=== PATIENT | male | born 1940 | race Caucasian/White ===

== ENCOUNTER 2021-02-18 14:14 | Inpatient (IN) ==
[2021-02-18] MEDS ORDERED: IOPAMIDOL 100 ML BOTTLE IV ONE (14:15)
[2021-02-18] MEDS ORDERED: HYDROmorphone 0.5 MG/0.5 ML SYRINGE IV PRN (15:26)
[2021-02-18] MEDS ORDERED: 0.9 % SODIUM CHLORIDE 1,000 ML IV ONE ×2 (15:26→17:30)
[2021-02-18 15:54] LABS: POC Creatinine 1.5 mg/dL (0.6-1.2)
--- NOTE | 2021-02-18 17:00 | Cat Scan Report ---
CLINICAL INFORMATION: Abdominal pain and distention COMPARISON: None TECHNIQUE: Following enteric contrast, 80 cc of Isovue-[id number] were injected intravenously, and 60 seconds later, 0.625 mm helical slices were obtained from the mid heart through the subtrochanteric regions. Following reconstruction, 2.5 mm sagittal, coronal and axial reformatted images were processed and reviewed at bone, lung and soft tissue windows. Five minutes later, 0.625 mm helical slices were obtained from the mid heart through the kidneys and viewed at soft tissue windows.The exam was performed using radiation dose optimization techniques including, but not limited to, automated exposure control, adjustment of the mA and/or kV according to patient size and use of iterative reconstruction technique. FINDINGS: Lung bases show multiple small bullae distributed throughout the inferior lower lobes, lingula and right middle lobes suggesting centrilobular emphysema. Please correlate clinical history. No infiltrates or effusions. Small hiatal hernia noted. The heart is mildly enlarged. Abdominal images show minimal fatty change within the liver. A 13 mm simple cyst is seen in the medial segment of the left hepatic lobe. The gallbladder and bile ducts are normal: CBD is 5 mm. Few simple cysts noted in both kidneys, but no significant renal abnormality. The right adrenal gland, spleen, pancreas are normal in size configuration and attenuation without focal lesion. A 9 mm adenoma seen in the left adrenal gland. Aorta is normal diameter with scattered fibrofatty calcific plaque. Retroaortic left renal vein noted. Pelvic images show the prostate is mildly enlarged. The urinary bladder is normal. The seminal vesicles are unremarkable. The stomach, duodenum and and jejunum are moderately dilated to the right mid abdomen. Strictures or adhesions result in high-grade small bowel obstruction. The ileum and colon are decompressed. Small amount of free fluid suggest early third spacing. There is no free air suggests perforation. 8 cm right inguinal hernia contains only mesenteric fat and small fluid. Bone windows show no osseous abnormalities IMPRESSION: 1. High-grade partial small bowel obstruction of the distal jejunum in the right mid abdomen due to adhesions or stricture. Small amount of fluid in the mesenteric cavity suggest early third spacing. 2. Moderate right inguinal hernia containing mesenteric fat and edema no bowel. 3. Suspect centrilobular emphysema - there are multiple bullae uniformly distributed in the inferior lower lobes lingula and right middle lobe 4. 9 mm benign adenoma left adrenal gland 5. Multiple hiatal hernia. Interpreted and Authenticated by: Walter Moreno 02/18/21
[2021-02-18 17:06] LABS: Hematocrit 48.4 % (41.0-55.0); Hemoglobin 15.7 g/dL (13.5-16.5); Mean Cell Volume 91.8 fL (80.0-100.0); Mean Corpuscular HGB Conc 32.4 g/dL (31.0-36.0); Mean Platelet Volume 9.6 fL (7.4-10.4); Platelet Count 274 K/mcL (140-440); RBC 5.27 M/mcL (4.50-5.90); Red Cell Distribution Width 13.3 % (11.5-14.5); WBC 13.2 K/mcL (4.5-11.0)
[2021-02-18 17:21] LABS: ALT/SGPT 10 U/L (<40); AST/SGOT 13 U/L (<40); Albumin 4.5 gm/dL (3.2-5.2); Albumin/Globulin Ratio 1.7 (1.0-2.3); Alkaline Phosphatase 57 U/L (39-117); Bilirubin,Total 0.7 mg/dL (0.1-1.0); Blood Urea Nitrogen 13 mg/dL (8-23); Calcium 10.1 mg/dL (8.6-10.4); Carbon Dioxide 28 mmol/L (22-30); Chloride 99 mmol/L (96-108); Globulin 2.6 gm/dL (2.2-3.7); Glomerular Filtration Rate 57; Glucose 93 mg/dL (70-105)
--- NOTE | 2021-02-18 17:29 | Emergency Department Note ---
Abdominal Pain HPI General Chief Complaint: Abdominal Pain Stated Complaint: abdominal pain Time Seen by Provider: 02/18/21 15:23 Source: patient Mode of arrival: ambulatory Limitations: no limitations History of Present Illness HPI Narrative: This is a 80-year-old male patient who presents with acute abdominal pain and several episodes of nausea and vomiting that started yesterday. He denies hematemesis. He is not passing flatus and it is been since yesterday morning since he had a bowel movement. He feels very full in his abdomen. Previous abdominal surgeries include an open appendectomy in the remote past. He does not endorse a history of a right inguinal hernia. This is typically reducible. He wears a brace to support the area. He states he reduced it yesterday and it has remained reduced. He denies increasing pain or swelling with this area. He denies fever/chills/sweats. Up until yesterday morning bowel movements have been daily and well formed. Related Data Previous Rx's Medication Instructions Recorded lisinopril 10 1 tab PO QDAY #90 tab 01/08/21 mg-hydrochlorothiazide 12.5 mg tablet Allergies Allergy/AdvReac Type Severity Reaction Status Date / Time Penicillins Allergy Unknown "can not Verified 02/18/21 14:17 recall reaction, think it was pretty bad" Sulfa (Sulfonamide Allergy Unknown Unknown Verified 02/18/21 14:17 Antibiotics) Review of Systems ROS ROS Narrative: Narrative: All systems ED: reviewed and negative except as stated. 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) Hernia (Chronic ~1998) Stroke (Chronic ~2011) High blood pressure (Chronic) Medical History (Updated 02/18/21 @ 17:47 by Niki Chen PA-C) 23-polyvalent pneumococcal polysaccharide vaccine declined Hernia (~1998) High blood pressure Influenza vaccine refused Medicare annual wellness visit, initial 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 Stroke (~2011) Unilateral inguinal hernia without obstruction or gangrene Surgical History History of appendectomy (~1962) "about when I was [age] years old" Family History Other No pertinent family history Social History Smoking Status: Former smoker Alcohol Intake Frequency: does not drink Substance Use: does not use Exam Narrative Narrative: General: AOx3, NAD, nontoxic appearing. Pleasant and conversant. HEENT: PERRLA, EOMI, normocephalic. Dry mucous membranes. Normal facies and normal dentition. Respiratory: Lungs clear to auscultation bilaterally. No respiratory distress. Unlabored breathing. Heart: Regular rate and rhythm, no murmurs/clicks/rubs. Abdomen: Distended with mild pain to palpation over the mid abdomen. Absent bowel tones. No organomegaly. Extremities: Warm and well perfused. No edema. DP 2+ bilaterally. No venous stasis. Neuro: No focal deficits. Cranial nerves II-XII normal. Skin: Warm dry, no rashes or lesions, no cyanosis. Psych: Normal mood and affect Heme/Lymph: No bruising General Limitations: no limitations Course Course Course Narrative: 72-year-old male presents with acute abdominal pain and nausea and vomiting Reevaluation(s) Reevaluation #1: Basic labs, IV fluids, analgesics and antiemetics UA CT of the abdomen pelvis with contrast to query SBO Reevaluation #2: CMP shows a mild MARCE with creatinine 1.5. CBC with leukocytosis and white blood cell count of 13,200. CT scan shows a high-grade partial small bowel obstruction noted at the distal jejunum. Dr. Rodriguez has been contacted and has agreed to see the patient for consult. He is asked me to place an NG tube and continue IV fluids. Hospitalist will manage the patient and I spoken with Dr. Gonzalez who has accepted patient for admission. Vital Signs Vital signs: Vital Signs Temperature 98.5 F 02/18/21 14:14 Pulse Rate 106 H 02/18/21 14:14 Respiratory Rate 18 02/18/21 14:14 Blood Pressure 99/62 02/18/21 14:14 Pulse Oximetry (%) 95 02/18/21 14:14 Temperature 98.5 F 02/18/21 14:14 Pulse Rate 69 02/18/21 17:30 Respiratory Rate 18 02/18/21 14:14 Blood Pressure 125/80 02/18/21 17:30 Pulse Oximetry (%) 96 02/18/21 17:30 MDM MDM Narrative Medical decision making narrative: Small bowel obstruction History of right inguinal hernia, no incarceration noted on CT scan today MARCE Patient is been signed out to Dr. Gonzalez, hospitalist for admission. Dr. Rodriguez has been informed to the patient and will see him in consultation. In the meantime he is receiving a second liter of IV fluids and an NG tube is been placed per general surgery request. Lab Data Result diagrams: 02/18/21 15:43 02/18/21 15:43 Labs: Lab Results 02/18/21 02/18/21 02/18/21 Range/Units 15:43 15:43 15:43 WBC 13.2 H (4.5-11.0) K/mcL RBC 5.27 (4.50-5.90) M/mcL Hgb 15.7 (13.5-16.5) g/dL Hct 48.4 (41.0-55.0) % MCV 91.8 (80.0-100.0) fL MCH 29.8 (26.0-34.0) pg MCHC 32.4 (31.0-36.0) g/dL RDW 13.3 (11.5-14.5) % Plt Count 274 (140-440) K/mcL MPV 9.6 (7.4-10.4) fL VBG Lactic Acid 0.9 (0.5-2.0) mmol/L Sodium 139 (133-145) mmol/L Potassium 4.1 (3.3-5.1) mmol/L Chloride 99 (96-108) mmol/L Carbon Dioxide 28 (22-30) mmol/L Anion Gap 12.0 (8.0-16.0) BUN 13 (8-23) mg/dL Creatinine 1.2 (0.7-1.2) mg/dL POC Creatinine 1.5 H (0.6-1.2) mg/dL GFR Calculation 57 Glucose 93 (70-105) mg/dL Calcium 10.1 (8.6-10.4) mg/dL Total Bilirubin 0.7 (0.1-1.0) mg/dL AST 13 (<40) U/L ALT 10 (<40) U/L Alkaline Phosphatase 57 (39-117) U/L Total Protein 7.1 (5.9-8.4) gm/dL Albumin 4.5 (3.2-5.2) gm/dL Globulin 2.6 (2.2-3.7) gm/dL Albumin/Globulin Ratio 1.7 (1.0-2.3) Discharge Plan Patient/Caregiver Discharge Instructions Pt seen by DIRECT SERVICE PROVIDER/PA only: Yes Clinical Impression: SBO (small bowel obstruction), MARCE (acute kidney injury) Patient Disposition: Xfer As Inpt ([facility]) Follow up with: Moy Luz PA-C [Primary Care Provider] - Prescriptions: No Action lisinopril-hydrochlorothiazide 10-12.5 mg tablet 1 tab PO QDAY Qty: 90 RF: 3
[2021-02-18 17:53] LABS: Eosinophils % (Manual) 2 % (0-7); Lymphocytes % 6 % (15-49); Monocytes % (Manual) 7 % (1-12); Platelet Estimate NORMAL (Normal); RBC Morphology NORMAL (Normal); Segmented Neutrophils % 85 % (38-78)
--- NOTE | 2021-02-18 17:54 | Internal Med History&Physical ---
HPI History of Present Illness Patient information: Note initiated : 02/18/21 at 5:49 pm Service Date, if different from initiated Date: [] Patient: Tommy Márquez 80 y/o M admitted on for abdominal pain. Chief Complaint: [] History of present illness: Mr. Márquez is a 80 year old male with a history of hypertension who presented to the emergency department for nausea, vomiting, abdominal pain presented to the [facility] emergency department where he was found to have a high-grade partial small bowel obstruction in the distal jejunum the right midabdomen due to adhesions or stricture. Patient was admitted for management. An NG tube was placed and the patient was started on IV fluids. Review of systems Constitutional: no fever, fatigue, or weight loss Eyes: no vision changes or pain Cardiovascular: no chest pain, no palpitations Respiratory: no cough or dyspnea Gastrointestinal: no abdominal pain, no nausea, vomiting, or diarrhea Genitourinary: no dysuria or difficulty voiding Musculoskeletal: no arthralgia or myalgia Integumentary: no skin lesion or wound Neurological: no focal weakness or numbness Psychiatric: no anxiety or depression Physical exam Head: Atraumatic, normal inspection. Eyes: normal appearance, no scleral icterus. Neck: full ROM Respiratory: no respiratory distress. Cardiovascular: normal rate and rhythm, S1, S2. GI/Abdominal: soft, nontender, no guarding. Extremities: full range of motion, nontender. Neurological: CN II-XII intact, intact motor, intact sensation. Psychiatric: normal mood. 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) Hernia (Chronic ~1998) Stroke (Chronic ~2011) High blood pressure (Chronic) Medical History (Updated 02/18/21 @ 20:24 by Anita Rodriguez MD) 23-polyvalent pneumococcal polysaccharide vaccine declined Hernia (~1998) High blood pressure Influenza vaccine refused Medicare annual wellness visit, initial 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 Stroke (~2011) Unilateral inguinal hernia without obstruction or gangrene Surgical History History of appendectomy (~1962) "about when I was [age] years old" Family History Other No pertinent family history Social History marital status: alcohol intake frequency: does not drink substance use type: does not use MEDS/ALLERGIES Home Medications and Allergies Home Medications Medication Instructions Recorded Confirmed Type lisinopril 10 1 tab PO QDAY #90 tab 01/08/21 02/18/21 Rx mg-hydrochlorothiazide 12.5 mg tablet Allergies Allergy/AdvReac Type Severity Reaction Status Date / Time Penicillins Allergy Unknown "can not Verified 02/18/21 14:17 recall reaction, think it was pretty bad" Sulfa (Sulfonamide Allergy Unknown Unknown Verified 02/18/21 14:17 Antibiotics) EXAM Constitutional Vitals: Temp Pulse Resp BP Pulse Ox 98.5 F 69 18 125/80 96 02/18/21 14:14 02/18/21 17:30 02/18/21 14:14 02/18/21 17:30 02/18/21 17:30 DATA Data Completed and Pending Labs: Labs from last 24 hours 02/18/21 02/18/21 02/18/21 15:43 15:43 15:43 WBC 13.2 H RBC 5.27 Hgb 15.7 Hct 48.4 MCV 91.8 MCH 29.8 MCHC 32.4 RDW 13.3 Plt Count 274 MPV 9.6 Platelet Estimate Pending RBC Morphology Pending VBG Lactic Acid 0.9 Sodium 139 Potassium 4.1 Chloride 99 Carbon Dioxide 28 Anion Gap 12.0 BUN 13 Creatinine 1.2 POC Creatinine 1.5 H GFR Calculation 57 Glucose 93 Calcium 10.1 Total Bilirubin 0.7 AST 13 ALT 10 Alkaline Phosphatase 57 Total Protein 7.1 Albumin 4.5 Globulin 2.6 Albumin/Globulin Ratio 1.7 A/P Narrative A/P Narrative: Assessment: 70-year-old male with a history of hypertension admitted for a small bowel obstruction. #Partial small bowel obstruction #Essential hypertension #Right inguinal hernia Plan -IV fluids. -Analgesics as needed. -Hold home lisinopril and hydrochlorothiazide -Serial abdominal exams. -Clear liquids for now. -If patient worsens place NG tube then NPO for bowel rest. -DVT PPx: Lovenox SQ -CODE STATUS: Full -Disposition: Probably home Time Spent With Patient Time: Total time spent is greater than 50% in coordination of care (as documented) at patient's floor/unit and/or counseling patient:
[2021-02-18] MEDS ORDERED: LIDOCAINE JEL 2% 1 TUBE 5ML TOPICAL ONE (18:22)
--- NOTE | 2021-02-18 20:14 | General Surgery Progress Note ---
SUBJECTIVE Subjective Patient information: Note initiated : 02/18/21 at 8:09 pm Service Date, if different from initiated Date: [] Patient: Tommy Márquez 80 y/o M admitted on 02/18/21 for abdominal pain. Chief Complaint: [] Principal diagnosis: Partial intestinal obstruction Interval history: 80-year-old male who was seen stable condition until about 330 this morning when he was awakened with severe crampy abdominal pain. This was followed by abdominal distention with nausea and vomiting. He has not had similar episodes in the past. The pain became progressively worse and he was finally seen in the emergency room. When seen in the emergency room he was complaining of severe pain. He had 1 episode of vomiting in the emergency room. He states that he had a normal bowel movement and had regular flatus last ev ening. He also states that he had passage of flatus and a small bowel movement just before he was admitted to the floor. He states that he feels better at this time. CT of the abdomen shows significant dilation of small bowel but there is also gas in the right colon and some gas and stool in the distal colon. His only prior abdominal operative procedure was appendectomy about 50 years ago. He has not had any crampy pain or had any problems with bowel movement since that time. Constitutional Vitals: Vital Signs Temp Pulse Resp BP Pulse Ox 98.5 F 77 18 123/85 96 02/18/21 14:14 02/18/21 19:23 02/18/21 14:14 02/18/21 19:00 02/18/21 19:23 Period Temp Pulse Resp BP Sys/Beckford Pulse Ox Last 24 Hr 98.5 F 65-106 18 99-138/62-85 95-98 Intake and Output 02/18/21 02/18/21 02/18/21 05:59 13:59 21:59 Intake Total 1999 Balance 1999 Weight 152 lb Patient Weight 02/19/21 05:59 Weight 152 lb Intake & Output: Intake & Output 02/18/21 02/18/21 02/18/21 05:59 13:59 21:59 Intake Total 1999 Balance 1999 Weight 152 lb Intake: IV 1999 Sodium Chloride 0.9% 1,000 ml @ 2000 Wide Open IV BOLUS ONE Rx#: [id number] A/P Time Spent With Patient Time: Total time spent is greater than 50% in coordination of care (as documented) at patient's floor/unit and/or counseling patient:
[2021-02-18] MEDS ORDERED: 0.9 % SODIUM CHLORIDE 1,000 ML IV SCH (20:24)
--- NOTE | 2021-02-18 20:25 | General Surg History&Physical ---
HPI History of Present Illness Patient information: Note initiated : 02/18/21 at 8:17 pm Service Date, if different from initiated Date: [] Patient: Tommy Márquez 80 y/o M admitted on 02/18/21 for abdominal pain. Chief Complaint: [] Chief complaint: Acute abdominal pain with nausea and vomiting History of present illness: Mr. Márquez is a 80 year old M admitted with partial intestinal obstruction. He was stable until about 0 330 this morning when he was awakened with severe crampy abdominal pain. This was followed by abdominal distention with nausea and vomiting. He has not had similar episodes in the past. The pain became progressively worse and he was finally brought to the emergency room for evaluation. When seen in the emergency room he was complaining of severe pain and had one episode of vomiting. He states that he had a normal bowel movement and had regular flatus last evening before going to bed. He also states that he had passage of flatus and a small bowel movement just before he was admitted to the sr. At this time he feels better. CT of the abdomen and pelvis shows significant dilation of small bowel but there is also gas in the right colon and some gas and stool in the distal colon. His only prior intra-abdominal operative procedure was an appendectomy about 50 years ago. He has not had any crampy pain or any problems with bowel movements since that time. He does have a right inguinal hernia which only contains fat and is reducible. Patient is felt to have a partial intestinal obstruction and will be monitored and treated accordingly. Review of Systems All systems: reviewed and no additional remarkable complaints except as stated Constitutional Constitutional: Absent anorexia, fatigue, lethargy and weight loss Gastrointestinal Gastrointestinal: Present abdominal pain, bloating, change in bowel habits, cramping, nausea and vomiting PFSH PFSH All Active Problems (Updated 02/18/21 @ 20:24 by Anita Rodriguez MD) Partial intestinal obstruction (Acute) SBO (small bowel obstruction) (Acute) MARCE (acute kidney injury) (Acute) Medicare annual wellness visit, initial (Acute) 23-polyvalent pneumococcal polysaccharide vaccine declined (Chronic) Influenza vaccine refused (Chronic) Unilateral inguinal hernia without obstruction or gangrene (Chronic) 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) Hernia (Chronic ~1998) Stroke (Chronic ~2011) High blood pressure (Chronic) Medical History (Updated 02/18/21 @ 20:24 by Anita Rodriguez MD) 23-polyvalent pneumococcal polysaccharide vaccine declined Hernia (~1998) High blood pressure Influenza vaccine refused Medicare annual wellness visit, initial 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 Stroke (~2011) Unilateral inguinal hernia without obstruction or gangrene Surgical History History of appendectomy (~1962) "about when I was [age] years old" Family History Other No pertinent family history Social History marital status: alcohol intake frequency: does not drink substance use type: does not use MEDS/ALLERGIES Home Medications and Allergies Home Medications Medication Instructions Recorded Confirmed Type lisinopril 10 1 tab PO QDAY #90 tab 01/08/21 02/18/21 Rx mg-hydrochlorothiazide 12.5 mg tablet Allergies Allergy/AdvReac Type Severity Reaction Status Date / Time Penicillins Allergy Unknown "can not Verified 02/18/21 14:17 recall reaction, think it was pretty bad" Sulfa (Sulfonamide Allergy Unknown Unknown Verified 02/18/21 14:17 Antibiotics) Physical Examination Vital Signs Vital signs: Temp Pulse Resp BP Pulse Ox 98.5 F 77 18 123/85 96 02/18/21 14:14 02/18/21 19:23 02/18/21 14:14 02/18/21 19:00 02/18/21 19:23 General physical appearance General physical exam: no distress and no pain Eyes Eye exam: PERRL and normal ocular movement ENT ENT exam: normal nares, normal mucosa, no hearing loss and other (Edentulous); negative decreased hearing Head Head exam IM: Present atraumatic, normal inspection and normocephalic Neck Neck exam: no masses, no bruits, trachea midline, no lymphadenopathy and no venous distension Cardiovascular Cardiovascular exam IM: Present normal rate and rhythm, RRR, +S1 and +S2; Absent gallop, JVD and tachycardia Respiratory Respiratory exam: normal expansion, normal respiratory effort and clear to aus cultation Abdomen Abdomen: Present soft, non tender, tender (No tenderness noted) and distended (Mild distention but pliable) Hernia: Present inguinal (Right inguinal hernia) Integumentary Integumentary: Present no rash, no growths and no abnormal pigmentation Neurologic Neurologic: Present normal coordination and normal sensation; Absent memory loss Musculoskeletal Musculoskeletal: Present normal gait and normal posture Psychiatric Psychiatric: Present oriented to time, oriented to person, oriented to place, speech is normal and memory intact Results Labs Result diagrams: 02/18/21 15:43 02/18/21 15:43 Labs: Abnormal lab results 02/18/21 02/18/21 Range/Units 15:43 15:43 WBC 13.2 H (4.5-11.0) K/mcL Seg Neutrophils % 85 H (38-78) % Lymphocytes % 6 L (15-49) % POC Creatinine 1.5 H (0.6-1.2) mg/dL Diabetes panel 02/18/21 Range/Units 15:43 Sodium 139 (133-145) mmol/L Potassium 4.1 (3.3-5.1) mmol/L Chloride 99 (96-108) mmol/L Carbon Dioxide 28 (22-30) mmol/L BUN 13 (8-23) mg/dL Creatinine 1.2 (0.7-1.2) mg/dL Glucose 93 (70-105) mg/dL Calcium 10.1 (8.6-10.4) mg/dL AST 13 (<40) U/L ALT 10 (<40) U/L Alkaline Phosphatase 57 (39-117) U/L Total Protein 7.1 (5.9-8.4) gm/dL Albumin 4.5 (3.2-5.2) gm/dL Calcium panel 02/18/21 Range/Units 15:43 Calcium 10.1 (8.6-10.4) mg/dL Albumin 4.5 (3.2-5.2) gm/dL Pituitary panel 02/18/21 Range/Units 15:43 Sodium 139 (133-145) mmol/L Potassium 4.1 (3.3-5.1) mmol/L Chloride 99 (96-108) mmol/L Carbon Dioxide 28 (22-30) mmol/L BUN 13 (8-23) mg/dL Creatinine 1.2 (0.7-1.2) mg/dL Glucose 93 (70-105) mg/dL Calcium 10.1 (8.6-10.4) mg/dL Adrenal panel 02/18/21 Range/Units 15:43 Sodium 139 (133-145) mmol/L Potassium 4.1 (3.3-5.1) mmol/L Chloride 99 (96-108) mmol/L Carbon Dioxide 28 (22-30) mmol/L BUN 13 (8-23) mg/dL Creatinine 1.2 (0.7-1.2) mg/dL Glucose 93 (70-105) mg/dL Calcium 10.1 (8.6-10.4) mg/dL Total Bilirubin 0.7 (0.1-1.0) mg/dL AST 13 (<40) U/L ALT 10 (<40) U/L Alkaline Phosphatase 57 (39-117) U/L Total Protein 7.1 (5.9-8.4) gm/dL Albumin 4.5 (3.2-5.2) gm/dL All other labs normal. A/P Assessment and plan (1) Partial intestinal obstruction: Status: Acute Qualifiers: Intestinal obstruction type: other intestinal obstruction Qualified Code(s): K56.690 - Other partial intestinal obstruction (2) Unilateral inguinal hernia without obstruction or gangrene: Status: Chronic Qualifiers: Recurrence: not specified as recurrent Qualified Code(s): K40.90 - Unilateral inguinal hernia, without obstruction or gangrene, not specified as recurrent (3) High blood pressure: Status: Chronic Qualifiers: Hypertension type: essential hypertension Qualified Code(s): I10 - Essential (primary) hypertension; I10 - Essential (primary) hypertension; I10 - Essential (primary) hypertension Narrative A/P Narrative: Patient will be treated with IV Reglan Follow-up abdominal x-rays in the morning If patient has passage of more stool and gas tonight a small bowel follow- through will be ordered If he develops more nausea and vomiting nasogastric tube will be inserted Time Spent With Patient Time: Total time spent is greater than 50% in coordination of care (as documented) at patient's floor/unit and/or counseling patient:
[2021-02-18 20:29] LABS: INR 0.9 (0.9-1.1); Prothrombin Time 12.9 sec (11.9-14.5)
[2021-02-18] MEDS: 0.9 % SODIUM CHLORIDE 1,000 ML IV SCH (21:25)
[2021-02-18] MEDS: ACETAMINOPHEN 1,000 MG/100 ML BAG IV SCH (21:25)
[2021-02-18] MEDS: 0.9 % SODIUM CHLORIDE 10 ML SYRINGE IV SCH (21:26)
[2021-02-19] MEDS: METOCLOPRAMIDE 10 MG/2 ML VIAL IV SCH ×4 (00:25→17:17)
--- NOTE | 2021-02-19 01:45 | XRay Report ---
CLINICAL INFORMATION: Preop COMPARISON: None. TECHNIQUE: PA and Lateral views FINDINGS: The heart size, mediastinum and pulmonary vessels are unremarkable. The lungs are clear. There are no effusions. The bones and soft tissues are within normal limits. IMPRESSION: Normal chest. Interpreted and Authenticated by: Walter Moreno 02/19/21
[2021-02-19] MEDS: ACETAMINOPHEN 1,000 MG/100 ML BAG IV SCH ×3 (02:00→13:20)
[2021-02-19] MEDS: 0.9 % SODIUM CHLORIDE 1,000 ML IV SCH ×5 (04:00→22:13)
[2021-02-19] MEDS: 0.9 % SODIUM CHLORIDE 10 ML SYRINGE IV SCH ×3 (04:31→22:15)
[2021-02-19 06:25] LABS: Hematocrit 43.5 % (41.0-55.0); Hemoglobin 13.8 g/dL (13.5-16.5); Mean Cell Volume 95.2 fL (80.0-100.0); Mean Corpuscular HGB Conc 31.7 g/dL (31.0-36.0); Mean Platelet Volume 9.2 fL (7.4-10.4); Platelet Count 228 K/mcL (140-440); RBC 4.57 M/mcL (4.50-5.90); Red Cell Distribution Width 13.5 % (11.5-14.5); WBC 7.3 K/mcL (4.5-11.0)
[2021-02-19 06:53] LABS: ALT/SGPT 7 U/L (<40); AST/SGOT 10 U/L (<40); Albumin 3.4 gm/dL (3.2-5.2); Albumin/Globulin Ratio 1.8 (1.0-2.3); Alkaline Phosphatase 43 U/L (39-117); Bilirubin,Direct < 0.2 mg/dL (0-0.3); Bilirubin,Total 0.6 mg/dL (0.1-1.0); Blood Urea Nitrogen 13 mg/dL (8-23); Calcium 8.1 mg/dL (8.6-10.4); Carbon Dioxide 25 mmol/L (22-30); Chloride 108 mmol/L (96-108); Globulin 1.9 gm/dL (2.2-3.7); Glomerular Filtration Rate 72; Glucose 87 mg/dL (70-105); Lactate Dehydrogenase 200 U/L (135-225); Triglycerides 59 mg/dL (<150); Uric Acid 5.4 mg/dL (2.5-8.0)
[2021-02-19 07:52] LABS: Band Neutrophils % 1 % (0-10); Basophils % (Manual) 1 % (0-2); Burr Cells 1+ (None Seen); Eosinophils % (Manual) 3 % (0-7); Lymphocytes % 24 % (15-49); Monocytes % (Manual) 3 % (1-12); Platelet Estimate NORMAL (Normal); RBC Morphology ABNORMAL (Normal); Segmented Neutrophils % 68 % (38-78)
--- NOTE | 2021-02-19 08:55 | XRay Report ---
CLINICAL INFORMATION: Follow-up of small bowel obstruction COMPARISON: Abdomen and pelvic CT 02/18/2021 FINDINGS: There are scattered air-fluid levels within nondilated colon and small bowel. No evidence of distal small bowel obstruction pattern. No free air, soft tissue mass or organomegaly. IMPRESSION: Mild ileus. No plain film evidence of small bowel obstruction. Interpreted and Authenticated by: Walter Moreno 02/19/21
[2021-02-19] MEDS ORDERED: ENOXAPARIN 40 MG/0.4 ML SYRINGE SQ SCH (09:00)
--- NOTE | 2021-02-19 12:02 | Internal Med Progress Note ---
SUBJECTIVE Subjective Patient information: Note initiated : 02/19/21 at 11:59 am Service Date, if different from initiated Date: [] Patient: Tommy Márquez 80 y/o M admitted on 02/18/21 for abdominal pain. Chief Complaint: [] Interval history: Mr. Márquez is a 80 year old male with a history of hypertension who presented to the emergency department for nausea, vomiting, abdominal pain presented to the [facility] emergency department where he was found to have a high-grade partial small bowel obstruction in the distal jejunum the right midabdomen due to adhesions or stricture. Patient was admitted for management. An NG tube was placed and the patient was started on IV fluids. Review of systems: denies abdominal pain, multiple bowel movements overnight Physical exam Head: Atraumatic, normal inspection. Eyes: normal appearance, no scleral icterus. Neck: full ROM Respiratory: no respiratory distress. Cardiovascular: normal rate and rhythm, S1, S2. GI/Abdominal: soft, nontender, no guarding. Extremities: full range of motion, nontender. Neurological: CN II-XII intact, intact motor, intact sensation. Psychiatric: normal mood. Skin: warm, normal color Constitutional Vitals: Vital Signs Temp Pulse Resp BP Pulse Ox 98.4 F 62 16 106/66 94 02/19/21 06:35 02/19/21 06:35 02/19/21 06:35 02/19/21 06:35 02/19/21 06:35 Period Temp Pulse Resp BP Sys/Beckford Pulse Ox Last 24 Hr 98.2 F-99.0 F 59-106 16-18 99-138/61-85 93-98 Intake and Output 02/18/21 02/19/21 02/19/21 21:59 05:59 13:59 Intake Total 1999 1200 Balance 1999 1200 Weight 68.719 kg Intake & Output: Intake & Output 02/18/21 02/19/21 02/19/21 21:59 05:59 13:59 Intake Total 1999 1200 Balance 1999 1200 Weight 68.719 kg Intake: IV 1999 1100 Sodium Chloride 0.9% 1,000 ml @ 2000 1000 125 mls/hr IV .Q8H [facility] Rx#: [id number] Oral 100 Other: Stool Size Moderate Moderate Stool Color Brown Brown Stool Consistency Soft Formed Formed Liquid Liquid # Voids 1 1 # Bowel Movements 1 1 OBJ DATA Labs CBC & Chem 7: 02/19/21 05:02 02/19/21 05:02 Labs: Abnormal Lab Results 02/19/21 02/19/21 02/18/21 05:02 05:02 15:43 WBC Seg Neutrophils % Lymphocytes % RBC Morphology Abnormal A Claude Cells 1+ A Anion Gap 7.0 L POC Creatinine 1.5 H Calcium 8.1 L Total Protein 5.3 L Globulin 1.9 L 02/18/21 15:43 WBC 13.2 H Seg Neutrophils % 85 H Lymphocytes % 6 L RBC Morphology Claude Cells Anion Gap POC Creatinine Calcium Total Protein Globulin Meds: Medications Enoxaparin Sodium (Enoxaparin 40 Mg/0.4 Ml Syringe) 40 mg SQ DAILY [facility] Last Admin: 02/19/21 07:37 Dose: Not Given Documented by: Hydromorphone HCl (Hydromorphone 0.5 Mg/0.5 Ml Syringe) 0.5 mg IV Q2HP PRN; Protocol PRN Reason: Per Pain Protocol Sodium Chloride (Sodium Chloride 0.9%) 1,000 mls @ 125 mls/hr IV .Q8H [facility] Last Admin: 02/19/21 11:47 Dose: Not Given Documented by: Acetaminophen (Ofirmev) 1,000 mg in 100 mls @ 200 mls/hr IV Q6H [facility] Stop: 02/19/21 19:51 Last Admin: 02/19/21 07:37 Dose: Not Given Documented by: Metoclopramide HCl (Metoclopramide 10 Mg/2 Ml Vial) 10 mg IV Q6 [facility] Last Admin: 02/19/21 11:47 Dose: 10 mg Documented by: Ondansetron HCl (Ondansetron 4 Mg/2 Ml Vial) 4 mg IV Q6HP PRN PRN Reason: Nausea And Vomiting Sodium Chloride (0.9 % Sodium Chloride 10 Ml Syringe) 10 ml IV Q8 [facility] Last Admin: 02/19/21 04:31 Dose: Not Given Documented by: A/P Narrative A/P Narrative: Assessment: 70-year-old male with a history of hypertension admitted for a small bowel obstruction. #Partial small bowel obstruction, resolving #Essential hypertension #Right inguinal hernia Plan -IV fluids. -Analgesics as needed. -Hold home lisinopril and hydrochlorothiazide -Serial abdominal exams. -Likely advance diet soon. -General surgery following -DVT PPx: Lovenox SQ -CODE STATUS: Full -Disposition: Probably home Time Spent With Patient Time: Total time spent is greater than 50% in coordination of care (as documented) at patient's floor/unit and/or counseling patient: QUALITY Stroke Symptom Onset Unknown: No VTE Deep Vein Thrombosis/Pulmonary Embolism Present on Admission: No
--- NOTE | 2021-02-19 13:04 | General Surgery Progress Note ---
SUBJECTIVE Subjective Patient information: Note initiated : 02/19/21 at 12:59 pm Service Date, if different from initiated Date: [] Patient: Tommy Márquez 80 y/o M admitted on 02/18/21 for abdominal pain. Chief Complaint: [] Principal diagnosis: Partial small bowel obstruction Interval history: Patient has gradually improved during the night. 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 His abdominal pain has resolved. Abdominal x-ray shows more gas in his colon but still residual gas and fluid in the small bowel. He is presently undergoing a small bowel follow-through which I will check in the next few hours. We probably will be able to feed him if the contrast flows through without documented evidence of stricture. CBC and BMP values are unremarkable Constitutional Vitals: Vital Signs Temp Pulse Resp BP Pulse Ox 98.4 F 62 16 106/66 94 02/19/21 06:35 02/19/21 06:35 02/19/21 06:35 02/19/21 06:35 02/19/21 06:35 Period Temp Pulse Resp BP Sys/Beckford Pulse Ox Last 24 Hr 98.2 F-99.0 F 59-106 16-18 99-138/61-85 93-98 Intake and Output 02/18/21 02/19/21 02/19/21 21:59 05:59 13:59 Intake Total 1999 1199 Balance 1999 1200 Weight 151 lb 8 oz Intake & Output: Intake & Output 02/18/21 02/19/21 02/19/21 21:59 05:59 13:59 Intake Total 1999 1200 Balance 1999 1200 Weight 151 lb 8 oz Intake: IV 2000 1100 Sodium Chloride 0.9% 1,000 ml @ 2000 1000 125 mls/hr IV .Q8H [facility] Rx#: [id number] Oral 100 Other: Stool Size Moderate Moderate Stool Color Brown Brown Stool Consistency Soft Formed Formed Liquid Liquid # Voids 1 1 # Bowel Movements 1 1 Head Head exam: Present atraumatic, normal inspection and normocephalic Eye Eye exam: Present EOMI Pupils: Present normal accommodation and PERRL ENT ENT exam: Present mucous membranes moist and normal exam Neck Neck exam: Present full ROM and normal inspection Respiratory Respiratory exam: Present normal respiratory exam and CTAB; Absent rales and rhonchi Cardiovascular Cardiovascular exam: Present normal rate and rhythm, RRR, +S1 and +S2; Absent JVD GI/Abdominal GI/Abdominal exam: Present normal bowel sounds, soft and distended (Mild diffuse distention); Absent tenderness Extremities Exam Extremities exam: Present full ROM, normal inspection and neurovascular intact; Absent pedal edema and tenderness Neurological Exam Neurological exam: Present alert, normal gait and oriented X3; Absent motor sensory deficit Psychiatric Psychiatric exam: Present normal affect and normal mood Skin Skin exam: Present intact and warm A/P Assessment and plan (1) Partial intestinal obstruction: Status: Acute Qualifiers: Intestinal obstruction type: other intestinal obstruction Qualified Code(s): K56.690 - Other partial intestinal obstruction (2) Unilateral inguinal hernia without obstruction or gangrene: Status: Chronic Qualifiers: Recurrence: not specified as recurrent Qualified Code(s): K40.90 - Unilateral inguinal hernia, without obstruction or gangrene, not specified as recurrent (3) High blood pressure: Status: Chronic Qualifiers: Hypertension type: essential hypertension Qualified Code(s): I10 - Essential (primary) hypertension; I10 - Essential (primary) hypertension; I10 - Essential (primary) hypertension Narrative A/P Narrative: Continue with small bowel follow-through We will advance diet as tolerated that study is normal May be able to discharge later today or tomorrow morning based on small bowel follow-through results Time Spent With Patient Time: Total time spent is greater than 50% in coordination of care (as documented) at patient's floor/unit and/or counseling patient:
--- NOTE | 2021-02-19 14:41 | XRay Report ---
CLINICAL INFORMATION: rule out obstruction COMPARISON: Abdomen and pelvic CTs 02/18/2021 TECHNIQUE: Following professor of literature image, enteric contrast was ingested and serial x-rays of the abdomen and pelvis were obtained over a 30 minute period FINDINGS: Stomach, small and large bowel are symmetrically dilated compatible with ileus. There is no evidence of small bowel obstruction. Small bowel transit time 30 minutes. IMPRESSION: No evidence of distal jejunal obstruction. Ileus pattern. Interpreted and Authenticated by: Walter Moreno 02/19/21
--- NOTE | 2021-02-19 14:43 | XRay Report ---
CLINICAL INFORMATION: rule out bowel obstruction COMPARISON: None. FINDINGS: Film taken two hours following commencement of small bowel follow-through study shows enteric distributed throughout the stomach, small large bowel which shows mild symmetric dilatation of bowel ileus. No evidence of bowel obstruction. IMPRESSION: Mild ileus. No evidence of bowel obstruction. Interpreted and Authenticated by: Walter Moreno 02/19/21
[2021-02-19] MEDS: HYDROmorphone 0.5 MG/0.5 ML SYRINGE IV PRN ×3 (17:17→22:58)
[2021-02-19] MEDS: ONDANSETRON 4 MG/2 ML VIAL IV PRN (19:50)
[2021-02-20] MEDS: ONDANSETRON 4 MG/2 ML VIAL IV PRN
[2021-02-20] MEDS: METOCLOPRAMIDE 10 MG/2 ML VIAL IV SCH ×4 (00:25→20:45)
[2021-02-20] MEDS: HYDROmorphone 0.5 MG/0.5 ML SYRINGE IV PRN ×4 (02:24→20:17)
[2021-02-20] MEDS: 0.9 % SODIUM CHLORIDE 10 ML SYRINGE IV SCH ×3 (04:05→21:26)
[2021-02-20] MEDS: 0.9 % SODIUM CHLORIDE 1,000 ML IV SCH ×5 (04:05→20:39)
--- NOTE | 2021-02-20 06:48 | XRay Report ---
CLINICAL INFORMATION: FOR F/U OF ILEUS COMPARISON: None. FINDINGS: Enteric contrast, from yesterday's small bowel follow-through study, is retained within the stomach small and large bowel show mild symmetric dilatation of bowel ileus. No change. No free air. IMPRESSION: Mild ileus pattern. Interpreted and Authenticated by: Walter Moreno 02/20/21
[2021-02-20 07:09] LABS: Hematocrit 48.7 % (41.0-55.0); Hemoglobin 15.6 g/dL (13.5-16.5); Mean Cell Volume 93.5 fL (80.0-100.0); Mean Platelet Volume 9.5 fL (7.4-10.4); Platelet Count 269 K/mcL (140-440); RBC 5.21 M/mcL (4.50-5.90); Red Cell Distribution Width 13.5 % (11.5-14.5); WBC 11.4 K/mcL (4.5-11.0)
--- NOTE | 2021-02-20 07:33 | Internal Med Progress Note ---
SUBJECTIVE Subjective Patient information: Note initiated : 02/20/21 at 7:29 am Service Date, if different from initiated Date: [] Patient: Tommy Márquez 80 y/o M admitted on 02/18/21 for abdominal pain. Chief Complaint: [] Principal diagnosis: Partial small bowel obstruction Interval history: Mr. Márquez is a 80 year old male with a history of hypertension, right inguinal hernia who presented to the emergency department for nausea, vomiting, abdominal pain presented to the [facility] emergency department where he was found to have a high-grade partial small bowel obstruction in the distal jejunum the right midabdomen due to adhesions or stricture. Patient was admitted for management. An NG tube was attempted but the patient did not tolerate placement. 02/19 Feels better today, abdominal xray showed mild ileus without evidence of bowel obstruction. 02/20 More bloated today, right inguinal hernia may be the cause of presentation. NPO, IV fluid, surgery will see later today. Review of systems: more bloated, increased abdominal distention. Physical exam Head: Atraumatic, normal inspection. Eyes: normal appearance, no scleral icterus. Neck: full ROM Respiratory: no respiratory distress. Cardiovascular: normal rate and rhythm, S1, S2. GI/Abdominal: distended, soft, mildly tender, no guarding. Extremities: full range of motion, nontender. Neurological: CN II-XII intact, intact motor, intact sensation. Psychiatric: normal mood. Skin: warm, normal color Constitutional Vitals: Vital Signs Temp Pulse Resp BP Pulse Ox 98.6 F 84 20 166/90 90 02/20/21 04:27 02/20/21 04:27 02/20/21 04:27 02/20/21 04:27 02/20/21 04:27 Period Temp Pulse Resp BP Sys/Beckford Pulse Ox Last 24 Hr 97.2 F-98.7 F 73-96 16-20 123-166/72-90 90-96 Intake and Output 02/19/21 02/20/21 02/20/21 21:59 05:59 13:59 Intake Total 300 1520 1000 Output Total 200 350 Balance 100 1170 1000 Weight 69.626 kg Intake & Output: Intake & Output 02/19/21 02/20/21 02/20/21 21:59 05:59 13:59 Intake Total 300 1520 1000 Output Total 200 350 Balance 100 1170 1000 Weight 69.626 kg Intake: IV 1000 1000 Sodium Chloride 0.9% 1,000 ml @ 1000 1000 125 mls/hr IV .Q8H [facility] Rx#: [id number] Oral 300 520 Output: Emesis 200 350 Other: Stool Size Moderate Stool Color Green Green Stool Consistency Liquid Liquid # Voids 1 # Bowel Movements 1 OBJ DATA Labs CBC & Chem 7: 02/20/21 05:13 02/19/21 05:02 Labs: Abnormal Lab Results 02/20/21 02/19/21 02/19/21 05:13 05:02 05:02 WBC 11.4 H Seg Neutrophils % Lymphocytes % RBC Morphology Abnormal A Claude Cells 1+ A Anion Gap 7.0 L POC Creatinine Calcium 8.1 L Total Protein 5.3 L Globulin 1.9 L 02/18/21 02/18/21 15:43 15:43 WBC 13.2 H Seg Neutrophils % 85 H Lymphocytes % 6 L RBC Morphology Camp Cells Anion Gap POC Creatinine 1.5 H Calcium Total Protein Globulin Meds: Medications Hydromorphone HCl (Hydromorphone 0.5 Mg/0.5 Ml Syringe) 0.5 mg IV Q2HP PRN; Protocol PRN Reason: Per Pain Protocol Last Admin: 02/20/21 04:43 Dose: 0.5 mg Documented by: Sodium Chloride (Sodium Chloride 0.9%) 1,000 mls @ 125 mls/hr IV .Q8H [facility] Last Admin: 02/20/21 06:19 Dose: 125 mls/hr Documented by: Metoclopramide HCl (Metoclopramide 10 Mg/2 Ml Vial) 10 mg IV Q6 [facility] Last Admin: 02/20/21 06:15 Dose: 10 mg Documented by: Ondansetron HCl (Ondansetron 4 Mg/2 Ml Vial) 4 mg IV Q6HP PRN PRN Reason: Nausea And Vomiting Last Admin: 02/20/21 00:00 Dose: 4 mg Documented by: Sodium Chloride (0.9 % Sodium Chloride 10 Ml Syringe) 10 ml IV Q8 [facility] Last Admin: 02/20/21 04:05 Dose: Not Given Documented by: A/P Narrative A/P Narrative: Assessment: 70-year-old male with a history of hypertension admitted for a small bowel obstruction. #Ileus vs partial SBO -possibly related to right inguinal hernia #Essential hypertension #Right inguinal hernia Plan -IV fluid, analgesics as needed. -Resume lisinopril, holding hydrochlorothiazide -Serial abdominal exams. -NPO except meds. -General surgery following. -DVT PPx: Lovenox SQ -CODE STATUS: Full -Disposition: Probably home after surgery. Time Spent With Patient Time: Total time spent is greater than 50% in coordination of care (as documented) at patient's floor/unit and/or counseling patient: QUALITY Stroke Symptom Onset Unknown: No VTE Deep Vein Thrombosis/Pulmonary Embolism Present on Admission: No
[2021-02-20 07:46] LABS: ALT/SGPT 7 U/L (<40); AST/SGOT 10 U/L (<40); Albumin 4.2 gm/dL (3.2-5.2); Albumin/Globulin Ratio 1.7 (1.0-2.3); Alkaline Phosphatase 52 U/L (39-117); Bilirubin,Direct < 0.2 mg/dL (0-0.3); Bilirubin,Total 0.4 mg/dL (0.1-1.0); Blood Urea Nitrogen 20 mg/dL (8-23); Calcium 8.8 mg/dL (8.6-10.4); Carbon Dioxide 20 mmol/L (22-30); Chloride 110 mmol/L (96-108); Globulin 2.5 gm/dL (2.2-3.7); Glomerular Filtration Rate 81; Glucose 141 mg/dL (70-105); Lactate Dehydrogenase 199 U/L (135-225); Phosphorous 3.7 mg/dL (2.5-4.5); Triglycerides 52 mg/dL (<150); Uric Acid 6.6 mg/dL (2.5-8.0)
[2021-02-20] MEDS ORDERED: IOPAMIDOL 100 ML BOTTLE IV ONE ×2 (08:06→20:11)
[2021-02-20 08:35] LABS: Burr Cells RARE (None Seen); Lymphocytes % 2 % (15-49); Monocytes % (Manual) 2 % (1-12); Platelet Estimate NORMAL (Normal); RBC Morphology ABNORMAL (Normal); Segmented Neutrophils % 96 % (38-78)
[2021-02-20] MEDS ORDERED: LEVOFLOXACIN 750 MG/150 ML BAG IV SCH (09:00)
[2021-02-20] MEDS ORDERED: LISINOPRIL 10 MG TABLET PO SCH (09:00)
--- NOTE | 2021-02-20 10:04 | Cat Scan Report ---
CLINICAL INFORMATION: Distal small bowel obstruction COMPARISON: Abdomen and pelvic CT two days prior: 02/18/2021. TECHNIQUE: Following enteric contrast, 80 cc of Isovue-370 were injected intravenously, and 60 seconds later, 0.625 mm helical slices were obtained from the mid heart through the subtrochanteric regions. Following reconstruction, 2.5 mm sagittal, coronal and axial reformatted images were processed and reviewed at bone, lung and soft tissue windows. Five minutes later, 0.625 mm helical slices were obtained from the mid heart through the kidneys and viewed at soft tissue windows.The exam was performed using radiation dose optimization techniques including, but not limited to, automated exposure control, adjustment of the mA and/or kV according to patient size and use of iterative reconstruction technique. FINDINGS: Lung bases show multiple small bullae uniformly distributed within the lower lobes, lingula and right middle lobe suggestive of panlobular emphysema - as previously seen. A moderate alveolar infiltrate has developed in the posterior right lower lobe. A small patchy infiltrate has developed in the posterior left lower lobe. Small right pleural effusion noted. The heart is mildly enlarged but unchanged Abdominal images show mild fatty change within the liver. 12 mm simple cyst in the fracisco hepatis is again noted, but no significant hepatic abnormality. The gallbladder and bile ducts are normal: CBD is 5 mm. Simple cysts on both kidneys again noted - no significant renal abnormality. Both adrenal glands, spleen, pancreas and aorta are normal in size, configuration and attenuation without focal lesion. Pelvic images show urinary bladder is normal. The prostate is normal for age. The seminal vesicles are unremarkable. The stomach and small bowel are moderately dilated to the level of the right inguinal hernia. In this region, segment of distal ileum now appears to be incarcerated. Moderate amount of free fluid in the hernia sac suggests the possibility of associated strangulation. Terminal ileum is decompressed and contains no enteric contrast. Small amount of contrast, throughout the colon, is present from the small bowel follow-through study one day prior. The colon is decreased in caliber. There is no free air. A small amount of free intraperitoneal fluid has increased in the perihepatic region. IMPRESSION: Incarcerated right inguinal hernia containing a segment of obstructed ileum. Moderate fluid in the hernia sac suggests associated strangulation.Stomach and small bowel are moderately dilated to the obstruction level. The terminal ileum is decompressed. Moderate free peritoneal fluid has increased suggesting third spacing New moderate right and small left lower lobe infiltrates compatible infection or aspiration. Panlobular emphysema in the lung bases Interpreted and Authenticated by: Walter Moreno 02/20/21
[2021-02-20] MEDS ORDERED: IPRATROPIUM/ALBUTEROL 3 ML AMPUL.NEB NEB PRN ×2 (10:13→19:24)
--- NOTE | 2021-02-20 11:53 | XRay Report ---
CLINICAL INFORMATION: verification of NG placement COMPARISON: 02/20/2021 FINDINGS: NG tube overlies the gastric fundus. Stomach and small bowel are moderately dilated compatible with known distal small bowel obstruction. No free air IMPRESSION: NG tube overlies the gastric fundus. The nurses were instructed to advance the tube 10 cm. High-grade distal small bowel obstruction pattern is unchanged Interpreted and Authenticated by: Walter Moreno 02/20/21
[2021-02-20 12:10] LABS: Appearance,Urine CLEAR (Clear); Bilirubin,Urine Negative (Negative); Color,Urine YELLOW; Culture Indicated,Urine No; Glucose,Urine (UA) Negative (Negative); Ketones,Urine 20 mg/dL (Negative); Leukocyte Esterase,Urine Negative /ug (Negative); Nitrate,Urine Negative (Negative); Protein,Urine Negative (Negative); Specific Gravity,Urine 1.054 (1.000-1.035); Urine Blood Negative (Negative); Urobilinogen,Urine Negative
--- NOTE | 2021-02-20 12:10 | EKG ---
[facility] Test Date: 2021-02-20 Pat Name: Tommy Márquez Department: [facility] Room: 129 Gender: Male [employer]: : 1940 Requested By: Andrew Nobles Order Number: [id number] Reading MD: Chevy Key M.D. Measurements Intervals [place] Rate: 87 P: 72 RI: 180 QRS: -31 QRSD: 84 T: 44 QT: 380 QTc: 457 Interpretive Statements NO PRIOR TRACING FOUND IN [facility] SINUS RHYTHM VENTRICULAR PREMATURE COMPLEX BORDERLINE LEFT AXIS DEVIATION BORDERLINE ECG Electronically Signed On 02-20-2021 12:10:13 PDT by Chevy Key M.D. /[facility] [place]/M0/[id number]
--- NOTE | 2021-02-20 14:04 | Internal Med Progress Note ---
SUBJECTIVE Subjective Patient information: Note initiated : 02/20/21 at 2:02 pm Service Date, if different from initiated Date: [] Patient: Tommy Márquez 80 y/o M admitted on 02/18/21 for abdominal pain. Chief Complaint: [] Principal diagnosis: Partial small bowel obstruction Interval history: Mr. Márquez is a 80 year old male with a history of hypertension, right inguinal hernia who presented to the emergency department for nausea, vomiting, abdominal pain presented to the [facility] emergency department where he was found to have a high-grade partial small bowel obstruction in the distal jejunum the right midabdomen due to adhesions or stricture. Patient was admitted for management. An NG tube was attempted but the patient did not tolerate placement. 02/19 Feels better today, abdominal xray showed mild ileus without evidence of bowel obstruction. 02/20 More bloated today, right inguinal hernia may be the cause of presentation. NPO, IV fluid, surgery will see later today. 02/21 Constitutional Vitals: Vital Signs Temp Pulse Resp BP Pulse Ox 98.4 F 80 20 145/82 90 02/20/21 12:00 02/20/21 12:00 02/20/21 12:00 02/20/21 12:00 02/20/21 12:00 Period Temp Pulse Resp BP Sys/Beckford Pulse Ox Last 24 Hr 98.1 F-98.8 F 74-96 16-20 145-189/80-97 90-96 Intake and Output 02/20/21 02/20/21 02/20/21 05:59 13:59 21:59 Intake Total 1520 2052 Output Total 350 450 Balance 1170 1602 Intake & Output: Intake & Output 02/20/21 02/20/21 02/20/21 05:59 13:59 21:59 Intake Total 1520 2052 Output Total 350 450 Balance 1170 1602 Intake: IV 1000 2052 Sodium Chloride 0.9% 1,000 ml @ 1000 1902 125 mls/hr IV .Q8H [facility] Rx#: [id number] Oral 520 Output: Urine Catheter Amount 450 Emesis 350 Other: Urine Color Bright Yellow Urine Odor Normal Stool Color Green Stool Consistency Liquid # Emeses 1 Exam: General: Alert, Awake, No acute Distress Eyes/N/T: EOMI, Head/Neck: neck supple, CV: RRR, No murmurs, Pulm: Clear b/l, no wheezing/rhonchi/rales Abd: soft, nontender, +BS x4 Ext: no clubbing/cyanosis/edema Neuro: Alert, no focal deficits, moves all extremities, Skin: warm/dry OBJ DATA Labs CBC & Chem 7: 02/20/21 05:13 02/20/21 05:13 Labs: Abnormal Lab Results 02/20/21 02/20/21 02/20/21 11:06 05:13 05:13 WBC 11.4 H Seg Neutrophils % 96 H Lymphocytes % 2 L RBC Morphology Abnormal A Waldron Cells Rare A Sodium 146 H Chloride 110 H Carbon Dioxide 20 L Anion Gap POC Creatinine Glucose 141 H Calcium Total Protein Globulin Urine Ketones 20 A 02/19/21 02/19/21 02/18/21 05:02 05:02 15:43 WBC Seg Neutrophils % Lymphocytes % RBC Morphology Abnormal A Claude Cells 1+ A Sodium Chloride Carbon Dioxide Anion Gap 7.0 L POC Creatinine 1.5 H Glucose Calcium 8.1 L Total Protein 5.3 L Globulin 1.9 L Urine Ketones 02/18/21 15:43 WBC 13.2 H Seg Neutrophils % 85 H Lymphocytes % 6 L RBC Morphology Claude Cells Sodium Chloride Carbon Dioxide Anion Gap POC Creatinine Glucose Calcium Total Protein Globulin Urine Ketones Meds: Medications Hydromorphone HCl (Hydromorphone 0.5 Mg/0.5 Ml Syringe) 0.5 mg IV Q2HP PRN; Protocol PRN Reason: Per Pain Protocol Last Admin: 02/20/21 09:23 Dose: 0.5 mg Documented by: Sodium Chloride (Sodium Chloride 0.9%) 1,000 mls @ 125 mls/hr IV .Q8H [facility] Last Admin: 02/20/21 13:32 Dose: 125 mls/hr Documented by: Levofloxacin (Levaquin) 750 mg in 150 mls @ 100 mls/hr IV DAILY [facility]; Protocol Last Infusion: 02/20/21 10:02 Dose: Infused Documented by: Lisinopril (Lisinopril 10 Mg Tablet) 10 mg PO DAILY [facility] Last Admin: 02/20/21 08:22 Dose: 10 mg Documented by: Metoclopramide HCl (Metoclopramide 10 Mg/2 Ml Vial) 10 mg IV Q6 [facility] Last Admin: 02/20/21 13:31 Dose: 10 mg Documented by: Ondansetron HCl (Ondansetron 4 Mg/2 Ml Vial) 4 mg IV Q6HP PRN PRN Reason: Nausea And Vomiting Last Admin: 02/20/21 00:00 Dose: 4 mg Documented by: Sodium Chloride (0.9 % Sodium Chloride 10 Ml Syringe) 10 ml IV Q8 [facility] Last Admin: 02/20/21 13:33 Dose: Not Given Documented by: A/P Narrative A/P Narrative: A: #Ileus vs partial SBO -possibly related to right inguinal hernia #Essential hypertension #Right inguinal hernia Plan -management/diet per Surgery -Resume lisinopril, holding hydrochlorothiazide -DVT PPx: Lovenox SQ CODE 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
[2021-02-20] MEDS ORDERED: ROCURONIUM 10 MG/ML ML IV ONE (17:26)
[2021-02-20] MEDS ORDERED: GLYCOPYRROLATE 0.2 MG/ML VIAL IV ONE (17:26)
[2021-02-20] MEDS ORDERED: DEXAMETHASONE 10 MG/ML VIAL ONE (17:26)
[2021-02-20] MEDS ORDERED: PHENYLEPHRINE 10 MG/ML VIAL ONE (17:26)
[2021-02-20] MEDS ORDERED: LIDOCAINE HCL/PF 100 MG/5 ML SYRINGE IV ONE (17:26)
[2021-02-20] MEDS ORDERED: ONDANSETRON 4 MG/2 ML VIAL ONE (17:26)
[2021-02-20] MEDS ORDERED: PROPOFOL 200 MG/20 ML VIAL IV ONE (17:26)
[2021-02-20] MEDS ORDERED: KETAMINE 50 MG/ML ML ONE (17:26)
[2021-02-20] MEDS ORDERED: fentaNYL 250 MCG/5 ML VIAL IV ONE (17:26)
[2021-02-20] MEDS ORDERED: ePHEDrine 50 MG/ML AMPUL IV ONE (17:26)
[2021-02-20] MEDS ORDERED: BACITRACIN 50,000 UNIT VIAL IR ONE (18:13)
--- NOTE | 2021-02-20 19:10 | Brief Operative Note ---
Brief Operative Note Date of procedure: 02/20/21 Pre-op diagnosis: incarcerated right inguinal hernia with small bowel obstruct ion Post-op diagnosis: other (incarcerated right inguinal hernia with small bowel obstruction) Procedure: right inguinal hernia repair Grafts/Implants: Yes (surgimesh) Anesthesia: GETA Findings: tightly incarcerated small bowel with venous compression but no ischemia Complications: none Surgeon: Anita Rodriguez Estimated blood loss (cc): 20 Specimens Removed/Pathology: none sent Condition: stable Disposition: PACU
[2021-02-20] MEDS ORDERED: NALOXONE HCL 0.4 MG/ML VIAL IV PRN (19:24)
[2021-02-20] MEDS ORDERED: BENZOCAINE/MENTHOL 1 LOZENGE PO PRN (19:24)
[2021-02-20] MEDS ORDERED: METOPROLOL TARTRATE 5 MG/5 ML VIAL IV PRN (19:24)
[2021-02-20] MEDS ORDERED: LACTATED RINGERS 250 ML IV PRN (19:24)
[2021-02-20] MEDS ORDERED: METHOCARBAMOL 1,000 MG/10 ML VIAL IV PRN (19:24)
[2021-02-20] MEDS ORDERED: ACETAMINOPHEN 1,000 MG/100 ML BAG IV ONE ×2 (19:24→19:26)
[2021-02-20] MEDS ORDERED: ONDANSETRON 4 MG/2 ML VIAL IV PRN (19:24)
[2021-02-20] MEDS ORDERED: fentaNYL 100 MCG/2 ML VIAL IV PRN (19:24)
[2021-02-20] MEDS ORDERED: LABETALOL 5 MG/ML ML IV PRN (19:24)
[2021-02-20] MEDS ORDERED: LACTATED RINGERS 1,000 ML IV SCH (19:30)
[2021-02-20] MEDS ORDERED: HYDROmorphone 0.5 MG/0.5 ML SYRINGE ONE (20:18)
[2021-02-20] MEDS: KETOROLAC 15 MG/ML VIAL IV SCH (21:25)
[2021-02-21] MEDS: KETOROLAC 15 MG/ML VIAL IV SCH ×4 (00:30→18:03)
[2021-02-21] MEDS: METOCLOPRAMIDE 10 MG/2 ML VIAL IV SCH ×5 (00:30→23:00)
[2021-02-21] MEDS: 0.9 % SODIUM CHLORIDE 1,000 ML IV SCH ×2 (04:33→19:16)
[2021-02-21] MEDS: ACETAMINOPHEN 1,000 MG/100 ML BAG IV SCH ×3 (05:36→19:16)
[2021-02-21] MEDS: 0.9 % SODIUM CHLORIDE 10 ML SYRINGE IV SCH ×3 (05:37→20:20)
[2021-02-21 06:15] LABS: Hematocrit 45.2 % (41.0-55.0); Hemoglobin 14.5 g/dL (13.5-16.5); Mean Corpuscular HGB Conc 32.1 g/dL (31.0-36.0); Mean Platelet Volume 9.4 fL (7.4-10.4); Platelet Count 221 K/mcL (140-440); RBC 4.81 M/mcL (4.50-5.90); Red Cell Distribution Width 13.7 % (11.5-14.5); WBC 3.1 K/mcL (4.5-11.0)
[2021-02-21 06:26] LABS: ALT/SGPT 7 U/L (<40); AST/SGOT 12 U/L (<40); Albumin/Globulin Ratio 1.4 (1.0-2.3); Alkaline Phosphatase 34 U/L (39-117); Bilirubin,Direct 0.2 mg/dL (<0.3); Bilirubin,Total 0.6 mg/dL (0.1-1.0); Blood Urea Nitrogen 25 mg/dL (8-23); Calcium 8.1 mg/dL (8.6-10.4); Carbon Dioxide 23 mmol/L (22-30); Chloride 111 mmol/L (96-108); Globulin 2.1 gm/dL (2.2-3.7); Glomerular Filtration Rate 64; Glucose 136 mg/dL (70-105); Lactate Dehydrogenase 131 U/L (135-225); Phosphorous 2.1 mg/dL (2.5-4.5); Triglycerides 41 mg/dL (<150)
--- NOTE | 2021-02-21 07:49 | Internal Med Progress Note ---
SUBJECTIVE Subjective Patient information: Note initiated : 02/21/21 at 7:47 am Service Date, if different from initiated Date: [] Patient: Tommy Márquez 80 y/o M admitted on 02/18/21 for abdominal pain. Chief Complaint: [] Principal diagnosis: Partial small bowel obstruction Interval history: Mr. Márquez is a 80 year old male with a history of hypertension, right inguinal hernia who presented to the emergency department for nausea, vomiting, abdominal pain presented to the [facility] emergency department where he was found to have a high-grade partial small bowel obstruction in the distal jejunum the right midabdomen due to adhesions or stricture. Patient was admitted for management. An NG tube was attempted but the patient did not tolerate placement. 02/19 Feels better today, abdominal xray showed mild ileus without evidence of bowel obstruction. 02/20 More bloated today, right inguinal hernia may be the cause of presentation. NPO, IV fluid, surgery will see later today. 02/21 No overnight event or new complaints. Pain relatively controlled. No flatus yet. Review of Systems: denies headache/fever/chills/nausea/vomiting/chest pain/cough/dyspnea/diarrhea. Otherwise see above. Constitutional Vitals: Vital Signs Temp Pulse Resp BP Pulse Ox 98.6 F 91 H 20 118/70 90 02/21/21 07:28 02/21/21 07:28 02/21/21 07:28 02/21/21 07:28 02/21/21 07:28 Period Temp Pulse Resp BP Sys/Beckford Pulse Ox Last 24 Hr 98.0 F-98.8 F 80-137 14-28 96-175/58-99 83-95 Intake and Output 02/20/21 02/21/21 02/21/21 21:59 05:59 13:59 Intake Total 3144 1000 100 Output Total 150 965 Balance 2994 35 100 Weight 71.305 kg Intake & Output: Intake & Output 02/20/21 02/21/21 02/21/21 21:59 05:59 13:59 Intake Total 3144 1000 100 Output Total 150 965 Balance 2994 35 100 Weight 71.305 kg Intake: IV 944 1000 100 Sodium Chloride 0.9% 1,000 ml @ 844 1000 125 mls/hr IV .Q8H [facility] Rx#: [id number] Oral 0 Tube Feeding 0 IV - Manual Only 2200 Output: Gastric Drainage 440 Right Nare 440 Urine Catheter Amount 525 Void Amount 100 0 Estimated Blood Loss 50 Other: Urine Appearance Clear Clear Straight Clear Urine Color Bright Yellow Dark Louise Straight Dark Louise Urine Odor Normal Exam: General: Alert, Awake, No acute Distress Eyes/N/T: EOMI, Head/Neck: neck supple, CV: RRR, No murmurs, Pulm: Clear b/l, no wheezing/rhonchi/rales Abd: soft, nontender, proactive bowel sounds Ext: no clubbing/cyanosis/edema Neuro: Alert, no focal deficits, moves all extremities, Skin: warm/dry OBJ DATA Labs CBC & Chem 7: 02/21/21 05:27 02/21/21 05:26 Labs: Abnormal Lab Results 02/21/21 02/21/21 02/20/21 05:27 05:26 11:06 WBC 3.1 L Seg Neutrophils % Lymphocytes % RBC Morphology Claude Cells Sodium Chloride 111 H Carbon Dioxide Anion Gap BUN 25 H POC Creatinine Glucose 136 H Calcium 8.1 L Phosphorus 2.1 L Alkaline Phosphatase 34 L Lactate Dehydrogenase 131 L Total Protein 5.1 L Albumin 3.0 L Globulin 2.1 L Urine Ketones 20 A 02/20/21 02/20/21 02/19/21 05:13 05:13 05:02 WBC 11.4 H Seg Neutrophils % 96 H Lymphocytes % 2 L RBC Morphology Abnormal A False Pass Cells Rare A Sodium 146 H Chloride 110 H Carbon Dioxide 20 L Anion Gap 7.0 L BUN POC Creatinine Glucose 141 H Calcium 8.1 L Phosphorus Alkaline Phosphatase Lactate Dehydrogenase Total Protein 5.3 L Albumin Globulin 1.9 L Urine Ketones 02/19/21 02/18/21 02/18/21 05:02 15:43 15:43 WBC 13.2 H Seg Neutrophils % 85 H Lymphocytes % 6 L RBC Morphology Abnormal A False Pass Cells 1+ A Sodium Chloride Carbon Dioxide Anion Gap BUN POC Creatinine 1.5 H Glucose Calcium Phosphorus Alkaline Phosphatase Lactate Dehydrogenase Total Protein Albumin Globulin Urine Ketones Meds: Medications Hydromorphone HCl (Hydromorphone 0.5 Mg/0.5 Ml Syringe) 0.5 mg IV Q2HP PRN; Protocol PRN Reason: Per Pain Protocol Last Admin: 02/20/21 20:17 Dose: 0.5 mg Documented by: Sodium Chloride (Sodium Chloride 0.9%) 1,000 mls @ 125 mls/hr IV .Q8H [facility] Last Admin: 02/21/21 04:33 Dose: 125 mls/hr Documented by: Levofloxacin (Levaquin) 750 mg in 150 mls @ 100 mls/hr IV Q24H [facility]; Protocol Acetaminophen (Ofirmev) 1,000 mg in 100 mls @ 200 mls/hr IV Q6H [facility]; Protocol Last Infusion: 02/21/21 06:18 Dose: Infused Documented by: Ketorolac Tromethamine (Ketorolac 15 Mg/Ml Vial) 15 mg IV Q6 [facility] Stop: 02/22/21 12:01 Last Admin: 02/21/21 05:36 Dose: 15 mg Documented by: Lisinopril (Lisinopril 10 Mg Tablet) 10 mg PO DAILY [facility] Metoclopramide HCl (Metoclopramide 10 Mg/2 Ml Vial) 10 mg IV Q6 [facility] Last Admin: 02/21/21 05:37 Dose: 10 mg Documented by: Ondansetron HCl (Ondansetron 4 Mg/2 Ml Vial) 4 mg IV Q6HP PRN PRN Reason: Nausea And Vomiting Sodium Chloride (0.9 % Sodium Chloride 10 Ml Syringe) 10 ml IV Q8 [facility] Last Admin: 02/21/21 05:37 Dose: 10 ml Documented by: A/P Narrative A/P Narrative: A: #SBO 2/2 incarcerated hernia: s/p (02/20) #Essential hypertension #Right inguinal hernia Plan -management/diet per Surgery -Resume lisinopril, holding hydrochlorothiazide -will sign off, call if needed -DVT PPx: heparin 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
[2021-02-21] MEDS: LISINOPRIL 10 MG TABLET PO SCH ×2 (08:22→08:31)
[2021-02-21] MEDS: HEPARIN 5,000 UNIT/ML VIAL SQ SCH ×2 (08:26→20:20)
[2021-02-21] MEDS: LEVOFLOXACIN 750 MG/150 ML BAG IV SCH (08:55)
[2021-02-21 09:13] LABS: Band Neutrophils % 53 % (0-10); Burr Cells FEW (None Seen); Lymphocytes % 16 % (15-49); Metamyelocytes % 4 %; Monocytes % (Manual) 3 % (1-12); Myelocytes % 2 %; Ovalocytes FEW (None Seen); Platelet Estimate NORMAL (Normal); RBC Morphology ABNORMAL (Normal); Reactive Lymphocytes 1 % (0-2); Segmented Neutrophils % 21 % (38-78)
[2021-02-21] MEDS: HYDROmorphone 0.5 MG/0.5 ML SYRINGE IV PRN (13:14)
--- NOTE | 2021-02-21 13:23 | General Surgery Progress Note ---
SUBJECTIVE Subjective Patient information: Note initiated : 02/21/21 at 1:16 pm Service Date, if different from initiated Date: [] Patient: Tommy Márquez 80 y/o M admitted on 02/18/21 for abdominal pain. Chief Complaint: [] Principal diagnosis: Partial small bowel obstruction Interval history: Patient is improving but he still has significant abdominal distention. He has not had flatus so far. There is no major swelling in the inguinal area. White blood count 3.1, hemoglobin 14.5, hematocrit 45.2, BUN 25, creatinine 1.1, phosphorus 2.1 Constitutional Vitals: Vital Signs Temp Pulse Resp BP Pulse Ox 98.6 F 74 18 120/69 90 02/21/21 12:00 02/21/21 12:00 02/21/21 12:00 02/21/21 12:00 02/21/21 12:00 Period Temp Pulse Resp BP Sys/Beckford Pulse Ox Last 24 Hr 98.0 F-98.8 F 74-137 14-28 96-175/58-99 83-95 Intake and Output 02/20/21 02/21/21 02/21/21 21:59 05:59 13:59 Intake Total 3144 1000 350 Output Total 150 965 Balance 2994 35 350 Weight 157 lb 3.2 oz Intake & Output: Intake & Output 02/20/21 02/21/21 02/21/21 21:59 05:59 13:59 Intake Total 3144 1000 350 Output Total 150 965 Balance 2994 35 350 Weight 157 lb 3.2 oz Intake: IV 944 1000 350 Sodium Chloride 0.9% 1,000 ml @ 844 1000 125 mls/hr IV .Q8H [facility] Rx#: [id number] Oral 0 Tube Feeding 0 IV - Manual Only 2200 Output: Gastric Drainage 440 Right Nare 440 Urine Catheter Amount 525 Void Amount 100 0 Estimated Blood Loss 50 Other: Urine Appearance Clear Clear Straight Clear Urine Color Bright Yellow Dark Louise Straight Dark Louise Urine Odor Normal ENT ENT exam: Present mucous membranes moist and normal exam Additional comments: Moderate irritation from nasogastric tube Neck Neck exam: Present full ROM; Absent tenderness Respiratory Respiratory exam: Present normal respiratory exam and CTAB; Absent rales and rhonchi Cardiovascular Cardiovascular exam: Present normal rate and rhythm, RRR, +S1 and +S2; Absent JVD GI/Abdominal GI/Abdominal exam: Present normal bowel sounds, soft, distended (Mild diffuse distention) and tenderness (Moderate incisional tenderness with scrotal ecchymosis with no major swelling) Extremities Exam Extremities exam: Present full ROM, normal inspection and neurovascular intact; Absent pedal edema and tenderness Neurological Exam Neurological exam: Present alert, normal gait, oriented X3 and reflexes normal Psychiatric Psychiatric exam: Present normal affect and normal mood A/P Assessment and plan (1) High blood pressure: Status: Chronic Qualifiers: Hypertension type: essential hypertension Qualified Code(s): I10 - Essential (primary) hypertension; I10 - Essential (primary) hypertension; I10 - Essential (primary) hypertension (2) Complete small bowel obstruction: Status: Acute (3) Incarcerated right inguinal hernia: Status: Acute (4) Postoperative ileus: Status: Acute Narrative A/P Narrative: Continue nasogastric decompression Abdominal x-ray today and in the morning Potassium phosphate rider x1 Time Spent With Patient Time: Total time spent is greater than 50% in coordination of care (as doc umented) at patient's floor/unit and/or counseling patient:
[2021-02-21] MEDS ORDERED: POTASSIUM PHOSPHATE 40 MEQ in DEXTROSE 5% IN WATER 500 ML IV ONE (13:30)
[2021-02-21] MEDS: ONDANSETRON 4 MG/2 ML VIAL IV PRN (21:30)
[2021-02-22] MEDS: ACETAMINOPHEN 1,000 MG/100 ML BAG IV SCH ×4 (00:45→17:44)
[2021-02-22] MEDS: KETOROLAC 15 MG/ML VIAL IV SCH ×3 (00:49→12:00)
[2021-02-22] MEDS: 0.9 % SODIUM CHLORIDE 1,000 ML IV SCH ×4 (01:38→20:42)
[2021-02-22] MEDS: HYDROmorphone 0.5 MG/0.5 ML SYRINGE IV PRN ×5 (02:27→22:05)
[2021-02-22] MEDS: METOCLOPRAMIDE 10 MG/2 ML VIAL IV SCH ×3 (05:51→17:45)
[2021-02-22] MEDS: 0.9 % SODIUM CHLORIDE 10 ML SYRINGE IV SCH ×3 (05:52→20:46)
--- NOTE | 2021-02-22 06:55 | XRay Report ---
CLINICAL INFORMATION: FOLLOW -UP OF SMALL BOWEL OBSTRUCTION COMPARISON: 02/20/2021 FINDINGS: A moderate amount of residual enteric contrast is seen throughout the colon. The stomach and upper small bowel are mildly dilated with air-fluid levels. No free air. IMPRESSION: Nonspecific stool gas pattern. Suspect atypical ileus. Interpreted and Authenticated by: Walter Moreno 02/22/21
[2021-02-22] MEDS: LEVOFLOXACIN 750 MG/150 ML BAG IV SCH (08:10)
[2021-02-22 09:07] LABS: Basophils # (Auto) 0.01 K/mcL (0.00-0.20); Basophils % (Auto) 0.2 % (0.0-2.0); Eosinophils # (Auto) 0 K/mcL (0.00-0.70); Eosinophils % (Auto) 0 % (0.0-7.0); Hematocrit 44.7 % (41.0-55.0); Hemoglobin 14.5 g/dL (13.5-16.5); Lymphocytes # (Auto) 0.27 K/mcL (1.50-4.80); Lymphocytes % (Auto) 4.9 % (15.0-49.0); Mean Cell Volume 92.5 fL (80.0-100.0); Mean Corpuscular HGB Conc 32.4 g/dL (31.0-36.0); Mean Platelet Volume 10.1 fL (7.4-10.4); Monocytes # (Auto) 0.18 K/mcL (0.10-0.90); Monocytes % (Auto) 3.2 % (1.0-12.0); Platelet Count 194 K/mcL (140-440); RBC 4.83 M/mcL (4.50-5.90); WBC 5.6 K/mcL (4.5-11.0)
[2021-02-22 12:02] LABS: Neutrophils % (Auto) 91.7 % (38.0-78.0)
[2021-02-22] MEDS: HEPARIN 5,000 UNIT/ML VIAL SQ SCH ×2 (12:30→20:45)
[2021-02-22] MEDS: LISINOPRIL 10 MG TABLET PO SCH (12:31)
--- NOTE | 2021-02-22 12:46 | General Surgery Progress Note ---
SUBJECTIVE Subjective Patient information: Note initiated : 02/22/21 at 12:43 pm Service Date, if different from initiated Date: [] Patient: Tommy Márquez 80 y/o M admitted on 02/18/21 for abdominal pain. Chief Complaint: [] Principal diagnosis: Partial small bowel obstruction Interval history: Patient has continued partial small bowel obstruction. Most of the contrast has moved from the small bowel to the colon but the small bowel remains dilated. He is not passing flatus and is having crampy abdominal pain. He denies nausea. Nasogastric tube is poorly functioning but it appears to be partially dislodged and will need to be advanced. White blood count 5.6, hemoglobin 14.5, hematocrit 44.7 Constitutional Vitals: Vital Signs Temp Pulse Resp BP Pulse Ox 98.8 F 100 H 18 146/76 93 02/22/21 11:37 02/22/21 11:37 02/22/21 11:37 02/22/21 11:37 02/22/21 11:37 Period Temp Pulse Resp BP Sys/Beckford Pulse Ox Last 24 Hr 98.5 F-99.2 F 88-105 18-20 117-149/64-89 88-93 Intake and Output 02/21/21 02/22/21 02/22/21 21:59 05:59 13:59 Intake Total 659.0909 1200 250 Output Total 210 550 400 Balance 449.0909 650 -150 Weight 161 lb 8 oz Intake & Output: Intake & Output 02/21/21 02/22/21 02/22/21 21:59 05:59 13:59 Intake Total 659.0909 1200 250 Output Total 210 550 400 Balance 449.0909 650 -150 Weight 161 lb 8 oz Intake: IV 609.0909 1100 250 Sodium Chloride 0.9% 1,000 ml @ 1000 125 mls/hr IV .Q8H [facility] Rx#: [id number] Potassium Phosphate 40 Meq In 509.0909 Dextrose 5% in Water 500 ml @ 127.273 mls/hr IV ONCE ONE Rx#: [id number] Oral 50 100 Output: Gastric Drainage 210 250 Right Nare 210 250 Void Amount 0 300 400 Other: Urine Appearance Clear Clear Urine Color Dark Yellow Dark Yellow ENT ENT exam: Present mucous membranes moist and normal exam Additional comments: Moderate irritation from nasogastric tube Neck Neck exam: Present full ROM; Absent tenderness Respiratory Respiratory exam: Present normal respiratory exam and CTAB; Absent rales and rhonchi Cardiovascular Cardiovascular exam: Present normal rate and rhythm, RRR, +S1 and +S2; Absent JVD GI/Abdominal GI/Abdominal exam: Present normal bowel sounds, soft, distended (Mild diffuse distention) and tenderness (Moderate incisional tenderness with scrotal ecchymosis with no major swelling) Extremities Exam Extremities exam: Present full ROM, normal inspection and neurovascular intact; Absent pedal edema and tenderness Neurological Exam Neurological exam: Present alert, normal gait, oriented X3 and reflexes normal Psychiatric Psychiatric exam: Present normal affect and normal mood A/P Assessment and plan (1) Incarcerated right inguinal hernia: Status: Acute (2) Complete small bowel obstruction: Status: Acute (3) Postoperative ileus: Status: Acute Narrative A/P Narrative: Continue nasogastric suction Advance nasogastric tube 10 cm Follow-up abdominal x-rays in the morning. Time Spent With Patient Time: Total time spent is greater than 50% in coordination of care (as documented) at patient's floor/unit and/or counseling patient:
[2021-02-22] MEDS: BENZOCAINE 1 SPRAY BOTTLE TOPICAL PRN (13:47)
[2021-02-23] MEDS: ACETAMINOPHEN 1,000 MG/100 ML BAG IV SCH ×5 (00:14→23:53)
[2021-02-23] MEDS: HYDROmorphone 0.5 MG/0.5 ML SYRINGE IV PRN ×7 (00:15→20:24)
[2021-02-23] MEDS: METOCLOPRAMIDE 10 MG/2 ML VIAL IV SCH ×5 (00:15→23:53)
[2021-02-23] MEDS: 0.9 % SODIUM CHLORIDE 1,000 ML IV SCH ×3 (04:33→23:40)
[2021-02-23] MEDS: 0.9 % SODIUM CHLORIDE 10 ML SYRINGE IV SCH ×3 (06:04→21:02)
[2021-02-23] MEDS: LISINOPRIL 10 MG TABLET PO SCH (07:56)
[2021-02-23 08:43] LABS: Basophils # (Auto) 0.05 K/mcL (0.00-0.20); Basophils % (Auto) 1.4 % (0.0-2.0); Eosinophils # (Auto) 0 K/mcL (0.00-0.70); Eosinophils % (Auto) 0 % (0.0-7.0); Hematocrit 48.6 % (41.0-55.0); Hemoglobin 15.5 g/dL (13.5-16.5); Lymphocytes # (Auto) 0.31 K/mcL (1.50-4.80); Lymphocytes % (Auto) 8.6 % (15.0-49.0); Mean Cell Volume 93.5 fL (80.0-100.0); Mean Corpuscular HGB Conc 31.9 g/dL (31.0-36.0); Monocytes % (Auto) 5.5 % (1.0-12.0); Platelet Count 197 K/mcL (140-440); Red Cell Distribution Width 14.3 % (11.5-14.5); WBC 3.6 K/mcL (4.5-11.0)
[2021-02-23 09:00] LABS: Basophils # (Auto) 0.08 K/mcL (0.00-0.20); Eosinophils # (Auto) 0 K/mcL (0.00-0.70); Eosinophils % (Auto) 0 % (0.0-7.0); Hematocrit 45.5 % (41.0-55.0); Lymphocytes # (Auto) 0.25 K/mcL (1.50-4.80); Lymphocytes % (Auto) 6.1 % (15.0-49.0); Mean Cell Volume 92.1 fL (80.0-100.0); Mean Platelet Volume 10.6 fL (7.4-10.4); Monocytes # (Auto) 0.24 K/mcL (0.10-0.90); Monocytes % (Auto) 5.9 % (1.0-12.0); Platelet Count 202 K/mcL (140-440); RBC 4.94 M/mcL (4.50-5.90); Red Cell Distribution Width 14.5 % (11.5-14.5); WBC 4.1 K/mcL (4.5-11.0)
--- NOTE | 2021-02-23 09:05 | XRay Report ---
CLINICAL INFORMATION: FOLLOW -UP OF SMALL BOWEL OBSTRUCTION COMPARISON: 02/22/2021. FINDINGS: NG tube tip in satisfactory position overlying the gastric fundus. A moderate amount of residual enteric contrast is seen throughout the colon which is normal caliber.. The stomach and upper small bowel may mildly dilated air-fluid levels. No free air. IMPRESSION: Nonspecific stool gas pattern. Either atypical ileus or recurrent small bowel obstruction. No change Interpreted and Authenticated by: Walter Moreno 02/23/21
[2021-02-23] MEDS: LEVOFLOXACIN 750 MG/150 ML BAG IV SCH (09:14)
[2021-02-23 09:43] LABS: Neutrophils % (Auto) 84.5 % (38.0-78.0)
[2021-02-23] MEDS: HEPARIN 5,000 UNIT/ML VIAL SQ SCH ×2 (10:18→20:23)
--- NOTE | 2021-02-23 12:23 | General Surgery Progress Note ---
SUBJECTIVE Subjective Patient information: Note initiated : 02/23/21 at 12:19 pm Service Date, if different from initiated Date: [] Patient: Tommy Márquez 80 y/o M admitted on 02/18/21 for abdominal pain. Chief Complaint: [] Principal diagnosis: Partial small bowel obstruction Interval history: Patient still has not had any output of flatus or bowel movement. His morning x-ray shows mildly dilated small bowel but with all of the contrast out of the small bowel into the colon extending down to the rectum. He has crampy pain and has increased nasogastric output. He denies nausea. White blood count 3.6, hemoglobin 13.5, hematocrit 48.6. Constitutional Vitals: Vital Signs Temp Pulse Resp BP Pulse Ox 98.4 F 82 16 143/71 91 02/23/21 11:23 02/23/21 11:23 02/23/21 11:23 02/23/21 11:23 02/23/21 11:23 Period Temp Pulse Resp BP Sys/Beckford Pulse Ox Last 24 Hr 98 F-98.4 F 82-118 16-20 132-148/71-76 88-94 Intake and Output 02/22/21 02/23/21 02/23/21 21:59 05:59 13:59 Intake Total 100 1100 250 Output Total 900 875 Balance -800 225 250 Weight 165 lb Intake & Output: Intake & Output 02/22/21 02/23/21 02/23/21 21:59 05:59 13:59 Intake Total 100 1100 250 Output Total 900 875 Balance -800 225 250 Weight 165 lb Intake: IV 100 1100 250 Sodium Chloride 0.9% 1,000 ml @ 1000 125 mls/hr IV .Q8H [facility] Rx#: [id number] Oral 0 Output: Gastric Drainage 900 500 Right Nare 900 500 Void Amount 375 Other: Urine Appearance Clear Urine Color Dark Yellow Head Head exam: Present atraumatic, normal inspection and normocephalic Eye Eye exam: Present EOMI Pupils: Present normal accommodation and PERRL ENT ENT exam: Present mucous membranes moist and normal exam Additional comments: Moderate irritation from nasogastric tube Neck Neck exam: Present full ROM; Absent tenderness Respiratory Respiratory exam: Present normal respiratory exam and CTAB; Absent rales and rhonchi Cardiovascular Cardiovascular exam: Present normal rate and rhythm, RRR, +S1 and +S2; Absent JVD GI/Abdominal GI/Abdominal exam: Present normal bowel sounds, soft, distended (Mild diffuse distention) and tenderness (Moderate incisional tenderness with scrotal ecchymosis with no major swelling) Extremities Exam Extremities exam: Present full ROM, normal inspection and neurovascular intact; Absent pedal edema and tenderness Neurological Exam Neurological exam: Present alert, normal gait, oriented X3 and reflexes normal Psychiatric Psychiatric exam: Present normal affect and normal mood A/P Assessment and plan (1) Incarcerated right inguinal hernia: Status: Acute (2) Complete small bowel obstruction: Status: Acute (3) Postoperative ileus: Status: Acute Narrative A/P Narrative: Continue present therapy Check abdominal x-rays in the morning If patient has not progressed will get follow-up CT of abdomen and pelvis. Time Spent With Patient Time: Total time spent is greater than 50% in coordination of care (as documented) at patient's floor/unit and/or counseling patient:
--- NOTE | 2021-02-23 13:24 | General Surgery Progress Note ---
SUBJECTIVE Subjective Patient information: Note initiated : 02/23/21 at 1:20 pm Service Date, if different from initiated Date: [] Patient: Tommy Márquez 80 y/o M admitted on 02/18/21 for abdominal pain. Chief Complaint: [] Principal diagnosis: Partial small bowel obstruction Interval history: I was called to evaluate patient because of shortness of breath and documented tachycardia of 120. There is no documented change in blood pressure. When seen the patient is lying in bed and he is in no acute distress. He is lying flat. There is no tachypnea or tachycardia. There is no JVD and his lungs are clear bilaterally. Abdomen is mildly distended but soft and nontender. EKG only shows sinus rhythm with a heart rate of [address] or T changes. There are few sinus arrhythmias. There is no documented aurelio dence of atrial fibrillation. Patient is presently calm and only complains of mild abdominal pain. Constitutional Vitals: Vital Signs Temp Pulse Resp BP Pulse Ox 98.4 F 82 16 143/71 91 02/23/21 11:23 02/23/21 11:23 02/23/21 11:23 02/23/21 11:23 02/23/21 11:23 Period Temp Pulse Resp BP Sys/Beckford Pulse Ox Last 24 Hr 98 F-98.4 F 82-118 16-20 132-148/71-76 88-94 Intake and Output 02/22/21 02/23/21 02/23/21 21:59 05:59 13:59 Intake Total 100 1100 350 Output Total 900 875 Balance -800 225 350 Weight 165 lb Intake & Output: Intake & Output 02/22/21 02/23/21 02/23/21 21:59 05:59 13:59 Intake Total 100 1100 350 Output Total 900 875 Balance -800 225 350 Weight 165 lb Intake: IV 100 1100 350 Sodium Chloride 0.9% 1,000 ml @ 1000 125 mls/hr IV .Q8H [facility] Rx#: [id number] Oral 0 Output: Gastric Drainage 900 500 Right Nare 900 500 Void Amount 375 Other: Urine Appearance Clear Urine Color Dark Yellow A/P Assessment and plan (1) Incarcerated right inguinal hernia: Status: Acute (2) Complete small bowel obstruction: Status: Acute (3) Postoperative ileus: Status: Acute (4) Abnormal heart rhythm: Status: Acute Narrative A/P Narrative: Chest x-ray Follow-up EKG in the morning Troponin proBNP Cardiac oxygen saturation monitor Time Spent With Patient Time: Total time spent is greater than 50% in coordination of care (as documented) at patient's floor/unit and/or counseling patient:
[2021-02-23] MEDS: LORazepam 2 MG/ML VIAL IV PRN (13:47)
--- NOTE | 2021-02-23 17:09 | XRay Report ---
CLINICAL INFORMATION: INCREASES HEART RATE COMPARISON: 02/18/2021 FINDINGS: Mild cardiomegaly is unchanged. NG tip is in the gastric fundus. Mediastinum and pulmonary vessels are normal. Moderate right and small left basilar infiltrates have developed since prior chest x-ray. Small right pleural effusion noted IMPRESSION: Moderate right and small left basilar infiltrates new from plain film five days ago. Suspect aspiration. Interpreted and Authenticated by: Walter Moreno 02/23/21
--- NOTE | 2021-02-23 19:01 | EKG ---
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 Measurements Intervals [place] Rate: 103 P: 62 GA: 160 QRS: -28 QRSD: 84 T: 69 QT: 336 QTc: 440 Interpretive Statements SINUS TACHYCARDIA BORDERLINE LEFT AXIS DEVIATION Since previous ECG of 02-20-2021, NO ECTOPY, BORDERLINE ECG Electronically Signed On 02-23-2021 19:00:35 PDT by Chevy Key M.D. /[facility] [place]/[id number]
[2021-02-23] MEDS ORDERED: PHENobarb/HYOSCY/ATROPINE/SCOP 1 DOSE BOTTLE PO ONE (19:38)
[2021-02-23] MEDS: ONDANSETRON 4 MG/2 ML VIAL IV PRN (20:23)
--- NOTE | 2021-02-23 21:01 | EKG ---
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 Measurements Intervals [place] Rate: 117 P: 61 [place]: 160 QRS: -32 QRSD: 84 T: 80 QT: 324 QTc: 452 Interpretive Statements SINUS TACHYCARDIA VENTRICULAR TRIGEMINY LEFT AXIS DEVIATION Since previous ECG of 02-23-2021, 1303, increased SVT, ventricular ectopy ABNORMAL ECG Electronically Signed On 02-23-2021 21:00:44 PDT by Chevy Key M.D. [place] [place]/[id number]
[2021-02-23] MEDS: BENZOCAINE 1 SPRAY BOTTLE TOPICAL PRN (22:50)
[2021-02-23] MEDS ORDERED: METOPROLOL TARTRATE 5 MG/5 ML VIAL IV ONE (23:32)
[2021-02-23] MEDS: METOPROLOL TARTRATE 5 MG/5 ML VIAL IV PRN (23:35)
[2021-02-24] MEDS: LORazepam 2 MG/ML VIAL IV PRN (00:30)
[2021-02-24] MEDS: HYDROmorphone 0.5 MG/0.5 ML SYRINGE IV PRN ×4 (00:39→22:23)
[2021-02-24] MEDS: ACETAMINOPHEN 1,000 MG/100 ML BAG IV SCH ×3 (06:03→17:11)
[2021-02-24] MEDS: 0.9 % SODIUM CHLORIDE 10 ML SYRINGE IV SCH ×3 (06:04→22:31)
[2021-02-24] MEDS: METOCLOPRAMIDE 10 MG/2 ML VIAL IV SCH ×3 (06:04→17:11)
[2021-02-24 06:38] LABS: POC Creatinine 1.4 mg/dL (0.6-1.2)
[2021-02-24 06:49] LABS: Basophils # (Auto) 0.05 K/mcL (0.00-0.20); Basophils % (Auto) 1.1 % (0.0-2.0); Eosinophils # (Auto) 0 K/mcL (0.00-0.70); Eosinophils % (Auto) 0 % (0.0-7.0); Hematocrit 43.7 % (41.0-55.0); Hemoglobin 14.3 g/dL (13.5-16.5); Lymphocytes % (Auto) 6.6 % (15.0-49.0); Mean Cell Volume 92.6 fL (80.0-100.0); Mean Corpuscular HGB Conc 32.7 g/dL (31.0-36.0); Mean Platelet Volume 10.4 fL (7.4-10.4); Monocytes # (Auto) 0.38 K/mcL (0.10-0.90); Monocytes % (Auto) 8.4 % (1.0-12.0); Platelet Count 187 K/mcL (140-440); RBC 4.72 M/mcL (4.50-5.90); Red Cell Distribution Width 14.5 % (11.5-14.5); WBC 4.5 K/mcL (4.5-11.0)
[2021-02-24 07:09] LABS: ALT/SGPT 11 U/L (<40); AST/SGOT 27 U/L (<40); Albumin 2.5 gm/dL (3.2-5.2); Albumin/Globulin Ratio 0.9 (1.0-2.3); Alkaline Phosphatase 34 U/L (39-117); Bilirubin,Direct < 0.2 mg/dL (0-0.3); Bilirubin,Total 0.6 mg/dL (0.1-1.0); Blood Urea Nitrogen 49 mg/dL (8-23); Calcium 8.9 mg/dL (8.6-10.4); Carbon Dioxide 28 mmol/L (22-30); Chloride 114 mmol/L (96-108); Globulin 2.7 gm/dL (2.2-3.7); Glomerular Filtration Rate 52; Glucose 110 mg/dL (70-105); Lactate Dehydrogenase 195 U/L (135-225); Phosphorous 2.7 mg/dL (2.5-4.5); Triglycerides 125 mg/dL (<150); Uric Acid 6.2 mg/dL (2.5-8.0)
--- NOTE | 2021-02-24 08:01 | Cat Scan Report ---
CLINICAL INFORMATION: Follow-up distal small bowel obstruction due to incarcerated right inguinal hernia. Abdominal pain COMPARISON: Abdomen and pelvic CT 02/20/2021. TECHNIQUE: 0.625 mm helical slices were obtained from the mid heart through the subtrochanteric regions. Following reconstruction, 2.5 mm sagittal, coronal and axial reformatted images were processed and reviewed at bone and soft tissue windows.The exam was performed using radiation dose optimization techniques including, but not limited to, automated exposure control, adjustment of the mA and/or kV according to patient size and use of iterative reconstruction technique. FINDINGS: Moderate bilateral pleural effusion have progressed since the preoperative CT. Panlobular emphysema with multiple bullae throughout the visualized lower lobes, right middle lobe and lingula appreciated. Consolidated atelectasis of the medial posterior and lateral basilar right lower lobe segments noted. There is subsegmental atelectasis posterior left lower lobe.. The heart is mildly large, but stable Abdominal images show 11 mm simple cyst in the fracisco hepatis. No other focal hepatic lesions in the noncontrasted liver. Gallbladder contrast is noted from prior CT exam. Gallbladder is normal. Intrahepatic and common bile ducts are normal caliber: CBD is 5 mm. Bilateral renal cysts are unchanged - no significant renal abnormality. The adrenal glands, spleen, pancreas and aorta are normal in size, configuration and attenuation without focal lesion Pelvic images show a Jaime catheter properly positioned within the urinary bladder. Urinary bladder unremarkable. Prostate is grossly normal. Since the preoperative CT, the incarcerated right inguinal hernia has been successfully reduced with subsequent right inguinal herniorrhaphy. The stomach, small and large bowel show symmetric dilatation compatible with mild ileus - no evidence recurrent bowel obstruction. Mild thickening of the wall and plicae circulares folds within several of the mid small bowel loops which contain residual enteric contrast. This could indicate edema or inflammation. A small amount of ascites is unchanged. IMPRESSION: 1. Interval reduction of right inguinal hernia with herniorrhaphy successively performed. No evidence recurrent bowel obstruction. Moderate ileus noted. 2. Mild wall thickening of the wall and plicae circulares folds of the small bowel which could indicate edema or inflammation. 3. Small amount of ascites unchanged. 4. Moderate bilateral pleural effusions and consolidated atelectasis medial posterior lateral basilar lower lobe segments which have progressed. Subsegmental atelectasis posterior left lower lobe. Interpreted and Authenticated by: Walter Moreno 02/24/21
[2021-02-24] MEDS: LEVOFLOXACIN 750 MG/150 ML BAG IV SCH (08:24)
[2021-02-24] MEDS: LISINOPRIL 10 MG TABLET PO SCH (08:37)
[2021-02-24] MEDS: 0.9 % SODIUM CHLORIDE 1,000 ML IV SCH ×4 (09:09→20:56)
[2021-02-24 09:35] LABS: Neutrophils % (Auto) 83.9 % (38.0-78.0)
[2021-02-24] MEDS: HEPARIN 5,000 UNIT/ML VIAL SQ SCH ×2 (10:04→20:56)
[2021-02-24] MEDS: METOPROLOL TARTRATE 5 MG/5 ML VIAL IV PRN ×2 (10:27→17:53)
--- NOTE | 2021-02-24 13:59 | General Surgery Progress Note ---
SUBJECTIVE Subjective Patient information: Note initiated : 02/24/21 at 1:55 pm Service Date, if different from initiated Date: [] Patient: Tommy Márquez 80 y/o M admitted on 02/18/21 for abdominal pain. Chief Complaint: [] Principal diagnosis: Partial small bowel obstruction Interval history: Patient is slightly improved. He had a large bowel movement today. His major complaint now is a nasogastric tube. He denies nausea. He has not had any dizziness since yesterday. His abdominal distention is less. White blood count 4.5, hemoglobin 14.3, hematocrit 43.7, potassium 4.4, BUN 49, creatinine 1.3 Constitutional Vitals: Vital Signs Temp Pulse Resp BP Pulse Ox 98.6 F 100 H 20 137/80 95 02/24/21 11:48 02/24/21 11:48 02/24/21 11:48 02/24/21 11:48 02/24/21 11:48 Period Temp Pulse Resp BP Sys/Beckford Pulse Ox Last 24 Hr 98.1 F-99.3 F 93-154 16-20 106-157/66-91 91-97 Intake and Output 02/23/21 02/24/21 02/24/21 21:59 05:59 13:59 Intake Total 847 124 4408 Output Total 350 1800 550 Balance 633 -1700 800 Weight 162 lb 8 oz Intake & Output: Intake & Output 02/23/21 02/24/21 02/24/21 21:59 05:59 13:59 Intake Total 274 823 9373 Output Total 350 1800 550 Balance 633 -1700 800 Weight 162 lb 8 oz Intake: IV 916 662 7346 Sodium Chloride 0.9% 1,000 ml @ 883 1000 100 mls/hr IV .Q10H [facility] Rx#: [id number] Oral 0 Output: Gastric Drainage 850 150 Right Nare 850 150 Urine Catheter Amount 525 Void Amount 350 425 Stool 400 Other: Urine Appearance Clear Clear Uretheral (Jaime) Clear Clear Urine Color Dark Yellow Dark Yellow Uretheral (Jaime) Dark Yellow Bright Yellow # Bowel Movements 1 Head Head exam: Present atraumatic, normal inspection and normocephalic Eye Eye exam: Present EOMI Pupils: Present normal accommodation and PERRL Neck Neck exam: Present full ROM; Absent tenderness Respiratory Respiratory exam: Present normal respiratory exam and CTAB; Absent rales and rhonchi Cardiovascular Cardiovascular exam: Present normal rate and rhythm, RRR, +S1 and +S2; Absent JVD GI/Abdominal GI/Abdominal exam: Present normal bowel sounds, soft, distended (Mild diffuse distention) and tenderness (Moderate incisional tenderness with scrotal ecchymosis with no major swelling) Extremities Exam Extremities exam: Present full ROM, normal inspection and neurovascular intact; Absent pedal edema and tenderness Neurological Exam Neurological exam: Present alert, normal gait, oriented X3 and reflexes normal Psychiatric Psychiatric exam: Present normal affect and normal mood Skin Skin exam: Present intact and warm A/P Assessment and plan (1) Postoperative ileus: Status: Acute (2) Incarcerated right inguinal hernia: Status: Acute (3) Complete small bowel obstruction: Status: Acute Narrative A/P Narrative: Clamp nasogastric tube Milk of magnesia 30 cc every 4 hours x3 Increase IV 125 cc/h Time Spent With Patient Time: Total time spent is greater than 50% in coordination of care (as documented) at patient's floor/unit and/or counseling patient:
[2021-02-24] MEDS: MAGNESIUM HYDROXIDE 30 ML ORAL.SUSP PO SCH ×3 (14:58→23:15)
[2021-02-25] MEDS: ACETAMINOPHEN 1,000 MG/100 ML BAG IV SCH ×4 (00:24→17:43)
[2021-02-25] MEDS: METOCLOPRAMIDE 10 MG/2 ML VIAL IV SCH ×4 (00:24→17:43)
[2021-02-25] MEDS: METOPROLOL TARTRATE 5 MG/5 ML VIAL IV PRN (02:04)
[2021-02-25] MEDS: HYDROmorphone 0.5 MG/0.5 ML SYRINGE IV PRN ×3 (02:27→21:48)
[2021-02-25] MEDS: 0.9 % SODIUM CHLORIDE 1,000 ML IV SCH (05:22)
[2021-02-25] MEDS: LORazepam 2 MG/ML VIAL IV PRN (05:30)
[2021-02-25] MEDS: 0.9 % SODIUM CHLORIDE 10 ML SYRINGE IV SCH ×3 (05:32→21:33)
[2021-02-25 06:52] LABS: Basophils # (Auto) 0.06 K/mcL (0.00-0.20); Basophils % (Auto) 1.1 % (0.0-2.0); Eosinophils # (Auto) 0 K/mcL (0.00-0.70); Eosinophils % (Auto) 0 % (0.0-7.0); Hematocrit 45.1 % (41.0-55.0); Hemoglobin 14.3 g/dL (13.5-16.5); Lymphocytes # (Auto) 0.39 K/mcL (1.50-4.80); Lymphocytes % (Auto) 7.1 % (15.0-49.0); Mean Cell Volume 94.5 fL (80.0-100.0); Mean Corpuscular HGB Conc 31.7 g/dL (31.0-36.0); Mean Platelet Volume 10.8 fL (7.4-10.4); Monocytes # (Auto) 0.57 K/mcL (0.10-0.90); Monocytes % (Auto) 10.3 % (1.0-12.0); Platelet Count 172 K/mcL (140-440); RBC 4.77 M/mcL (4.50-5.90); Red Cell Distribution Width 14.6 % (11.5-14.5); WBC 5.5 K/mcL (4.5-11.0)
[2021-02-25 07:54] LABS: ALT/SGPT 13 U/L (<40); AST/SGOT 41 U/L (<40); Albumin 2.3 gm/dL (3.2-5.2); Albumin/Globulin Ratio 0.8 (1.0-2.3); Alkaline Phosphatase 45 U/L (39-117); Bilirubin,Direct 0.3 mg/dL (<0.3); Bilirubin,Total 0.9 mg/dL (0.1-1.0); Blood Urea Nitrogen 45 mg/dL (8-23); Carbon Dioxide 30 mmol/L (22-30); Chloride 117 mmol/L (96-108); Globulin 2.9 gm/dL (2.2-3.7); Glomerular Filtration Rate 64; Glucose 119 mg/dL (70-105); Lactate Dehydrogenase 335 U/L (135-225); Triglycerides 154 mg/dL (<150); Uric Acid 6.5 mg/dL (2.5-8.0)
[2021-02-25 08:02] LABS: Neutrophils % (Auto) 81.5 % (38.0-78.0)
[2021-02-25] MEDS: LEVOFLOXACIN 750 MG/150 ML BAG IV SCH (09:57)
[2021-02-25] MEDS: LISINOPRIL 10 MG TABLET PO SCH (09:58)
[2021-02-25] MEDS: HEPARIN 5,000 UNIT/ML VIAL SQ SCH ×2 (09:58→21:33)
[2021-02-25] MEDS: DEXTROSE 5%-1/4NS 1,000 ML IV SCH ×2 (10:42→21:53)
--- NOTE | 2021-02-25 11:02 | XRay Report ---
CLINICAL INFORMATION: FOLLOW -UP OF SMALL BOWEL OBSTRUCTION COMPARISON: 02/23/2021 FINDINGS: NG tube overlies the gastric body as previously seen. Most of the enteric contrast been evacuated: There still moderate residual. The colon is normal. Few loops of small bowel and the upper abdomen are moderately dilated with decompression of the distal small bowel. IMPRESSION: Findings most compatible atypical ileus - slight improvement Interpreted and Authenticated by: Walter Moreno 02/25/21
--- NOTE | 2021-02-25 12:19 | EKG ---
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 Measurements Intervals [place] Rate: 121 P: 54 NE: 141 QRS: -36 QRSD: 86 T: 89 QT: 328 QTc: 466 Interpretive Statements SINUS TACHYCARDIA MULTIFORM VENTRICULAR PREMATURE COMPLEXES LEFT AXIS DEVIATION BORDERLINE T ABNORMALITIES, LATERAL LEADS Since previous ECG of 02-23-2021, 1921, NSC ABNORMAL TRACING Electronically Signed On 02-25-2021 12:19:42 PDT by Chevy Key M.D. /[facility] [place]/M0/[id number]
--- NOTE | 2021-02-25 13:11 | General Surgery Progress Note ---
SUBJECTIVE Subjective Patient information: Note initiated : 02/25/21 at 1:07 pm Service Date, if different from initiated Date: [] Patient: Tommy Márquez 80 y/o M admitted on 02/18/21 for abdominal pain. Chief Complaint: [] Principal diagnosis: Partial small bowel obstruction Interval history: Patient has had a small amount of gas and is x-ray shows partial clearing of the contrast in his colon. He will not answer questions directly. He denies abdominal distention. White blood count 5.5, hemoglobin 14.3, hematocrit 45.1, sodium 137, BUN 45, creatinine 1.1. Constitutional Vitals: Vital Signs Temp Pulse Resp BP Pulse Ox 98.3 F 82 20 159/82 90 02/25/21 11:34 02/25/21 11:34 02/25/21 11:34 02/25/21 11:34 02/25/21 11:34 Period Temp Pulse Resp BP Sys/Beckford Pulse Ox Last 24 Hr 97.7 F-99.4 F 82-114 16-24 159-179/72-99 90-95 Intake and Output 02/24/21 02/25/21 02/25/21 21:59 05:59 13:59 Intake Total 848 1340 340 Output Total 1000 1100 650 Balance -152 240 -310 Weight 157 lb 8 oz Intake & Output: Intake & Output 02/24/21 02/25/21 02/25/21 21:59 05:59 13:59 Intake Total 848 1340 340 Output Total 1000 1100 650 Balance -152 240 -310 Weight 157 lb 8 oz Intake: IV 848 1100 100 Sodium Chloride 0.9% 1,000 ml @ 748 1000 125 mls/hr IV .Q8H [facility] Rx#: [id number] Oral 240 240 Output: Urine Catheter Amount 700 950 650 Stool 300 150 Other: Urine Appearance Clear Clear Uretheral (Jaime) Clear Urine Color Bright Yellow Dark Yellow Dark Yellow Uretheral (Jaime) Dark Yellow Stool Color Brown Brown Yellow Green Stool Consistency Liquid Liquid Eye Eye exam: Present EOMI Pupils: Present normal accommodation and PERRL ENT ENT exam: Present mucous membranes moist and normal exam Additional comments: Moderate irritation from nasogastric tube Neck Neck exam: Present full ROM; Absent tenderness Respiratory Respiratory exam: Present normal respiratory exam and CTAB; Absent rales and rhonchi Cardiovascular Cardiovascular exam: Present normal rate and rhythm, RRR, +S1 and +S2; Absent JVD GI/Abdominal GI/Abdominal exam: Present normal bowel sounds, soft, distended (Mild diffuse distention) and tenderness (Moderate incisional tenderness with scrotal ecchymosis with no major swelling) Extremities Exam Extremities exam: Present full ROM, normal inspection and neurovascular intact; Absent pedal edema and tenderness Neurological Exam Neurological exam: Present alert, normal gait, oriented X3 and reflexes normal Psychiatric Psychiatric exam: Present normal affect and normal mood Skin Skin exam: Present intact and warm A/P Assessment and plan (1) Postoperative ileus: Status: Acute (2) Incarcerated right inguinal hernia: Status: Acute (3) Complete small bowel obstruction: Status: Acute Narrative A/P Narrative: Discontinue nasogastric tube Clear liquid diet Change fluids to lactated Ringer's Monitor sodium and renal status closely Time Spent With Patient Time: Total time spent is greater than 50% in coordination of care (as documented) at patient's floor/unit and/or counseling patient:
[2021-02-25] MEDS: NYSTATIN 500,000 UNITS/5 ML ORAL.SUSP SSW SCH ×2 (18:35→21:33)
[2021-02-25] MEDS: ONDANSETRON 4 MG/2 ML VIAL IV PRN (21:47)
[2021-02-26] MEDS: METOCLOPRAMIDE 10 MG/2 ML VIAL IV SCH ×4 (00:21→17:59)
[2021-02-26] MEDS: ACETAMINOPHEN 1,000 MG/100 ML BAG IV SCH ×4 (00:21→18:00)
[2021-02-26] MEDS: HYDROmorphone 0.5 MG/0.5 ML SYRINGE IV PRN ×5 (02:03→20:33)
[2021-02-26] MEDS: 0.9 % SODIUM CHLORIDE 10 ML SYRINGE IV SCH ×3 (06:13→21:38)
[2021-02-26] MEDS: NYSTATIN 500,000 UNITS/5 ML ORAL.SUSP SSW SCH ×4 (08:27→21:26)
[2021-02-26] MEDS: LISINOPRIL 10 MG TABLET PO SCH (08:27)
[2021-02-26] MEDS: HEPARIN 5,000 UNIT/ML VIAL SQ SCH ×2 (08:27→21:26)
[2021-02-26] MEDS: LEVOFLOXACIN 750 MG/150 ML BAG IV SCH (09:50)
[2021-02-26] MEDS: METOPROLOL TARTRATE 5 MG/5 ML VIAL IV PRN (09:52)
[2021-02-26] MEDS: DEXTROSE 5%-1/4NS 1,000 ML IV SCH ×2 (11:13→16:46)
--- NOTE | 2021-02-26 13:03 | Operative Note ---
DATE OF OPERATION: 02/20/2021 PREOPERATIVE DIAGNOSIS: Incarcerated right inguinal hernia with small bowel obstruction. POSTOPERATIVE DIAGNOSIS: Incarcerated right inguinal hernia with small bowel obstruction. PROCEDURE: Right inguinal hernia repair. SURGEON: Anita Rodriguez M.D. FINDINGS: Tightly incarcerated small bowel with venous compression, but no ischemia. DESCRIPTION OF PROCEDURE: Under general anesthesia, the patient's lower abdomen and genitalia were prepped and draped in the sterile field. Curvilinear lower and right inguinal incision was made. The incision was extended down to the aponeurosis. The aponeurosis was opened in the line of its fibers. The cord was mobilized from the floor. There was a very large lipoma of the cord as well as a large hernia sac, which were dissected back to the internal ring. There was tight stricture at the internal ring because of the chronicity of the hernia. Because the bowel appeared to be dark, it was opened and the bowel was pulled into the hernia sac and inspected. It was slightly ecchymotic, but was viable and had good peristalsis and easily pinked up once the obstruction was released. The tight stricture at the internal ring was opened, and the bowel was pushed back into the peritoneal cavity without difficulty. Three pursestring sutures of 2-0 Prolene were carried out to close the neck of the sac at the internal ring. The hernia sac was excised as was the lipoma. It was suture ligated with multiple sutures of 2-0 Monocryl. Once this was done, irrigation was carried out. A mesh plug was placed in the internal ring and sutured circumferentially with 2-0 Prolene. Onlay patch was sutured circumferentially with running locking 2-0 Prolene. Irrigation was carried out once more. The aponeurosis was closed with running 2-0 Vicryl. Subcutaneous fascia was closed in two layers using 2-0 Monocryl. [place] were used to close the skin. The patient tolerated the procedure well. Tegaderm dressing was placed. He was awakened, transferred to a bed, and taken to the postanesthetic care unit in satisfactory condition. LCS:jemma Job ID: [id number] Doc ID: [id number] Anita Rodriguez M.D.
--- NOTE | 2021-02-26 13:58 | General Surgery Progress Note ---
SUBJECTIVE Subjective Patient information: Note initiated : 02/26/21 at 1:54 pm Service Date, if different from initiated Date: [] Patient: Tommy Márquez 80 y/o M admitted on 02/18/21 for abdominal pain. Chief Complaint: [] Principal diagnosis: Partial small bowel obstruction Interval history: Patient states that he hurts all over including head neck extremities trunk as well as abdomen. He denies having flatus but he has not had nausea. He refuses to take oral liquids. He has been afebrile and has not been tachycardic. Constitutional Vitals: Vital Signs Temp Pulse Resp BP Pulse Ox 98.5 F 101 H 18 136/72 92 02/26/21 13:01 02/26/21 13:01 02/26/21 13:01 02/26/21 13:01 02/26/21 13:01 Period Temp Pulse Resp BP Sys/Beckford Pulse Ox Last 24 Hr 97.9 F-99.1 F 94-108 18-18 113-164/63-95 87-95 Intake and Output 02/25/21 02/26/21 02/26/21 21:59 05:59 13:59 Intake Total 2340 300 1100 Output Total 800 150 400 Balance 1540 150 700 Weight 157 lb 8 oz Intake & Output: Intake & Output 02/25/21 02/26/21 02/26/21 21:59 05:59 13:59 Intake Total 2340 300 1100 Output Total 800 150 400 Balance 1540 150 700 Weight 157 lb 8 oz Intake: IV 2100 100 1100 Sodium Chloride 0.9% 1,000 ml @ 1000 100 mls/hr IV .Q10H [facility] Rx#: [id number] Dextrose 5%-Sod Chloride 0.2% 1 1000 1000 ,000 ml @ 100 mls/hr IV .Q10H [facility] Rx#:[id number] Oral 240 200 Output: Urine Catheter Amount 400 Uretheral (Jaime) 400 Void Amount 400 150 400 Other: Urine Appearance Clear Clear Urine Color Dark Yellow Dark Yellow Head Head exam: Present atraumatic, normal inspection and normocephalic Eye Eye exam: Present EOMI Pupils: Present normal accommodation and PERRL ENT ENT exam: Present mucous membranes moist and normal exam Additional comments: Moderate irritation from nasogastric tube Neck Neck exam: Present full ROM; Absent tenderness Respiratory Respiratory exam: Present normal respiratory exam and CTAB; Absent rales and rhonchi Cardiovascular Cardiovascular exam: Present normal rate and rhythm, RRR, +S1 and +S2; Absent JVD GI/Abdominal GI/Abdominal exam: Present normal bowel sounds, soft, distended (Mild diffuse distention) and tenderness (Moderate incisional tenderness with scrotal ecchymosis with no major swelling) Extremities Exam Extremities exam: Present full ROM, normal inspection and neurovascular intact; Absent pedal edema and tenderness Back Exam Back exam: Present full ROM and normal inspection Neurological Exam Neurological exam: Present alert, oriented X3 and reflexes normal Psychiatric Psychiatric exam: Present agitated, anxious and depressed Skin Skin exam: Present intact and warm A/P Assessment and plan (1) Postoperative ileus: Status: Acute (2) Incarcerated right inguinal hernia: Status: Acute (3) Complete small bowel obstruction: Status: Acute Narrative A/P Narrative: Continue on present therapy Milk of magnesia 30 cc every 4 hours x 3 doses Abdominal x-rays in the morning Time Spent With Patient Time: Total time spent is greater than 50% in coordination of care (as documented) at patient's floor/unit and/or counseling patient:
[2021-02-26] MEDS: MAGNESIUM HYDROXIDE 30 ML ORAL.SUSP PO SCH ×2 (15:30→20:34)
[2021-02-26] MEDS ORDERED: HYDROmorphone 0.5 MG/0.5 ML SYRINGE IV ONE (22:01)
[2021-02-26] MEDS: ONDANSETRON 4 MG/2 ML VIAL IV PRN (22:06)
[2021-02-26] MEDS: LORazepam 2 MG/ML VIAL IV PRN (22:26)
[2021-02-26] MEDS ORDERED: HYDROmorphone 1 MG/ML SYRINGE IV PRN (23:00)
[2021-02-27] MEDS: DEXTROSE 5%-1/4NS 1,000 ML IV SCH (00:34)
[2021-02-27] MEDS: METOCLOPRAMIDE 10 MG/2 ML VIAL IV SCH ×3 (01:00→18:31)
[2021-02-27] MEDS: ACETAMINOPHEN 1,000 MG/100 ML BAG IV SCH ×4 (01:04→23:14)
[2021-02-27] MEDS ORDERED: MAGNESIUM HYDROXIDE 30 ML ORAL.SUSP ONE (02:35)
[2021-02-27] MEDS: MAGNESIUM HYDROXIDE 30 ML ORAL.SUSP PO SCH (04:03)
[2021-02-27] MEDS ORDERED: DILTIAZEM 25 MG/5 ML VIAL IV ONE ×2 (05:17→05:24)
[2021-02-27] MEDS ORDERED: 0.9 % SODIUM CHLORIDE 500 ML IV ONE (05:32)
[2021-02-27] MEDS ORDERED: 0.9 % SODIUM CHLORIDE 250 ML IV ONE ×2 (05:44→09:24)
[2021-02-27] MEDS ORDERED: 0.9 % SODIUM CHLORIDE 1,000 ML IV SCH ×2 (05:45→17:59)
[2021-02-27] MEDS: 0.9 % SODIUM CHLORIDE 10 ML SYRINGE IV SCH ×3 (06:44→22:22)
[2021-02-27 06:48] LABS: Basophils # (Auto) 0.01 K/mcL (0.00-0.20); Basophils % (Auto) 0.1 % (0.0-2.0); Eosinophils # (Auto) 0.01 K/mcL (0.00-0.70); Eosinophils % (Auto) 0.1 % (0.0-7.0); Hematocrit 45.2 % (41.0-55.0); Hemoglobin 14.7 g/dL (13.5-16.5); Lymphocytes # (Auto) 0.93 K/mcL (1.50-4.80); Lymphocytes % (Auto) 5.9 % (15.0-49.0); Mean Cell Volume 92.6 fL (80.0-100.0); Mean Corpuscular HGB Conc 32.5 g/dL (31.0-36.0); Mean Platelet Volume 12.1 fL (7.4-10.4); Monocytes # (Auto) 0.55 K/mcL (0.10-0.90); Monocytes % (Auto) 3.5 % (1.0-12.0); Platelet Count 126 K/mcL (140-440); RBC 4.88 M/mcL (4.50-5.90); Red Cell Distribution Width 15.3 % (11.5-14.5); WBC 15.8 K/mcL (4.5-11.0)
[2021-02-27 07:06] LABS: ALT/SGPT 22 U/L (<40); AST/SGOT 61 U/L (<40); Albumin 2.2 gm/dL (3.2-5.2); Albumin/Globulin Ratio 0.9 (1.0-2.3); Alkaline Phosphatase 48 U/L (39-117); Bilirubin,Direct 0.5 mg/dL (<0.3); Bilirubin,Total 1.1 mg/dL (0.1-1.0); Blood Urea Nitrogen 55 mg/dL (8-23); Calcium 8.4 mg/dL (8.6-10.4); Carbon Dioxide 33 mmol/L (22-30); Chloride 110 mmol/L (96-108); Globulin 2.5 gm/dL (2.2-3.7); Glomerular Filtration Rate 52; Glucose 136 mg/dL (70-105); Lactate Dehydrogenase 358 U/L (135-225); Phosphorous 4.4 mg/dL (2.5-4.5); Triglycerides 84 mg/dL (<150); Uric Acid 5.2 mg/dL (2.5-8.0)
[2021-02-27 07:29] LABS: Neutrophils % (Auto) 90.4 % (38.0-78.0)
[2021-02-27] MEDS ORDERED: ONDANSETRON 4 MG/2 ML VIAL IV PRN ×2 (08:26→17:59)
[2021-02-27] MEDS ORDERED: BENZOCAINE 1 SPRAY BOTTLE TOPICAL PRN ×2 (08:26→17:59)
[2021-02-27] MEDS ORDERED: HYDROmorphone 1 MG/ML SYRINGE IV PRN (08:26)
[2021-02-27] MEDS: LEVOFLOXACIN 750 MG/150 ML BAG IV SCH ×2 (08:30→09:54)
[2021-02-27] MEDS ORDERED: DIGOXIN 500 MCG/2 ML AMPUL IV ONE (08:55)
--- NOTE | 2021-02-27 08:57 | Internal Medicine Consult Note ---
HPI Data of Consult Consult date: 02/27/21 Requesting physician: Anita Rodriguez Primary Care Provider: Moy Luz PA-C Consult Narrative Patient Information: Note initiated : 02/27/21 at 8:57 am Service Date, if different from initiated Date: Patient: Tommy Márquez 80 y/o M admitted on 02/18/21 for abdominal pain. Chief Complaint: Abdominal pain. Patient is 80 years old male admitted on 02/18/2021 with abdominal pain under surgery service. Patient was diagnosed with Incarcerated right inguinal hernia with small bowel obstruction. performed Right inguinal hernia repair on 02/20/21. He found pt has Tightly incarcerated small bowel with venous compression, but no ischemia. The pt was doing well and was on diet. On 02/27 early am pt developed new onset atrial fibrillation with RVR. Patient was hypotensive as well. I gave him Cardizem 10 mg X1 and transfer him to ICU. Currently patient seems septic. His blood pressure is in the 80s. Patient has no fever. Heart rate ranges between 514120. Patient is more hypoxic and required 6 L oxygen. His white count is elevated 15.8. His abdominal exam show moderate distention with very sluggish bowel sounds. Chief complaint: Abdominal pain, New onset A.fib with RVR Reason for consult: Same as above. cc:: CC: Ravin Gonzalez MD Review of Systems All systems: reviewed and no additional remarkable complaints except as stated Review of systems: Patient has abdominal distention and pain, nausea but no vomiting. No fever. He has palpitation. 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) Hernia (Chronic ~1998) Stroke (Chronic ~2011) High blood pressure (Chronic) Medical History 23-polyvalent pneumococcal polysaccharide vaccine declined Hernia (~1998) High blood pressure Influenza vaccine refused Medicare annual wellness visit, initial 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 Stroke (~2011) Unilateral inguinal hernia without obstruction or gangrene Surgical History History of appendectomy (~1962) "about when I was [age] years old" Family History Other No pertinent family history Social History marital status: alcohol intake frequency: does not drink substance use type: does not use MEDS/ALLERGIES Home Medications and Allergies Home Medications Medication Instructions Recorded Confirmed Type lisinopril 10 1 tab PO QDAY #90 tab 01/08/21 02/19/21 Rx mg-hydrochlorothiazide 12.5 mg tablet Allergies Allergy/AdvReac Type Severity Reaction Status Date / Time Penicillins Allergy Unknown "can not Verified 02/18/21 14:17 recall reaction, think it was pretty bad" Sulfa (Sulfonamide Allergy Unknown Unknown Verified 02/18/21 14:17 Antibiotics) EXAM Constitutional Vitals: Temp Pulse Resp BP Pulse Ox 98.2 F 120 H 22 88/53 91 02/27/21 06:59 02/27/21 07:04 02/27/21 06:59 02/27/21 06:59 02/27/21 07:04 General appearance: cooperative, moderate distress and thin (Patient has toxic look) Head Head exam: Present atraumatic, normal inspection and normocephalic Eye Eye exam: Present EOMI, normal appearance and PERRL Neck Neck exam: Present full ROM and normal inspection Respiratory Respiratory exam: Present normal respiratory exam and CTAB Cardiovascular Cardiovascular exam: Present irregular rhythm (Atrial fibrillation with RVR), +S1, +S2 and tachycardia; Absent diastolic murmur and systolic murmur GI/Abdominal GI/Abdominal exam: Present diminished bowel sounds, distended, guarding, rigid and tenderness (Distended, Tympanic, Sluggish BS. Lower abdominal wound with estefany); Absent hernia, mass and rebound Extremities Exam Extremities exam: Present full ROM, normal capillary refill and normal inspection; Absent calf tenderness and joint swelling Back Exam Back exam: Present full ROM Neurological Exam Neurological exam: Present alert, CN II-XII intact, oriented X3 and reflexes normal Psychiatric Psychiatric exam: Present normal affect and normal mood Skin Skin exam: Present dry, normal color and warm DATA Data Completed and Pending Labs: Labs from last 24 hours 02/27/21 02/27/21 02/27/21 05:45 05:24 05:23 WBC 15.8 H RBC 4.88 Hgb 14.7 Hct 45.2 MCV 92.6 MCH 30.1 MCHC 32.5 RDW 15.3 H Plt Count 126 L MPV 12.1 H Neut % (Auto) 90.4 H Lymph % (Auto) 5.9 L Maury % (Auto) 3.5 Eos % (Auto) 0.1 Baso % (Auto) 0.1 Lymph # (Auto) 0.93 L Ma[place] # (Auto) 0.55 Eos # (Auto) 0.01 Baso # (Auto) 0.01 Absolute Neutrophils 14.30 H Sodium 151 H Potassium 4.2 Chloride 110 H Carbon Dioxide 33 H Anion Gap 8.0 BUN 55 H Creatinine 1.3 H GFR Calculation 52 Glucose 136 H Uric Acid 5.2 Calcium 8.4 L Phosphorus 4.4 Magnesium 3.2 H Total Bilirubin 1.1 H Direct Bilirubin 0.5 H GGT 40 AST 61 H ALT 22 Alkaline Phosphatase 48 Lactate Dehydrogenase 358 H Total Protein 4.7 L Albumin 2.2 L Globulin 2.5 Albumin/Globulin Ratio 0.9 L Triglycerides 84 TSH 1.74 KUB : Moderately dilated small bowel loops in the midabdomen with distal decompression which could represent recurrent mid small bowel obstruction A/P Narrative A/P Narrative: 80 years old male admitted with following problem list: # Incarcerated right inguinal hernia with small bowel obstruction. - S/p right inguinal hernia repair on 02/20/21 by and found pt has tightly incarcerated small bowel with venous compression, but no ischemia - CT A/P 02/24 - Abdominal distention no N/V. KUB 02/27 dilated loop of bowel suspect SBO again. - Repeat CT A/P today. NPO. Place NG tube, IVF #Severe sepsis with high WBC, tachycardia, Hypoxia, hypotension - CxR no PNA. WBC 15. -Check CT abdomen pelvis with contrast, blood culture X2, lactic acid and continue IV fluid. If blood pressure does not improve place central line and start Levophed -Broaden antibiotic with cefepime/Flagyl. Discontinue Levaquin #New onset atrial fibrillation with rapid ventricular rate -No history of atrial fibrillation. -Status post Cardizem 10 mg X1. Heart rate still above 120 -Continue IV fluid, start IV albumin. Treat sepsis as above -Magnesium/TSH normal. Check echocardiogram and troponin -Start digoxin 0.5 X1, 0.25X2 every 6 #Essential hypertension -Hold lisinopril and HCTZ. DVT PPX. Lovenox 40mg daily Code. Full Dispo : ICU. Total critical care time spent 65 mins. Plan of care d/w pt and ICU staff and pt's and step daughter. Time Spent With Patient Time: Total time spent is greater than 50% in coordination of care (as documented) at patient's floor/unit and/or counseling patient:
[2021-02-27] MEDS ORDERED: HEPARIN 5,000 UNIT/ML VIAL SQ SCH (09:00)
[2021-02-27] MEDS: ALBUMIN HUMAN 25 GM/100 ML BAG IV SCH ×3 (09:07→23:14)
[2021-02-27] MEDS: metroNIDAZOLE 500 MG/100 ML BAG IV SCH ×3 (09:39→22:11)
[2021-02-27] MEDS ORDERED: CEFEPIME 2 GM VIAL IV SCH (10:00)
--- NOTE | 2021-02-27 10:03 | EKG ---
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 Measurements Intervals [place] Rate: 115 P: 72 ND: 144 QRS: -32 QRSD: 80 T: 70 QT: 340 QTc: 471 Interpretive Statements SINUS TACHYCARDIA VENTRICULAR BIGEMINY LEFT AXIS DEVIATION BORDERLINE PROLONGED QT INTERVAL Since previous ECG of 02-23-2021, NSC ABNORMAL TRACING Electronically Signed On 02-27-2021 10:03:32 PDT by Chevy Key M.D. /[facility] [place]//[id number]
--- NOTE | 2021-02-27 10:07 | XRay Report ---
CLINICAL INFORMATION: FOLLOW -UP OF SMALL BOWEL OBSTRUCTION COMPARISON: 02/17/2021 FINDINGS: NG tube now out. Most of the enteric contrast has evacuated from the colon with only small residual within the ascending descending rectosigmoid segments. There are few loops of moderately dilated small bowel in the central abdomen. The distal small bowel is decompressed. IMPRESSION: Moderately dilated small bowel loops in the midabdomen with distal decompression which could represent recurrent mid small bowel obstruction. Interpreted and Authenticated by: Walter Moreno 02/27/21
--- NOTE | 2021-02-27 10:13 | XRay Report ---
CLINICAL INFORMATION: tachycardia; COMPARISON: 02/23/2021 FINDINGS: The heart is mildly enlarged but unchanged. Mediastinum and pulmonary vessels are normal. Moderate right basilar infiltrate has progressed. Small right pleural effusion noted. Smaller left basilar infiltrate show slight progression.. IMPRESSION: Moderate right and small left basilar infiltrates. Consider aspiration. Progression from the prior study. Interpreted and Authenticated by: Walter Moreno 02/27/21
[2021-02-27] MEDS ORDERED: IOPAMIDOL 100 ML BOTTLE IV ONE ×2 (10:36→17:59)
[2021-02-27] MEDS: 0.9 % SODIUM CHLORIDE 1,000 ML IV SCH ×4 (10:48→23:58)
[2021-02-27] MEDS ORDERED: ACETAMINOPHEN 1,000 MG/100 ML BAG IV SCH (12:00)
[2021-02-27] MEDS ORDERED: METOCLOPRAMIDE 10 MG/2 ML VIAL IV SCH (12:00)
--- NOTE | 2021-02-27 12:37 | Cat Scan Report ---
CLINICAL INFORMATION: Abdominal pain and distention small bowel obstruction. COMPARISON: 02/24/2021 TECHNIQUE: Following enteric contrast, 80 cc of Isovue-370 were injected intravenously, and 60 seconds later, 0.625 mm helical slices were obtained from the mid heart through the subtrochanteric regions. Following reconstruction, 2.5 mm sagittal, coronal and axial reformatted images were processed and reviewed at bone, lung and soft tissue windows. Five minutes later, 0.625 mm helical slices were obtained from the mid heart through the kidneys and viewed at soft tissue windows.The exam was performed using radiation dose optimization techniques including, but not limited to, automated exposure control, adjustment of the mA and/or kV according to patient size and use of iterative reconstruction technique. FINDINGS: Lung bases show moderate right and small left pleural effusion which have increased. Moderate consolidated infiltrate posterior right lower lobe has also increased. There is a small patchy-appearing the posterior left lower lobe. Panlobular emphysema changes again noted The heart is moderately enlarged but unchanged Abdominal images show mild fatty change within the liver and 12 mm simple cyst in the medial segment of the right hepatic lobe. Gallbladder and bile ducts are normal: CBD is 5 mm. Scattered bilateral renal cysts are stable - no significant renal abnormality. Both adrenal glands, spleen, pancreas and aorta including aortic branches are normal in size, configuration and attenuation without focal lesion. Pelvic images show a Jaime catheter properly positioned. The urinary bladder is compressed. The prostate is normal. The stomach, duodenum and multiple loops of jejunum are moderately dilated to a transition point in the mid abdomen (coronal image 58 and axial image 101). The distal small bowel is relatively decompressed. Small amounts of enteric contrast, from prior imaging study, within the colon appreciated: Is also decompressed. Marked ascites throughout the mesenteric cavity has increased considerably since the previous exam. Small amount of free intraperitoneal air also noted. Bone windows show no osseous abnormality IMPRESSION: 1. Recurrent small bowel obstruction in the mid jejunum ostensibly related to adhesions or stricture. Large amount of free free intraperitoneal fluid is suggestive of third spacing due to bowel obstruction. It may also represent bacterial peritonitis. Consider paracentesis. Small amount of free intraperitoneal air may be related to recent surgery. Bowel. 2. Moderate right small left pleural effusion with moderate consolidated infiltrate posterior right lower lobe and subsegmental atelectasis in the left lower lobe. Interpreted and Authenticated by: Walter Moreno 02/27/21
--- NOTE | 2021-02-27 12:59 | General Surgery Progress Note ---
SUBJECTIVE Subjective Patient information: Note initiated : 02/27/21 at 12:57 pm Service Date, if different from initiated Date: [] Patient: Tommy Márquez 80 y/o M admitted on 02/18/21 for abdominal pain. Chief Complaint: [] Principal diagnosis: Partial small bowel obstruction Interval history: Patient developed increasing abdominal pain with abdominal bloating during the night. He had onset of atrial tachycardia with episodes of ventricular fibrillation and hypotension about over 0500 today. He was treated with Cardizem IV and was given boluses of fluids. His CBC showed increased white count of 15,000. Metabolic panel showed elevated BUN creatinine and sodium compatible with volume loss. CT of the abdomen was done and it showed continued pattern of small bowel obstruction with increase free fluid and small areas of free air. Family is counseled for exploratory laparotomy which will be done emergently. Constitutional Vitals: Vital Signs Temp Pulse Resp BP Pulse Ox 99.7 F H 106 H 23 H 106/65 97 02/27/21 12:01 02/27/21 12:01 02/27/21 12:01 02/27/21 12:01 02/27/21 12:01 Period Temp Pulse Resp BP Sys/Beckford Pulse Ox Last 24 Hr 97.2 F-100.4 F 91-126 12-34 62-136/45-72 85-99 Intake and Output 02/26/21 02/27/21 02/27/21 21:59 05:59 13:59 Intake Total 100 1200 2496 Output Total 200 51 Balance -100 1149 2496 Weight 157 lb 14.4 oz Intake & Output: Intake & Output 02/26/21 02/27/21 02/27/21 21:59 05:59 13:59 Intake Total 100 1200 2496 Output Total 200 51 Balance -100 1149 2496 Weight 157 lb 14.4 oz Intake: IV 100 1100 2496 Sodium Chloride 0.9% 1,000 ml @ 188 100 mls/hr IV .Q10H [facility] Rx#: [id number] Sodium Chloride 0.9% 250 ml @ 500 Wide Open IV BOLUS ONE Rx#: [id number] Sodium Chloride 0.9% 500 ml @ 500 Wide Open IV BOLUS ONE Rx#: [id number] Dextrose 5%-Sod Chloride 0.2% 1 1000 760 ,000 ml @ 100 mls/hr IV .Q10H [facility]ERTO Rx#:[id number] Oral 100 Output: Void Amount 200 50 # of times incontinent of urine 1 Other: Urine Appearance Clear Clear Clear Urine Color Yellow Brown Dark Yellow Dark Louise Stool Consistency Liquid Neck Neck exam: Present full ROM; Absent tenderness Respiratory Respiratory exam: Present accessory muscle use, decreased breath sounds, rales and respiratory distress; Absent rhonchi Cardiovascular Cardiovascular exam: Present +S1, +S2 and tachycardia GI/Abdominal GI/Abdominal exam: Present distended, guarding and tenderness (Diffuse tenderness throughout abdominal area) Extremities Exam Extremities exam: Present full ROM, normal inspection and neurovascular intact; Absent pedal edema and tenderness Neurological Exam Neurological exam: Present altered Psychiatric Psychiatric exam: Present agitated, anxious and depressed A/P Assessment and plan (1) Postoperative ileus: Status: Acute (2) Incarcerated right inguinal hernia: Status: Acute (3) Complete small bowel obstruction: Status: Acute Narrative A/P Narrative: Patient and his family have been counseled for exploratory laparotomy. It will be done emergently. Time Spent With Patient Time: Total time spent is greater than 50% in coordination of care (as documented) at patient's floor/unit and/or counseling patient:
[2021-02-27] MEDS ORDERED: ALBUMIN HUMAN 25 GM/100 ML BAG IV ONE ×3 (13:13→17:04)
[2021-02-27] MEDS ORDERED: PROPOFOL 200 MG/20 ML VIAL IV ONE (13:45)
[2021-02-27] MEDS ORDERED: KETAMINE 50 MG/ML ML ONE (13:45)
[2021-02-27] MEDS ORDERED: DEXAMETHASONE 10 MG/ML VIAL ONE (13:45)
[2021-02-27] MEDS ORDERED: MIDAZOLAM 5 MG/5 ML VIAL ONE (13:45)
[2021-02-27] MEDS ORDERED: ROCURONIUM 10 MG/ML ML IV ONE (13:45)
[2021-02-27] MEDS ORDERED: LIDOCAINE HCL/PF 100 MG/5 ML SYRINGE IV ONE (13:45)
[2021-02-27] MEDS ORDERED: MAGNESIUM SULFATE 2 GM/50 ML BAG IV ONE (13:45)
[2021-02-27] MEDS ORDERED: ONDANSETRON 4 MG/2 ML VIAL ONE (13:45)
[2021-02-27] MEDS ORDERED: ePHEDrine 50 MG/5 ML SYRINGE (ANEST) IV ONE (13:45)
[2021-02-27] MEDS ORDERED: PHENYLEPHRINE 10 MG/ML VIAL ONE (13:45)
[2021-02-27] MEDS ORDERED: 0.9 % SODIUM CHLORIDE 10 ML SYRINGE IV SCH ×2 (14:00→21:00)
[2021-02-27] MEDS: NYSTATIN 500,000 UNITS/5 ML ORAL.SUSP SSW SCH ×4 (14:20→21:44)
[2021-02-27] MEDS ORDERED: OXYMETAZOLINE 1 SPRAY BOTTLE NAS PRN ×2 (14:25→17:59)
[2021-02-27] MEDS ORDERED: DIGOXIN 500 MCG/2 ML AMPUL IV SCH ×2 (15:00→21:00)
[2021-02-27] MEDS ORDERED: BACITRACIN 50,000 UNIT VIAL IR ONE (16:00)
[2021-02-27] MEDS ORDERED: 0.9 % SODIUM CHLORIDE 10 ML SYRINGE IV PRN ×2 (16:18→17:59)
[2021-02-27] MEDS ORDERED: fentaNYL 100 MCG/2 ML VIAL IV PRN (16:52)
[2021-02-27] MEDS ORDERED: NOREPINEPHRINE BITARTRATE 16 MG in 0.9 % SODIUM CHLORIDE 234 ML IV SCH (17:00)
[2021-02-27] MEDS ORDERED: PROPOFOL 1,000 MG in PREMIX 1 BAG IV SCH (17:00)
--- NOTE | 2021-02-27 17:00 | Internal Med Progress Note ---
SUBJECTIVE Subjective Patient information: Note initiated : 02/27/21 at 4:54 pm Service Date, if different from initiated Date: [] Patient: Tommy Márquez 80 y/o M admitted on 02/18/21 for abdominal pain. Chief Complaint: Nausea/Vomiting, Abdominal pain. Principal diagnosis: Partial small bowel obstruction Interval history: Pt was taken to OR for Ex Lap and found to have perforated viscus. S/p Wash out. Pt remained intubated. Now transferred back to ICU intubated. Constitutional Vitals: Vital Signs Temp Pulse Resp BP Pulse Ox 99.7 F H 111 H 24 H 98/63 96 02/27/21 13:01 02/27/21 13:01 02/27/21 13:01 02/27/21 13:01 02/27/21 13:01 Period Temp Pulse Resp BP Sys/Beckford Pulse Ox Last 24 Hr 98.0 F-100.4 F 91-126 12-34 62-132/45-72 85-99 Intake and Output 02/27/21 02/27/21 02/27/21 05:59 13:59 21:59 Intake Total 1200 2496 Output Total 51 448 Balance 1149 2048 Intake & Output: Intake & Output 02/27/21 02/27/21 02/27/21 05:59 13:59 21:59 Intake Total 1200 2496 Output Total 51 448 Balance 1149 2048 Intake: IV 1100 2496 Sodium Chloride 0.9% 1,000 ml @ 188 100 mls/hr IV .Q10H [facility]ERTO Rx#: [id number] Sodium Chloride 0.9% 250 ml @ 500 Wide Open IV BOLUS ONE Rx#: [id number] Sodium Chloride 0.9% 500 ml @ 500 Wide Open IV BOLUS ONE Rx#: [id number] Dextrose 5%-Sod Chloride 0.2% 1 1000 760 ,000 ml @ 100 mls/hr IV .Q10H BERTO Rx#:[id number] Oral 100 Output: Urine Catheter Amount 448 Void Amount 50 # of times incontinent of urine 1 Other: Urine Appearance Clear Clear Urine Color Dark Yellow Dark Louise Additional findings Additional findings: General: Patient is intubated and sedated. HEENT: Pupils are reactive to light. Lungs: Decreased breath sounds. Crackles at bases. Cardiovascular: Irregularly irregular rhythm. S1 + S2, no murmur gallop rub. No peripheral edema. No JVD GI: Distended. Status post exploratory laparotomy with dry dressing. Absent bowel sounds. Drain in place. ORTHOPEDICS NURSE: Sedated and intubated. Psychiatric: Unable to assess OBJ DATA Labs CBC & Chem 7: 02/27/21 05:24 02/27/21 05:23 Labs: Abnormal Lab Results 02/27/21 02/27/21 02/27/21 09:59 09:50 05:24 WBC 15.8 H RDW 15.3 H Plt Count 126 L MPV 12.1 H Neut % (Auto) 90.4 H Lymph % (Auto) 5.9 L Lymph # (Auto) 0.93 L Absolute Neutrophils 14.30 H VBG Lactic Acid 3.0 H Sodium Chloride Carbon Dioxide BUN Creatinine Glucose Calcium Magnesium Total Bilirubin Direct Bilirubin AST Lactate Dehydrogenase NT-Pro-B Natriuret Pep 1728.0 H Total Protein Albumin Albumin/Globulin Ratio Triglycerides 02/27/21 02/25/21 02/25/21 05:23 05:37 05:37 WBC RDW 14.6 H Plt Count MPV 10.8 H Neut % (Auto) 81.5 H Lymph % (Auto) 7.1 L Lymph # (Auto) 0.39 L Absolute Neutrophils VBG Lactic Acid Sodium 151 H 157 H Chloride 110 H 117 H Carbon Dioxide 33 H BUN 55 H 45 H Creatinine 1.3 H Glucose 136 H 119 H Calcium 8.4 L Magnesium 3.2 H 2.7 H Total Bilirubin 1.1 H Direct Bilirubin 0.5 H 0.3 H AST 61 H 41 H Lactate Dehydrogenase 358 H 335 H NT-Pro-B Natriuret Pep Total Protein 4.7 L 5.2 L Albumin 2.2 L 2.3 L Albumin/Globulin Ratio 0.9 L 0.8 L Triglycerides 154 H Meds: Medications Bacitracin (Bacitracin 50,000 Unit Vial) 50,000 unit IR ONCE ONE Stop: 02/27/21 16:01 Benzocaine (Benzocaine 1 [place] Bottle) 1 spray TOPICAL Q2HP PRN PRN Reason: Sore Throat Cefepime HCl (Cefepime 2 Gm Vial) 2 gm IV Q12H BERTO Last Admin: 02/27/21 10:55 Dose: 2 gm Documented by: Digoxin (Digoxin 500 Mcg/2 Ml Ampul) 250 mcg IV Q6H [facility] Stop: 02/27/21 21:01 Fentanyl (Fentanyl 100 Mcg/2 Ml Vial) 50 mcg IV Q4 PRN; Protocol PRN Reason: Pain Heparin Sodium (Porcine) (Heparin 5,000 Unit/Ml Vial) 5,000 unit SQ Q12 [facility] Last Admin: 02/27/21 10:55 Dose: 5,000 unit Documented by: Hydromorphone HCl (Hydromorphone 1 Mg/Ml Syringe) 1 mg IV Q2HP PRN; Protocol PRN Reason: Per Pain Protocol Sodium Chloride (Sodium Chloride 0.9%) 1,000 mls @ 100 mls/hr IV .Q10H [facility] Last Admin: 02/27/21 12:41 Dose: 100 mls/hr Documented by: Acetaminophen (Ofirmev) 1,000 mg in 100 mls @ 200 mls/hr IV Q6H [facility]; Protocol Last Infusion: 02/27/21 12:26 Dose: Infused Documented by: Albumin Human (Buminate) 25 gm in 100 mls @ 200 mls/hr IV Q6H [facility] Stop: 02/28/21 03:29 Last Infusion: 02/27/21 09:58 Dose: Infused Documented by: Metronidazole (Flagyl) 500 mg in 100 mls @ 100 mls/hr IV Q8H [facility]; Protocol Last Infusion: 02/27/21 11:16 Dose: Infused Documented by: Propofol 1,000 mg/ Premix 100 mls @ 2.149 mls/hr IV .Q24H [facility]; Protocol Metoclopramide HCl (Metoclopramide 10 Mg/2 Ml Vial) 10 mg IV Q6 [facility] Last Admin: 02/27/21 11:23 Dose: 10 mg Documented by: Nystatin (Nystatin 500,000 Units/5 Ml Oral.Susp) 500,000 units SSW QID [facility] Last Admin: 02/27/21 16:20 Dose: Not Given Documented by: Ondansetron HCl (Ondansetron 4 Mg/2 Ml Vial) 4 mg IV Q6HP PRN PRN Reason: Nausea And Vomiting Sodium Chloride (0.9 % Sodium Chloride 10 Ml Syringe) 10 ml IV Q8 [facility] Last Admin: 02/27/21 12:27 Dose: 10 ml Documented by: Sodium Chloride (0.9 % Sodium Chloride 10 Ml Syringe) 10 ml IV Q12 [facility] Sodium Chloride (0.9 % Sodium Chloride 10 Ml Syringe) 10 ml IV UD PRN PRN Reason: FLUSH A/P Narrative A/P Narrative: 80 years old male admitted with following problem list: # Incarcerated right inguinal hernia with small bowel obstruction. # Acute peritonitis with perforated viscus - S/p right inguinal hernia repair on 02/20/21 by and found pt has tightly incarcerated small bowel with venous compression, but no ischemia - CT A/P 02/24 - Repeat CT A/P 02/27 Recurrent SBO in the mid jejunum ostensibly related to adhesions or stricture. Large amount of free free intraperitoneal fluid is suggestive of third spacing due to bowel obstruction,suspect bacterial peritonitis. Small amount of free intraperitoneal air may be related to recent surgery. - S/p Ex Lap 02/27 with wash out and repair. See operative note. - Cont Anbx, IVF, Follow Labs. NPO, NG tube. - Management per surgery # Acute Hypoxic resp failure. Upto 10 L O2 - Mod R pleural effusion. - Due to Sepsis. Remained intubated post surgery. - Cont Vent support and wean protocol. # Severe sepsis with high WBC, tachycardia, Hypoxia, hypotension due to acute peritonitis. - CxR no PNA. WBC 15. - Pending Blood culture X2, lactic acid and continue IV fluid. -Broaden antibiotic with cefepime/Flagyl. Discontinued Levaquin #New onset atrial fibrillation with rapid ventricular rate -No history of atrial fibrillation. -Status post Cardizem 10 mg X1. Heart rate still above 120 -Continue IV fluid, started IV albumin. Treat sepsis as above -Magnesium/TSH normal. Pending echocardiogram. Neg Troponin -Started digoxin 0.5 X1, 0.25X2 every 6 #Essential hypertension -Hold lisinopril and HCTZ. DVT PPX. Lovenox 40mg daily Code. Full Dispo : ICU. Extra critical care time spent 40 mins. Plan of care d/w pt and ICU staff, Dr. Rodriguez the surgeon and pt's and step daughter. Time Spent With Patient Time: Total time spent is greater than 50% in coordination of care (as documented) at patient's floor/unit and/or counseling patient: QUALITY Stroke Symptom Onset Unknown: No VTE Deep Vein Thrombosis/Pulmonary Embolism Present on Admission: No
[2021-02-27] MEDS ORDERED: 0.9 % SODIUM CHLORIDE 1,000 ML IV ONE (17:11)
--- NOTE | 2021-02-27 17:24 | Brief Operative Note ---
Brief Operative Note Date of procedure: 02/27/21 Pre-op diagnosis: small bowel obstruction Post-op diagnosis: other (small bowel obstruction.perforation of ileum;peritonitis) Procedure: exploratory laparotomy with small bowel adhesiolysis;peritoneal lavage and drainage;closure of microperforation Grafts/Implants: No (rosario drain x2) Anesthesia: GETA Findings: perforation of terminal ileum; 4 areas of partial obstruction of distal jejunum diffuse peritonitis and pelvic abscess Complications: none Surgeon: Anita Rodriguez Estimated blood loss (cc): 100 Specimens Removed/Pathology: none sent Condition: critical Disposition: ICU
--- NOTE | 2021-02-27 17:31 | XRay Report ---
CLINICAL INFORMATION: Central Line Placement COMPARISON: 02/27/2021 FINDINGS: Left IJ central line tip overlies the SVC right atrial junction. No pneumothorax or other complication from line placement. NG tube tip overlies the gastric fundus. Endotracheal tip is 9 cm above the brianna. Heart size, mediastinum and pulmonary vessels are normal. Moderate right basilar infiltrate and effusion show slight progression. IMPRESSION: Central line in satisfactory position accomplished line placement Endotracheal tip 9 cm above the brianna. Moderate right basilar infiltrate and effusion slight worsening Interpreted and Authenticated by: Walter Moreno 02/27/21
[2021-02-27] MEDS: 0.9 % SODIUM CHLORIDE 250 ML IV SCH ×2 (18:00→21:22)
[2021-02-27] MEDS: fentaNYL 100 MCG/2 ML VIAL IV PRN (20:04)
[2021-02-27] MEDS: PROPOFOL 1,000 MG in PREMIX 1 BAG IV SCH (21:21)
[2021-02-27] MEDS: HEPARIN 5,000 UNIT/ML VIAL SQ SCH (21:38)
[2021-02-27] MEDS: CEFEPIME 2 GM VIAL IV SCH (21:49)
[2021-02-27] MEDS: CHLORHEXIDINE GLUCONATE 1 ML ORAL.SOL SWABMOUTH SCH (22:02)
[2021-02-27] MEDS: HYDROmorphone 1 MG/ML SYRINGE IV PRN (22:41)
[2021-02-28] MEDS: METOCLOPRAMIDE 10 MG/2 ML VIAL IV SCH ×5 (00:05→23:32)
[2021-02-28] MEDS: 0.9 % SODIUM CHLORIDE 1,000 ML IV SCH ×2 (00:28→07:24)
[2021-02-28] MEDS: fentaNYL 100 MCG/2 ML VIAL IV PRN (00:55)
[2021-02-28] MEDS: HYDROmorphone 1 MG/ML SYRINGE IV PRN ×6 (03:32→22:16)
[2021-02-28] MEDS: ALBUMIN HUMAN 25 GM/100 ML BAG IV SCH ×4 (05:55→23:32)
[2021-02-28] MEDS: metroNIDAZOLE 500 MG/100 ML BAG IV SCH ×3 (05:55→21:43)
[2021-02-28] MEDS: ACETAMINOPHEN 1,000 MG/100 ML BAG IV SCH ×4 (05:56→23:32)
[2021-02-28] MEDS: 0.9 % SODIUM CHLORIDE 10 ML SYRINGE IV SCH ×5 (05:56→21:01)
[2021-02-28 06:48] LABS: ALT/SGPT 13 U/L (<40); AST/SGOT 47 U/L (<40); Albumin 2.7 gm/dL (3.2-5.2); Albumin/Globulin Ratio 1.6 (1.0-2.3); Alkaline Phosphatase 68 U/L (39-117); Bilirubin,Direct 0.9 mg/dL (<0.3); Bilirubin,Total 1.3 mg/dL (0.1-1.0); Blood Urea Nitrogen 68 mg/dL (8-23); Calcium 7.6 mg/dL (8.6-10.4); Carbon Dioxide 29 mmol/L (22-30); Chloride 119 mmol/L (96-108); Globulin 1.7 gm/dL (2.2-3.7); Glomerular Filtration Rate 41; Glucose 152 mg/dL (70-105); Lactate Dehydrogenase 346 U/L (135-225); Phosphorous 5.5 mg/dL (2.5-4.5); Triglycerides 108 mg/dL (<150); Uric Acid 5.2 mg/dL (2.5-8.0)
[2021-02-28 06:56] LABS: Basophils # (Auto) 0.11 K/mcL (0.00-0.20); Basophils % (Auto) 0.6 % (0.0-2.0); Eosinophils # (Auto) 0 K/mcL (0.00-0.70); Eosinophils % (Auto) 0 % (0.0-7.0); Hematocrit 33.2 % (41.0-55.0); Hemoglobin 10.5 g/dL (13.5-16.5); Lymphocytes % (Auto) 3.6 % (15.0-49.0); Mean Cell Volume 95.1 fL (80.0-100.0); Mean Corpuscular HGB Conc 31.6 g/dL (31.0-36.0); Mean Platelet Volume 12.6 fL (7.4-10.4); Monocytes # (Auto) 0.51 K/mcL (0.10-0.90); Monocytes % (Auto) 2.6 % (1.0-12.0); Neutrophils % (Auto) 93.2 % (38.0-78.0); Platelet Count 113 K/mcL (140-440); RBC 3.49 M/mcL (4.50-5.90); Red Cell Distribution Width 15.9 % (11.5-14.5); WBC 19.6 K/mcL (4.5-11.0)
[2021-02-28] MEDS: NYSTATIN 500,000 UNITS/5 ML ORAL.SUSP SSW SCH ×4 (08:03→21:00)
[2021-02-28] MEDS: CEFEPIME 2 GM VIAL IV SCH ×2 (08:03→20:59)
--- NOTE | 2021-02-28 08:27 | Operative Note ---
DATE OF OPERATION: 02/27/2021 PREOPERATIVE DIAGNOSES: Small bowel obstruction, possible free air. POSTOPERATIVE DIAGNOSES: Small bowel obstruction with perforation of the terminal ileum and four areas of near complete obstruction with peritonitis secondary to small bowel leak. PROCEDURE: 1. Exploratory laparotomy with small bowel adhesiolysis. 2. Peritoneal lavage and drainage of peritoneal cavity. 3. Closure of microperforation of ileum. SURGEON: Anita Rodriguez M.D. FINDINGS: Perforation of the terminal ileum, four areas of partial obstruction of distal jejunum, diffuse peritonitis, and pelvic abscess. DESCRIPTION OF PROCEDURE: Under general anesthesia, initially the patient had a central line placed by Anesthesia. After that, he was prepped and draped in a sterile field. Timeout procedure was carried out as per protocol. A midline incision was made. There was thin, bilious fluid that drained from the peritoneum. There was thick exudate in the pelvis, primarily on the wall of the small bowel and colon. The peritoneum was suctioned to remove as much as possible of the succuss entericus. The bowel was gradually pulled from the peritoneal cavity. There were four areas of tight, near complete obstruction in the distal jejunum. In the terminal ileum about 8 inches from the ileocecal valve there was a microperforation. It measured probably about a 2 to 3 mm. This was leaking peritoneal fluid. There was a large collection of fluid in the pelvis at the base of the small bowel mesentery, and in both lateral gutters. Using the power ballast machine operator, the peritoneum was vigorously irrigated. Once this was done, the bowel was inspected and no other area of leakage was noted. The four areas of partial obstruction in the distal jejunum were gently until the bowel was totally free. There was no enterotomy made. The area of the microperforation was on the mesenteric border of the ileum. The tissue surrounding this was totally viable, and there was excellent peristalsis, so the microperforation was closed with two rows of TA 30 stapler. This did not compromise the lumen of the bowel. Further irrigation was carried out. Care was made to run the bowel once more to make sure there was no compromise to the bowel. There was excellent peristalsis. There was a collection in the right gutter around the area of the cecum. This was copiously irrigated. Irrigation was then carried out in both subphrenic areas. Once this was done, a AKIL drain was placed in the right gutter and extended up to the level of the hepatic flexure. Another drain was placed in the pelvis and was brought out through the left lower quadrant incision. A nasogastric tube was positioned in the stomach. All surface areas were fully visualized, and there was no other evidence of compromise of the bowel. Sponge, needle, instrument, and blade counts were verified as correct. The fascia was closed in the midline using running #1 Prolene. The subcutaneous tissue was copiously irrigated and left open but packed with vaginal packing soaked in bacitracin. The drains were secured with 2-0 nylon. A 4 x 4 dressing was placed over the midline incision and the abdomen was covered with Vi-Drape. The patient was left intubated and transferred to the intensive care unit in critical condition. LCS:jemma Job ID: [id number] Doc ID: [id number] Anita Rodriguez M.D.
--- NOTE | 2021-02-28 09:09 | XRay Report ---
CLINICAL INFORMATION: pulmonary infiltrate;ventilated COMPARISON: None. FINDINGS: Endotracheal tip position has improved - now 4.6 cm above the brianna. NG tube is coiled in the gastric fundus. Right IJ line is stable satisfactory position with the tip overlying the SVC right atrial junction. Heart size, mediastinum and pulmonary vessels are normal. Moderate right basilar infiltrate and effusion show slight improvement. Left base is now clear. IMPRESSION: Moderate right basilar infiltrate an effusion is improving. Left base now clear Interpreted and Authenticated by: Walter Moreno 02/28/21
--- NOTE | 2021-02-28 10:53 | Internal Med Progress Note ---
SUBJECTIVE Subjective Patient information: Note initiated : 02/28/21 at 10:53 am Service Date, if different from initiated Date: Patient: Tommy Márquez 80 y/o M admitted on 02/18/21 for abdominal pain. Chief Complaint: Abdominal pain Principal diagnosis: Partial small bowel obstruction Interval history: pt remained intubated. No overnight issues. NG has Coffee ground emesis. On minimal Vent support. Follows commands. Daughter at bedside. No fever. BP stable now. Was briefly on Levophed last night but now off. HR ~10 0. follows commands of sedation holiday. Constitutional Vitals: Vital Signs Temp Pulse Resp BP Pulse Ox 99.8 F H 104 H 19 119/56 96 02/28/21 09:01 02/28/21 09:01 02/28/21 09:50 02/28/21 09:01 02/28/21 09:50 Period Temp Pulse Resp BP Sys/Beckford Pulse Ox Last 24 Hr 96.7 F-99.9 F 91-121 16-30 66-146/50-81 94-100 Intake and Output 02/27/21 02/28/21 02/28/21 21:59 05:59 13:59 Intake Total 2224 2375 1786 Output Total 334 1042 395 Balance 1890 1333 1391 Weight 77.882 kg Intake & Output: Intake & Output 02/27/21 02/28/21 02/28/21 21:59 05:59 13:59 Intake Total 2224 2375 1786 Output Total 334 1042 395 Balance 1890 1333 1391 Weight 77.882 kg Intake: IV 2224 2375 1786 Sodium Chloride 0.9% 1,000 ml @ 2000 2000 1000 175 mls/hr IV .Q5H43M [facility] Rx#: [id number] Sodium Chloride 0.9% 250 ml @ 451 20 mls/hr IV .[id number] [facility] Rx#: [id number] Levophed 16 mg In Sodium 22 44 Chloride 0.9% 234 ml @ 10 MCG/ MIN 9.375 mls/hr IV Q24H [facility] Rx #:[id number] Diprivan 1,000 mg In Premix 1 31 35 Bag @ 5 MCG/KG/MIN 2.149 mls/hr IV .Q24H [facility] Rx#:[id number] Output: Gastric Drainage 150 Right Nare 150 Drainage 70 Left AKIL Drain 60 Right AKIL Drain 10 Drainage 70 180 Left AKIL Drain 40 90 Right AKIL Drain 30 90 Urine Catheter Amount 194 712 395 Other: Urine Appearance Cloudy Clear Clear Uretheral (Jaime) Clear Urine Color Dark Yellow Pale Bright Yellow Uretheral (Jaime) Dark Yellow Exam: General: Patient is intubated and sedated. Follows commands on sedation holiday. HEENT: Pupils are reactive to light. NG tube in place. Lungs: Decreased breath sounds. Crackles at bases. Cardiovascular: Irregularly irregular rhythm. S1 + S2, no murmur gallop rub. No peripheral edema. No JVD GI: Distended. Status post exploratory laparotomy with dry dressing. Absent bowel sounds. Drain in place. CAPTAIN ASSISTANT: Sedated and intubated.Moves all extremities. : Jaime in place. Psychiatric: Unable to assess OBJ DATA Labs CBC & Chem 7: 02/28/21 04:57 02/28/21 04:57 Labs: Abnormal Lab Results 02/28/21 02/28/21 02/27/21 04:57 04:57 09:59 WBC 19.6 H RBC 3.49 L Hgb 10.5 L Hct 33.2 L RDW 15.9 H Plt Count 113 L MPV 12.6 H Neut % (Auto) 93.2 H Lymph % (Auto) 3.6 L Lymph # (Auto) 0.70 L Absolute Neutrophils 18.32 H VBG Lactic Acid 3.0 H Sodium 155 H Chloride 119 H Carbon Dioxide Anion Gap 7.0 L BUN 68 H Creatinine 1.6 H Glucose 152 H Calcium 7.6 L Phosphorus 5.5 H Magnesium 3.9 H Total Bilirubin 1.3 H Direct Bilirubin 0.9 H AST 47 H Lactate Dehydrogenase 346 H NT-Pro-B Natriuret Pep Total Protein 4.4 L Albumin 2.7 L Globulin 1.7 L Albumin/Globulin Ratio 02/27/21 02/27/21 02/27/21 09:50 05:24 05:23 WBC 15.8 H RBC Hgb Hct RDW 15.3 H Plt Count 126 L MPV 12.1 H Neut % (Auto) 90.4 H Lymph % (Auto) 5.9 L Lymph # (Auto) 0.93 L Absolute Neutrophils 14.30 H VBG Lactic Acid Sodium 151 H Chloride 110 H Carbon Dioxide 33 H Anion Gap BUN 55 H Creatinine 1.3 H Glucose 136 H Calcium 8.4 L Phosphorus Magnesium 3.2 H Total Bilirubin 1.1 H Direct Bilirubin 0.5 H AST 61 H Lactate Dehydrogenase 358 H NT-Pro-B Natriuret Pep 1728.0 H Total Protein 4.7 L Albumin 2.2 L Globulin Albumin/Globulin Ratio 0.9 L Meds: Medications Benzocaine (Benzocaine 1 [place] Bottle) 1 spray TOPICAL Q2HP PRN PRN Reason: Sore Throat Cefepime HCl (Cefepime 2 Gm Vial) 2 gm IV Q12H [facility] Last Admin: 02/28/21 08:03 Dose: 2 gm Documented by: Chlorhexidine Gluconate (Chlorhexidine Gluconate 1 Ml Oral.Erlinda) 15 ml SWABMOUTH BID [facility] Last Admin: 02/27/21 22:02 Dose: 15 ml Documented by: Fentanyl (Fentanyl 100 Mcg/2 Ml Vial) 50 mcg IV Q4HP PRN; Protocol PRN Reason: Pain Last Admin: 02/28/21 00:55 Dose: 50 mcg Documented by: Heparin Sodium (Porcine) (Heparin 5,000 Unit/Ml Vial) 5,000 unit SQ Q12 [facility] Last Admin: 02/27/21 21:38 Dose: Not Given Documented by: Hydromorphone HCl (Hydromorphone 1 Mg/Ml Syringe) 1 mg IV Q2HP PRN; Protocol PRN Reason: Per Pain Protocol Last Admin: 02/28/21 08:03 Dose: 1 mg Documented by: Albumin Human (Buminate) 25 gm in 100 mls @ 200 mls/hr IV Q6H [facility] Stop: 03/01/21 12:29 Last Infusion: 02/28/21 07:26 Dose: Infused Documented by: Acetaminophen (Ofirmev) 1,000 mg in 100 mls @ 200 mls/hr IV Q6H [facility]; Protocol Last Infusion: 02/28/21 06:26 Dose: Infused Documented by: Metronidazole (Flagyl) 500 mg in 100 mls @ 100 mls/hr IV Q8H [facility]; Protocol Last Infusion: 02/28/21 06:59 Dose: Infused Documented by: Norepinephrine Bitartrate 16 (mg/ Sodium Chloride) 250 mls @ 9.375 mls/hr IV Q24H [facility]; Protocol Propofol 1,000 mg/ Premix 100 mls @ 2.149 mls/hr IV .Q24H [facility]; Protocol Last Titration: 02/28/21 09:07 Dose: 5 mcg/kg/min, 2.149 mls/hr Documented by: Sodium Chloride (Sodium Chloride 0.9%) 1,000 mls @ 175 mls/hr IV .Q5H43M [facility] Last Admin: 02/28/21 07:24 Dose: 175 mls/hr Documented by: Sodium Chloride (Sodium Chloride 0.9%) 250 mls @ 20 mls/hr IV .[id number] [facility] Last Infusion: 02/28/21 07:26 Dose: Infused Documented by: Sodium Chloride (Sodium Chloride 0.9%) 250 mls @ 20 mls/hr IV .[id number] [facility] Last Infusion: 02/28/21 07:26 Dose: 10 mls/hr Documented by: Metoclopramide HCl (Metoclopramide 10 Mg/2 Ml Vial) 10 mg IV Q6 [facility] Last Admin: 02/28/21 05:56 Dose: 10 mg Documented by: Nystatin (Nystatin 500,000 Units/5 Ml Oral.Susp) 500,000 units SSW QID [facility] Last Admin: 02/28/21 08:03 Dose: 500,000 units Documented by: Ondansetron HCl (Ondansetron 4 Mg/2 Ml Vial) 4 mg IV Q6HP PRN PRN Reason: Nausea And Vomiting Oxymetazoline HCl (Oxymetazoline 1 [place] Bottle) 1 spray SULEMAN UD PRN PRN Reason: HYPERBARIC TREATMENTS Sodium Chloride (0.9 % Sodium Chloride 10 Ml Syringe) 10 ml IV Q12 [facility] Last Admin: 02/28/21 08:32 Dose: 10 ml Documented by: Sodium Chloride (0.9 % Sodium Chloride 10 Ml Syringe) 10 ml IV Q8 [facility] Last Admin: 02/28/21 05:56 Dose: 10 ml Documented by: Sodium Chloride (0.9 % Sodium Chloride 10 Ml Syringe) 10 ml IV UD PRN PRN Reason: FLUSH A/P Narrative A/P Narrative: 80 years old male admitted with following problem list: # Incarcerated right inguinal hernia with small bowel obstruction. # Acute peritonitis with perforated viscus # Small bowel obstruction with perforation of the terminal ileum and four areas of near complete obstruction with peritonitis secondary to small bowel leak. 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 Large amount of free free intraperitoneal fluid is suggestive of third spacing due to bowel obstruction,suspect bacterial peritonitis. Small amount of free intraperitoneal air may be related to recent surgery. - S/p Ex Lap 02/27 Exploratory laparotomy with small bowel adhesiolysis, Peritoneal lavage and drainage of peritoneal cavit, Closure of microperforation of ileum. - Change IVF to D51/2NS due to high Na. NG tube, NPO, IV Anbx, PPI # Acute Hypoxic resp failure. Upto 10 L O2 - Mod R pleural effusion. - Due to Sepsis. Remained intubated post surgery. - Cont Vent support and wean protocol. # Coffee ground emesis 02/28 - Protonix IV Bid. Monitor H&D. Hold Heparin sq if worsen. # MARCE due to Septic Shock. - Cr 1.6 . Not peaked yet. - Cont IVF and follow BMP. Jaime in place. # Septic shock with high WBC, tachycardia, Hypoxia, hypotension due to acute peritonitis. - CxR no PNA. WBC 19. - Blood culture X2 negative, Follow lactic acid and continue IV fluid. Off Levophed -Broaden antibiotic with cefepime/Flagyl. Discontinued Levaquin #New onset atrial fibrillation with rapid ventricular rate. Converted to NSR now. - No history of atrial fibrillation. - Status post Cardizem 10 mg X1. Heart rate still above 120 - Continue IV fluid, started IV albumin. Treat sepsis as above -Magnesium/TSH normal. Pending echocardiogram. Neg Troponin -S/p digoxin 0.5 X1, 0.25X2 every 6 #Essential hypertension -Hold lisinopril and HCTZ. # FEN. NPO, NG tube. Consdier TPN if not able to feed in 2-3 days. # HypoerNatremia 155. Change IVF to D51/2NS. Follow BMP DVT PPX. Heparin sq bid Code. Full Dispo : ICU. Extra critical care time spent 43 mins. Plan of care d/w pt and ICU staff, Dr. Rodriguez the surgeon and pt's step daughter. Time Spent With Patient Time: Total time spent is greater than 50% in coordination of care (as documented) at patient's floor/unit and/or counseling patient: QUALITY Stroke Symptom Onset Unknown: No VTE Deep Vein Thrombosis/Pulmonary Embolism Present on Admission: No
[2021-02-28] MEDS: DEXTROSE 5%-1/2NS 1,000 ML IV SCH ×2 (11:01→18:01)
[2021-02-28] MEDS: CHLORHEXIDINE GLUCONATE 1 ML ORAL.SOL SWABMOUTH SCH ×2 (11:12→21:00)
[2021-02-28] MEDS: HEPARIN 5,000 UNIT/ML VIAL SQ SCH ×2 (11:13→20:59)
[2021-02-28] MEDS: PANTOPRAZOLE 40 MG VIAL IV SCH ×2 (11:13→17:29)
[2021-02-28] MEDS: 0.9 % SODIUM CHLORIDE 250 ML IV SCH ×4 (11:13→22:54)
--- NOTE | 2021-02-28 15:22 | General Surgery Progress Note ---
SUBJECTIVE Subjective Patient information: Note initiated : 02/28/21 at 3:14 pm Service Date, if different from initiated Date: [] Patient: Tommy Márquez 80 y/o M admitted on 02/18/21 for abdominal pain. Chief Complaint: [] Principal diagnosis: small bowel perforation with peritonitis; partial small bowel obstruction Interval history: Patient is doing much better. He has been off pressors since shortly after midnight and has maintained excellent urine output throughout the night. His ventilatory support has been gradually reduced and now he is maintaining very good oxygenation on 30% FiO2. He is requiring minimum propofol for sedation. White blood count 19.6, hemoglobin 10.5, hematocrit 33.2, sodium 135, potassium 5.1, BUN 68, creatinine 1.6, Constitutional Vitals: Vital Signs Temp Pulse Resp BP Pulse Ox 99.4 F H 93 H 17 127/58 95 02/28/21 14:16 02/28/21 14:16 02/28/21 14:16 02/28/21 14:16 02/28/21 14:16 Period Temp Pulse Resp BP Sys/Beckford Pulse Ox Last 24 Hr 96.7 F-100.0 F 93-121 15-30 66-146/50-81 92-100 Intake and Output 02/28/21 02/28/21 02/28/21 05:59 13:59 21:59 Intake Total 2375 2671 Output Total 1042 855 65 Balance 1333 1816 -65 Weight 171 lb 11.2 oz Intake & Output: Intake & Output 02/28/21 02/28/21 02/28/21 05:59 13:59 21:59 Intake Total 2375 2671 Output Total 1042 855 65 Balance 1333 1816 -65 Weight 171 lb 11.2 oz Intake: IV 2375 2671 Sodium Chloride 0.9% 1,000 ml @ 2000 1633 175 mls/hr IV .Q5H43M [facility] Rx#: [id number] Sodium Chloride 0.9% 250 ml @ 500 20 mls/hr IV .[id number] [facility] Rx#: [id number] Levophed 16 mg In Sodium 44 Chloride 0.9% 234 ml @ 10 MCG/ MIN 9.375 mls/hr IV Q24H [facility] Rx #:[id number] Diprivan 1,000 mg In Premix 1 31 38 Bag @ 5 MCG/KG/MIN 2.149 mls/hr IV .Q24H [facility] Rx#:[id number] Output: Gastric Drainage 150 Right Nare 150 Drainage 180 Left AKIL Drain 90 Right AKIL Drain 90 Urine Catheter Amount 812 855 65 Other: Urine Appearance Clear Clear Clear Uretheral (Jaime) Clear Urine Color Pale Bright Yellow Bright Yellow Uretheral (Jaime) Bright Yellow Head Head exam: Present atraumatic, normal inspection and normocephalic Eye Eye exam: Present EOMI Pupils: Present PERRL ENT ENT exam: Present mucous membranes moist, normal exam and normal oropharynx Neck Neck exam: Present full ROM and normal inspection Respiratory Respiratory exam: Present normal respiratory exam and CTAB Additional comments: Lungs are much clearer and he has excellent ventilation on both lungs Cardiovascular Cardiovascular exam: Present normal rate and rhythm, +S1, +S2 and tachycardia; Absent JVD Additional comments: Heart rate as gradually reduced from about 120 this morning to the mid 90s. He is in sinus rhythm with an occasional ectopic ventricular beat GI/Abdominal GI/Abdominal exam: Present diminished bowel sounds and distended Additional comments: Hypoactive bowel sounds; AKIL drainage is serous; no drainage via incision Extremities Exam Extremities exam: Present normal capillary refill and pedal edema (1-2+ lower extremity edema) Neurological Exam Additional comments: Spontaneous movement of upper and lower extremities; good grimacing of face Psychiatric Additional comments: Sedated on ventilator A/P Assessment and plan (1) Perforation of small intestine: Status: Acute (2) Abnormal heart rhythm: Status: Acute (3) Partial intestinal obstruction: Status: Acute Qualifiers: Intestinal obstruction type: other intestinal obstruction Qualified Code(s): K56.690 - Other partial intestinal obstruction (4) MARCE (acute kidney injury): Status: Acute Narrative A/P Narrative: Patient is much improved and has shown significant improvement over the past 12hours. Will continue on present management. Time Spent With Patient Time: Total time spent is greater than 50% in coordination of care (as documented) at patient's floor/unit and/or counseling patient:
[2021-02-28] MEDS: PROPOFOL 1,000 MG in PREMIX 1 BAG IV SCH ×2 (15:39→18:06)
[2021-02-28] MEDS ORDERED: NOREPINEPHRINE BITARTRATE 16 MG in 0.9 % SODIUM CHLORIDE 234 ML IV SCH (17:00)
[2021-03-01] MEDS: DEXTROSE 5%-1/2NS 1,000 ML IV SCH ×5 (00:18→13:55)
[2021-03-01] MEDS: HYDROmorphone 1 MG/ML SYRINGE IV PRN ×7 (02:02→23:18)
[2021-03-01] MEDS: metroNIDAZOLE 500 MG/100 ML BAG IV SCH ×3 (05:29→22:04)
[2021-03-01] MEDS: METOCLOPRAMIDE 10 MG/2 ML VIAL IV SCH ×4 (05:29→23:56)
[2021-03-01] MEDS: ACETAMINOPHEN 1,000 MG/100 ML BAG IV SCH ×3 (05:30→17:53)
[2021-03-01] MEDS: ALBUMIN HUMAN 25 GM/100 ML BAG IV SCH ×2 (05:30→12:08)
[2021-03-01] MEDS: 0.9 % SODIUM CHLORIDE 10 ML SYRINGE IV SCH ×5 (05:32→22:04)
[2021-03-01 06:03] LABS: Basophils # (Auto) 0.03 K/mcL (0.00-0.20); Basophils % (Auto) 0.2 % (0.0-2.0); Eosinophils # (Auto) 0.03 K/mcL (0.00-0.70); Eosinophils % (Auto) 0.2 % (0.0-7.0); Hematocrit 25.9 % (41.0-55.0); Hemoglobin 8.4 g/dL (13.5-16.5); Lymphocytes # (Auto) 0.93 K/mcL (1.50-4.80); Mean Cell Volume 94.9 fL (80.0-100.0); Mean Corpuscular HGB Conc 32.4 g/dL (31.0-36.0); Mean Platelet Volume 12.3 fL (7.4-10.4); Monocytes # (Auto) 0.59 K/mcL (0.10-0.90); Monocytes % (Auto) 3.4 % (1.0-12.0); Platelet Count 118 K/mcL (140-440); RBC 2.73 M/mcL (4.50-5.90); Red Cell Distribution Width 16.3 % (11.5-14.5); WBC 17.5 K/mcL (4.5-11.0)
[2021-03-01 06:15] LABS: ALT/SGPT 11 U/L (<40); AST/SGOT 56 U/L (<40); Albumin 3.2 gm/dL (3.2-5.2); Alkaline Phosphatase 44 U/L (39-117); Bilirubin,Direct 0.8 mg/dL (<0.3); Bilirubin,Total 1.3 mg/dL (0.1-1.0); Blood Urea Nitrogen 65 mg/dL (8-23); Calcium 7.3 mg/dL (8.6-10.4); Carbon Dioxide 30 mmol/L (22-30); Chloride 119 mmol/L (96-108); Globulin 1.6 gm/dL (2.2-3.7); Glomerular Filtration Rate 48; Glucose 157 mg/dL (70-105); Lactate Dehydrogenase 239 U/L (135-225); Phosphorous 2.9 mg/dL (2.5-4.5); Triglycerides 97 mg/dL (<150); Uric Acid 5.3 mg/dL (2.5-8.0)
[2021-03-01] MEDS ORDERED: NOREPINEPHRINE BITARTRATE 16 MG in 0.9 % SODIUM CHLORIDE 234 ML IV PRN (06:45)
[2021-03-01] MEDS: PANTOPRAZOLE 40 MG VIAL IV SCH ×2 (06:47→17:54)
[2021-03-01] MEDS ORDERED: TPN PER PHARMACY IV SCH (07:45)
[2021-03-01 08:35] LABS: Lymphocytes % (Auto) 5.3 % (15.0-49.0); Neutrophils % (Auto) 90.9 % (38.0-78.0)
[2021-03-01] MEDS: HEPARIN 5,000 UNIT/ML VIAL SQ SCH ×2 (09:06→21:21)
[2021-03-01] MEDS: CEFEPIME 2 GM VIAL IV SCH ×2 (09:06→21:20)
[2021-03-01] MEDS: CHLORHEXIDINE GLUCONATE 1 ML ORAL.SOL SWABMOUTH SCH ×2 (09:06→21:20)
[2021-03-01] MEDS: NYSTATIN 500,000 UNITS/5 ML ORAL.SUSP SSW SCH ×4 (09:07→21:20)
[2021-03-01] MEDS ORDERED: [UNRECOGNIZED DRUG - REMARK] IV SCH (11:00)
--- NOTE | 2021-03-01 11:01 | General Surgery Progress Note ---
SUBJECTIVE Subjective Patient information: Note initiated : 03/01/21 at 10:56 am Service Date, if different from initiated Date: [] Patient: Tommy Márquez 80 y/o M admitted on 02/18/21 for abdominal pain. Chief Complaint: [] Principal diagnosis: small bowel perforation with peritonitis; partial small bowel obstruction Interval history: Patient remains clinically stable. He has excellent vital signs and his oxygenation is excellent with O2 sats of 100% on 30% FiO2. Patient is able to take full deep breaths when taken off the ventilator. He does have some rhonchi bilaterally which should clear with more pulmonary t oilet. He is afebrile. He moves all extremities spontaneously. Sodium 152, potassium 45, BUN 6, creatinine 4, white blood count 17.58.4 hematocrit 25, platelets. Constitutional Vitals: Vital Signs Temp Pulse Resp BP Pulse Ox 99.5 F H 81 18 145/66 95 03/01/21 10:01 03/01/21 10:01 03/01/21 10:51 03/01/21 10:01 03/01/21 10:51 Period Temp Pulse Resp BP Sys/Beckford Pulse Ox Last 24 Hr 98.9 F-100.1 F 74-107 15-22 119-145/54-74 92-98 Intake and Output 02/28/21 03/01/21 03/01/21 21:59 05:59 13:59 Intake Total 1338 1300 1364 Output Total 935 1555 420 Balance 403 -255 944 Weight 175 lb 11.2 oz Intake & Output: Intake & Output 02/28/21 03/01/21 03/01/21 21:59 05:59 13:59 Intake Total 1338 1300 1364 Output Total 935 1555 420 Balance 403 -255 944 Weight 175 lb 11.2 oz Intake: IV 1338 1300 1364 Dextrose 5%-1/2Ns IV Solution 1 1000 1000 1000 ,000 ml @ 175 mls/hr IV .Q5H43M [facility] Rx#:[id number] Levophed 16 mg In Sodium 0 Chloride 0.9% 234 ml @ 10 MCG/ MIN 9.375 mls/hr IV Q24H [facility] Rx #:[id number] Diprivan 1,000 mg In Premix 1 38 64 Bag @ 5 MCG/KG/MIN 2.149 mls/hr IV .Q24H [facility] Rx#:[id number] Output: Gastric Drainage 105 200 Right Nare 105 200 Drainage 105 250 Left AKIL Drain 75 250 Right AKIL Drain 30 Urine Catheter Amount 830 1250 170 Other: Urine Appearance Clear Clear Clear Uretheral (Jaime) Clear Urine Color Pale Pale Bright Yellow Uretheral (Jaime) Bright Yellow Head Head exam: Present atraumatic, normal inspection and normocephalic Eye Eye exam: Present EOMI Pupils: Present PERRL ENT ENT exam: Present mucous membranes moist, normal exam and normal oropharynx Neck Neck exam: Present full ROM and normal inspection Respiratory Respiratory exam: Present normal respiratory exam and CTAB Additional comments: Lungs are much clearer and he has excellent ventilation on both lungs Cardiovascular Cardiovascular exam: Present normal rate and rhythm, +S1, +S2 and tachycardia; Absent JVD Additional comments: Heart rate as gradually reduced from about 120 this morning to the mid 90s. He is in sinus rhythm with an occasional ectopic ventricular beat GI/Abdominal GI/Abdominal exam: Present diminished bowel sounds and distended Additional comments: Hypoactive bowel sounds; AKIL drainage is serous; no drainage via incision Extremities Exam Extremities exam: Present normal capillary refill and pedal edema (1-2+ lower extremity edema) Neurological Exam Additional comments: Spontaneous movement of upper and lower extremities; good grimacing of face Psychiatric Additional comments: Sedated on ventilator Skin Skin exam: Present intact and warm A/P Assessment and plan (1) Perforation of small intestine: Status: Acute (2) Abnormal heart rhythm: Status: Acute Qualifiers: Arrhythmia type: atrial fibrillation (3) Partial intestinal obstruction: Status: Acute Qualifiers: Intestinal obstruction type: other intestinal obstruction Qualified Code(s): K56.690 - Other partial intestinal obstruction (4) MARCE (acute kidney injury): Status: Acute (5) Acute sepsis: Status: Acute Narrative A/P Narrative: Patient is stable for extubation He will be typed and crossed for 2 units of packed red cells Urine output is excellent and renal status is improving Time Spent With Patient Time: Total time spent is greater than 50% in coordination of care (as documented) at patient's floor/unit and/or counseling patient:
--- NOTE | 2021-03-01 12:03 | Internal Med Progress Note ---
SUBJECTIVE Subjective Patient information: Note initiated : 03/01/21 at 11:54 am Service Date, if different from initiated Date: Patient: Tommy Márquez 80 y/o M admitted on 02/18/21 for abdominal pain. Chief Complaint: Abdominal pain, N?V Principal diagnosis: small bowel perforation with peritonitis; partial small bowel obstruction Interval history: The patient remained intubated. Off sedation he is awake alert and follows command. He is hemodynamically stable on the vent. He is on minimal vent setting. Heart rate and blood pressure significantly improved. No overnight issues. Patient's and stepdaughter are at the bedside Constitutional Vitals: Vital Signs Temp Pulse Resp BP Pulse Ox 99.8 F H 80 19 144/82 91 03/01/21 11:01 03/01/21 11:01 03/01/21 11:44 03/01/21 11:01 03/01/21 11:46 Period Temp Pulse Resp BP Sys/Beckford Pulse Ox Last 24 Hr 98.9 F-100.1 F 74-106 15-22 119-145/54-82 91-98 Intake and Output 02/28/21 03/01/21 03/01/21 21:59 05:59 13:59 Intake Total 1338 1300 1364 Output Total 935 1555 720 Balance 403 -255 644 Weight 79.696 kg Intake & Output: Intake & Output 02/28/21 03/01/21 03/01/21 21:59 05:59 13:59 Intake Total 1338 1300 1364 Output Total 935 1555 720 Balance 403 -255 644 Weight 79.696 kg Intake: IV 1338 1300 1364 Dextrose 5%-1/2Ns IV Solution 1 1000 1000 1000 ,000 ml @ 175 mls/hr IV .Q5H43M [facility] Rx#:[id number] Levophed 16 mg In Sodium 0 Chloride 0.9% 234 ml @ 10 MCG/ MIN 9.375 mls/hr IV Q24H [facility] Rx #:[id number] Diprivan 1,000 mg In Premix 1 38 64 Bag @ 5 MCG/KG/MIN 2.149 mls/hr IV .Q24H [facility] Rx#:[id number] Output: Gastric Drainage 105 200 Right Nare 105 200 Drainage 105 250 Left AKIL Drain 75 250 Right AKIL Drain 30 Urine Catheter Amount 830 1250 470 Other: Urine Appearance Clear Clear Clear Uretheral (Jaime) Clear Urine Color Pale Pale Bright Yellow Uretheral (Jaime) Bright Yellow Bright Yellow Exam: General: Patient is intubated and sedated. Follows commands on sedation holiday. HEENT: Pupils are reactive to light. NG tube in place. NG tube in place Lungs: Decreased breath sounds. Crackles at bases. Cardiovascular: Irregularly irregular rhythm. S1 + S2, no murmur gallop rub. N o peripheral edema. No JVD GI: Distended. Status post exploratory laparotomy with dry dressing. Absent bowel sounds. Drain in place. Tender to palpation. No rebound tenderness. 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 : Jaime in place. Psychiatric: Unable to assess OBJ DATA Labs CBC & Chem 7: 03/01/21 05:00 03/01/21 05:00 Labs: Abnormal Lab Results 03/01/21 03/01/21 02/28/21 05:00 05:00 04:57 WBC 17.5 H RBC 2.73 L Hgb 8.4 L Hct 25.9 L RDW 16.3 H Plt Count 118 L MPV 12.3 H Neut % (Auto) 90.9 H Lymph % (Auto) 5.3 L Lymph # (Auto) 0.93 L Absolute Neutrophils 15.96 H VBG Lactic Acid Sodium 152 H 155 H Chloride 119 H 119 H Carbon Dioxide Anion Gap 3.0 L 7.0 L BUN 65 H 68 H Creatinine 1.4 H 1.6 H Glucose 157 H 152 H Calcium 7.3 L 7.6 L Phosphorus 5.5 H Magnesium 3.9 H 3.9 H Total Bilirubin 1.3 H 1.3 H Direct Bilirubin 0.8 H 0.9 H AST 56 H 47 H Lactate Dehydrogenase 239 H 346 H NT-Pro-B Natriuret Pep Total Protein 4.8 L 4.4 L Albumin 2.7 L Globulin 1.6 L 1.7 L Albumin/Globulin Ratio 02/28/21 02/27/21 02/27/21 04:57 09:59 09:50 WBC 19.6 H RBC 3.49 L Hgb 10.5 L Hct 33.2 L RDW 15.9 H Plt Count 113 L MPV 12.6 H Neut % (Auto) 93.2 H Lymph % (Auto) 3.6 L Lymph # (Auto) 0.70 L Absolute Neutrophils 18.32 H VBG Lactic Acid 3.0 H Sodium Chloride Carbon Dioxide Anion Gap BUN Creatinine Glucose Calcium Phosphorus Magnesium Total Bilirubin Direct Bilirubin AST Lactate Dehydrogenase NT-Pro-B Natriuret Pep 1728.0 H Total Protein Albumin Globulin Albumin/Globulin Ratio 02/27/21 02/27/21 05:24 05:23 WBC 15.8 H RBC Hgb Hct RDW 15.3 H Plt Count 126 L MPV 12.1 H Neut % (Auto) 90.4 H Lymph % (Auto) 5.9 L Lymph # (Auto) 0.93 L Absolute Neutrophils 14.30 H VBG Lactic Acid Sodium 151 H Chloride 110 H Carbon Dioxide 33 H Anion Gap BUN 55 H Creatinine 1.3 H Glucose 136 H Calcium 8.4 L Phosphorus Magnesium 3.2 H Total Bilirubin 1.1 H Direct Bilirubin 0.5 H AST 61 H Lactate Dehydrogenase 358 H NT-Pro-B Natriuret Pep Total Protein 4.7 L Albumin 2.2 L Globulin Albumin/Globulin Ratio 0.9 L Meds: Medications Benzocaine (Benzocaine 1 [place] Bottle) 1 spray TOPICAL Q2HP PRN PRN Reason: Sore Throat Cefepime HCl (Cefepime 2 Gm Vial) 2 gm IV Q12H COUNT INCLUDES THE [facility] Last Admin: 03/01/21 09:06 Dose: 2 gm Documented by: Chlorhexidine Gluconate (Chlorhexidine Gluconate 1 Ml Oral.Erlinda) 15 ml SWABMOUTH BID COUNT INCLUDES THE [facility] Last Admin: 03/01/21 09:06 Dose: 15 ml Documented by: Diagnostic Test (Pha) (Accu-Chek 1 Each Strip) 1 each FS Q6 COUNT INCLUDES THE [facility] Fentanyl (Fentanyl 100 Mcg/2 Ml Vial) 50 mcg IV Q4HP PRN; Protocol PRN Reason: Pain Last Admin: 02/28/21 00:55 Dose: 50 mcg Documented by: Heparin Sodium (Porcine) (Heparin 5,000 Unit/Ml Vial) 5,000 unit SQ Q12 COUNT INCLUDES THE [facility] Last Admin: 03/01/21 09:06 Dose: 5,000 unit Documented by: Hydromorphone HCl (Hydromorphone 1 Mg/Ml Syringe) 1 mg IV Q2HP PRN; Protocol PRN Reason: Per Pain Protocol Last Admin: 03/01/21 11:14 Dose: 1 mg Documented by: Albumin Human (Buminate) 25 gm in 100 mls @ 200 mls/hr IV Q6H [facility] Stop: 03/01/21 12:29 Last Infusion: 03/01/21 06:25 Dose: Infused Documented by: Acetaminophen (Ofirmev) 1,000 mg in 100 mls @ 200 mls/hr IV Q6H [facility]; Protocol Last Infusion: 03/01/21 06:24 Dose: Infused Documented by: Metronidazole (Flagyl) 500 mg in 100 mls @ 100 mls/hr IV Q8H [facility]; Protocol Last Infusion: 03/01/21 06:30 Dose: Infused Documented by: Propofol 1,000 mg/ Premix 100 mls @ 2.149 mls/hr IV .Q24H [facility]; Protocol Last Titration: 03/01/21 10:31 Dose: 5 mcg/kg/min, 2.149 mls/hr Documented by: Sodium Chloride (Sodium Chloride 0.9%) 250 mls @ 20 mls/hr IV .[id number] [facility] Last Admin: 02/28/21 22:54 Dose: Not Given Documented by: Sodium Chloride (Sodium Chloride 0.9%) 250 mls @ 20 mls/hr IV .[id number] [facility] Last Admin: 02/28/21 22:54 Dose: Not Given Documented by: Dextrose/Sodium Chloride (Dextrose 5%-1/2ns Iv Solution) 1,000 mls @ 175 mls/hr IV .Q5H43M [facility] Last Admin: 03/01/21 07:08 Dose: 175 mls/hr Documented by: Norepinephrine Bitartrate 16 (mg/ Sodium Chloride) 250 mls @ 9.375 mls/hr IV Q24HP PRN; Protocol PRN Reason: Hypotension Calcium Gluconate 5 meq/Potassium Chloride 20 meq/Multivitamins/Minerals 10 m l/Amino Acids 1,030.7526 mls @ 35 mls/hr IV Q24H [facility] Last Admin: 03/01/21 10:20 Dose: 35 mls/hr Documented by: Insulin Human Lispro (Insulin Lispro 1 Unit/0.01 Ml Unit) 0 unit SQ Q6 COUNT INCLUDES THE [facility]; Protocol Metoclopramide HCl (Metoclopramide 10 Mg/2 Ml Vial) 10 mg IV Q6 [facility] Last Admin: 03/01/21 11:52 Dose: 10 mg Documented by: Nystatin (Nystatin 500,000 Units/5 Ml Oral.Susp) 500,000 units SSW QID COUNT INCLUDES THE [facility] Last Admin: 03/01/21 09:07 Dose: 500,000 units Documented by: Ondansetron HCl (Ondansetron 4 Mg/2 Ml Vial) 4 mg IV Q6HP PRN PRN Reason: Nausea And Vomiting Oxymetazoline HCl (Oxymetazoline 1 [place] Bottle) 1 spray SULEMAN UD PRN PRN Reason: HYPERBARIC TREATMENTS Pantoprazole Sodium (Pantoprazole 40 Mg Vial) 40 mg IV BIDAC COUNT INCLUDES THE [facility] Last Admin: 03/01/21 06:47 Dose: 40 mg Documented by: Sodium Chloride (0.9 % Sodium Chloride 10 Ml Syringe) 10 ml IV Q12 COUNT INCLUDES THE [facility] Last Admin: 03/01/21 11:21 Dose: 10 ml Documented by: Sodium Chloride (0.9 % Sodium Chloride 10 Ml Syringe) 10 ml IV Q8 COUNT INCLUDES THE [facility] Last Admin: 03/01/21 05:32 Dose: 10 ml Documented by: Sodium Chloride (0.9 % Sodium Chloride 10 Ml Syringe) 10 ml IV UD PRN PRN Reason: FLUSH A/P Narrative A/P Narrative: 80 years old male admitted with following problem list: # Incarcerated right inguinal hernia with small bowel obstruction. # Acute peritonitis with perforated viscus # Small bowel obstruction with perforation of the terminal ileum and four areas of near complete obstruction with peritonitis secondary to small bowel leak. 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 Large amount of free free intraperitoneal fluid is ballard ggestive of third spacing due to bowel obstruction,suspect bacterial peritonitis. Small amount of free intraperitoneal air may be related to recent surgery. - S/p Ex Lap 02/27 Exploratory laparotomy with small bowel adhesiolysis, Peritoneal lavage and drainage of peritoneal cavit, Closure of microperforation of ileum. -Continue D51/2NS due to high Na. NG tube, NPO, IV Anbx, PPI. Follow labs. Man agement per surgery # Septic shock with high WBC, tachycardia, Hypoxia, hypotension due to acute pe ritonitis. - CxR no PNA. WBC 19. - Blood culture 1/2 Bacteroides fragilis - Cont Cefepime/Flagyl. Discontinued Levaquin. Repeat Bx today. Rx 14 days post Negative Blood Cx. # Acute Hypoxic resp failure. Upto 10 L O2 - Mod R pleural effusion. - Due to Sepsis. Remained intubated post surgery. - Cont Vent support and wean protocol. -Consider extubating today if surgery agree. Placed patient on spontaneous breathing. Patient is ready to be extubated # Coffee ground emesis 02/28 improved. Hemoglobin dropped from 10.5-8.4. - Protonix IV Bid. Monitor H&D. Hold Heparin sq if worsen. # MARCE due to Septic Shock. - Cr peaked at 1.6 . - Cont IVF and follow BMP. Jaime in place. #New onset atrial fibrillation with rapid ventricular rate. Converted to NSR now. - No history of atrial fibrillation. - Status post Cardizem 10 mg X1. Heart rate still above 120 - Continue IV fluid, started IV albumin. Treat sepsis as above - Magnesium/TSH normal. Pending echocardiogram. Neg Troponin - S/p digoxin 0.5 X1, 0.25X2 every 6h. Completed. #Essential hypertension -Hold lisinopril and HCTZ. # FEN. NPO, NG tube. Start TPN 03/01/21 # HypoerNatremia 155--> 152 . Changed IVF to D51/2NS. Follow BMP DVT PPX. Heparin sq bid Code. Full Dispo : ICU. Extra critical care time spent 39 mins. Plan of care d/w pt and ICU staff, Dr. Rodriguez the surgeon and pt's and his step daughter. Time Spent With Patient Time: Total time spent is greater than 50% in coordination of care (as documented) at patient's floor/unit and/or counseling patient: QUALITY Stroke Symptom Onset Unknown: No VTE Deep Vein Thrombosis/Pulmonary Embolism Present on Admission: No
[2021-03-01] MEDS: 0.9 % SODIUM CHLORIDE 250 ML IV SCH ×4 (12:24→23:58)
[2021-03-01] MEDS: INSULIN LISPRO 1 UNIT/0.01 ML UNIT SQ SCH ×3 (12:28→23:58)
[2021-03-01] MEDS: IPRATROPIUM/ALBUTEROL 3 ML AMPUL.NEB NEB SCH ×2 (15:03→21:09)
--- NOTE | 2021-03-01 15:47 | XRay Report ---
CLINICAL INFORMATION: Follow-up surgery to takedown adhesions causing complete jejunal obstruction. There is also terminal ileal microperforation. COMPARISON: 02/27/2021 FINDINGS: NG tube has been placed tip is looped in the gastric body and fundus. The stomach and small bowel are now decompressed. Small amount of residual contrast persists within the colon which is relatively decompressed. There is no free air. Surgical drain overlies the left mid abdomen. Surgical wound packing material overlies the lower lumbar spine and sacrum. IMPRESSION: Negative Interpreted and Authenticated by: Walter Moreno 03/01/21
[2021-03-01] MEDS: PROPOFOL 1,000 MG in PREMIX 1 BAG IV SCH (18:36)
[2021-03-02] MEDS: ACETAMINOPHEN 1,000 MG/100 ML BAG IV SCH ×5 (00:01→23:44)
[2021-03-02] MEDS: HYDROmorphone 1 MG/ML SYRINGE IV PRN ×9 (01:51→20:58)
[2021-03-02] MEDS: IPRATROPIUM/ALBUTEROL 3 ML AMPUL.NEB NEB SCH ×4 (02:57→20:56)
[2021-03-02] MEDS: DEXTROSE 5%-1/2NS 1,000 ML IV SCH ×2 (03:57→10:21)
[2021-03-02] MEDS: metroNIDAZOLE 500 MG/100 ML BAG IV SCH ×3 (05:40→22:09)
[2021-03-02] MEDS: INSULIN LISPRO 1 UNIT/0.01 ML UNIT SQ SCH ×4 (05:41→23:44)
[2021-03-02] MEDS: METOCLOPRAMIDE 10 MG/2 ML VIAL IV SCH ×4 (05:42→23:43)
[2021-03-02] MEDS: 0.9 % SODIUM CHLORIDE 10 ML SYRINGE IV SCH ×5 (05:42→22:10)
--- NOTE | 2021-03-02 07:19 | XRay Report ---
CLINICAL INFORMATION: Follow-up surgery to takedown adhesions causing complete jejunal obstruction. There is also terminal ileal microperforation. COMPARISON: 03/01/2021 FINDINGS: NG tube, looped in the gastric body and fundus, remains in stable position. The stomach and small bowel are now decompressed. Small amount of residual contrast persists within the colon which is relatively decompressed. There is no free air. Surgical drain overlies the left mid abdomen. Surgical wound packing material overlies the lower lumbar spine and sacrum. IMPRESSION: Negative Interpreted and Authenticated by: Walter Moreno 03/02/21
--- NOTE | 2021-03-02 07:20 | XRay Report ---
CLINICAL INFORMATION: Right basilar infiltrate and effusion COMPARISON: 02/28/2021 FINDINGS: Heart and mediastinal silhouette and pulmonary vessels remain normal. Right IJ central line remains in stable satisfactory position. Endotracheal tube now out. Moderate right basilar infiltrate and small effusion are unchanged. There is minor airspace disease in the left base either atelectasis or developing infiltrate. IMPRESSION: No change in moderate right basilar infiltrate and effusion. Small left basilar infiltrate developing. Interpreted and Authenticated by: Walter Moreno 03/02/21
[2021-03-02] MEDS: PANTOPRAZOLE 40 MG VIAL IV SCH ×2 (07:39→17:17)
[2021-03-02 07:50] LABS: Basophils # (Auto) 0.04 K/mcL (0.00-0.20); Basophils % (Auto) 0.2 % (0.0-2.0); Eosinophils # (Auto) 0.05 K/mcL (0.00-0.70); Eosinophils % (Auto) 0.3 % (0.0-7.0); Hematocrit 28.4 % (41.0-55.0); Lymphocytes # (Auto) 0.78 K/mcL (1.50-4.80); Lymphocytes % (Auto) 4.6 % (15.0-49.0); Mean Cell Volume 95.9 fL (80.0-100.0); Mean Corpuscular HGB Conc 31.7 g/dL (31.0-36.0); Mean Platelet Volume 12.7 fL (7.4-10.4); Monocytes # (Auto) 0.58 K/mcL (0.10-0.90); Monocytes % (Auto) 3.4 % (1.0-12.0); Neutrophils % (Auto) 91.5 % (38.0-78.0); Platelet Count 118 K/mcL (140-440); RBC 2.96 M/mcL (4.50-5.90)
[2021-03-02 07:53] LABS: ALT/SGPT 15 U/L (<40); AST/SGOT 84 U/L (<40); Albumin 2.9 gm/dL (3.2-5.2); Albumin/Globulin Ratio 1.8 (1.0-2.3); Alkaline Phosphatase 120 U/L (39-117); Bilirubin,Direct 0.5 mg/dL (<0.3); Bilirubin,Total 1.1 mg/dL (0.1-1.0); Blood Urea Nitrogen 60 mg/dL (8-23); Calcium 7.2 mg/dL (8.6-10.4); Carbon Dioxide 29 mmol/L (22-30); Chloride 122 mmol/L (96-108); Globulin 1.6 gm/dL (2.2-3.7); Glomerular Filtration Rate 81; Glucose 166 mg/dL (70-105); Lactate Dehydrogenase 330 U/L (135-225); Phosphorous 1.8 mg/dL (2.5-4.5); Triglycerides 56 mg/dL (<150); Uric Acid 3.8 mg/dL (2.5-8.0)
[2021-03-02] MEDS ORDERED: DEXTROSE 5% IN WATER 1,000 ML IV SCH (09:00)
[2021-03-02] MEDS: HEPARIN 5,000 UNIT/ML VIAL SQ SCH (09:02)
[2021-03-02] MEDS: fentaNYL 100 MCG/2 ML VIAL IV PRN ×2 (09:18→23:06)
[2021-03-02] MEDS: FUROSEMIDE 40 MG/4 ML VIAL IV SCH ×2 (09:18→20:52)
--- NOTE | 2021-03-02 09:38 | Internal Med Progress Note ---
SUBJECTIVE Subjective Patient information: Note initiated : 03/02/21 at 9:33 am Service Date, if different from initiated Date: Patient: Tommy Márquez 80 y/o M admitted on 02/18/21 for abdominal pain. Chief Complaint: Abdominal pain Principal diagnosis: small bowel perforation with peritonitis; partial small bowel obstruction Interval history: Patient was extubated yesterday. Currently he is on 2 L oxygen follows commands. His heart rate is around 100. He has no fever. He has coffee-ground emesis via NG. He received 2 packed RBC yesterday. He is hemodynamically stable on 2 L oxygen. No significant events overnight Constitutional Vitals: Vital Signs Temp Pulse Resp BP Pulse Ox 100.0 F H 102 H 15 151/70 95 03/02/21 08:01 03/02/21 08:57 03/02/21 08:57 03/02/21 08:01 03/02/21 08:57 Period Temp Pulse Resp BP Sys/Beckford Pulse Ox Last 24 Hr 99.4 F-100.6 F 79-112 10-26 129-171/59-90 91-99 Intake and Output 03/01/21 03/02/21 03/02/21 21:59 05:59 13:59 Intake Total 850 1200 200 Output Total 2040 1884 1130 Balance -1190 -684 -930 Weight 78.381 kg Intake & Output: Intake & Output 03/01/21 03/02/21 03/02/21 21:59 05:59 13:59 Intake Total 850 1200 200 Output Total 2040 1884 1130 Balance -1190 -684 -930 Weight 78.381 kg Intake: IV 200 1200 200 Dextrose 5%-1/2Ns IV Solution 1 1000 ,000 ml @ 100 mls/hr IV .Q10H [facility] Rx#:[id number] Tube Feeding 0 0 Blood Product 650 Output: Gastric Drainage 100 550 Right Nare 100 550 Drainage 500 280 200 Left AKIL Drain 455 280 200 Right AKIL Drain 45 Urine Catheter Amount 1440 1604 380 Other: Urine Appearance Clear Clear Clear Uretheral (Jaime) Clear Urine Color Bright Yellow Pale Bright Yellow Uretheral (Jaime) Pale Exam: General: Patient is extubated. He is on 2 L oxygen. He is awake alert oriented follows command. HEENT: Pupils are reactive to light. NG tube in place. Lungs: Decreased breath sounds. Crackles at bases. Cardiovascular: Irregularly irregular rhythm. S1 + S2, no murmur gallop rub. No peripheral edema. No JVD GI: Distended. Status post exploratory laparotomy with dry dressing. Absent bowel sounds. Drain in place. Tender to palpation. No rebound tenderness. 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 : Jaime in place. Psychiatric: Patient is calm and following commands OBJ DATA Labs CBC & Chem 7: 03/02/21 05:03 03/02/21 05:02 Labs: Abnormal Lab Results 03/02/21 03/02/21 03/01/21 05:03 05:02 08:25 WBC 17.0 H RBC 2.96 L Hgb 9.0 L Hct 28.4 L RDW 16.0 H Plt Count 118 L MPV 12.7 H Neut % (Auto) 91.5 H Lymph % (Auto) 4.6 L Lymph # (Auto) 0.78 L Absolute Neutrophils 15.55 H VBG Lactic Acid Sodium 155 H Chloride 122 H Anion Gap 4.0 L BUN 60 H Creatinine Glucose 166 H Calcium 7.2 L Phosphorus 1.8 L Magnesium 3.2 H Total Bilirubin 1.1 H Direct Bilirubin 0.5 H AST 84 H Alkaline Phosphatase 120 H Lactate Dehydrogenase 330 H NT-Pro-B Natriuret Pep Total Protein 4.5 L Albumin 2.9 L Globulin 1.6 L Prealbumin 5.0 L 03/01/21 03/01/21 02/28/21 05:00 05:00 04:57 WBC 17.5 H RBC 2.73 L Hgb 8.4 L Hct 25.9 L RDW 16.3 H Plt Count 118 L MPV 12.3 H Neut % (Auto) 90.9 H Lymph % (Auto) 5.3 L Lymph # (Auto) 0.93 L Absolute Neutrophils 15.96 H VBG Lactic Acid Sodium 152 H 155 H Chloride 119 H 119 H Anion Gap 3.0 L 7.0 L BUN 65 H 68 H Creatinine 1.4 H 1.6 H Glucose 157 H 152 H Calcium 7.3 L 7.6 L Phosphorus 5.5 H Magnesium 3.9 H 3.9 H Total Bilirubin 1.3 H 1.3 H Direct Bilirubin 0.8 H 0.9 H AST 56 H 47 H Alkaline Phosphatase Lactate Dehydrogenase 239 H 346 H NT-Pro-B Natriuret Pep Total Protein 4.8 L 4.4 L Albumin 2.7 L Globulin 1.6 L 1.7 L Prealbumin 02/28/21 02/27/21 02/27/21 04:57 09:59 09:50 WBC 19.6 H RBC 3.49 L Hgb 10.5 L Hct 33.2 L RDW 15.9 H Plt Count 113 L MPV 12.6 H Neut % (Auto) 93.2 H Lymph % (Auto) 3.6 L Lymph # (Auto) 0.70 L Absolute Neutrophils 18.32 H VBG Lactic Acid 3.0 H Sodium Chloride Anion Gap BUN Creatinine Glucose Calcium Phosphorus Magnesium Total Bilirubin Direct Bilirubin AST Alkaline Phosphatase Lactate Dehydrogenase NT-Pro-B Natriuret Pep 1728.0 H Total Protein Albumin Globulin Prealbumin Meds: Medications Albuterol/Ipratropium (Ipratropium/Albuterol 3 Ml Ampul.Neb) 3 ml NEB Q6H [facility] Last Admin: 03/02/21 08:56 Dose: 3 ml Documented by: Benzocaine (Benzocaine 1 [place] Bottle) 1 spray TOPICAL Q2HP PRN PRN Reason: Sore Throat Cefepime HCl (Cefepime 2 Gm Vial) 2 gm IV Q12H [facility] Last Admin: 03/01/21 21:20 Dose: 2 gm Documented by: Chlorhexidine Gluconate (Chlorhexidine Gluconate 1 Ml Oral.Erlinda) 15 ml SWABMOUTH BID [facility] Last Admin: 03/01/21 21:20 Dose: 15 ml Documented by: Diagnostic Test (Pha) (Accu-Chek 1 Each Strip) 1 each FS Q6 [facility] Last Admin: 03/02/21 05:40 Dose: 1 each Documented by: Fentanyl (Fentanyl 100 Mcg/2 Ml Vial) 50 mcg IV Q4HP PRN; Protocol PRN Reason: Pain Last Admin: 03/02/21 09:18 Dose: 50 mcg Documented by: Furosemide (Furosemide 40 Mg/4 Ml Vial) 40 mg IV Q12 [facility] Last Admin: 03/02/21 09:18 Dose: 40 mg Documented by: Heparin Sodium (Porcine) (Heparin 5,000 Unit/Ml Vial) 5,000 unit SQ Q12 [facility] Last Admin: 03/02/21 09:02 Dose: Not Given Documented by: Hydromorphone HCl (Hydromorphone 1 Mg/Ml Syringe) 0.5 - 1 mg IV Q2HP PRN; Protocol PRN Reason: Per Pain Protocol Last Admin: 03/02/21 07:40 Dose: 0.5 mg Documented by: Acetaminophen (Ofirmev) 1,000 mg in 100 mls @ 200 mls/hr IV Q6H [facility]; Protocol Last Infusion: 03/02/21 06:21 Dose: Infused Documented by: Metronidazole (Flagyl) 500 mg in 100 mls @ 100 mls/hr IV Q8H [facility]; Protocol Last Infusion: 03/02/21 06:40 Dose: Infused Documented by: Propofol 1,000 mg/ Premix 100 mls @ 2.149 mls/hr IV .Q24H [facility]; Protocol Last Admin: 03/01/21 18:36 Dose: Not Given Documented by: Sodium Chloride (Sodium Chloride 0.9%) 250 mls @ 20 mls/hr IV .[id number] [facility] Last Admin: 03/01/21 23:58 Dose: Not Given Documented by: Sodium Chloride (Sodium Chloride 0.9%) 250 mls @ 20 mls/hr IV .[id number] [facility] Last Admin: 03/01/21 23:58 Dose: Not Given Documented by: Calcium Gluconate 5 meq/Potassium Chloride 20 meq/Multivitamins/Minerals 10 ml/Amino Acids 1,030.7526 mls @ 35 mls/hr IV Q24H [facility] Stop: 03/02/21 10:59 Last Admin: 03/01/21 10:20 Dose: 35 mls/hr Documented by: Calcium Gluconate 5 meq/Potassium Phosphate 20 meq/Multivitamins/Minerals 10 ml/Amino Acids 1,025.2981 mls @ 50 mls/hr IV Q20H [facility] Dextrose (Dextrose 5% In Water) 1,000 mls @ 80 mls/hr IV .[id number] [facility] Last Admin: 03/02/21 09:04 Dose: 80 mls/hr Documented by: Insulin Human Lispro (Insulin Lispro 1 Unit/0.01 Ml Unit) 0 unit SQ Q6 [facility]; Protocol Last Admin: 03/02/21 05:41 Dose: Not Given Documented by: Metoclopramide HCl (Metoclopramide 10 Mg/2 Ml Vial) 10 mg IV Q6 [facility] Last Admin: 03/02/21 05:42 Dose: 10 mg Documented by: Nystatin (Nystatin 500,000 Units/5 Ml Oral.Susp) 500,000 units SSW QID [facility] Last Admin: 03/01/21 21:20 Dose: 500,000 units Documented by: Ondansetron HCl (Ondansetron 4 Mg/2 Ml Vial) 4 mg IV Q6HP PRN PRN Reason: Nausea And Vomiting Oxymetazoline HCl (Oxymetazoline 1 [place] Bottle) 1 spray SULEMAN UD PRN PRN Reason: HYPERBARIC TREATMENTS Pantoprazole Sodium (Pantoprazole 40 Mg Vial) 40 mg IV BIDAC [facility] Last Admin: 03/02/21 07:39 Dose: 40 mg Documented by: Sodium Chloride (0.9 % Sodium Chloride 10 Ml Syringe) 10 ml IV Q12 [facility] Last Admin: 03/01/21 21:20 Dose: 10 ml Documented by: Sodium Chloride (0.9 % Sodium Chloride 10 Ml Syringe) 10 ml IV Q8 [facility] Last Admin: 03/02/21 05:42 Dose: 10 ml Documented by: Sodium Chloride (0.9 % Sodium Chloride 10 Ml Syringe) 10 ml IV UD PRN PRN Reason: FLUSH A/P Narrative A/P Narrative: 80 years old male admitted with following problem list: # Incarcerated right inguinal hernia with small bowel obstruction. # Acute peritonitis with perforated viscus # Small bowel obstruction with perforation of the terminal ileum and four areas of near complete obstruction with peritonitis secondary to small bowel leak. 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 Large amount of free free intraperitoneal fluid is suggestive of third spacing due to bowel obstruction,suspect bacterial peritonitis. Small amount of free intraperitoneal air may be related to recent surgery. - S/p Ex Lap 02/27 Exploratory laparotomy with small bowel adhesiolysis, Perit dale lavage and drainage of peritoneal cavit, Closure of microperforation of ileum. -Change IV fluids to D5W at 80 cc/h due to high sodium. -Started TPN 03/01/21 - NG tube, NPO, IV Anbx, PPI. Follow labs. Management per surgery # Septic shock with high WBC, tachycardia, Hypoxia, hypotension due to acute peritonitis. - CxR no PNA. WBC 19. - Blood culture 09/01 Bacteroides fragilis 02/27 - Cont Cefepime/Flagyl. Discontinued Levaquin. Repeat Blood cultures. Rx 14 days post Negative Blood Cx. # Acute Hypoxic resp failure. Upto 10 L O2 - Mod R pleural effusion. - Due to Sepsis. Remained intubated post surgery. - Extubated 03/01/21. Now on 2L NC # Coffee ground emesis 02/28. Hemoglobin dropped from 10.5 to 8.4. - Cont Protonix IV Bid. Monitor H&D. Hold Heparin sq - S/p 2PRBC 03/01. May need EGD. # MARCE due to Septic Shock. - Cr peaked at 1.6 . Now 0.9 - Cont IVF as above and follow BMP. Jaime in place. #New onset atrial fibrillation with rapid ventricular rate. Converted to NSR now. - No history of atrial fibrillation. - Status post Cardizem 10 mg X1. Heart rate still above 120 - Magnesium/TSH normal. Pending echocardiogram. Neg Troponin - S/p digoxin 0.5 X1, 0.25X2 every 6h. Completed. #Essential hypertension -Hold lisinopril and HCTZ. - Lasix prn. Hydralazine prn # FEN. NPO, NG tube. Started TPN 03/01/21 # Hypernatremia 155--> 152 . Changed IVF to D5W. Follow BMP DVT PPX. Heparin sq bid Lines: ETT tube 02/27-03/01 R Ij Central line 02/27 Jaime Catheter 01/27. NG tube 02/27 RUQ abd drain 02/27 Plan of care d/w pt and ICU staff. Can downgrade to PCU today. Time Spent With Patient Time: Total time spent is greater than 50% in coordination of care (as documented) at patient's floor/unit and/or counseling patient: QUALITY Stroke Symptom Onset Unknown: No VTE Deep Vein Thrombosis/Pulmonary Embolism Present on Admission: No
[2021-03-02] MEDS: CEFEPIME 2 GM VIAL IV SCH ×2 (09:39→20:52)
[2021-03-02] MEDS: NYSTATIN 500,000 UNITS/5 ML ORAL.SUSP SSW SCH ×4 (10:19→20:52)
[2021-03-02] MEDS ORDERED: [UNRECOGNIZED DRUG - REMARK] IV SCH (11:00)
[2021-03-02] MEDS: [UNRECOGNIZED DRUG - REMARK] IV SCH (11:15)
[2021-03-02] MEDS ORDERED: GENTAMICIN SULFATE 40 MG, CLINDAMYCIN 300 MG in SODIUM CHLORIDE IRRIG SOLUTION 500 ML IRR ONE (11:15)
--- NOTE | 2021-03-02 12:24 | General Surgery Progress Note ---
SUBJECTIVE Subjective Patient information: Note initiated : 03/02/21 at 12:19 pm Service Date, if different from initiated Date: [] Patient: Tommy Márquez 80 y/o M admitted on 02/18/21 for abdominal pain. Chief Complaint: [] Principal diagnosis: small bowel perforation with peritonitis; partial small bowel obstruction Interval history: Patient is more reactive and make some positive verbal responses to questions. He is moving all extremities equally. He had slight tachycardia earlier which may need to be treated. He has low-grade temperature to 100.4. Sodium 135, potassium 4.6, BUN 60, creatinine 0.9, phosphorus 1.8, white blood count 17, hemoglobin 9, hematocrit 28.4. His wound dressing was changed and the wound is totally clean without any purulence or tissue necrosis. AKIL drainage is serous. He received Lasix earlier this morning and has had a 1300 cc output in the last 2hours. Constitutional Vitals: Vital Signs Temp Pulse Resp BP Pulse Ox 100.1 F H 122 H 20 130/75 93 03/02/21 10:01 03/02/21 10:01 03/02/21 10:01 03/02/21 10:01 03/02/21 10:01 Period Temp Pulse Resp BP Sys/Beckford Pulse Ox Last 24 Hr 99.4 F-100.6 F 80-122 10-26 129-170/66-90 91-99 Intake and Output 03/01/21 03/02/21 03/02/21 21:59 05:59 13:59 Intake Total 850 1200 712 Output Total 2039 1883 2100 Balance -1190 684 -1388 Weight 172 lb 12.8 oz Intake & Output: Intake & Output 03/01/21 03/02/21 03/02/21 21:59 05:59 13:59 Intake Total 850 1200 712 Output Total 2039 1883 2100 Balance -1190 -684 -1388 Weight 172 lb 12.8 oz Intake: IV 200 1200 712 Dextrose 5%-1/2Ns IV Solution 1 1000 512 ,000 ml @ 100 mls/hr IV .Q10H [facility] Rx#:[id number] Tube Feeding 0 0 Blood Product 650 Output: Gastric Drainage 100 550 Right Nare 100 550 Drainage 500 280 200 Left AKIL Drain 455 280 200 Right AKIL Drain 45 Urine Catheter Amount 1440 1604 1350 Other: Urine Appearance Clear Clear Clear Uretheral (Jaime) Clear Urine Color Bright Yellow Pale Pale Uretheral (Jaime) Pale Head Head exam: Present atraumatic, normal inspection and normocephalic Eye Eye exam: Present EOMI Pupils: Present PERRL ENT ENT exam: Present mucous membranes moist, normal exam and normal oropharynx Neck Neck exam: Present full ROM and normal inspection Respiratory Respiratory exam: Present rales and rhonchi Additional comments: Lungs are much clearer and he has excellent ventilation on both lungs Cardiovascular Cardiovascular exam: Present normal rate and rhythm, +S1, +S2 and tachycardia; Absent JVD Additional comments: Heart rate as gradually reduced from about 120 this morning to the mid 90s. He is in sinus rhythm with an occasional ectopic ventricular beat GI/Abdominal GI/Abdominal exam: Present diminished bowel sounds and distended Additional comments: Hypoactive bowel sounds; AKIL drainage is serous; no drainage via incision Extremities Exam Extremities exam: Present normal capillary refill and pedal edema (1-2+ lower extremity edema) Neurological Exam Additional comments: Spontaneous movement of upper and lower extremities; good grimacing of face Psychiatric Psychiatric exam: Present agitated and anxious Additional comments: Sedated on ventilator A/P Assessment and plan (1) Perforation of small intestine: Status: Acute (2) Abnormal heart rhythm: Status: Acute Qualifiers: Arrhythmia type: atrial fibrillation (3) Partial intestinal obstruction: Status: Acute Qualifiers: Intestinal obstruction type: other intestinal obstruction Qualified Code(s): K56.690 - Other partial intestinal obstruction (4) MARCE (acute kidney injury): Status: Acute (5) Acute sepsis: Status: Acute Narrative A/P Narrative: Patient continues to clinically improve. Abdominal x-rays shows no significant dilation stomach small bowel or colon. We will continue present therapy Time Spent With Patient Time: Total time spent is greater than 50% in coordination of care (as documented) at patient's floor/unit and/or counseling patient:
[2021-03-02] MEDS: CHLORHEXIDINE GLUCONATE 1 ML ORAL.SOL SWABMOUTH SCH ×2 (12:43→20:52)
[2021-03-02] MEDS: DEXTROSE 5% IN WATER 1,000 ML IV SCH (13:00)
[2021-03-02] MEDS ORDERED: LACTOPEROXI/GLUC OXID/POT THIO 1 EACH GEL..EA. TOPICAL PRN (15:34)
[2021-03-02] MEDS: METOPROLOL TARTRATE 5 MG/5 ML VIAL IV SCH ×2 (16:19→22:10)
[2021-03-02] MEDS: PROPOFOL 1,000 MG in PREMIX 1 BAG IV SCH (17:18)
[2021-03-03] MEDS: HYDROmorphone 1 MG/ML SYRINGE IV PRN ×8 (00:52→22:00)
[2021-03-03] MEDS: DEXTROSE 5% IN WATER 1,000 ML IV SCH ×3 (01:23→23:00)
[2021-03-03] MEDS: [UNRECOGNIZED DRUG - REMARK] IV SCH (02:46)
[2021-03-03] MEDS: IPRATROPIUM/ALBUTEROL 3 ML AMPUL.NEB NEB SCH ×4 (02:47→21:07)
[2021-03-03] MEDS: METOPROLOL TARTRATE 5 MG/5 ML VIAL IV SCH ×4 (04:24→21:56)
[2021-03-03] MEDS: metroNIDAZOLE 500 MG/100 ML BAG IV SCH ×3 (05:54→21:31)
[2021-03-03] MEDS: ACETAMINOPHEN 1,000 MG/100 ML BAG IV SCH ×4 (05:55→23:52)
[2021-03-03] MEDS: INSULIN LISPRO 1 UNIT/0.01 ML UNIT SQ SCH ×3 (05:55→17:50)
[2021-03-03] MEDS: METOCLOPRAMIDE 10 MG/2 ML VIAL IV SCH ×3 (05:56→17:38)
[2021-03-03] MEDS: 0.9 % SODIUM CHLORIDE 10 ML SYRINGE IV SCH ×5 (05:56→22:46)
[2021-03-03 07:18] LABS: Basophils # (Auto) 0.03 K/mcL (0.00-0.20); Basophils % (Auto) 0.1 % (0.0-2.0); Eosinophils # (Auto) 0.06 K/mcL (0.00-0.70); Eosinophils % (Auto) 0.3 % (0.0-7.0); Hematocrit 19.1 % (41.0-55.0); Hemoglobin 6.1 g/dL (13.5-16.5); Lymphocytes % (Auto) 5.9 % (15.0-49.0); Mean Corpuscular HGB Conc 31.9 g/dL (31.0-36.0); Mean Platelet Volume 13.2 fL (7.4-10.4); Monocytes # (Auto) 1.05 K/mcL (0.10-0.90); Monocytes % (Auto) 5.2 % (1.0-12.0); Neutrophils % (Auto) 88.5 % (38.0-78.0); Platelet Count 161 K/mcL (140-440); RBC 2.01 M/mcL (4.50-5.90); WBC 20.2 K/mcL (4.5-11.0)
[2021-03-03 07:22] LABS: ALT/SGPT 19 U/L (<40); AST/SGOT 84 U/L (<40); Albumin 2.1 gm/dL (3.2-5.2); Alkaline Phosphatase 429 U/L (39-117); Bilirubin,Direct 0.4 mg/dL (<0.3); Bilirubin,Total 0.6 mg/dL (0.1-1.0); Blood Urea Nitrogen 84 mg/dL (8-23); Calcium 7.4 mg/dL (8.6-10.4); Carbon Dioxide 29 mmol/L (22-30); Chloride 122 mmol/L (96-108); Glomerular Filtration Rate 64; Glucose 172 mg/dL (70-105); Lactate Dehydrogenase 385 U/L (135-225); Phosphorous 1.6 mg/dL (2.5-4.5); Triglycerides 45 mg/dL (<150); Uric Acid 4.6 mg/dL (2.5-8.0)
[2021-03-03] MEDS: PANTOPRAZOLE 40 MG VIAL IV SCH ×2 (07:43→17:38)
[2021-03-03] MEDS ORDERED: 0.9 % SODIUM CHLORIDE 250 ML IV SCH (07:45)
[2021-03-03] MEDS: fentaNYL 100 MCG/2 ML VIAL IV PRN (07:50)
--- NOTE | 2021-03-03 08:06 | XRay Report ---
CLINICAL INFORMATION: Follow-up of atelectasis and infiltrate COMPARISON: 03/02/2021 FINDINGS: Moderate right basilar infiltrate effusion is progressed. The heart is mildly enlarged but unchanged. Mediastinum and pulmonary vessels are normal. Lines and tubes in stable satisfactory position. IMPRESSION: Moderate right basilar infiltrate and effusion progressing. Interpreted and Authenticated by: Walter Moreno 03/03/21
--- NOTE | 2021-03-03 08:10 | XRay Report ---
CLINICAL INFORMATION: Follow-up surgery to takedown adhesions causing complete jejunal obstruction. There is also terminal ileal microperforation. COMPARISON: 03/01/2021 FINDINGS: NG tube, looped in the gastric body and fundus, remains in stable position. The stomach and small bowel are now decompressed. Minimal residual contrast persists within the colon which is decompressed. There is no free air. Surgical drain overlies the left mid abdomen. Surgical wound packing material overlies the lower lumbar spine IMPRESSION: Negative Interpreted and Authenticated by: Walter Moreno 03/03/21
[2021-03-03] MEDS: ALBUMIN HUMAN 25 GM/100 ML BAG IV SCH ×3 (08:34→20:03)
[2021-03-03] MEDS: NYSTATIN 500,000 UNITS/5 ML ORAL.SUSP SSW SCH ×4 (08:38→20:58)
[2021-03-03] MEDS: CHLORHEXIDINE GLUCONATE 1 ML ORAL.SOL SWABMOUTH SCH ×2 (08:38→20:59)
--- NOTE | 2021-03-03 09:51 | Internal Med Progress Note ---
SUBJECTIVE Subjective Patient information: Note initiated : 03/03/21 at 9:51 am Service Date, if different from initiated Date: Patient: Tommy Márquez 80 y/o M admitted on 02/18/21 for abdominal pain. Chief Complaint: Abdominal pain Principal diagnosis: small bowel perforation with peritonitis; partial small bowel obstruction Constitutional Vitals: Vital Signs Temp Pulse Resp BP Pulse Ox 100.1 F H 112 H 21 121/49 97 03/03/21 09:30 03/03/21 09:30 03/03/21 09:30 03/03/21 09:30 03/03/21 09:30 Period Temp Pulse Resp BP Sys/Beckford Pulse Ox Last 24 Hr 99.8 F-101.0 F 88-134 15-31 86-131/47-79 89-100 Intake and Output 03/02/21 03/03/21 03/03/21 21:59 05:59 13:59 Intake Total 1230.7526 2209 300 Output Total 1755 3315 1165 Balance -524.2474 -1106 -865 Weight 73.482 kg Intake & Output: Intake & Output 03/02/21 03/03/21 03/03/21 21:59 05:59 13:59 Intake Total 1230.7526 2209 300 Output Total 1755 3315 1165 Balance -524.2474 -1106 -865 Weight 73.482 kg Intake: IV 1230.7526 2209 300 Calcium Gluconate 5 Meq 1030.7526 Potassium Chloride 20 Meq Infuvite Adult 10 ml In Clinimix 5%-20% Solution 1,000 ml @ 35 mls/hr IV Q24H [facility] Rx#: [id number] Calcium Gluconate 5 Meq 1009 Potassium Phosphate 20 Meq Infuvite Adult 10 ml In Clinimix 5%-20% Solution 1,000 ml @ 65 mls/hr IV Q15H [facility] Rx#: [id number] Dextrose 5% in Water 1,000 ml @ 1000 80 mls/hr IV .[id number] [facility] Rx#: [id number] Output: Gastric Drainage 150 400 Right Nare 150 400 Drainage 100 160 100 Left AKIL Drain 85 160 100 Right AKIL Drain 15 Urine Catheter Amount 1506 2045 665 Other: Urine Appearance Clear Clear Clear Uretheral (Jaime) Clear Urine Color Pale Pale Pale Uretheral (Jaime) Bright Yellow Urine Odor Normal Exam: General: Patient is extubated. He is on 2 L oxygen. He is awake alert oriented follows command. HEENT: Pupils are reactive to light. NG tube in place. Lungs: Decreased breath sounds. Crackles at bases. Cardiovascular: Irregularly irregular rhythm. S1 + S2, no murmur gallop rub. No peripheral edema. No JVD GI: Distended. Status post exploratory laparotomy with dry dressing. Absent bowel sounds. Drain in place. Tender to palpation. No rebound tenderness. SLASHER: Sedated and intubated.Moves all extremities. : Jaime in place. Psychiatric: Patient is calm and following commands Additional findings Additional findings: General: Patient is awake, alert and oriented and follows commands. He is on 2 L oxygen. HEENT: Pupils are reactive to light. NG tube in place with significant amount of coffee-ground emesis on suction Lungs: Decreased breath sounds. Crackles at bases. Cardiovascular: Irregularly irregular rhythm. S1 + S2, no murmur gallop rub. Positive edema in the hip area and thigh bilaterally. No JVD GI: S/p exploratory laparotomy with dry dressing. Absent bowel sounds. Drain in place. Tender to palpation. No rebound tenderness. Clean surgical wound estefany in SLASHER: Awake alert and oriented. Follows commands. Moves all extremities. : Jaime in place. Psychiatric: Patient is calm and following commands OBJ DATA Labs CBC & Chem 7: 03/03/21 05:01 03/03/21 05:00 Labs: Abnormal Lab Results 03/03/21 03/03/21 03/03/21 05:01 05:00 05:00 WBC 20.2 H RBC 2.01 L Hgb 6.1 L* Hct 19.1 L* RDW 16.0 H Plt Count MPV 13.2 H Neut % (Auto) 88.5 H Lymph % (Auto) 5.9 L Lymph # (Auto) 1.20 L Chaves # (Auto) 1.05 H Absolute Neutrophils 17.86 H Sodium 155 H Chloride 122 H Anion Gap 4.0 L BUN 84 H Creatinine Glucose 172 H Calcium 7.4 L Phosphorus 1.6 L Magnesium 2.8 H Total Bilirubin Direct Bilirubin 0.4 H AST 84 H Alkaline Phosphatase 429 H Lactate Dehydrogenase 385 H NT-Pro-B Natriuret Pep 2844.0 H Total Protein 4.1 L Albumin 2.1 L Globulin 2.0 L Prealbumin 03/02/21 03/02/21 03/01/21 05:03 05:02 08:25 WBC 17.0 H RBC 2.96 L Hgb 9.0 L Hct 28.4 L RDW 16.0 H Plt Count 118 L MPV 12.7 H Neut % (Auto) 91.5 H Lymph % (Auto) 4.6 L Lymph # (Auto) 0.78 L Chaves # (Auto) Absolute Neutrophils 15.55 H Sodium 155 H Chloride 122 H Anion Gap 4.0 L BUN 60 H Creatinine Glucose 166 H Calcium 7.2 L Phosphorus 1.8 L Magnesium 3.2 H Total Bilirubin 1.1 H Direct Bilirubin 0.5 H AST 84 H Alkaline Phosphatase 120 H Lactate Dehydrogenase 330 H NT-Pro-B Natriuret Pep Total Protein 4.5 L Albumin 2.9 L Globulin 1.6 L Prealbumin 5.0 L 03/01/21 03/01/21 05:00 05:00 WBC 17.5 H RBC 2.73 L Hgb 8.4 L Hct 25.9 L RDW 16.3 H Plt Count 118 L MPV 12.3 H Neut % (Auto) 90.9 H Lymph % (Auto) 5.3 L Lymph # (Auto) 0.93 L Chaves # (Auto) Absolute Neutrophils 15.96 H Sodium 152 H Chloride 119 H Anion Gap 3.0 L BUN 65 H Creatinine 1.4 H Glucose 157 H Calcium 7.3 L Phosphorus Magnesium 3.9 H Total Bilirubin 1.3 H Direct Bilirubin 0.8 H AST 56 H Alkaline Phosphatase Lactate Dehydrogenase 239 H NT-Pro-B Natriuret Pep Total Protein 4.8 L Albumin Globulin 1.6 L Prealbumin Meds: Medications Albuterol/Ipratropium (Ipratropium/Albuterol 3 Ml Ampul.Neb) 3 ml NEB Q6H [facility] Last Admin: 03/03/21 08:55 Dose: 3 ml Documented by: Benzocaine (Benzocaine 1 [place] Bottle) 1 spray TOPICAL Q2HP PRN PRN Reason: Sore Throat Cefepime HCl (Cefepime 2 Gm Vial) 2 gm IV Q12H [facility] Last Admin: 03/02/21 20:52 Dose: 2 gm Documented by: Chlorhexidine Gluconate (Chlorhexidine Gluconate 1 Ml Oral.Erlinda) 15 ml [place]AB[place] BID [facility] Last Admin: 03/03/21 08:38 Dose: 15 ml Documented by: Diagnostic Test (Pha) (Accu-Chek 1 Each Strip) 1 each FS Q6 [facility] Last Admin: 03/03/21 05:54 Dose: 1 each Documented by: Fentanyl (Fentanyl 100 Mcg/2 Ml Vial) 50 mcg IV Q4HP PRN; Protocol PRN Reason: Pain Last Admin: 03/03/21 07:50 Dose: 50 mcg Documented by: Glucose Oxid/Lactoperoxid/Muramidas (Lactoperoxi/Gluc Oxid/Pot Thio 1 Each Gel..Ea.) 1 each TOPICAL PRN PRN PRN Reason: Dry Mouth Last Admin: 03/02/21 17:09 Dose: 1 each Documented by: Hydromorphone HCl (Hydromorphone 1 Mg/Ml Syringe) 0.5 - 1 mg IV Q2HP PRN; Protocol PRN Reason: Per Pain Protocol Last Admin: 03/03/21 09:17 Dose: 1 mg Documented by: Acetaminophen (Ofirmev) 1,000 mg in 100 mls @ 200 mls/hr IV Q6H [facility]; Protocol Last Infusion: 03/03/21 06:53 Dose: Infused Documented by: Metronidazole (Flagyl) 500 mg in 100 mls @ 100 mls/hr IV Q8H [facility]; Protocol Last Infusion: 03/03/21 07:24 Dose: Infused Documented by: Propofol 1,000 mg/ Premix 100 mls @ 2.149 mls/hr IV .Q24H [facility]; Protocol Last Admin: 03/02/21 17:18 Dose: Not Given Documented by: Calcium Gluconate 5 meq/Potassium Phosphate 20 meq/Multivitamins/Minerals 10 ml/Amino Acids 1,025.2981 mls @ 65 mls/hr IV Q15H [facility] Stop: 03/03/21 10:59 Last Admin: 03/03/21 02:46 Dose: 65 mls/hr Documented by: Dextrose (Dextrose 5% In Water) 1,000 mls @ 50 mls/hr IV .Q20H [facility] Last Admin: 03/03/21 09:14 Dose: Not Given Documented by: Albumin Human (Buminate) 25 gm in 100 mls @ 200 mls/hr IV Q6H [facility] Stop: 03/06/21 07:59 Last Infusion: 03/03/21 09:13 Dose: Infused Documented by: Sodium Chloride (Sodium Chloride 0.9%) 250 mls @ 20 mls/hr IV .[id number] [facility] Stop: 03/03/21 20:14 Last Admin: 03/03/21 09:14 Dose: 20 mls/hr Documented by: Calcium Gluconate 10 meq/Potassium Phosphate 80 meq/Multivitamins/Minerals 10 ml/Amino Acids 2,049.6871 mls @ 65 mls/hr IV Q24H [facility] Insulin Human Lispro (Insulin Lispro 1 Unit/0.01 Ml Unit) 0 unit SQ Q6 [facility]; Protocol Last Admin: 03/03/21 05:55 Dose: Not Given Documented by: Metoclopramide HCl (Metoclopramide 10 Mg/2 Ml Vial) 10 mg IV Q6 [facility] Last Admin: 03/03/21 05:56 Dose: 10 mg Documented by: Metoprolol Tartrate (Metoprolol Tartrate 5 Mg/5 Ml Vial) 5 mg IV Q6H [facility] Last Admin: 03/03/21 04:24 Dose: 5 mg Documented by: Nystatin (Nystatin 500,000 Units/5 Ml Oral.Susp) 500,000 units SSW QID [facility] Last Admin: 03/03/21 08:38 Dose: 500,000 units Documented by: Ondansetron HCl (Ondansetron 4 Mg/2 Ml Vial) 4 mg IV Q6HP PRN PRN Reason: Nausea And Vomiting Oxymetazoline HCl (Oxymetazoline 1 [place] Bottle) 1 spray SULEMAN UD PRN PRN Reason: HYPERBARIC TREATMENTS Pantoprazole Sodium (Pantoprazole 40 Mg Vial) 40 mg IV BIDAC [facility] Last Admin: 03/03/21 07:43 Dose: 40 mg Documented by: Sodium Chloride (0.9 % Sodium Chloride 10 Ml Syringe) 10 ml IV Q12 [facility] Last Admin: 03/03/21 09:13 Dose: 10 ml Documented by: Sodium Chloride (0.9 % Sodium Chloride 10 Ml Syringe) 10 ml IV Q8 [facility] Last Admin: 03/03/21 05:56 Dose: 10 ml Documented by: Sodium Chloride (0.9 % Sodium Chloride 10 Ml Syringe) 10 ml IV UD PRN PRN Reason: FLUSH A/P Narrative A/P Narrative: 80 years old male admitted with following problem list: # Incarcerated right inguinal hernia with small bowel obstruction. # Acute peritonitis with perforated viscus # Small bowel obstruction with perforation of the terminal ileum and four areas of near complete obstruction with peritonitis secondary to small bowel leak. 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 Large amount of free free intraperitoneal fluid is suggestive of third spacing due to bowel obstruction,suspect bacterial peritonitis. Small amount of free intraperitoneal air may be related to recent surgery. - S/p Ex Lap 02/27 Exploratory laparotomy with small bowel adhesiolysis, Peritoneal lavage and drainage of peritoneal cavit, Closure of microperforation of ileum. - Change IV fluids to D5W at 80 cc/h due to high sodium. Started TPN 03/01/21 - NG tube, NPO, IV Anbx, PPI. Follow labs. Management per surgery # UGIB with Coffee ground emesis 02/28. Hemoglobin dropped from 10.5 to 8.4. S/p 2PRBC 03/01 - Hb dropped to 6.1 with continue Coffee G emesis. Give 3PRBC 03/03. - Cont Protonix IV Bid. Monitor H&D. Dced Heparin sq - D/w surgery regarding EGD. # Septic shock with Bacteroides Fragilis - CxR no PNA. - Blood culture 09/01 Bacteroides fragilis 02/27. Repeat BX penidng. - Cont Cefepime/Flagyl. Discontinued Levaquin. Repeat Blood cultures. Rx 14 days post Negative Blood Cx. #New onset atrial fibrillation with rapid ventricular rate. In & out of A.Fib. - No history of atrial fibrillation. - Status post Cardizem 10 mg X1. Heart rate still above 120 - Magnesium/TSH normal. Pending echocardiogram. Neg Troponin - S/p digoxin 0.5 X1, 0.25X2 every 6h. - Consider Amiodarone gtt. Digoxin if RVR # Acute Hypoxic resp failure. Up to 10 L O2 - Mod R pleural effusion. - Extubated 03/01/21. Now on 2L NC # MARCE due to Septic Shock. - Cr peaked at 1.6 . Now 1.1. High BUN due to GI bleed. - Cont IVF as above and follow BMP. Jamie in place. # Hypophosphatemia 1.6 - Replace and follow # Abnormal LFT. Normal GGT. High AST. - Due to Above. Follow LFTs. #Essential hypertension -Hold lisinopril and HCTZ. - Lasix prn. Hydralazine prn # FEN. NPO, NG tube. Started TPN 03/01/21 # Hypernatremia 155 . Changed IVF to D5W. Follow BMP DVT PPX. Heparin sq bid on hold due to GIB Lines: ETT tube 02/27-03/01 R Ij Central line 02/27 Jaime Catheter 01/27. NG tube 02/27 RUQ abd drain 02/27 Plan of care d/w pt's , Daugther and ICU staff. Time Spent With Patient Time: Total time spent is greater than 50% in coordination of care (as documented) at patient's floor/unit and/or counseling patient: QUALITY Stroke Symptom Onset Unknown: No VTE Deep Vein Thrombosis/Pulmonary Embolism Present on Admission: No
[2021-03-03] MEDS: CEFEPIME 2 GM VIAL IV SCH (10:15)
[2021-03-03] MEDS ORDERED: DIGOXIN 500 MCG/2 ML AMPUL IV ONE (10:17)
[2021-03-03] MEDS ORDERED: POTASSIUM PHOSPHATE 20 MEQ in DEXTROSE 5% IN WATER 250 ML IV ONE (10:41)
[2021-03-03] MEDS ORDERED: [UNRECOGNIZED DRUG - REMARK] IV SCH (11:00)
--- NOTE | 2021-03-03 11:14 | General Surgery Progress Note ---
SUBJECTIVE Subjective Patient information: Note initiated : 03/03/21 at 11:12 am Service Date, if different from initiated Date: [] Patient: Tommy Márquez 80 y/o M admitted on 02/18/21 for abdominal pain. Chief Complaint: [] Principal diagnosis: small bowel perforation with peritonitis; partial small bowel obstruction Interval history: Patient remains with low-grade temperatures in the intensive care unit. Continue to have abdominal pain, controlled with pain medication. NG tube output picked up last few hours, H&H with decreased this a.m. AKIL drain remains serous. Constitutional Vitals: Vital Signs Temp Pulse Resp BP Pulse Ox 100.1 F H 112 H 21 121/49 97 03/03/21 09:30 03/03/21 09:30 03/03/21 09:30 03/03/21 09:30 03/03/21 09:30 Period Temp Pulse Resp BP Sys/Beckford Pulse Ox Last 24 Hr 99.8 F-101.0 F 88-134 15-31 86-131/47-79 89-100 Intake and Output 03/02/21 03/03/21 03/03/21 21:59 05:59 13:59 Intake Total 1230.7526 2209 300 Output Total 1755 3315 1165 Balance -524.2474 -1106 -865 Weight 162 lb Intake & Output: Intake & Output 03/02/21 03/03/21 03/03/21 21:59 05:59 13:59 Intake Total 1230.7526 2209 300 Output Total 1755 3315 1165 Balance -524.2474 -1106 -865 Weight 162 lb Intake: IV 1230.7526 2209 300 Calcium Gluconate 5 Meq 1030.7526 Potassium Chloride 20 Meq Infuvite Adult 10 ml In Clinimix 5%-20% Solution 1,000 ml @ 35 mls/hr IV Q24H [facility] Rx#: [id number] Calcium Gluconate 5 Meq 1009 Potassium Phosphate 20 Meq Infuvite Adult 10 ml In Clinimix 5%-20% Solution 1,000 ml @ 65 mls/hr IV Q15H [facility] Rx#: [id number] Dextrose 5% in Water 1,000 ml @ 1000 80 mls/hr IV .[id number] [facility] Rx#: [id number] Output: Gastric Drainage 150 400 Right Nare 150 400 Drainage 100 160 100 Left AKIL Drain 85 160 100 Right AKIL Drain 15 Urine Catheter Amount 1505 5128 665 Other: Urine Appearance Clear Clear Clear Uretheral (Jaime) Clear Urine Color Pale Pale Pale Uretheral (Jaime) Bright Yellow Urine Odor Normal General appearance: no acute distress Exam: Somewhat sedated, responsive GI/Abdominal GI/Abdominal exam: Present soft and tenderness; Absent distended Additional comments: AKIL drain with serous output A/P Narrative A/P Narrative: Status post incarcerated inguinal hernia repair, status post exploratory laparotomy with repair of small distal ileal perforation. Patient remains in critical condition, low-grade fevers, elevated white blood cell count. We will continue to follow white blood cell count and fever curve Decreased H&H, Dr. Rodriguez ordered 3 units packed RBCs this morning. I will recheck H&H after blood. Time Spent With Patient Time: Total time spent is greater than 50% in coordination of care (as documented) at patient's floor/unit and/or counseling patient:
[2021-03-03] MEDS: MEROPENEM 1 GM in 0.9 % SODIUM CHLORIDE 50 ML IV SCH ×2 (14:11→21:31)
[2021-03-03 18:27] LABS: Hemoglobin 8.8 g/dL (13.5-16.5)
[2021-03-04] MEDS: HYDROmorphone 1 MG/ML SYRINGE IV PRN ×5 (00:17→21:54)
[2021-03-04] MEDS: METOCLOPRAMIDE 10 MG/2 ML VIAL IV SCH ×5 (00:28→23:48)
[2021-03-04] MEDS: INSULIN LISPRO 1 UNIT/0.01 ML UNIT SQ SCH ×5 (00:32→23:47)
[2021-03-04] MEDS: IPRATROPIUM/ALBUTEROL 3 ML AMPUL.NEB NEB SCH ×3 (02:32→20:55)
[2021-03-04] MEDS: ALBUMIN HUMAN 25 GM/100 ML BAG IV SCH (02:32)
[2021-03-04] MEDS: METOPROLOL TARTRATE 5 MG/5 ML VIAL IV SCH ×4 (04:47→23:48)
[2021-03-04] MEDS: metroNIDAZOLE 500 MG/100 ML BAG IV SCH ×3 (05:20→21:25)
[2021-03-04] MEDS: ACETAMINOPHEN 1,000 MG/100 ML BAG IV SCH ×4 (05:22→23:49)
[2021-03-04] MEDS: MEROPENEM 1 GM in 0.9 % SODIUM CHLORIDE 50 ML IV SCH ×3 (05:31→21:25)
[2021-03-04] MEDS: 0.9 % SODIUM CHLORIDE 10 ML SYRINGE IV SCH ×5 (06:04→23:34)
[2021-03-04 07:07] LABS: ALT/SGPT 13 U/L (<40); AST/SGOT 53 U/L (<40); Albumin 3.4 gm/dL (3.2-5.2); Albumin/Globulin Ratio 2.8 (1.0-2.3); Alkaline Phosphatase 65 U/L (39-117); Bilirubin,Direct 0.3 mg/dL (<0.3); Bilirubin,Total 0.6 mg/dL (0.1-1.0); Blood Urea Nitrogen 79 mg/dL (8-23); Calcium 7.7 mg/dL (8.6-10.4); Carbon Dioxide 30 mmol/L (22-30); Chloride 124 mmol/L (96-108); Globulin 1.2 gm/dL (2.2-3.7); Glomerular Filtration Rate 85; Glucose 137 mg/dL (70-105); Lactate Dehydrogenase 314 U/L (135-225); Triglycerides 42 mg/dL (<150); Uric Acid 3.8 mg/dL (2.5-8.0)
[2021-03-04 07:11] LABS: Basophils # (Auto) 0.04 K/mcL (0.00-0.20); Basophils % (Auto) 0.2 % (0.0-2.0); Eosinophils # (Auto) 0.16 K/mcL (0.00-0.70); Eosinophils % (Auto) 0.8 % (0.0-7.0); Hematocrit 20.7 % (41.0-55.0); Hemoglobin 6.7 g/dL (13.5-16.5); Lymphocytes # (Auto) 1.26 K/mcL (1.50-4.80); Lymphocytes % (Auto) 6.1 % (15.0-49.0); Mean Corpuscular HGB Conc 32.4 g/dL (31.0-36.0); Monocytes # (Auto) 1.43 K/mcL (0.10-0.90); Monocytes % (Auto) 6.9 % (1.0-12.0); Platelet Count 170 K/mcL (140-440); RBC 2.25 M/mcL (4.50-5.90); Red Cell Distribution Width 15.4 % (11.5-14.5); WBC 20.7 K/mcL (4.5-11.0)
[2021-03-04] MEDS: PANTOPRAZOLE 40 MG VIAL IV SCH ×2 (07:18→17:25)
[2021-03-04 07:37] LABS: Prealbumin 7.4 mg/dL (20.0-40.0)
--- NOTE | 2021-03-04 07:40 | Internal Med Progress Note ---
SUBJECTIVE Subjective Patient information: Note initiated : 03/04/21 at 7:39 am Service Date, if different from initiated Date: Patient: Tommy Márquez 80 y/o M admitted on 02/18/21 for abdominal pain. Chief Complaint: Abdominal pain Principal diagnosis: small bowel perforation with peritonitis; partial small bowel obstruction Interval history: Pt dropped Hb to 6.7 despint 2PRBC. Still having Coffee G emesis. He is on 2-3 L O2. HR in 100s. Started Digoxin IV yesterday. Ordered PRBCs and plan for EGD today. He is on PPI IV Bid. Constitutional Vitals: Vital Signs Temp Pulse Resp BP Pulse Ox 99.9 F H 105 H 18 142/61 94 03/04/21 07:01 03/04/21 07:01 03/04/21 07:01 03/04/21 07:01 03/04/21 07:01 Period Temp Pulse Resp BP Sys/Beckford Pulse Ox Last 24 Hr 99.6 F-100.6 F 35-124 14-31 97-162/48-85 88-100 Intake and Output 03/03/21 03/04/21 03/04/21 21:59 05:59 13:59 Intake Total 1196 1350 250 Output Total 2092 1395 530 Balance -896 -45 -280 Weight 74.797 kg Intake & Output: Intake & Output 03/03/21 03/04/21 03/04/21 21:59 05:59 13:59 Intake Total 1196 1350 250 Output Total 2092 1395 530 Balance -896 -45 -280 Weight 74.797 kg Intake: IV 546 1350 250 Sodium Chloride 0.9% 250 ml @ 96 20 mls/hr IV .[id number] [facility] Rx#: [id number] Dextrose 5% in Water 1,000 ml @ 1000 50 mls/hr IV .Q20H [facility] Rx#: [id number] Merrem 1 gm In Sodium Chloride 50 50 50 0.9% 50 ml @ 100 mls/hr IV Q8H [facility] Rx#:[id number] Packed Cells 650 Output: Gastric Drainage 750 Right Nare 750 Drainage 262 185 45 Left AKIL Drain 250 180 45 Right AKIL Drain 12 5 Urine Catheter Amount 1080 1210 485 Other: Urine Appearance Clear Clear Clear Urine Color Light Louise Dark Yellow Dark Yellow Urine Odor Normal Normal Exam: General: Pt Follows commands. He is on 2-3 L oxygen. He is awake alert oriented follows command. HEENT: Edentulous, Pupils are reactive to light. NG tube in place. Lungs: Decreased breath sounds. Crackles at bases. Cardiovascular: Irregularly irregular rhythm. S1 + S2, no murmur gallop rub. No peripheral edema. No JVD GI: Distended. Status post exploratory laparotomy with dry dressing. Absent bowel sounds. Drain in place. Tender to palpation. No rebound tenderness. 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 : Jaime in place. EXT: Edema lower back and thighs. Psychiatric: Patient is calm and following commands OBJ DATA Labs CBC & Chem 7: 03/04/21 05:00 03/04/21 05:00 Labs: Abnormal Lab Results 03/04/21 03/04/21 03/03/21 05:00 05:00 17:24 WBC 20.7 H RBC 2.25 L Hgb 6.7 L* 8.8 L Hct 20.7 L* 27.0 L RDW 15.4 H Plt Count MPV 13.0 H Neut % (Auto) 86.0 H Lymph % (Auto) 6.1 L Lymph # (Auto) 1.26 L Canadian # (Auto) 1.43 H Absolute Neutrophils 17.82 H Sodium 157 H Chloride 124 H Anion Gap 3.0 L BUN 79 H Glucose 137 H Calcium 7.7 L Phosphorus 2.0 L Magnesium 2.7 H Total Bilirubin Direct Bilirubin 0.3 H AST 53 H Alkaline Phosphatase Lactate Dehydrogenase 314 H NT-Pro-B Natriuret Pep Total Protein 4.6 L Albumin Globulin 1.2 L Albumin/Globulin Ratio 2.8 H Prealbumin 7.4 L 03/03/21 03/03/21 03/03/21 05:01 05:00 05:00 WBC 20.2 H RBC 2.01 L Hgb 6.1 L* Hct 19.1 L* RDW 16.0 H Plt Count MPV 13.2 H Neut % (Auto) 88.5 H Lymph % (Auto) 5.9 L Lymph # (Auto) 1.20 L Canadian # (Auto) 1.05 H Absolute Neutrophils 17.86 H Sodium 155 H Chloride 122 H Anion Gap 4.0 L BUN 84 H Glucose 172 H Calcium 7.4 L Phosphorus 1.6 L Magnesium 2.8 H Total Bilirubin Direct Bilirubin 0.4 H AST 84 H Alkaline Phosphatase 429 H Lactate Dehydrogenase 385 H NT-Pro-B Natriuret Pep 2844.0 H Total Protein 4.1 L Albumin 2.1 L Globulin 2.0 L Albumin/Globulin Ratio Prealbumin 03/02/21 03/02/21 03/01/21 05:03 05:02 08:25 WBC 17.0 H RBC 2.96 L Hgb 9.0 L Hct 28.4 L RDW 16.0 H Plt Count 118 L MPV 12.7 H Neut % (Auto) 91.5 H Lymph % (Auto) 4.6 L Lymph # (Auto) 0.78 L Canadian # (Auto) Absolute Neutrophils 15.55 H Sodium 155 H Chloride 122 H Anion Gap 4.0 L BUN 60 H Glucose 166 H Calcium 7.2 L Phosphorus 1.8 L Magnesium 3.2 H Total Bilirubin 1.1 H Direct Bilirubin 0.5 H AST 84 H Alkaline Phosphatase 120 H Lactate Dehydrogenase 330 H NT-Pro-B Natriuret Pep Total Protein 4.5 L Albumin 2.9 L Globulin 1.6 L Albumin/Globulin Ratio Prealbumin 5.0 L 03/01/21 05:00 WBC RBC Hgb Hct RDW Plt Count MPV Neut % (Auto) 90.9 H Lymph % (Auto) 5.3 L Lymph # (Auto) Canadian # (Auto) Absolute Neutrophils Sodium Chloride Anion Gap BUN Glucose Calcium Phosphorus Magnesium Total Bilirubin Direct Bilirubin AST Alkaline Phosphatase Lactate Dehydrogenase NT-Pro-B Natriuret Pep Total Protein Albumin Globulin Albumin/Globulin Ratio Prealbumin Meds: Medications Albuterol/Ipratropium (Ipratropium/Albuterol 3 Ml Ampul.Neb) 3 ml NEB Q6H [facility] Last Admin: 03/04/21 02:32 Dose: 3 ml Documented by: Benzocaine (Benzocaine 1 [place] Bottle) 1 spray TOPICAL Q2HP PRN PRN Reason: Sore Throat Chlorhexidine Gluconate (Chlorhexidine Gluconate 1 Ml Oral.Erlinda) 15 ml [place] BID [facility] Last Admin: 03/03/21 20:59 Dose: 15 ml Documented by: Diagnostic Test (Pha) (Accu-Chek 1 Each Strip) 1 each FS Q6 [facility] Last Admin: 03/04/21 06:03 Dose: 1 each Documented by: Digoxin (Digoxin 500 Mcg/2 Ml Ampul) 500 mcg IV DAILY [facility] Fentanyl (Fentanyl 100 Mcg/2 Ml Vial) 50 mcg IV Q4HP PRN; Protocol PRN Reason: Pain Last Admin: 03/03/21 07:50 Dose: 50 mcg Documented by: Glucose Oxid/Lactoperoxid/Muramidas (Lactoperoxi/Gluc Oxid/Pot Thio 1 Each Gel..Ea.) 1 each TOPICAL PRN PRN PRN Reason: Dry Mouth Last Admin: 03/02/21 17:09 Dose: 1 each Documented by: Hydromorphone HCl (Hydromorphone 1 Mg/Ml Syringe) 0.5 - 1 mg IV Q2HP PRN; Protocol PRN Reason: Per Pain Protocol Last Admin: 03/04/21 05:33 Dose: 1 mg Documented by: Acetaminophen (Ofirmev) 1,000 mg in 100 mls @ 200 mls/hr IV Q6H [facility]; Protocol Last Infusion: 03/04/21 06:24 Dose: Infused Documented by: Metronidazole (Flagyl) 500 mg in 100 mls @ 100 mls/hr IV Q8H [facility]; Protocol Last Infusion: 03/04/21 06:25 Dose: Infused Documented by: Dextrose (Dextrose 5% In Water) 1,000 mls @ 50 mls/hr IV .Q20H [facility] Last Admin: 03/03/21 23:00 Dose: 50 mls/hr Documented by: Albumin Human (Buminate) 25 gm in 100 mls @ 200 mls/hr IV Q6H [facility] Stop: 03/06/21 07:59 Last Infusion: 03/04/21 03:05 Dose: Infused Documented by: Calcium Gluconate 10 meq/Potassium Phosphate 80 meq/Multivitamins/Minerals 10 ml/Amino Acids 2,049.6871 mls @ 65 mls/hr IV Q24H [facility] Last Admin: 03/03/21 11:14 Dose: 65 mls/hr Documented by: Meropenem 1 gm/ Sodium (Chloride) 50 mls @ 100 mls/hr IV Q8H [facility]; Protocol Last Infusion: 03/04/21 06:01 Dose: Infused Documented by: Insulin Human Lispro (Insulin Lispro 1 Unit/0.01 Ml Unit) 0 unit SQ Q6 [facility]; Protocol Last Admin: 03/04/21 06:03 Dose: 2 units Documented by: Metoclopramide HCl (Metoclopramide 10 Mg/2 Ml Vial) 10 mg IV Q6 [facility] Last Admin: 03/04/21 05:26 Dose: 10 mg Documented by: Metoprolol Tartrate (Metoprolol Tartrate 5 Mg/5 Ml Vial) 5 mg IV Q6H [facility] Last Admin: 03/04/21 04:47 Dose: 5 mg Documented by: Nystatin (Nystatin 500,000 Units/5 Ml Oral.Susp) 500,000 units SSW QID [facility] Last Admin: 03/03/21 20:58 Dose: 500,000 units Documented by: Ondansetron HCl (Ondansetron 4 Mg/2 Ml Vial) 4 mg IV Q6HP PRN PRN Reason: Nausea And Vomiting Oxymetazoline HCl (Oxymetazoline 1 [place] Bottle) 1 spray SULEMAN UD PRN PRN Reason: HYPERBARIC TREATMENTS Pantoprazole Sodium (Pantoprazole 40 Mg Vial) 40 mg IV BIDAC [facility] Last Admin: 03/04/21 07:18 Dose: 40 mg Documented by: Sodium Chloride (0.9 % Sodium Chloride 10 Ml Syringe) 10 ml IV Q12 [facility] Last Admin: 03/03/21 22:45 Dose: 10 ml Documented by: Sodium Chloride (0.9 % Sodium Chloride 10 Ml Syringe) 10 ml IV Q8 [facility] Last Admin: 03/04/21 06:04 Dose: 10 ml Documented by: Sodium Chloride (0.9 % Sodium Chloride 10 Ml Syringe) 10 ml IV UD PRN PRN Reason: FLUSH A/P Narrative A/P Narrative: 80 years old male admitted with following problem list: # Incarcerated right inguinal hernia with small bowel obstruction. # Acute peritonitis with perforated viscus # Small bowel obstruction with perforation of the terminal ileum and four areas of near complete obstruction with peritonitis secondary to small bowel leak. - S/p right inguinal hernia repair on 02/20/21 by and found pt has tigh tly incarcerated small bowel with venous compression, but no ischemia - Repeat CT A/P 02/27 Recurrent SBO in the mid jejunum ostensibly related to adhesions or stricture. Large amount of free free intraperitoneal fluid is suggestive of third spacing due to bowel obstruction,suspect bacterial peritoni tis. Small amount of free intraperitoneal air may be related to recent surgery. - S/p Ex Lap 02/27 Exploratory laparotomy with small bowel adhesiolysis, Peritoneal lavage and drainage of peritoneal cavit, Closure of microperforation of ileum. - Changed IV fluids to D5W at 50 cc/h due to high sodium. Started TPN 03/01/21 - Cont NG tube, NPO, IV Anbx, PPI. Follow labs. Management per surgery # UGIB with Coffee ground emesis 02/28. Hemoglobin dropped from 10.5 to 8.4. S/p 2PRBC 03/01 # Acute blood loss anemia. Cont Active UGIB - Hb dropped to 6.1 with continue Coffee G emesis. S/p total of 5 PRBC - Cont Protonix IV Bid. Monitor H&D. Dced Heparin sq - Pt needs EGD to sotp active bleeding. Repeat H&H this afternoon. # Septic shock with Bacteroides Fragilis - CxR no PNA. - Blood culture 09/01 Bacteroides fragilis 02/27. Repeat BX 03/02 NgTD - Cont Cefepime/Flagyl. Discontinued Levaquin. Repeat Blood cultures. Rx 14 days post Negative Blood Cx. 03/02-03/16 #New onset atrial fibrillation with rapid ventricular rate. In & out of A.Fib. - No history of atrial fibrillation. - Status post Cardizem 10 mg X1. - Magnesium/TSH normal. Pending echocardiogram. Neg Troponin - S/p digoxin 0.5 X1, 0.25X2 every 6h. Now on daily IV Digoxin. - Consider Amiodarone gtt. Digoxin if RVR # Hypernatremia 155-->157. - Changed IVF to D5W. Correct with TPN and Cont D5W. Follow BMP this afternoon. # Acute Hypoxic resp failure. Up to 10 L O2 - Mod R pleural effusion. - Extubated 03/01/21. Now on 2L NC # MARCE due to Septic Shock. - Cr peaked at 1.6 . Now 1.1. High BUN due to GI bleed. - Cont IVF as above and follow BMP. Jaime in place. # Hypophosphatemia 1.6 - Replace and follow # Abnormal LFT. Normal GGT. High AST. - Due to Above. Follow LFTs. #Essential hypertension -Hold lisinopril and HCTZ. - Lasix prn. Hydralazine prn # FEN. NPO, NG tube. Started TPN 03/01/21 DVT PPX. Heparin sq bid on hold due to GIB Lines: ETT tube 02/27-03/01 R Ij Central line 02/27 Jaime Catheter 01/27. NG tube 02/27 RUQ abd drain 02/27 Plan of care d/w pt's , Daughter and ICU staff. Time Spent With Patient Time: Total time spent is greater than 50% in coordination of care (as documented) at patient's floor/unit and/or counseling patient: QUALITY Stroke Symptom Onset Unknown: No VTE Deep Vein Thrombosis/Pulmonary Embolism Present on Admission: No
[2021-03-04] MEDS ORDERED: DEXTROSE 5% IN WATER 1,000 ML IV SCH (08:07)
--- NOTE | 2021-03-04 08:23 | XRay Report ---
HISTORY: Follow-up atelectasis and pneumonia FINDINGS: there are bilateral infiltrates with the greatest consolidation in the right lower lobe and around the right hilum. There may be a superimposed right-sided pleural effusion. No left-sided effusion is present. The heart size is normal. Nasogastric tube and right internal jugular lines are well-positioned. There is no widening of the mediastinum. Comparison with the prior exam from 03/03/2021 and 03/02/2021 show little change. IMPRESSION: Stable bilateral pulmonary infiltrates have a combination of pneumonia, atelectasis and superimposed small right-sided pleural effusion Interpreted and Authenticated by: Jb Cavazos 03/04/21
[2021-03-04] MEDS: CHLORHEXIDINE GLUCONATE 1 ML ORAL.SOL SWABMOUTH SCH ×2 (08:24→21:25)
[2021-03-04] MEDS: NYSTATIN 500,000 UNITS/5 ML ORAL.SUSP SSW SCH ×5 (08:24→21:25)
[2021-03-04] MEDS ORDERED: DIGOXIN 500 MCG/2 ML AMPUL IV SCH (09:00)
[2021-03-04] MEDS ORDERED: POTASSIUM PHOSPHATE 40 MEQ in DEXTROSE 5% IN WATER 500 ML IV ONE ×2 (09:11→13:50)
[2021-03-04] MEDS: DEXTROSE 5% IN WATER 1,000 ML IV SCH ×3 (09:12→20:04)
--- NOTE | 2021-03-04 09:27 | General Surgery Progress Note ---
SUBJECTIVE Subjective Patient information: Note initiated : 03/04/21 at 9:15 am Service Date, if different from initiated Date: [] Patient: Tommy Márquez 80 y/o M admitted on 02/18/21 for abdominal pain. Chief Complaint: [] Principal diagnosis: small bowel perforation with peritonitis; partial small bowel obstruction Interval history: Patient has been clinically stable with regards to vital signs and ventilation. He however has continued to have slow bleed from his stomach with his hemoglobin dropping from 8.8-6.8 overnight. Vital signs are otherwise stable. Urine output is excellent and his GFR is 89. His white blood count is still elevated at 20.7. There is no evidence of purulence in his drains. Patient's family counseled for upper endoscopy with control of bleeding. I will also close his midline incision which I will plan to close tomorrow. This will keep him from having to have anesthesia on 2 consecutive days. Constitutional Vitals: Vital Signs Temp Pulse Resp BP Pulse Ox 100.0 F H 106 H 20 143/76 94 03/04/21 09:01 03/04/21 09:01 03/04/21 09:01 03/04/21 09:01 03/04/21 09:01 Period Temp Pulse Resp BP Sys/Beckford Pulse Ox Last 24 Hr 99.6 F-100.2 F 35-116 14-28 111-162/48-92 88-100 Intake and Output 03/03/21 03/04/21 03/04/21 21:59 05:59 13:59 Intake Total 1196 1350 575 Output Total 2092 1395 835 Balance -896 -45 -260 Weight 164 lb 14.4 oz Intake & Output: Intake & Output 03/03/21 03/04/21 03/04/21 21:59 05:59 13:59 Intake Total 1196 1350 575 Output Total 2092 1395 835 Balance -896 -45 -260 Weight 164 lb 14.4 oz Intake: IV 546 1350 250 Sodium Chloride 0.9% 250 ml @ 96 20 mls/hr IV .[id number] [facility] Rx#: [id number] Dextrose 5% in Water 1,000 ml @ 1000 50 mls/hr IV .Q20H [facility] Rx#: [id number] Merrem 1 gm In Sodium Chloride 50 50 50 0.9% 50 ml @ 100 mls/hr IV Q8H [facility] Rx#:[id number] Blood Product 325 Packed Cells 650 Output: Gastric Drainage 750 Right Nare 750 Drainage 262 185 45 Left AKIL Drain 250 180 45 Right AKIL Drain 12 5 Urine Catheter Amount 1080 1210 790 Other: Urine Appearance Clear Clear Clear Urine Color Light Louise Dark Yellow Dark Yellow Urine Odor Normal Normal Exam: Patient answers questions appropriately though he is somewhat withdrawn. He does not appear to be in any acute distress Head Head exam: Present atraumatic and normal inspection ENT ENT exam: Present mucous membranes moist, normal exam and normal oropharynx Neck Neck exam: Present full ROM and normal inspection Respiratory Respiratory exam: Present rales and rhonchi Additional comments: Lungs are much clearer and he has excellent ventilation on both lungs Cardiovascular Cardiovascular exam: Present normal rate and rhythm, +S1, +S2 and tachycardia; Absent JVD Additional comments: Heart rate as gradually reduced from about 120 this morning to the mid 90s. He is in sinus rhythm with an occasional ectopic ventricular beat GI/Abdominal GI/Abdominal exam: Present diminished bowel sounds and distended (Mildly distended compared to yesterday) Extremities Exam Extremities exam: Present full ROM, normal inspection and neurovascular intact; Absent Kathy's sign Neurological Exam Additional comments: Somewhat somnolent but answers questions moves all extremities to stimulation Psychiatric Psychiatric exam: Present depressed and flat affect Skin Skin exam: Present intact and normal color A/P Assessment and plan (1) Upper gastrointestinal bleed: Status: Acute (2) Acute sepsis: Status: Acute (3) Postoperative ileus: Status: Acute Narrative A/P Narrative: Patient will be transfused 2 units of packed red cells He is scheduled for urgent upper endoscopy with control of bleeding and will have closure of his abdominal incision Time Spent With Patient Time: Total time spent is greater than 50% in coordination of care (as mike hummel) at patient's floor/unit and/or counseling patient:
[2021-03-04] MEDS: FLUCONAZOLE 400 MG/200 ML BAG IV SCH ×2 (09:37→10:07)
[2021-03-04] MEDS ORDERED: ROCURONIUM 10 MG/ML ML IV ONE ×2 (10:31→13:50)
[2021-03-04] MEDS ORDERED: FAMOTIDINE/PF 20 MG/2 ML VIAL IV ONE (10:31)
[2021-03-04] MEDS ORDERED: GLYCOPYRROLATE 0.2 MG/ML VIAL IV ONE (10:31)
[2021-03-04] MEDS ORDERED: KETAMINE 50 MG/ML ML ONE ×2 (10:31→13:50)
[2021-03-04] MEDS ORDERED: ONDANSETRON 4 MG/2 ML VIAL ONE ×2 (10:31→13:50)
[2021-03-04] MEDS ORDERED: DEXAMETHASONE 10 MG/ML VIAL ONE ×2 (10:31→13:50)
[2021-03-04] MEDS ORDERED: SUGAMMADEX SODIUM 200 MG/2 ML VIAL IV ONE (10:31)
[2021-03-04] MEDS ORDERED: MIDAZOLAM 2 MG/2 ML VIAL ONE (10:31)
[2021-03-04] MEDS ORDERED: ETOMIDATE 20 MG/10 ML VIAL IV ONE (10:31)
[2021-03-04] MEDS ORDERED: LIDOCAINE HCL/PF 100 MG/5 ML SYRINGE IV ONE ×2 (10:31→13:50)
[2021-03-04] MEDS ORDERED: EPINEPHrine 1 MG/ML AMPUL IJ ONE (10:53)
[2021-03-04] MEDS ORDERED: [UNRECOGNIZED DRUG - REMARK] IV SCH ×2 (11:00)
[2021-03-04] MEDS ORDERED: IPRATROPIUM/ALBUTEROL 3 ML AMPUL.NEB NEB PRN (11:33)
[2021-03-04] MEDS ORDERED: MEPERIDINE 25 MG/ML VIAL IV PRN (11:33)
[2021-03-04] MEDS ORDERED: ONDANSETRON 4 MG/2 ML VIAL IV PRN ×2 (11:33→13:50)
[2021-03-04] MEDS ORDERED: fentaNYL 100 MCG/2 ML VIAL IV PRN ×2 (11:33→13:50)
[2021-03-04] MEDS ORDERED: LACTATED RINGERS 1,000 ML IV SCH (11:45)
--- NOTE | 2021-03-04 11:56 | Brief Operative Note ---
Brief Operative Note Date of procedure: 03/04/21 Pre-op diagnosis: upper gastrointestinal bleeding Post-op diagnosis: other (diffuse gastric ulcers;acute duodenal ulceration with duodenitis ) Procedure: egd Grafts/Implants: No Anesthesia: GETA Findings: diffuse punctate ulcerations of entire stomach with some healing;duodenal bulb ulcer with healing; diffuse hemorrhagic changes of duodenal bulb Complications: none Surgeon: Anita Rodriguez Specimens Removed/Pathology: none sent Condition: stable Disposition: PACU
[2021-03-04] MEDS ORDERED: NALOXONE HCL 0.4 MG/ML VIAL IV ONE (13:31)
[2021-03-04] MEDS ORDERED: NALOXONE HCL 0.4 MG/ML VIAL ONE (13:35)
[2021-03-04] MEDS ORDERED: 0.9 % SODIUM CHLORIDE 10 ML SYRINGE IV PRN (13:50)
[2021-03-04] MEDS ORDERED: ePHEDrine 50 MG/5 ML SYRINGE (ANEST) IV ONE (13:50)
[2021-03-04] MEDS ORDERED: IOPAMIDOL 100 ML BOTTLE IV ONE (13:50)
[2021-03-04] MEDS ORDERED: MIDAZOLAM 5 MG/5 ML VIAL ONE (13:50)
[2021-03-04] MEDS ORDERED: OXYMETAZOLINE 1 SPRAY BOTTLE NAS PRN (13:50)
[2021-03-04] MEDS ORDERED: TPN PER PHARMACY IV SCH (13:50)
[2021-03-04] MEDS ORDERED: PROPOFOL 200 MG/20 ML VIAL IV ONE (13:50)
[2021-03-04] MEDS ORDERED: MAGNESIUM SULFATE 2 GM/50 ML BAG IV ONE (13:50)
[2021-03-04] MEDS ORDERED: PHENYLEPHRINE 10 MG/ML VIAL ONE (13:50)
[2021-03-04] MEDS ORDERED: BENZOCAINE 1 SPRAY BOTTLE TOPICAL PRN (13:50)
[2021-03-04] MEDS ORDERED: IPRATROPIUM/ALBUTEROL 3 ML AMPUL.NEB NEB SCH (14:45)
[2021-03-04 15:02] LABS: Hematocrit 28.7 % (41.0-55.0); Hemoglobin 9.7 g/dL (13.5-16.5)
[2021-03-04] MEDS ORDERED: FAT EMULSION 20% 250 ML IV SCH ×2 (16:00)
[2021-03-04 18:31] LABS: Hematocrit 27.7 % (41.0-55.0); Hemoglobin 9.4 g/dL (13.5-16.5); Mean Cell Volume 89.9 fL (80.0-100.0); Mean Corpuscular HGB Conc 33.9 g/dL (31.0-36.0); Mean Platelet Volume 12.6 fL (7.4-10.4); Platelet Count 177 K/mcL (140-440); RBC 3.08 M/mcL (4.50-5.90); Red Cell Distribution Width 15.6 % (11.5-14.5); WBC 22.5 K/mcL (4.5-11.0)
[2021-03-04 18:48] LABS: Blood Urea Nitrogen 69 mg/dL (8-23); Calcium 7.7 mg/dL (8.6-10.4); Carbon Dioxide 28 mmol/L (22-30); Chloride 123 mmol/L (96-108); Glomerular Filtration Rate 85; Glucose 299 mg/dL (70-105)
[2021-03-04] MEDS: fentaNYL 100 MCG/2 ML VIAL IV PRN ×2 (19:10→23:48)
--- NOTE | 2021-03-04 20:03 | Internal Med Progress Note ---
SUBJECTIVE Subjective Patient information: Note initiated : 03/04/21 at 7:38 pm Service Date, if different from initiated Date: [] Patient: Tommy Márquez 80 y/o M admitted on 02/18/21 for abdominal pain. Chief Complaint: [] Principal diagnosis: small bowel perforation with peritonitis; partial small bowel obstruction Interval history: 02/27 Patient is 80 years old male admitted on 02/18/2021 with abdominal pain under surgery service. Patient was diagnosed with Incarcerated right inguinal hernia with small bowel obstruction. performed Right inguinal hernia repair on 02/20/21. He found pt has Tightly incarcerated small bowel with venous compression, but no ischemia. The pt was doing well and was on diet. On 02/27 early am pt developed new onset atrial fibrillation with RVR. Patient was hypotensive as well. I gave him Cardizem 10 mg X1 and transfer him to ICU. Currently patient seems septic. His blood pressure is in the 80s. Patient has no fever. Heart rate ranges between 106189. Patient is more hypoxic and required 6 L oxygen. His white count is elevated 15.8. His abdominal exam show moderate distention with very sluggish bowel sounds. Chief complaint: Abdominal pain, New onset A.fib with RVR Reason for consult: Same as abov 02/28 Interval history: pt remained intubated. No overnight issues. NG has Coffee ground emesis. On minimal Vent support. Follows commands. Daughter at bedside. No fever. BP stable now. Was briefly on Levophed last night but now off. HR ~100. follows commands of sedation holiday. 03/02 Interval history: Patient was extubated yesterday. Currently he is on 2 L oxygen follows commands. His heart rate is around 100. He has no fever. He has coffee-ground emesis via NG. He received 2 packed RBC yesterday. He is hemodynamically stable on 2 L oxygen. No significant events overnight 03/04 Interval history: Pt dropped Hb to 6.7 despint 2PRBC. Still having Coffee G emesis. He is on 2-3 L O2. HR in 100s. Started Digoxin IV yesterday. Ordered PRBCs and plan for EGD today. He is on PPI IV Bid. 03/05 Constitutional Vitals: Vital Signs Temp Pulse Resp BP Pulse Ox 99.8 F H 80 28 H 134/66 97 03/04/21 18:01 03/04/21 18:01 03/04/21 18:01 03/04/21 18:01 03/04/21 18:01 Period Temp Pulse Resp BP Sys/Beckford Pulse Ox Last 24 Hr 99.5 F-100.2 F 51-116 14-32 106-167/50-94 90-100 Intake and Output 03/04/21 03/04/21 03/04/21 05:59 13:59 21:59 Intake Total 1350 4143 350 Output Total 1395 3110 1615 Balance -45 1033 -1265 Weight 74.797 kg Patient Weight 03/05/21 05:59 Weight 74.797 kg Intake & Output: Intake & Output 03/04/21 03/04/21 03/04/21 05:59 13:59 21:59 Intake Total 1350 4143 350 Output Total 1395 3110 1615 Balance -45 1033 -1265 Weight 74.797 kg Intake: IV 1350 1993 350 Calcium Gluconate 10 Meq 1693 Potassium Phosphate 80 Meq Infuvite Adult 10 ml In Clinimix 5%-20% Solution 2,000 ml @ 65 mls/hr IV Q24H [facility] Rx#: [id number] Dextrose 5% in Water 1,000 ml @ 1000 50 mls/hr IV .Q20H [facility] Rx#: [id number] Merrem 1 gm In Sodium Chloride 50 50 50 0.9% 50 ml @ 100 mls/hr IV Q8H [facility] Rx#:[id number] Blood Product 650 IV - Manual Only 1500 Output: Drainage 185 115 210 Left AKIL Drain 180 115 135 Right AKIL Drain 5 75 Urine Catheter Amount 1210 1989 1405 Void Amount 1000 Estimated Blood Loss 5 Other: Urine Appearance Clear Cloudy Clear Urine Color Dark Yellow Dark Yellow Dark Yellow Urine Odor Normal Normal Normal Exam: General: Alert, Awake, No acute Distress Eyes/N/T: EOMI, Head/Neck: neck supple, CV: irreg irreg, No murmurs, Pulm: decreased b/l, rales at bases, no wheezing Abd: soft, decreased BS x4, NGT Ext: no clubbing/cyanosis/edema Neuro: Alert, no focal deficits, moves all extremities, Skin: warm/dry OBJ DATA Labs CBC & Chem 7: 03/04/21 17:56 03/04/21 17:56 Labs: Abnormal Lab Results 03/04/21 03/04/21 03/04/21 17:56 17:56 14:08 WBC 22.5 H RBC 3.08 L Hgb 9.4 L 9.7 L Hct 27.7 L 28.7 L RDW 15.6 H Plt Count MPV 12.6 H Neut % (Auto) Lymph % (Auto) Lymph # (Auto) [place] # (Auto) Absolute Neutrophils Sodium 155 H Chloride 123 H Anion Gap 4.0 L BUN 69 H Glucose 299 H Calcium 7.7 L Phosphorus Magnesium Total Bilirubin Direct Bilirubin AST Alkaline Phosphatase Lactate Dehydrogenase NT-Pro-B Natriuret Pep Total Protein Albumin Globulin Albumin/Globulin Ratio Prealbumin 03/04/21 03/04/21 03/03/21 05:00 05:00 17:24 WBC 20.7 H RBC 2.25 L Hgb 6.7 L* 8.8 L Hct 20.7 L* 27.0 L RDW 15.4 H Plt Count MPV 13.0 H Neut % (Auto) 86.0 H Lymph % (Auto) 6.1 L Lymph # (Auto) 1.26 L [place] # (Auto) 1.43 H Absolute Neutrophils 17.82 H Sodium 157 H Chloride 124 H Anion Gap 3.0 L BUN 79 H Glucose 137 H Calcium 7.7 L Phosphorus 2.0 L Magnesium 2.7 H Total Bilirubin Direct Bilirubin 0.3 H AST 53 H Alkaline Phosphatase Lactate Dehydrogenase 314 H NT-Pro-B Natriuret Pep Total Protein 4.6 L Albumin Globulin 1.2 L Albumin/Globulin Ratio 2.8 H Prealbumin 7.4 L 03/03/21 03/03/21 03/03/21 05:01 05:00 05:00 WBC 20.2 H RBC 2.01 L Hgb 6.1 L* Hct 19.1 L* RDW 16.0 H Plt Count MPV 13.2 H Neut % (Auto) 88.5 H Lymph % (Auto) 5.9 L Lymph # (Auto) 1.20 L [place] # (Auto) 1.05 H Absolute Neutrophils 17.86 H Sodium 155 H Chloride 122 H Anion Gap 4.0 L BUN 84 H Glucose 172 H Calcium 7.4 L Phosphorus 1.6 L Magnesium 2.8 H Total Bilirubin Direct Bilirubin 0.4 H AST 84 H Alkaline Phosphatase 429 H Lactate Dehydrogenase 385 H NT-Pro-B Natriuret Pep 2844.0 H Total Protein 4.1 L Albumin 2.1 L Globulin 2.0 L Albumin/Globulin Ratio Prealbumin 03/02/21 03/02/21 05:03 05:02 WBC 17.0 H RBC 2.96 L Hgb 9.0 L Hct 28.4 L RDW 16.0 H Plt Count 118 L MPV 12.7 H Neut % (Auto) 91.5 H Lymph % (Auto) 4.6 L Lymph # (Auto) 0.78 L [place] # (Auto) Absolute Neutrophils 15.55 H Sodium 155 H Chloride 122 H Anion Gap 4.0 L BUN 60 H Glucose 166 H Calcium 7.2 L Phosphorus 1.8 L Magnesium 3.2 H Total Bilirubin 1.1 H Direct Bilirubin 0.5 H AST 84 H Alkaline Phosphatase 120 H Lactate Dehydrogenase 330 H NT-Pro-B Natriuret Pep Total Protein 4.5 L Albumin 2.9 L Globulin 1.6 L Albumin/Globulin Ratio Prealbumin Meds: Medications Albuterol/Ipratropium (Ipratropium/Albuterol 3 Ml Ampul.Neb) 3 ml NEB Q6H [facility] Last Admin: 03/04/21 14:53 Dose: 3 ml Documented by: Benzocaine (Benzocaine 1 [place] Bottle) 1 spray TOPICAL Q2HP PRN PRN Reason: Sore Throat Last Admin: 03/04/21 16:46 Dose: 1 spray Documented by: Chlorhexidine Gluconate (Chlorhexidine Gluconate 1 Ml Oral.Erlinda) 15 ml SWABMOUTH BID [facility] Diagnostic Test (Pha) (Accu-Chek 1 Each Strip) 1 each FS Q6 [facility] Last Admin: 03/04/21 17:43 Dose: 1 each Documented by: Digoxin (Digoxin 500 Mcg/2 Ml Ampul) 500 mcg IV DAILY [facility] Famotidine (Famotidine/Pf 20 Mg/2 Ml Vial) 40 mg IV Q12 [facility] Fentanyl (Fentanyl 100 Mcg/2 Ml Vial) 25 mcg IV Q4HP PRN; Protocol PRN Reason: Pain Last Admin: 03/04/21 19:10 Dose: 25 mcg Documented by: Glucose Oxid/Lactoperoxid/Muramidas (Lactoperoxi/Gluc Oxid/Pot Thio 1 Each Gel..Ea.) 1 each TOPICAL PRN PRN PRN Reason: Dry Mouth Hydromorphone HCl (Hydromorphone 1 Mg/Ml Syringe) 0.5 - 1 mg IV Q2HP PRN; Protocol PRN Reason: Per Pain Protocol Calcium Gluconate 20 meq/Potassium Phosphate 120 meq/Multivitamins/Minerals 10 ml/Amino Acids 2,080.2834 mls @ 65 mls/hr IV DAILY@1100 [facility] Dextrose (Dextrose 5% In Water) 1,000 mls @ 80 mls/hr IV .[id number] [facility] Last Admin: 03/04/21 13:56 Dose: 80 mls/hr Documented by: Fat Emulsion Intravenous (Intralipid 20%) 250 mls @ 25 mls/hr IV MoWeFr@1600 [facility] Last Admin: 03/04/21 16:15 Dose: 25 mls/hr Documented by: Fluconazole (Diflucan) 400 mg in 200 mls @ 100 mls/hr IV DAILY [facility] Acetaminophen (Ofirmev) 1,000 mg in 100 mls @ 200 mls/hr IV Q6H [facility]; Protocol Last Infusion: 03/04/21 18:33 Dose: Infused Documented by: Meropenem 1 gm/ Sodium (Chloride) 50 mls @ 100 mls/hr IV Q8H [facility]; Protocol Last Infusion: 03/04/21 15:01 Dose: Infused Documented by: Metronidazole (Flagyl) 500 mg in 100 mls @ 100 mls/hr IV Q8H [facility]; Protocol Last Infusion: 03/04/21 15:43 Dose: Infused Documented by: Calcium Gluconate 20 meq/Potassium Phosphate 120 meq/Multivitamins/Minerals 10 ml/Amino Acids 2,080.2834 mls @ 65 mls/hr IV Q24H [facility] Stop: 03/05/21 10:59 Last Admin: 03/04/21 14:21 Dose: 65 mls/hr Documented by: Insulin Human Lispro (Insulin Lispro 1 Unit/0.01 Ml Unit) 0 unit SQ Q6 [facility]; Protocol Last Admin: 03/04/21 17:56 Dose: 8 units Documented by: Metoclopramide HCl (Metoclopramide 10 Mg/2 Ml Vial) 10 mg IV Q6 [facility] Last Admin: 03/04/21 17:42 Dose: 10 mg Documented by: Metoprolol Tartrate (Metoprolol Tartrate 5 Mg/5 Ml Vial) 5 mg IV Q6H [facility] Last Admin: 03/04/21 17:42 Dose: 5 mg Documented by: Nystatin (Nystatin 500,000 Units/5 Ml Oral.Susp) 500,000 units SSW QID [facility] Last Admin: 03/04/21 17:25 Dose: 500,000 units Documented by: Ondansetron HCl (Ondansetron 4 Mg/2 Ml Vial) 4 mg IV Q6HP PRN PRN Reason: Nausea And Vomiting Oxymetazoline HCl (Oxymetazoline 1 [place] Bottle) 1 spray SULEMAN UD PRN PRN Reason: HYPERBARIC TREATMENTS Pantoprazole Sodium (Pantoprazole 40 Mg Vial) 40 mg IV BIDAC [facility] Last Admin: 03/04/21 17:25 Dose: 40 mg Documented by: Sodium Chloride (0.9 % Sodium Chloride 10 Ml Syringe) 10 ml IV Q12 [facility] Sodium Chloride (0.9 % Sodium Chloride 10 Ml Syringe) 10 ml IV Q8 [facility] Last Admin: 03/04/21 14:03 Dose: 10 ml Documented by: Sodium Chloride (0.9 % Sodium Chloride 10 Ml Syringe) 10 ml IV UD PRN PRN Reason: FLUSH A/P Narrative A/P Narrative: A: *Incarcerated right inguinal hernia w/small bowel obstruction: s/p inguinal repair (02/20) *Acute peritonitis w/perforated viscus: s/p Ex lap with adhesiolysis (02/27) *UGIB: 2/2 gastric/duodenal ulcers and duodenitis found on EGD (03/04) -s/p PRBC's *Acute blood loss anemia: 2/2 above *Septic shock w/Bacteroides Fragilis (09/03 bottles): -Repeat BX 03/02 neg *PNA: * Acute Hypoxic resp failure: 2/2 PNA & Right pleural effusion -intubated 02/27-03/01 -Up to 10 L O2, Now on 4-6L NC *New onset atrial fibrillation w/RVR: In & out of A.Fib - No history of atrial fibrillation. trop neg. - echo pending *Hypernatremia: *KYLEE: 2/2 Septic Shock -Cr peaked at 1.6. Now IMproved *Hypophosphatemia: *Abnormal LFT: Normal GGT. High AST. Due to Above. Follow LFTs. *HTN: P: -Cont NG tube/NPO per surg -IV Abx per surg, Rx 14 days post Negative Blood Cx. 03/02-03/16 -PPI bid -Monitor H&H -cont Digoxin (monitor levels), Consider Amiodarone gtt if further RVR -cont D5W, Pharmacy to adjust TPN -IS/Acapella -Hold lisinopril/HCTZ for kylee, prn hydralazine -prn lasix -pt/to when able -Started TPN 03/01/21, npo -PPX: SCD (Heparin sq bid on hold due to GIB)/ppi Time Spent With Patient Time: Total time spent is greater than 50% in coordination of care (as documented) at patient's floor/unit and/or counseling patient: QUALITY Stroke Symptom Onset Unknown: No VTE Deep Vein Thrombosis/Pulmonary Embolism Present on Admission: No
[2021-03-04] MEDS ORDERED: METOPROLOL TARTRATE 5 MG/5 ML VIAL IV PRN (20:07)
[2021-03-04] MEDS ORDERED: LABETALOL 5 MG/ML ML IV PRN (20:07)
[2021-03-04] MEDS ORDERED: IPRATROPIUM/ALBUTEROL 3 ML AMPUL.NEB NEB ONE (20:55)
[2021-03-04] MEDS ORDERED: FAMOTIDINE/PF 20 MG/2 ML VIAL IV SCH ×2 (21:00)
[2021-03-04] MEDS: FAMOTIDINE/PF 20 MG/2 ML VIAL IV SCH (21:25)
[2021-03-05] MEDS: HYDROmorphone 1 MG/ML SYRINGE IV PRN ×6 (01:00→23:59)
[2021-03-05] MEDS: DEXTROSE 5% IN WATER 1,000 ML IV SCH ×4 (01:13→22:17)
[2021-03-05 01:28] LABS: Hematocrit 25.8 % (41.0-55.0); Hemoglobin 8.8 g/dL (13.5-16.5)
[2021-03-05] MEDS: metroNIDAZOLE 500 MG/100 ML BAG IV SCH (05:15)
[2021-03-05] MEDS: INSULIN LISPRO 1 UNIT/0.01 ML UNIT SQ SCH ×4 (05:16→23:33)
[2021-03-05] MEDS: ACETAMINOPHEN 1,000 MG/100 ML BAG IV SCH ×4 (05:16→23:20)
[2021-03-05] MEDS: MEROPENEM 1 GM in 0.9 % SODIUM CHLORIDE 50 ML IV SCH ×3 (05:16→21:12)
[2021-03-05] MEDS: METOPROLOL TARTRATE 5 MG/5 ML VIAL IV SCH ×4 (05:16→23:20)
[2021-03-05] MEDS: METOCLOPRAMIDE 10 MG/2 ML VIAL IV SCH ×4 (05:16→23:20)
[2021-03-05] MEDS ORDERED: SUCRALFATE 1 GM/10 ML ORAL.SUSP PT SCH (06:00)
[2021-03-05 06:39] LABS: Hematocrit 25.7 % (41.0-55.0); Hemoglobin 8.4 g/dL (13.5-16.5); Mean Cell Volume 91.8 fL (80.0-100.0); Mean Corpuscular HGB Conc 32.7 g/dL (31.0-36.0); Mean Platelet Volume 12.9 fL (7.4-10.4); Platelet Count 195 K/mcL (140-440); WBC 26.4 K/mcL (4.5-11.0)
[2021-03-05] MEDS: IPRATROPIUM/ALBUTEROL 3 ML AMPUL.NEB NEB SCH ×3 (06:40→21:50)
[2021-03-05 06:47] LABS: Prealbumin 8.2 mg/dL (20.0-40.0)
[2021-03-05 06:48] LABS: ALT/SGPT 19 U/L (<40); AST/SGOT 50 U/L (<40); Albumin 2.5 gm/dL (3.2-5.2); Albumin/Globulin Ratio 1.4 (1.0-2.3); Alkaline Phosphatase 48 U/L (39-117); Bilirubin,Direct 0.2 mg/dL (<0.3); Bilirubin,Total 0.4 mg/dL (0.1-1.0); Blood Urea Nitrogen 59 mg/dL (8-23); Calcium 7.8 mg/dL (8.6-10.4); Carbon Dioxide 28 mmol/L (22-30); Chloride 124 mmol/L (96-108); Globulin 1.8 gm/dL (2.2-3.7); Glomerular Filtration Rate 85; Glucose 198 mg/dL (70-105); Lactate Dehydrogenase 316 U/L (135-225); Phosphorous 2.9 mg/dL (2.5-4.5); Triglycerides 104 mg/dL (<150); Uric Acid 3.4 mg/dL (2.5-8.0)
[2021-03-05 06:50] LABS: Digoxin 0.5 ng/mL
[2021-03-05] MEDS: PANTOPRAZOLE 40 MG VIAL IV SCH ×2 (07:03→17:07)
--- NOTE | 2021-03-05 07:24 | Internal Med Progress Note ---
SUBJECTIVE Subjective Patient information: Note initiated : 03/05/21 at 7:22 am Service Date, if different from initiated Date: [] Patient: Tommy Márquez 80 y/o M admitted on 02/18/21 for abdominal pain. Chief Complaint: [] Principal diagnosis: small bowel perforation with peritonitis; partial small bowel obstruction Interval history: 02/27 Patient is 80 years old male admitted on 02/18/2021 with abdominal pain under surgery service. Patient was diagnosed with Incarcerated right inguinal hernia with small bowel obstruction. performed Right inguinal hernia repair on 02/20/21. He found pt has Tightly incarcerated small bowel with venous compression, but no ischemia. The pt was doing well and was on diet. On 02/27 early am pt developed new onset atrial fibrillation with RVR. Patient was hypotensive as well. I gave him Cardizem 10 mg X1 and transfer him to ICU. Currently patient seems septic. His blood pressure is in the 80s. Patient has no fever. Heart rate ranges between 471789. Patient is more hypoxic and required 6 L oxygen. His white count is elevated 15.8. His abdominal exam show moderate distention with very sluggish bowel sounds. Chief complaint: Abdominal pain, New onset A.fib with RVR Reason for consult: Same as abov 02/28 Interval history: pt remained intubated. No overnight issues. NG has Coffee ground emesis. On minimal Vent support. Follows commands. Daughter at bedside. No fever. BP stable now. Was briefly on Levophed last night but now off. HR ~100. follows commands of sedation holiday. 03/02 Interval history: Patient was extubated yesterday. Currently he is on 2 L oxygen follows commands. His heart rate is around 100. He has no fever. He has coffee-ground emesis via NG. He received 2 packed RBC yesterday. He is hemodynamically stable on 2 L oxygen. No significant events overnight 03/04 Interval history: Pt dropped Hb to 6.7 despint 2PRBC. Still having Coffee G emesis. He is on 2-3 L O2. HR in 100s. Started Digoxin IV yesterday. Ordered PRBCs and plan for EGD today. He is on PPI IV Bid. 03/05 Was able to sit at the side of the bed for several minutes this morning but did tire him out. Currently resting. Awakens. No new complaints. D5 water and follow-up sodium, sodium still elevated. Follow-up with afternoon. No BMs. Review of Systems: denies headache/fever/chills/nausea/vomiting/chest pain/cough/dyspnea/diarrhea. Otherwise see above. Constitutional Vitals: Vital Signs Temp Pulse Resp BP Pulse Ox 98.8 F 81 15 139/69 96 03/05/21 07:01 03/05/21 07:01 03/05/21 07:01 03/05/21 07:01 03/05/21 07:01 Period Temp Pulse Resp BP Sys/Beckford Pulse Ox Last 24 Hr 98.8 F-100.2 F 73-114 14-33 106-169/58-94 90-98 Intake and Output 03/04/21 03/05/21 03/05/21 21:59 05:59 13:59 Intake Total 2400 400 500 Output Total 2155 1700 345 Balance 245 -1300 155 Weight 73.981 kg Intake & Output: Intake & Output 03/04/21 03/05/21 03/05/21 21:59 05:59 13:59 Intake Total 2400 400 500 Output Total 2155 1700 345 Balance 245 -1300 155 Weight 73.981 kg Intake: IV 2400 400 500 Dextrose 5% in Water 1,000 ml @ 2000 50 mls/hr IV .Q20H [facility] Rx#: [id number] Intralipid 20% 250 ml @ 25 mls/ 250 hr IV MoWeFr@1600 [facility] Rx#: [id number] Merrem 1 gm In Sodium Chloride 100 50 0.9% 50 ml @ 100 mls/hr IV Q8H [facility] Rx#:[id number] Output: Gastric Drainage 200 Right Nare 200 Drainage 210 280 85 Left AKIL Drain 135 200 85 Right AKIL Drain 75 80 Urine Catheter Amount 1945 1220 260 Other: Urine Appearance Clear Clear Clear Urine Color Dark Yellow Bright Yellow Dark Yellow Urine Odor Normal Exam: General: Alert, Awake, No acute Distress Eyes/N/T: EOMI, Head/Neck: neck supple, CV: irreg irreg, No murmurs, Pulm: decreased b/l, rales at bases, no wheezing Abd: soft, decreased BS x4, NGT Ext: no clubbing/cyanosis/edema Neuro: Alert, no focal deficits, moves all extremities, Skin: warm/dry OBJ DATA Labs CBC & Chem 7: 03/05/21 04:59 03/05/21 05:00 Labs: Abnormal Lab Results 03/05/21 03/05/21 03/05/21 05:00 04:59 00:22 WBC 26.4 H RBC 2.80 L Hgb 8.4 L 8.8 L Hct 25.7 L 25.8 L RDW 16.0 H Plt Count MPV 12.9 H Neut % (Auto) Lymph % (Auto) Lymph # (Auto) Thomas # (Auto) Absolute Neutrophils Sodium 155 H Chloride 124 H Anion Gap 3.0 L BUN 59 H Glucose 198 H Calcium 7.8 L Phosphorus Magnesium Total Bilirubin Direct Bilirubin AST 50 H Alkaline Phosphatase Lactate Dehydrogenase 316 H NT-Pro-B Natriuret Pep Total Protein 4.3 L Albumin 2.5 L Globulin 1.8 L Albumin/Globulin Ratio Prealbumin 8.2 L 03/04/21 03/04/21 03/04/21 17:56 17:56 14:08 WBC 22.5 H RBC 3.08 L Hgb 9.4 L 9.7 L Hct 27.7 L 28.7 L RDW 15.6 H Plt Count MPV 12.6 H Neut % (Auto) Lymph % (Auto) Lymph # (Auto) Thomas # (Auto) Absolute Neutrophils Sodium 155 H Chloride 123 H Anion Gap 4.0 L BUN 69 H Glucose 299 H Calcium 7.7 L Phosphorus Magnesium Total Bilirubin Direct Bilirubin AST Alkaline Phosphatase Lactate Dehydrogenase NT-Pro-B Natriuret Pep Total Protein Albumin Globulin Albumin/Globulin Ratio Prealbumin 03/04/21 03/04/21 03/03/21 05:00 05:00 17:24 WBC 20.7 H RBC 2.25 L Hgb 6.7 L* 8.8 L Hct 20.7 L* 27.0 L RDW 15.4 H Plt Count MPV 13.0 H Neut % (Auto) 86.0 H Lymph % (Auto) 6.1 L Lymph # (Auto) 1.26 L Thomas # (Auto) 1.43 H Absolute Neutrophils 17.82 H Sodium 157 H Chloride 124 H Anion Gap 3.0 L BUN 79 H Glucose 137 H Calcium 7.7 L Phosphorus 2.0 L Magnesium 2.7 H Total Bilirubin Direct Bilirubin 0.3 H AST 53 H Alkaline Phosphatase Lactate Dehydrogenase 314 H NT-Pro-B Natriuret Pep Total Protein 4.6 L Albumin Globulin 1.2 L Albumin/Globulin Ratio 2.8 H Prealbumin 7.4 L 03/03/21 03/03/21 03/03/21 05:01 05:00 05:00 WBC 20.2 H RBC 2.01 L Hgb 6.1 L* Hct 19.1 L* RDW 16.0 H Plt Count MPV 13.2 H Neut % (Auto) 88.5 H Lymph % (Auto) 5.9 L Lymph # (Auto) 1.20 L Thomas # (Auto) 1.05 H Absolute Neutrophils 17.86 H Sodium 155 H Chloride 122 H Anion Gap 4.0 L BUN 84 H Glucose 172 H Calcium 7.4 L Phosphorus 1.6 L Magnesium 2.8 H Total Bilirubin Direct Bilirubin 0.4 H AST 84 H Alkaline Phosphatase 429 H Lactate Dehydrogenase 385 H NT-Pro-B Natriuret Pep 2844.0 H Total Protein 4.1 L Albumin 2.1 L Globulin 2.0 L Albumin/Globulin Ratio Prealbumin 03/02/21 03/02/21 05:03 05:02 WBC 17.0 H RBC 2.96 L Hgb 9.0 L Hct 28.4 L RDW 16.0 H Plt Count 118 L MPV 12.7 H Neut % (Auto) 91.5 H Lymph % (Auto) 4.6 L Lymph # (Auto) 0.78 L Thomas # (Auto) Absolute Neutrophils 15.55 H Sodium 155 H Chloride 122 H Anion Gap 4.0 L BUN 60 H Glucose 166 H Calcium 7.2 L Phosphorus 1.8 L Magnesium 3.2 H Total Bilirubin 1.1 H Direct Bilirubin 0.5 H AST 84 H Alkaline Phosphatase 120 H Lactate Dehydrogenase 330 H NT-Pro-B Natriuret Pep Total Protein 4.5 L Albumin 2.9 L Globulin 1.6 L Albumin/Globulin Ratio Prealbumin Meds: Medications Albuterol/Ipratropium (Ipratropium/Albuterol 3 Ml Ampul.Neb) 3 ml NEB Q8H [facility] Last Admin: 03/05/21 06:40 Dose: 3 ml Documented by: Benzocaine (Benzocaine 1 [place] Bottle) 1 spray TOPICAL Q2HP PRN PRN Reason: Sore Throat Last Admin: 03/04/21 16:46 Dose: 1 spray Documented by: Chlorhexidine Gluconate (Chlorhexidine Gluconate 1 Ml Oral.Erlinda) 15 ml SWABMOUTH BID [facility] Last Admin: 03/04/21 21:25 Dose: 15 ml Documented by: Diagnostic Test (Pha) (Accu-Chek 1 Each Strip) 1 each FS Q6 [facility] Last Admin: 03/05/21 05:10 Dose: 1 each Documented by: Digoxin (Digoxin 500 Mcg/2 Ml Ampul) 250 mcg IV DAILY [facility] Famotidine (Famotidine/Pf 20 Mg/2 Ml Vial) 40 mg IV Q12 [facility] Last Admin: 03/04/21 21:25 Dose: 40 mg Documented by: Fentanyl (Fentanyl 100 Mcg/2 Ml Vial) 25 mcg IV Q4HP PRN; Protocol PRN Reason: Pain Last Admin: 03/04/21 23:48 Dose: 25 mcg Documented by: Glucose Oxid/Lactoperoxid/Muramidas (Lactoperoxi/Gluc Oxid/Pot Thio 1 Each Gel..Ea.) 1 each TOPICAL PRN PRN PRN Reason: Dry Mouth Hydromorphone HCl (Hydromorphone 1 Mg/Ml Syringe) 0.5 - 1 mg IV Q2HP PRN; Protocol PRN Reason: Per Pain Protocol Last Admin: 03/05/21 04:41 Dose: 1 mg Documented by: Calcium Gluconate 20 meq/Potassium Phosphate 120 meq/Multivitamins/Minerals 10 ml/Amino Acids 2,080.2834 mls @ 65 mls/hr IV DAILY@1100 [facility] Dextrose (Dextrose 5% In Water) 1,000 mls @ 80 mls/hr IV .[id number] [facility] Last Admin: 03/05/21 01:13 Dose: Not Given Documented by: Fat Emulsion Intravenous (Intralipid 20%) 250 mls @ 25 mls/hr IV MoWeFr@1600 [facility] Last Infusion: 03/05/21 06:28 Dose: Infused Documented by: Fluconazole (Diflucan) 400 mg in 200 mls @ 100 mls/hr IV DAILY [facility] Acetaminophen (Ofirmev) 1,000 mg in 100 mls @ 200 mls/hr IV Q6H [facility]; Protocol Last Infusion: 03/05/21 06:28 Dose: Infused Documented by: Meropenem 1 gm/ Sodium (Chloride) 50 mls @ 100 mls/hr IV Q8H [facility]; Protocol Last Infusion: 03/05/21 06:28 Dose: Infused Documented by: Metronidazole (Flagyl) 500 mg in 100 mls @ 100 mls/hr IV Q8H [facility]; Protocol Last Infusion: 03/05/21 06:28 Dose: Infused Documented by: Calcium Gluconate 20 meq/Potassium Phosphate 120 meq/Multivitamins/Minerals 10 ml/Amino Acids 2,080.2834 mls @ 65 mls/hr IV Q24H [facility] Stop: 03/05/21 10:59 Last Admin: 03/04/21 14:21 Dose: 65 mls/hr Documented by: Insulin Human Lispro (Insulin Lispro 1 Unit/0.01 Ml Unit) 0 unit SQ Q6 [facility]; Protocol Last Admin: 03/05/21 05:16 Dose: 6 units Documented by: Labetalol HCl (Labetalol 5 Mg/Ml Ml) 0 mg IV Q2HP PRN PRN Reason: Hypertension Last Admin: 03/05/21 03:00 Dose: 10 mg Documented by: Metoclopramide HCl (Metoclopramide 10 Mg/2 Ml Vial) 10 mg IV Q6 [facility] Last Admin: 03/05/21 05:16 Dose: 10 mg Documented by: Metoprolol Tartrate (Metoprolol Tartrate 5 Mg/5 Ml Vial) 5 mg IV Q6H [facility] Last Admin: 03/05/21 05:16 Dose: 5 mg Documented by: Metoprolol Tartrate (Metoprolol Tartrate 5 Mg/5 Ml Vial) 5 mg IV Q2HP PRN PRN Reason: Tachyarrhythmias HR>110 Nystatin (Nystatin 500,000 Units/5 Ml Oral.Susp) 500,000 units SSW QID [facility] Last Admin: 03/04/21 21:25 Dose: 500,000 units Documented by: Ondansetron HCl (Ondansetron 4 Mg/2 Ml Vial) 4 mg IV Q6HP PRN PRN Reason: Nausea And Vomiting Pantoprazole Sodium (Pantoprazole 40 Mg Vial) 40 mg IV BIDAC [facility] Last Admin: 03/05/21 07:03 Dose: 40 mg Documented by: Sodium Chloride (0.9 % Sodium Chloride 10 Ml Syringe) 10 ml IV Q12 [facility] Last Admin: 03/04/21 21:26 Dose: 10 ml Documented by: Sodium Chloride (0.9 % Sodium Chloride 10 Ml Syringe) 10 ml IV UD PRN PRN Reason: FLUSH A/P Narrative A/P Narrative: A: *Incarcerated right inguinal hernia w/small bowel obstruction: s/p inguinal repair (02/20) *Acute peritonitis w/perforated viscus: s/p Ex lap with adhesiolysis (02/27) *UGIB: 2/2 gastric/duodenal ulcers and duodenitis found on EGD (03/04) -s/p PRBC's *Acute blood loss anemia: 2/2 above *Septic shock: *Bacteremia (Bacteroides Fragilis (09/03 bottles): -Repeat BX 03/02 neg *PNA: -IS/Acapella * Acute Hypoxic resp failure: / PNA & Right pleural effusion -intubated 02/27 for surgey and left intubated until 03/01 -Up to 10 L O2, Now on 4-6L NC *New onset atrial fibrillation w/RVR: In & out of A.Fib - No history of atrial fibrillation. trop neg. - echo pending *Hypernatremia: *Hypophosphatemia: *MARCE: 2/2 Septic Shock. resolved *Abnormal LFT: Normal GGT. High AST. Due to Above. Improved. *HTN: P: -NG tube/NPO per surg -IV Abx per surg, Rx 14 days post Negative Blood Cx. 03/02-03/16 -PPI bid -Monitor H&H -cont Digoxin (monitor levels), Consider Amiodarone gtt if further RVR -cont D5W, Pharmacy to adjust TPN -IS/Acapella -Hold lisinopril/HCTZ for marce, prn hydralazine -prn lasix -pt/to when able -Started TPN 03/01/21, npo -PPX: SCD (Heparin sq bid on hold due to GIB)/ppi Time Spent With Patient Time: Total time spent is greater than 50% in coordination of care (as documented) at patient's floor/unit and/or counseling patient: QUALITY Stroke Symptom Onset Unknown: No VTE Deep Vein Thrombosis/Pulmonary Embolism Present on Admission: No
[2021-03-05] MEDS ORDERED: DEXTROSE 5% IN WATER 1,000 ML IV SCH ×2 (07:30→10:38)
[2021-03-05 08:12] LABS: Anisocytosis 1+ (None Seen); Band Neutrophils % 11 % (0-10); Hypochromasia 1+ (None Seen); Lymphocytes % 3 % (15-49); Metamyelocytes % 2 %; Monocytes % (Manual) 3 % (1-12); Myelocytes % 2 %; Nucleated Red Blood Cells 4 % (0-0); Platelet Estimate NORMAL (Normal); Polychromasia RARE (None Seen); RBC Morphology ABNORMAL (Normal); Segmented Neutrophils % 79 % (38-78)
[2021-03-05] MEDS: CHLORHEXIDINE GLUCONATE 1 ML ORAL.SOL SWABMOUTH SCH ×2 (08:17→20:47)
[2021-03-05] MEDS: NYSTATIN 500,000 UNITS/5 ML ORAL.SUSP SSW SCH ×4 (08:17→20:48)
[2021-03-05] MEDS: FAMOTIDINE/PF 20 MG/2 ML VIAL IV SCH ×2 (08:18→20:47)
--- NOTE | 2021-03-05 08:47 | XRay Report ---
HISTORY: Follow-up pulmonary infiltrates FINDINGS: There is severe diffuse alveolar infiltrates throughout both lungs. The greatest consolidation is around the right hilum and medially in the right lower lobe. Infiltrates of become worse since 03/04 and 03/03/2021. There is volume loss in the right lower lobe with elevation right diaphragm. There is a surgical drain right upper quadrant and nasogastric tube in the upper fundus the stomach. No pneumothorax is present. The heart size is within upper limits of normal. IMPRESSION: Worsening bilateral pulmonary infiltrates which could be due to pneumonia edema or ARDS Interpreted and Authenticated by: Jb Cavazos 03/05/21
[2021-03-05] MEDS: 0.9 % SODIUM CHLORIDE 10 ML SYRINGE IV SCH (08:55)
[2021-03-05] MEDS ORDERED: FLUCONAZOLE 400 MG/200 ML BAG IV SCH (09:00)
[2021-03-05] MEDS ORDERED: DIGOXIN 500 MCG/2 ML AMPUL IV SCH ×2 (09:00)
[2021-03-05] MEDS ORDERED: GLYCOPYRROLATE 0.2 MG/ML VIAL IV ONE (10:38)
[2021-03-05] MEDS ORDERED: ETOMIDATE 20 MG/10 ML VIAL IV ONE (10:38)
[2021-03-05] MEDS ORDERED: KETAMINE 50 MG/ML ML ONE ×2 (10:38)
[2021-03-05] MEDS ORDERED: IOPAMIDOL 100 ML BOTTLE IV ONE (10:38)
[2021-03-05] MEDS ORDERED: MAGNESIUM SULFATE 2 GM/50 ML BAG IV ONE (10:38)
[2021-03-05] MEDS ORDERED: 0.9 % SODIUM CHLORIDE 10 ML SYRINGE IV PRN (10:38)
[2021-03-05] MEDS ORDERED: PHENYLEPHRINE 10 MG/ML VIAL ONE (10:38)
[2021-03-05] MEDS ORDERED: SUGAMMADEX SODIUM 200 MG/2 ML VIAL IV ONE (10:38)
[2021-03-05] MEDS ORDERED: METOPROLOL TARTRATE 5 MG/5 ML VIAL IV PRN (10:38)
[2021-03-05] MEDS ORDERED: TPN PER PHARMACY IV SCH (10:38)
[2021-03-05] MEDS ORDERED: LIDOCAINE HCL/PF 100 MG/5 ML SYRINGE IV ONE ×2 (10:38)
[2021-03-05] MEDS ORDERED: MIDAZOLAM 2 MG/2 ML VIAL ONE (10:38)
[2021-03-05] MEDS ORDERED: ROCURONIUM 10 MG/ML ML IV ONE ×2 (10:38)
[2021-03-05] MEDS ORDERED: FAMOTIDINE/PF 20 MG/2 ML VIAL IV ONE (10:38)
[2021-03-05] MEDS ORDERED: PROPOFOL 200 MG/20 ML VIAL IV ONE (10:38)
[2021-03-05] MEDS ORDERED: DEXAMETHASONE 10 MG/ML VIAL ONE ×2 (10:38)
[2021-03-05] MEDS ORDERED: MIDAZOLAM 5 MG/5 ML VIAL ONE (10:38)
[2021-03-05] MEDS ORDERED: ONDANSETRON 4 MG/2 ML VIAL IV PRN (10:38)
[2021-03-05] MEDS ORDERED: LABETALOL 5 MG/ML ML IV PRN (10:38)
[2021-03-05] MEDS ORDERED: ePHEDrine 50 MG/5 ML SYRINGE (ANEST) IV ONE (10:38)
[2021-03-05] MEDS ORDERED: BENZOCAINE 1 SPRAY BOTTLE TOPICAL PRN (10:38)
[2021-03-05] MEDS ORDERED: ONDANSETRON 4 MG/2 ML VIAL ONE ×2 (10:38)
[2021-03-05] MEDS ORDERED: [UNRECOGNIZED DRUG - REMARK] IV SCH ×2 (11:00)
[2021-03-05] MEDS: [UNRECOGNIZED DRUG - REMARK] IV SCH (11:11)
[2021-03-05] MEDS: SUCRALFATE 1 GM/10 ML ORAL.SUSP PT SCH ×3 (11:57→23:20)
[2021-03-05] MEDS: fentaNYL 100 MCG/2 ML VIAL IV PRN ×3 (12:39→23:16)
[2021-03-05] MEDS ORDERED: metroNIDAZOLE 500 MG/100 ML BAG IV SCH (14:00)
[2021-03-05 15:01] LABS: POC Calcium, Ionized 1.21 mmEq/L (1.16-1.32); POC Creatinine 0.8 mg/dL (0.6-1.2); POC Potassium 4.3 mEql/L (3.3-5.1)
--- NOTE | 2021-03-05 15:19 | General Surgery Progress Note ---
SUBJECTIVE Subjective Patient information: Note initiated : 03/05/21 at 3:13 pm Service Date, if different from initiated Date: [] Patient: Tommy Márquez 80 y/o M admitted on 02/18/21 for abdominal pain. Chief Complaint: [] Principal diagnosis: small bowel perforation with peritonitis; partial small bowel obstruction Interval history: Patient is more alert today. Vital signs of been stable all night. He is maintaining good oxygenation and does not have labored respirations or tachypnea. He had a small amount of coffee-ground material through his nasogastric tube but much less than on yesterday, His temperature leyva s been less than 100 all day. His heart rate is better controlled. AKIL drainage is still primarily serous. He has not had documented flatus or bowel movement so for. It is encouraging that he does answer some questions though his responses arer only partially intelligible. Hemoglobin has drifted down from 8.8-8.4. Constitutional Vitals: Vital Signs Temp Pulse Resp BP Pulse Ox 99.4 F H 82 16 149/84 94 03/05/21 14:01 03/05/21 14:40 03/05/21 14:40 03/05/21 14:00 03/05/21 14:40 Period Temp Pulse Resp BP Sys/Beckford Pulse Ox Last 24 Hr 98.4 F-100.0 F 73-111 12-33 128-169/66-87 90-98 Intake and Output 03/05/21 03/05/21 03/05/21 05:59 13:59 21:59 Intake Total 400 4169 100 Output Total 1700 1675 130 Balance -1300 2494 -30 Intake & Output: Intake & Output 03/05/21 03/05/21 03/05/21 05:59 13:59 21:59 Intake Total 400 4169 100 Output Total 1700 1675 130 Balance -1300 2494 -30 Intake: IV 400 4169 100 Calcium Gluconate 20 Meq 2969 Potassium Phosphate 120 Meq Infuvite Adult 10 ml In Clinimix 5%-20% Solution 2,000 ml @ 65 mls/hr IV Q24H [facility] Rx#: [id number] Dextrose 5% in Water 1,000 ml @ 500 125 mls/hr IV .Q8H [facility] Rx#: [id number] Intralipid 20% 250 ml @ 25 mls/ 250 hr IV MoWeFr@1600 [facility] Rx#: [id number] Merrem 1 gm In Sodium Chloride 50 0.9% 50 ml @ 100 mls/hr IV Q8H [facility] Rx#:[id number] Tube Feeding 0 Output: Gastric Drainage 200 200 Right Nare 200 200 Drainage 280 200 Left AKIL Drain 200 200 Right AKIL Drain 80 Urine Catheter Amount 1220 1275 130 Other: Urine Appearance Clear Sediment Urine Color Bright Yellow Dark Yellow Dark Yellow Urine Odor Normal Head Head exam: Present atraumatic and normal inspection Eye Eye exam: Present EOMI Pupils: Present PERRL ENT ENT exam: Present mucous membranes dry, normal exam and normal oropharynx Additional comments: Dry mucous membranes are primarily due to mouth breathing Neck Neck exam: Present full ROM and normal inspection Respiratory Respiratory exam: Present rales and rhonchi Additional comments: Lungs are much clearer and he has excellent ventilation on both lungs Cardiovascular Cardiovascular exam: Present normal rate and rhythm, +S1, +S2 and tachycardia; Absent JVD Additional comments: Heart rate as gradually reduced from about 120 this morning to the mid 90s. He is in sinus rhythm with an occasional ectopic ventricular beat Extremities Exam Extremities exam: Present full ROM, normal inspection and neurovascular intact; Absent Kathy's sign Neurological Exam Additional comments: Somewhat somnolent but answers questions moves all extremities to stimulation Psychiatric Psychiatric exam: Present depressed and flat affect A/P Assessment and plan (1) Upper gastrointestinal bleed: Status: Acute (2) Acute sepsis: Status: Acute (3) Postoperative ileus: Status: Acute (4) Perforation of small intestine: Status: Acute (5) Incarcerated right inguinal hernia: Status: Acute Narrative A/P Narrative: Patient's overall general status is improved. We will continue present therapy for now and monitor GI loss of blood closely. May have to transfuse. Time Spent With Patient Time: Total time spent is greater than 50% in coordination of care (as documented) at patient's floor/unit and/or counseling patient:
[2021-03-05 16:07] LABS: Hematocrit 23.2 % (41.0-55.0); Hemoglobin 7.6 g/dL (13.5-16.5)
[2021-03-05] MEDS ORDERED: 0.9 % SODIUM CHLORIDE 250 ML IV SCH (16:15)
[2021-03-05 17:47] LABS: POC Calcium, Ionized 1.12 mmEq/L (1.16-1.32); POC Creatinine 0.9 mg/dL (0.6-1.2); POC Potassium 4.5 mEql/L (3.3-5.1)
[2021-03-05] MEDS: LACTOPEROXI/GLUC OXID/POT THIO 1 EACH GEL..EA. TOPICAL PRN ×2 (19:45→22:25)
[2021-03-05] MEDS ORDERED: 0.9 % SODIUM CHLORIDE 10 ML SYRINGE IV SCH (21:00)
[2021-03-05 22:05] LABS: POC Calcium, Ionized 1.22 mmEq/L (1.16-1.32); POC Creatinine 0.9 mg/dL (0.6-1.2); POC Potassium 4.4 mEql/L (3.3-5.1)
[2021-03-06] MEDS: LACTOPEROXI/GLUC OXID/POT THIO 1 EACH GEL..EA. TOPICAL PRN ×4 (01:00→19:00)
[2021-03-06] MEDS: HYDROmorphone 1 MG/ML SYRINGE IV PRN (04:14)
[2021-03-06] MEDS: METOPROLOL TARTRATE 5 MG/5 ML VIAL IV SCH ×3 (05:32→18:15)
[2021-03-06] MEDS: MEROPENEM 1 GM in 0.9 % SODIUM CHLORIDE 50 ML IV SCH ×3 (05:32→21:39)
[2021-03-06] MEDS: INSULIN LISPRO 1 UNIT/0.01 ML UNIT SQ SCH ×3 (05:32→18:09)
[2021-03-06] MEDS: SUCRALFATE 1 GM/10 ML ORAL.SUSP PT SCH ×3 (05:32→18:12)
[2021-03-06] MEDS: METOCLOPRAMIDE 10 MG/2 ML VIAL IV SCH ×3 (05:33→18:44)
[2021-03-06] MEDS: ACETAMINOPHEN 1,000 MG/100 ML BAG IV SCH ×3 (05:33→18:14)
[2021-03-06] MEDS: fentaNYL 100 MCG/2 ML VIAL IV PRN ×3 (05:33→23:29)
[2021-03-06 07:42] LABS: Hematocrit 27.8 % (41.0-55.0); Hemoglobin 9.1 g/dL (13.5-16.5); Mean Cell Volume 93.9 fL (80.0-100.0); Mean Corpuscular HGB Conc 32.7 g/dL (31.0-36.0); Mean Platelet Volume 12.7 fL (7.4-10.4); Platelet Count 207 K/mcL (140-440); RBC 2.96 M/mcL (4.50-5.90); Red Cell Distribution Width 15.5 % (11.5-14.5); WBC 31.3 K/mcL (4.5-11.0)
[2021-03-06] MEDS: IPRATROPIUM/ALBUTEROL 3 ML AMPUL.NEB NEB SCH ×3 (07:45→22:15)
[2021-03-06] MEDS: DEXTROSE 5% IN WATER 1,000 ML IV SCH ×3 (07:45→23:30)
--- NOTE | 2021-03-06 07:54 | Internal Med Progress Note ---
SUBJECTIVE Subjective Patient information: Note initiated : 03/06/21 at 7:52 am Service Date, if different from initiated Date: [] Patient: Tommy Márquez 80 y/o M admitted on 02/18/21 for abdominal pain. Chief Complaint: [] Principal diagnosis: small bowel perforation with peritonitis; partial small bowel obstruction Interval history: Principal diagnosis: small bowel perforation with peritonitis; partial small bowel obstruction Interval history: 02/27 Patient is 80 years old male admitted on 02/18/2021 with abdominal pain under surgery service. Patient was diagnosed with Incarcerated right inguinal hernia with small bowel obstruction. performed Right inguinal hernia repair on 02/20/21. He found pt has Tightly incarcerated small bowel with venous compression, but no ischemia. The pt was doing well and was on diet. On 02/27 early am pt developed new onset atrial fibrillation with RVR. Patient was hypotensive as well. I gave him Cardizem 10 mg X1 and transfer him to ICU. Currently patient seems septic. His blood pressure is in the 80s. Patient has no fever. Heart rate ranges between 094225. Patient is more hypoxic and required 6 L oxygen. His white count is elevated 15.8. His abdominal exam show moderate distention with very sluggish bowel sounds. Chief complaint: Abdominal pain, New onset A.fib with RVR Reason for consult: Same as abov 02/28 Interval history: pt remained intubated. No overnight issues. NG has Coffee ground emesis. On minimal Vent support. Follows commands. Daughter at bedside. No fever. BP stable now. Was briefly on Levophed last night but now off. HR ~1 00. follows commands of sedation holiday. 03/02 Interval history: Patient was extubated yesterday. Currently he is on 2 L oxygen follows commands. His heart rate is around 100. He has no fever. He has coffee-ground emesis via NG. He received 2 packed RBC yesterday. He is hemodynamically stable on 2 L oxygen. No significant events overnight 03/04 Interval history: Pt dropped Hb to 6.7 despint 2PRBC. Still having Coffee G emesis. He is on 2-3 L O2. HR in 100s. Started Digoxin IV yesterday. Ordered PRBCs and plan for EGD today. He is on PPI IV Bid. 03/05 Was able to sit at the side of the bed for several minutes this morning but did tire him out. Currently resting. Awakens. No new complaints. D5 water and follow-up sodium, sodium still elevated. Follow-up with afternoon. No BMs. 03/06 Patient was on 4L oxygen mask yesterday but it was on 8 this morning. Patient appeared labored and put on BiPAP at 50%. After clearing out thick oral secretions. Nursing staff was much more judicious with pain medications yesterday and I further decreased today. Chest CT with b/l pneumonia superimposed on moderate emphysema. Difficult to obtain review of systems given patient being on BiPAP. Constitutional Vitals: Vital Signs Temp Pulse Resp BP Pulse Ox 99.6 F H 81 17 123/58 92 03/06/21 07:01 03/06/21 07:01 03/06/21 07:01 03/06/21 07:00 03/06/21 07:01 Period Temp Pulse Resp BP Sys/Beckford Pulse Ox Last 24 Hr 97.2 F-100.3 F 69-111 12-26 123-160/54-111 90-99 Intake and Output 03/05/21 03/06/21 03/06/21 21:59 05:59 13:59 Intake Total 2971 1685 190 Output Total 1045 1230 150 Balance 1926 455 40 Weight 75.387 kg Intake & Output: Intake & Output 03/05/21 03/06/21 03/06/21 21:59 05:59 13:59 Intake Total 2971 1685 190 Output Total 1045 1230 150 Balance 1926 455 40 Weight 75.387 kg Intake: IV 2616 1625 190 Sodium Chloride 0.9% 250 ml @ 52 20 mls/hr IV .[id number] [facility] Rx#: [id number] Calcium Gluconate 20 Meq 533 255 Potassium Phosphate 120 Meq Infuvite Adult 10 ml In Clinimix 5%-20% Solution 2,000 ml @ 65 mls/hr IV DAILY@1100 [facility] Rx#:[id number] Dextrose 5% in Water 1,000 ml @ 1631 1270 90 80 mls/hr IV .[id number] [facility] Rx#: [id number] Merrem 1 gm In Sodium Chloride 100 0.9% 50 ml @ 100 mls/hr IV Q8H [facility] Rx#:[id number] Tube Feeding 0 0 Blood Product 325 GI Tube Flush 60 NG Tube Flush 30 Right Nare 30 Output: Drainage 155 130 Left AKIL Drain 140 120 Right AKIL Drain 15 10 Urine Catheter Amount 890 1100 150 Other: Urine Appearance Clear Clear Clear Uretheral (Jaime) Clear Urine Color Bright Yellow Dark Yellow Dark Yellow Uretheral (Jaime) Dark Yellow Exam: General: Awake, No acute Distress Eyes/N/T: EOMI, Head/Neck: neck supple, CV: regular at this time, No murmurs, Pulm: b/l rhonchi/rales, no wheezing Abd: soft, tender decreased BS x4, NGT Ext: no clubbing/cyanosis/edema to LE but edema to UE and hips Neuro: awakens to voice but drowsy, no focal deficits, moves all extremities, Skin: warm/dry OBJ DATA Labs CBC & Chem 7: 03/06/21 05:27 03/06/21 05:27 Labs: Abnormal Lab Results 03/06/21 03/06/21 03/05/21 05:27 05:27 21:41 WBC 31.3 H* RBC 2.96 L Hgb 9.1 L Hct 27.8 L POC Hct 25 L RDW 15.5 H MPV 12.7 H Neut % (Auto) Lymph % (Auto) Lymph # (Auto) Otoe # (Auto) Seg Neutrophils % Band Neutrophils % Lymphocytes % Absolute Neutrophils Nucleated RBCs RBC Morphology Polychromasia Hypochromasia Anisocytosis POC Sodium 153 H Sodium POC Chloride 114 H Chloride Anion Gap POC BUN 50 H BUN Glucose POC Glucose 138 H Calcium POC WB Ioniz Calcium Phosphorus Magnesium Direct Bilirubin AST Lactate Dehydrogenase NT-Pro-B Natriuret Pep Total Protein Albumin Globulin Albumin/Globulin Ratio Prealbumin 10.1 L 03/05/21 03/05/21 03/05/21 17:29 14:43 14:43 WBC RBC Hgb 7.6 L Hct 23.2 L POC Hct 22 L 21 L* RDW MPV Neut % (Auto) Lymph % (Auto) Lymph # (Auto) Otoe # (Auto) Seg Neutrophils % Band Neutrophils % Lymphocytes % Absolute Neutrophils Nucleated RBCs RBC Morphology Polychromasia Hypochromasia Anisocytosis POC Sodium 155 H 155 H Sodium POC Chloride 117 H 116 H Chloride Anion Gap POC BUN 53 H 55 H BUN Glucose POC Glucose 137 H 175 H Calcium POC WB Ioniz Calcium 1.12 L Phosphorus Magnesium Direct Bilirubin AST Lactate Dehydrogenase NT-Pro-B Natriuret Pep Total Protein Albumin Globulin Albumin/Globulin Ratio Prealbumin 03/05/21 03/05/21 03/05/21 05:00 04:59 00:22 WBC 26.4 H RBC 2.80 L Hgb 8.4 L 8.8 L Hct 25.7 L 25.8 L POC Hct RDW 16.0 H MPV 12.9 H Neut % (Auto) Lymph % (Auto) Lymph # (Auto) Otoe # (Auto) Seg Neutrophils % 79 H Band Neutrophils % 11 H Lymphocytes % 3 L Absolute Neutrophils Nucleated RBCs 4 H RBC Morphology Abnormal A Polychromasia Rare A Hypochromasia 1+ A Anisocytosis 1+ A POC Sodium Sodium 155 H POC Chloride Chloride 124 H Anion Gap 3.0 L POC BUN BUN 59 H Glucose 198 H POC Glucose Calcium 7.8 L POC WB Ioniz Calcium Phosphorus Magnesium Direct Bilirubin AST 50 H Lactate Dehydrogenase 316 H NT-Pro-B Natriuret Pep Total Protein 4.3 L Albumin 2.5 L Globulin 1.8 L Albumin/Globulin Ratio Prealbumin 8.2 L 03/04/21 03/04/21 03/04/21 17:56 17:56 14:08 WBC 22.5 H RBC 3.08 L Hgb 9.4 L 9.7 L Hct 27.7 L 28.7 L POC Hct RDW 15.6 H MPV 12.6 H Neut % (Auto) Lymph % (Auto) Lymph # (Auto) Otoe # (Auto) Seg Neutrophils % Band Neutrophils % Lymphocytes % Absolute Neutrophils Nucleated RBCs RBC Morphology Polychromasia Hypochromasia Anisocytosis POC Sodium Sodium 155 H POC Chloride Chloride 123 H Anion Gap 4.0 L POC BUN BUN 69 H Glucose 299 H POC Glucose Calcium 7.7 L POC WB Ioniz Calcium Phosphorus Magnesium Direct Bilirubin AST Lactate Dehydrogenase NT-Pro-B Natriuret Pep Total Protein Albumin Globulin Albumin/Globulin Ratio Prealbumin 03/04/21 03/04/21 03/03/21 05:00 05:00 17:24 WBC 20.7 H RBC 2.25 L Hgb 6.7 L* 8.8 L Hct 20.7 L* 27.0 L POC Hct RDW 15.4 H MPV 13.0 H Neut % (Auto) 86.0 H Lymph % (Auto) 6.1 L Lymph # (Auto) 1.26 L Otoe # (Auto) 1.43 H Seg Neutrophils % Band Neutrophils % Lymphocytes % Absolute Neutrophils 17.82 H Nucleated RBCs RBC Morphology Polychromasia Hypochromasia Anisocytosis POC Sodium Sodium 157 H POC Chloride Chloride 124 H Anion Gap 3.0 L POC BUN BUN 79 H Glucose 137 H POC Glucose Calcium 7.7 L POC WB Ioniz Calcium Phosphorus 2.0 L Magnesium 2.7 H Direct Bilirubin 0.3 H AST 53 H Lactate Dehydrogenase 314 H NT-Pro-B Natriuret Pep Total Protein 4.6 L Albumin Globulin 1.2 L Albumin/Globulin Ratio 2.8 H Prealbumin 7.4 L 03/03/21 05:00 WBC RBC Hgb Hct POC Hct RDW MPV Neut % (Auto) Lymph % (Auto) Lymph # (Auto) O[place]e # (Auto) Seg Neutrophils % Band Neutrophils % Lymphocytes % Absolute Neutrophils Nucleated RBCs RBC Morphology Polychromasia Hypochromasia Anisocytosis POC Sodium Sodium POC Chloride Chloride Anion Gap POC BUN BUN Glucose POC Glucose Calcium POC WB Ioniz Calcium Phosphorus Magnesium Direct Bilirubin AST Lactate Dehydrogenase NT-Pro-B Natriuret Pep 2844.0 H Total Protein Albumin Globulin Albumin/Globulin Ratio Prealbumin Meds: Medications Albuterol/Ipratropium (Ipratropium/Albuterol 3 Ml Ampul.Neb) 3 ml NEB Q8H [facility] Last Admin: 03/06/21 07:45 Dose: 3 ml Documented by: Benzocaine (Benzocaine 1 [place]) 1 spray TOPICAL Q2HP PRN PRN Reason: Sore Throat Last Admin: 03/06/21 03:05 Dose: 1 spray Documented by: Chlorhexidine Gluconate (Chlorhexidine Gluconate 1 Ml Oral.Erlinda) 15 ml SWABMOUTH BID [facility] Last Admin: 03/05/21 20:47 Dose: 15 ml Documented by: Diagnostic Test (Pha) (Accu-Chek 1 Each Strip) 1 each FS Q6 [facility] Last Admin: 03/06/21 05:32 Dose: 1 each Documented by: Famotidine (Famotidine/Pf 20 Mg/2 Ml Vial) 40 mg IV Q12 [facility] Last Admin: 03/05/21 20:47 Dose: 40 mg Documented by: Fentanyl (Fentanyl 100 Mcg/2 Ml Vial) 25 mcg IV Q4HP PRN; Protocol PRN Reason: Pain Last Admin: 03/06/21 05:33 Dose: 25 mcg Documented by: Glucose Oxid/Lactoperoxid/Muramidas (Lactoperoxi/Gluc Oxid/Pot Thio 1 Each Gel..Ea.) 1 each TOPICAL PRN PRN PRN Reason: Dry Mouth Last Admin: 03/06/21 04:41 Dose: 1 each Documented by: Hydromorphone HCl (Hydromorphone 1 Mg/Ml Syringe) 0.5 - 1 mg IV Q2HP PRN; Protocol PRN Reason: Per Pain Protocol Last Admin: 03/06/21 04:14 Dose: 1 mg Documented by: Calcium Gluconate 20 meq/Potassium Phosphate 120 meq/Multivitamins/Minerals 10 ml/Amino Acids 2,080.2834 mls @ 65 mls/hr IV DAILY@1100 [facility] Last Infusion: 03/06/21 05:34 Dose: 65 mls/hr Documented by: Acetaminophen (Ofirmev) 1,000 mg in 100 mls @ 200 mls/hr IV Q6H [facility]; Protocol Last Infusion: 03/06/21 07:39 Dose: Infused Documented by: Dextrose (Dextrose 5% In Water) 1,000 mls @ 80 mls/hr IV .[id number] [facility] Last Admin: 03/06/21 07:45 Dose: 80 mls/hr Documented by: Fat Emulsion Intravenous (Intralipid 20%) 250 mls @ 25 mls/hr IV MoWeFr@1600 [facility] Fluconazole (Diflucan) 400 mg in 200 mls @ 100 mls/hr IV DAILY [facility] Meropenem 1 gm/ Sodium (Chloride) 50 mls @ 100 mls/hr IV Q8H [facility]; Protocol Last Admin: 03/06/21 05:32 Dose: 100 mls/hr Documented by: Insulin Human Lispro (Insulin Lispro 1 Unit/0.01 Ml Unit) 0 unit SQ Q6 [facility]; Protocol Last Admin: 03/06/21 05:32 Dose: Not Given Documented by: Labetalol HCl (Labetalol 5 Mg/Ml Ml) 0 mg IV Q2HP PRN PRN Reason: Hypertension Metoclopramide HCl (Metoclopramide 10 Mg/2 Ml Vial) 10 mg IV Q6 [facility] Last Admin: 03/06/21 05:33 Dose: 10 mg Documented by: Metoprolol Tartrate (Metoprolol Tartrate 5 Mg/5 Ml Vial) 5 mg IV Q6H [facility] Last Admin: 03/06/21 05:32 Dose: 5 mg Documented by: Metoprolol Tartrate (Metoprolol Tartrate 5 Mg/5 Ml Vial) 5 mg IV Q2HP PRN PRN Reason: Tachyarrhythmias HR>110 Nystatin (Nystatin 500,000 Units/5 Ml Oral.Susp) 500,000 units SSW QID [facility] Last Admin: 03/05/21 20:48 Dose: 500,000 units Documented by: Ondansetron HCl (Ondansetron 4 Mg/2 Ml Vial) 4 mg IV Q6HP PRN PRN Reason: Nausea And Vomiting Last Admin: 03/06/21 03:12 Dose: 4 mg Documented by: Pantoprazole Sodium (Pantoprazole 40 Mg Vial) 40 mg IV BIDAC [facility] Last Admin: 03/05/21 17:07 Dose: 40 mg Documented by: Sodium Chloride (0.9 % Sodium Chloride 10 Ml Syringe) 10 ml IV UD PRN PRN Reason: FLUSH Sucralfate (Sucralfate 1 Gm/10 Ml Oral.Susp) 1 gm PT Q6 [facility] Last Admin: 03/06/21 05:32 Dose: 1 gm Documented by: A/P Narrative A/P Narrative: A: *Incarcerated right inguinal hernia w/small bowel obstruction: s/p inguinal repair (02/20) *Acute peritonitis w/perforated viscus: s/p Ex lap with adhesiolysis (02/27) -worsening leukocytosis *UGIB: 2/2 gastric/duodenal ulcers and duodenitis found on EGD (03/04) -s/p PRBC's *Acute blood loss anemia: 2/2 above. H&H stable *Septic shock: resovled *Bacteremia (Bacteroides Fragilis (1/4 bottles): Repeat BX 03/02 neg *PNA: -IS/Acapella * Acute Hypoxic resp failure: 2/2 PNA & Right pleural effusion & oral secretions -intubated 02/27 for surgey and left intubated until 03/01 -Up to 10 L O2, down to 4 but now 8L oxymask *New onset atrial fibrillation w/RVR: In & out of A.Fib - No history of atrial fibrillation. trop neg. - echo pending *Hypernatremia: *Hypophosphatemia: *MARCE: 2/2 Septic Shock. resolved *Abnormal LFT: Normal GGT. High AST. Due to Above. Improved. *HTN: P: -hold sedating meds -bipap, f/u ABG -IS/Acapella, airway suction prn -IV Abx per surg, abx for bacteremia finish on 03/13/2021 -PPI bid -Monitor H&H -NG tube/NPO per surg -f/u sodium -cont BB -cont D5W, Pharmacy to adjust TPN -Hold lisinopril/HCTZ for marce, prn hydralazine -prn lasix -pt/to when able -Started TPN 03/01/21, npo -PPX: SCD (Heparin sq bid on hold due to GIB)/ppi Time Spent With Patient Time: Total time spent is greater than 50% in coordination of care (as documented) at patient's floor/unit and/or counseling patient: QUALITY Stroke Symptom Onset Unknown: No VTE Deep Vein Thrombosis/Pulmonary Embolism Present on Admission: No
[2021-03-06 07:56] LABS: Anisocytosis RARE (None Seen); Band Neutrophils % 8 % (0-10); Hypochromasia 1+ (None Seen); Lymphocytes % 6 % (15-49); Monocytes % (Manual) 3 % (1-12); Nucleated Red Blood Cells 3 % (0-0); Platelet Estimate NORMAL (Normal); RBC Morphology ABNORMAL (Normal); Segmented Neutrophils % 83 % (38-78)
[2021-03-06] MEDS: PANTOPRAZOLE 40 MG VIAL IV SCH ×2 (07:59→17:28)
[2021-03-06] MEDS: FLUCONAZOLE 400 MG/200 ML BAG IV SCH (08:00)
[2021-03-06] MEDS ORDERED: HYDROmorphone 1 MG/ML SYRINGE IV PRN (08:00)
[2021-03-06] MEDS: NYSTATIN 500,000 UNITS/5 ML ORAL.SUSP SSW SCH ×4 (08:00→21:39)
[2021-03-06] MEDS: FAMOTIDINE/PF 20 MG/2 ML VIAL IV SCH ×2 (08:00→21:39)
[2021-03-06] MEDS: CHLORHEXIDINE GLUCONATE 1 ML ORAL.SOL SWABMOUTH SCH ×2 (08:00→21:39)
[2021-03-06 08:11] LABS: ALT/SGPT 26 U/L (<40); AST/SGOT 59 U/L (<40); Albumin 2.4 gm/dL (3.2-5.2); Albumin/Globulin Ratio 1.3 (1.0-2.3); Alkaline Phosphatase 70 U/L (39-117); Bilirubin,Direct 0.3 mg/dL (<0.3); Bilirubin,Total 0.5 mg/dL (0.1-1.0); Blood Urea Nitrogen 48 mg/dL (8-23); Calcium 7.7 mg/dL (8.6-10.4); Carbon Dioxide 28 mmol/L (22-30); Chloride 117 mmol/L (96-108); Globulin 1.8 gm/dL (2.2-3.7); Glomerular Filtration Rate 85; Glucose 140 mg/dL (70-105); Lactate Dehydrogenase 379 U/L (135-225); Phosphorous 2.9 mg/dL (2.5-4.5); Triglycerides 78 mg/dL (<150)
--- NOTE | 2021-03-06 08:49 | Cat Scan Report ---
History: Shortness of breath and worsening pulmonary infiltrates TECHNIQUE: The chest was imaged without contrast in axial plane at 2.5 mm intervals. Sagittal, coronal and axial MIPS images were created. FINDINGS: There is moderate emphysema throughout both lungs. The largest bulla are present in the right apex. Superimposed there are severe consolidating alveolar infiltrates in both lower lobes with milder involvement the lingula, right middle lobe, posteriorly in both upper lobes and in the anterior segment of the right upper lobe.. The infiltrates have a honeycomb appearance due to underlying emphysema. There are several air bronchograms in the basilar segments of both lower lobes due to dense consolidation. In the noninflamed portions of both upper lobes, there is no evidence of edema. Moderate size size bilateral layering pleural effusions are present, right larger than left. The heart is normal in size and contour. Mild atherosclerotic disease is seen in the aorta and coronary arteries. Nasogastric tube passes through the esophagus into the stomach. There is a surgical drain between the right lobe of liver and diaphragm in the right upper quadrant. There is barium in the colon the left upper quadrant. IMPRESSION: Severe bibasilar pneumonia superimposed upon underlying moderate emphysema Bilateral layering pleural effusions Interpreted and Authenticated by: Jb Cavazos 03/06/21
[2021-03-06] MEDS ORDERED: DEXTROSE 5% IN WATER 1,000 ML IV SCH ×2 (09:15→16:45)
[2021-03-06] MEDS ORDERED: IOPAMIDOL 100 ML BOTTLE IV ONE (09:40)
[2021-03-06 10:40] LABS: POC Calcium, Ionized 1.2 mmEq/L (1.16-1.32); POC Creatinine 0.9 mg/dL (0.6-1.2); POC Potassium 4.4 mEql/L (3.3-5.1)
[2021-03-06] MEDS: [UNRECOGNIZED DRUG - REMARK] IV SCH (11:00)
--- NOTE | 2021-03-06 11:03 | Nephrology Consult Note ---
HPI Data of Consult Consult date: 03/06/21 Primary Care Provider: Moy Luz PA-C Consult Narrative Patient Information: Note initiated : 03/06/21 at 11:01 am Service Date, if different from initiated Date: [] Patient: Tommy Márquez 80 y/o M admitted on 02/18/21 for abdominal pain. Chief Complaint: [N/V SBO] Asked to comment on free water deficit and hypernatremia in an elderly gentleman with prolonged nausea vomiting and small bowel obstruction who underwent surgical treatment on around February 26, 2021 as follows: Brief Operative Note Date of procedure: 02/27/21 Pre-op diagnosis: small bowel obstruction Post-op diagnosis: other (small bowel obstruction.perforation of ileum;periton itis) Procedure: exploratory laparotomy with small bowel adhesiolysis;peritoneal lavage and drainage;closure of microperforation Grafts/Implants: No (rosario drain x2) Anesthesia: GETA Findings: perforation of terminal ileum; 4 areas of partial obstruction of distal jejunum diffuse peritonitis and pelvic abscess Complications: none Surgeon: Anita Rodriguez Estimated blood loss (cc): 100 Specimens Removed/Pathology: none sent Condition: critical Disposition: ICU Laboratory Last Values WBC 31.3 K/mcL (4.5-11.0) H* 03/06/21 05:27 RBC 2.96 M/mcL (4.50-5.90) L 03/06/21 05:27 Hgb 9.1 g/dL (13.5-16.5) L 03/06/21 05:27 Hct 27.8 % (41.0-55.0) L 03/06/21 05:27 POC Hct 25 % (41-55) L 03/06/21 10:15 MCV 93.9 fL (80.0-100.0) 03/06/21 05:27 MCH 30.7 pg (26.0-34.0) 03/06/21 05:27 MCHC 32.7 g/dL (31.0-36.0) 03/06/21 05:27 RDW 15.5 % (11.5-14.5) H 03/06/21 05:27 Plt Count 207 K/mcL (140-440) 03/06/21 05:27 MPV 12.7 fL (7.4-10.4) H 03/06/21 05:27 Neut % (Auto) 86.0 % (38.0-78.0) H 03/04/21 05:00 Lymph % (Auto) 6.1 % (15.0-49.0) L 03/04/21 05:00 [place] % (Auto) 6.9 % (1.0-12.0) 03/04/21 05:00 Eos % (Auto) 0.8 % (0.0-7.0) 03/04/21 05:00 Baso % (Auto) 0.2 % (0.0-2.0) 03/04/21 05:00 Lymph # (Auto) 1.26 K/mcL (1.50-4.80) L 03/04/21 05:00 [place] # (Auto) 1.43 K/mcL (0.10-0.90) H 03/04/21 05:00 Eos # (Auto) 0.16 K/mcL (0.00-0.70) 03/04/21 05:00 Baso # (Auto) 0.04 K/mcL (0.00-0.20) 03/04/21 05:00 Seg Neutrophils % 83 % (38-78) H 03/06/21 05:27 Band Neutrophils % 8 % (0-10) 03/06/21 05:27 Lymphocytes % 6 % (15-49) L 03/06/21 05:27 Monocytes % (Manual) 3 % (1-12) 03/06/21 05:27 Eosinophils % (Manual) 3 % (0-7) 02/19/21 05:02 Basophils % (Manual) 1 % (0-2) 02/19/21 05:02 Metamyelocytes % 2 % 03/05/21 04:59 Myelocytes % 2 % 03/05/21 04:59 Absolute Neutrophils 17.82 K/mcL (1.80-8.00) H 03/04/21 05:00 Nucleated RBCs 3 % (0-0) H 03/06/21 05:27 Differential Comment 02/28/21 04:57 Reactive Lymphocytes 1 % (0-2) 02/21/21 05:27 Platelet Estimate Normal (Normal) 03/06/21 05:27 RBC Morphology Abnormal (Normal) A 03/06/21 05:27 Polychromasia Rare (None Seen) A 03/05/21 04:59 Hypochromasia 1+ (None Seen) A 03/06/21 05:27 Anisocytosis Rare (None Seen) A 03/06/21 05:27 Ovalocytes Few (None Seen) A 02/21/21 05:27 [place] Cells Few (None Seen) A 02/21/21 05:27 PT 12.9 sec (11.9-14.5) 02/18/21 15:43 INR 0.9 (0.9-1.1) 02/18/21 15:43 VBG Lactic Acid 1.4 mmol/L (0.5-2.0) 02/28/21 11:51 POC Sodium 151 mEq/L (133-145) H 03/06/21 10:15 Sodium 149 mmol/L (133-145) H 03/06/21 05:27 POC Potassium 4.4 mEql/L (3.3-5.1) 03/06/21 10:15 Potassium 4.6 mmol/L (3.3-5.1) 03/06/21 05:27 POC Chloride 113 mEq/L (96-108) H 03/06/21 10:15 Chloride 117 mmol/L (96-108) H 03/06/21 05:27 Carbon Dioxide 28 mmol/L (22-30) 03/06/21 05:27 POC Total CO2 25 mmol/L (22-30) 03/06/21 10:15 Anion Gap 4.0 (8.0-16.0) L 03/06/21 05:27 POC BUN 44 mg/dL (6-20) H 03/06/21 10:15 BUN 48 mg/dL (8-23) H 03/06/21 05:27 Creatinine 0.8 mg/dL (0.7-1.2) 03/06/21 05:27 POC Creatinine 0.9 mg/dL (0.6-1.2) 03/06/21 10:15 GFR Calculation 85 03/06/21 05:27 Glucose 140 mg/dL (70-105) H 03/06/21 05:27 POC Glucose 185 mg/dL (70-105) H 03/06/21 10:15 Uric Acid 3.0 mg/dL (2.5-8.0) 03/06/21 05:27 Calcium 7.7 mg/dL (8.6-10.4) L 03/06/21 05:27 POC WB Ioniz Calcium 1.20 mmEq/L (1.16-1.32) 03/06/21 10:15 Phosphorus 2.9 mg/dL (2.5-4.5) 03/06/21 05:27 Magnesium 2.2 mg/dL (1.6-2.5) 03/06/21 05:27 Total Bilirubin 0.5 mg/dL (0.1-1.0) 03/06/21 05:27 Direct Bilirubin 0.3 mg/dL (<0.3) H 03/06/21 05:27 GGT 34 U/L (8-61) 03/06/21 05:27 AST 59 U/L (<40) H 03/06/21 05:27 ALT 26 U/L (<40) 03/06/21 05:27 Alkaline Phosphatase 70 U/L (39-117) 03/06/21 05:27 Lactate Dehydrogenase 379 U/L (135-225) H 03/06/21 05:27 Troponin T 0.01 ng/mL (<0.03) 02/27/21 17:33 NT-Pro-B Natriuret Pep 2844.0 pg/mL (<450.0) H 03/03/21 05:00 Total Protein 4.2 gm/dL (5.9-8.4) L 03/06/21 05:27 Albumin 2.4 gm/dL (3.2-5.2) L 03/06/21 05:27 Globulin 1.8 gm/dL (2.2-3.7) L 03/06/21 05:27 Albumin/Globulin Ratio 1.3 (1.0-2.3) 03/06/21 05:27 Prealbumin 10.1 mg/dL (20.0-40.0) L 03/06/21 05:27 Triglycerides 78 mg/dL (<150) 03/06/21 05:27 TSH 1.74 uIU/mL (0.27-5.01) 02/27/21 05:45 Urine Color Yellow 02/20/21 11:06 Urine Appearance Clear (Clear) 02/20/21 11:06 Urine pH 5.0 (5.0-9.0) 02/20/21 11:06 Ur Specific [place] 1.054 (1.000-1.035) 02/20/21 11:06 Urine Protein Negative mg/dL (Negative) 02/20/21 11:06 Urine Glucose (UA) Negative mg/dL (Negative) 02/20/21 11:06 Urine Ketones 20 mg/dL (Negative) A 02/20/21 11:06 Urine Occult Blood Negative mg/dL (Negative) 02/20/21 11:06 Urine Nitrate Negative (Negative) 02/20/21 11:06 Urine Bilirubin Negative mg/dL (Negative) 02/20/21 11:06 Urine Urobilinogen Negative mg/dL 02/20/21 11:06 Ur Leukocyte Esterase Negative /ug (Negative) 02/20/21 11:06 Ur Culture Indicated? No 02/20/21 11:06 Digoxin 0.5 ng/mL 03/05/21 05:00 Serum sodium When the serum sodium was 157, estimated free water deficit was 4.1 L. Compounding the lack of adequate free water replacement, was NS and LR previously, laix to promote salt and water losses, and the GI third spacing. The fact that he is on some sort of parenteral nutrition which is hypertonic, currently peripheral nutrition (less hyperosmolar) which is adding to his free water deficit. Vital Signs Temp Pulse Pulse Resp BP BP Pulse Ox 03/06/21 10:30 116 H 24 H 93 03/06/21 10:01 37.3 C H 119 H 27 H 138/92 89 L 03/06/21 09:40 37.4 C H 100 H 24 H 109/67 93 03/06/21 09:01 37.4 C H 90 21 91 03/06/21 09:00 37.4 C H 92 H 22 109/67 91 03/06/21 08:40 99 H 20 94 03/06/21 08:27 124/68 91 03/06/21 08:01 37.4 C H 84 20 91 03/06/21 08:00 37.4 C H 84 18 124/68 91 03/06/21 07:55 95 H 16 92 03/06/21 07:01 37.6 C H 81 17 92 03/06/21 07:00 37.6 C H 81 17 123/58 92 03/06/21 06:30 16 92 03/06/21 06:01 37.9 C H 85 17 93 03/06/21 06:00 37.9 C H 89 21 125/62 93 03/06/21 05:01 37.8 C H 111 H 16 141/80 92 03/06/21 05:00 37.8 C H 91 H 16 92 03/06/21 04:02 37.6 C H 91 H 22 90 03/06/21 04:01 37.6 C H 85 21 137/69 91 03/06/21 04:00 37.6 C H 86 21 92 03/06/21 03:31 37.4 C H 87 25 H 133/70 92 03/06/21 03:02 37.3 C H 85 19 139/70 91 03/06/21 02:31 37.3 C H 72 18 134/64 93 03/06/21 02:01 37.3 C H 72 17 137/72 93 03/06/21 01:31 37.4 C H 77 18 141/70 94 03/06/21 01:01 37.6 C H 75 16 146/72 95 03/06/21 00:31 37.6 C H 75 16 147/78 95 03/06/21 00:01 37.6 C H 84 21 128/111 94 03/05/21 23:31 37.4 C H 80 16 143/68 93 03/05/21 23:01 37.4 C H 80 18 148/77 94 03/05/21 22:31 37.4 C H 87 19 139/108 93 03/05/21 22:01 37.4 C H 81 15 145/66 99 03/05/21 21:50 82 16 95 03/05/21 21:31 36.9 C 84 16 151/54 95 03/05/21 21:01 37.3 C H 83 15 158/79 95 03/05/21 20:31 37.3 C H 87 22 151/80 93 03/05/21 20:01 37.3 C H 81 19 146/67 95 03/05/21 19:31 37.3 C H 80 18 142/67 96 03/05/21 19:10 37.3 C H 83 24 H 155/69 95 03/05/21 19:01 37.3 C H 82 26 H 160/89 95 03/05/21 18:31 37.3 C H 81 24 H 155/69 95 03/05/21 18:02 37.3 C H 93 H 24 H 157/78 91 03/05/21 18:00 37.3 C H 97 H 26 H 91 03/05/21 17:53 36.2 C 69 25 H 154/90 92 03/05/21 17:31 37.3 C H 87 18 142/74 95 03/05/21 17:22 37.3 C H 77 17 94 03/05/21 17:21 37.3 C H 79 18 140/68 93 03/05/21 17:11 37.3 C H 76 16 140/71 95 03/05/21 17:01 37.3 C H 83 16 141/75 94 03/05/21 17:00 37.3 C H 78 16 94 03/05/21 16:51 37.3 C H 85 17 137/67 93 03/05/21 16:41 37.3 C H 91 H 17 138/75 94 03/05/21 16:32 37.3 C H 87 15 137/70 93 03/05/21 16:26 37.3 C H 86 15 138/72 93 03/05/21 16:02 37.4 C H 83 16 93 03/05/21 16:01 37.4 C H 81 15 129/70 94 03/05/21 15:00 37.4 C H 84 15 139/73 94 03/05/21 14:40 82 16 94 03/05/21 14:01 37.4 C H 93 H 26 H 91 03/05/21 14:00 37.4 C H 96 H 25 H 149/84 92 03/05/21 13:01 37.4 C H 79 17 92 03/05/21 13:00 37.4 C H 79 17 136/71 93 03/05/21 12:01 37.2 C 80 17 93 03/05/21 12:00 37.2 C 82 20 150/77 93 Intake and Output 03/05/21 03/06/21 03/06/21 21:59 05:59 13:59 Intake Total 2971 1685 593 Output Total 0165 1230 360 Balance 1926 455 233 Intake: IV 2616 4665 593 Sodium Chloride 0.9% 250 ml @ 52 20 mls/hr IV [id number] [facility] Rx#: [id number] Calcium Gluconate 20 Meq 533 255 353 Potassium Phosphate 120 Meq Infuvite Adult 10 ml In Clinimix 5%-20% Solution 2,000 ml @ 65 mls/hr IV DAILY@1100 [facility] Rx#:[id number] Dextrose 5% in Water 1,000 ml @ 1631 1270 90 80 mls/hr IV .[id number] [facility] Rx#: [id number] Merrem 1 gm In Sodium Chloride 100 50 0.9% 50 ml @ 100 mls/hr IV Q8H [facility] Rx#:[id number] Tube Feeding 0 0 0 Blood Product 325 GI Tube Flush 60 NG Tube Flush 30 Right Nare 30 Output: Gastric Drainage 50 Right Nare 50 Drainage 155 130 Left AKIL Drain 140 120 Right AKIL Drain 15 10 Urine Catheter Amount 890 1100 310 Other: Urine Appearance Clear Clear Clear Uretheral (Jaime) Clear Urine Color Bright Yellow Dark Yellow Dark Yellow Uretheral (Jaime) Dark Yellow Weight 75.387 kg recommendations: Slow down or stop the peripheral nutrition increase D5W to about 200 cc an hour for the next 20 hours replace magnesium potassium and phosphorus as necessary I did stop the lisinopril as well. 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) Unilateral inguinal hernia without obstruction or gangrene (Chronic) Influenza vaccine refused (Chronic) 23-polyvalent pneumococcal polysaccharide vaccine declined (Chronic) Medicare annual wellness visit, initial (Acute) SBO (small bowel obstruction) (Acute) MARCE (acute kidney injury) (Acute) Partial intestinal obstruction (Acute) Complete small bowel obstruction (Acute) Incarcerated right inguinal hernia (Acute) Postoperative ileus (Acute) Abnormal heart rhythm (Acute) Perforation of small intestine (Acute) Acute sepsis (Acute) Upper gastrointestinal bleed (Acute) Acute pneumonitis (Acute) Medical History (Updated 03/06/21 @ 21:44 by Cralos Vines MD) 23-polyvalent pneumococcal polysaccharide vaccine declined Hernia (~1998) High blood pressure Influenza vaccine refused Medicare annual wellness visit, initial 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 Stroke (~2011) Unilateral inguinal hernia without obstruction or gangrene Surgical History History of appendectomy (~1962) "about when I was [age] years old" Family History Other No pertinent family history Social History marital status: alcohol intake frequency: does not drink substance use type: does not use MEDS/ALLERGIES Home Medications and Allergies Home Medications Medication Instructions Recorded Confirmed Type lisinopril 10 1 tab PO QDAY #90 tab 01/08/21 02/19/21 Rx mg-hydrochlorothiazide 12.5 mg tablet Allergies Allergy/AdvReac Type Severity Reaction Status Date / Time Penicillins Allergy Unknown "can not Verified 02/18/21 14:17 recall reaction, think it was pretty bad" Sulfa (Sulfonamide Allergy Unknown Unknown Verified 02/18/21 14:17 Antibiotics) Physical Examination Vital Signs Vital signs: Temp Pulse Resp BP Pulse Ox 37.3 C H 116 H 24 H 138/92 93 03/06/21 10:01 03/06/21 10:30 03/06/21 10:30 03/06/21 10:01 03/06/21 10:30 General Appearance General appearance: cachectic, chronically ill and frail EENT EENT: ATNC, PERRL and mucous membranes dry Neck Neck: no JVD Respiratory Respiratory: rhonchi Cardiovascular Cardiology: no edema, regular rate, rapid rhythm, normal S1 and normal S2 Gastrointestinal Gastrointestinal: hypoactive bowel sounds (NG with iced saline lavage for bleeding) Integumentary Integumentary: warm and dry and ecchymotic Neurologic Neurologic: disoriented and CN 3-12 intact Musculoskeletal Musculoskeletal: no cyanosis and no clubbing Psychiatric Psychiatric: cooperative Results Lab Results Result Diagrams: 03/06/21 18:39 03/06/21 18:39 Lab results: Most recent lab results Calcium 7.7 mg/dL (8.6-10.4) L 07/07/21 05:27 Phosphorus 2.9 mg/dL (2.5-4.5) 03/06/21 05:27 Magnesium 2.2 mg/dL (1.6-2.5) 03/06/21 05:27 A/P Assessment and plan (1) Hyperosmolality and hypernatremia: Status: Acute Comment: Initially salt loaded with saline and LR IVF GI vol loss with NG suction GI 3rd spacing Basically free H2O deficit of over 4 L occurred. He did not receive anywhere close to 4 L of hypotonic IV fluids (D5W). Actually had hyperosmolar IV fluids in the form of TPN and peripheral nutrition which would serve to worsen the free water deficit Recommendations: 1. Stop TPN and/or peripheral nutrition 2. Place free water deficit with D5W at 200 an hour starting for 4 L or 20 hours 3. Serial electrolyte replacement with potassium magnesium and phosphorus 4. Anticipate increasing TPN from 35 back to 70 cc/hr tomorrow with free H2O given at 70-100cc/hr additionally as D5W 5. Serial lytes and K,PO4, Mg riders prn Time Spent With Patient Time: Total time spent is greater than 50% in coordination of care (as documented) at patient's floor/unit and/or counseling patient:
--- NOTE | 2021-03-06 11:08 | General Surgery Progress Note ---
SUBJECTIVE Subjective Patient information: Note initiated : 03/06/21 at 10:48 am Service Date, if different from initiated Date: [] Patient: Tommy Márquez 80 y/o M admitted on 02/18/21 for abdominal pain. Chief Complaint: [] Principal diagnosis: small bowel perforation with peritonitis; partial small bowel obstruction; Interval history: Patient had deterioration of respiratory status during the night. He required increasing level of oxygenation. Earlier this morning he was started on BiPAP and appears more alert and responsive at this time. His PaO2 is only 54 but his bicarbonate and pH are in normal range. CT of the chest was done and this shows bilateral lower lobe consolidating infiltrates but also some infiltrate in the upper lobes and lingula. This is more suggestive of aspiration pneumonia. A follow-up CT of the abdomen was done. This shows a collection of fluid in the subhepatic space with dilated edematous small bowel and an area of thickening in the transverse colon compatible with colitis. The type of colitis is nonspecific at this time. In retrospect it was present on his last CT and has not worsened. His drains are putting out primarily serous fluid without any bilious content and without any purulence noted. Discussed the situation with the who is very convinced that he has a post Covid type picture even though his Covid infection was many months ago. I allowed her to voice her concerns but do not feel that any of his presentation is related to a post Covid syndrome from which he totally recovered. Constitutional Vitals: Vital Signs Temp Pulse Resp BP Pulse Ox 99.2 F H 116 H 24 H 138/92 93 03/06/21 10:01 03/06/21 10:30 03/06/21 10:30 03/06/21 10:01 03/06/21 10:30 Period Temp Pulse Resp BP Sys/Beckford Pulse Ox Last 24 Hr 97.2 F-100.3 F 69-119 14-27 109-160/54-111 89-99 Intake and Output 03/05/21 03/06/21 03/06/21 21:59 05:59 13:59 Intake Total 2971 1685 240 Output Total 1045 1230 360 Balance 1926 455 -120 Weight 166 lb 3.2 oz Intake & Output: Intake & Output 03/05/21 03/06/21 03/06/21 21:59 05:59 13:59 Intake Total 2971 1685 240 Output Total 1045 1230 360 Balance 1926 455 -120 Weight 166 lb 3.2 oz Intake: IV 2616 1625 240 Sodium Chloride 0.9% 250 ml @ 52 20 mls/hr IV .[id number] [facility] Rx#: [id number] Calcium Gluconate 20 Meq 533 255 Potassium Phosphate 120 Meq Infuvite Adult 10 ml In Clinimix 5%-20% Solution 2,000 ml @ 65 mls/hr IV DAILY@1100 [facility] Rx#:[id number] Dextrose 5% in Water 1,000 ml @ 1631 1270 90 80 mls/hr IV .[id number] [facility] Rx#: [id number] Merrem 1 gm In Sodium Chloride 100 50 0.9% 50 ml @ 100 mls/hr IV Q8H [facility] Rx#:[id number] Tube Feeding 0 0 0 Blood Product 325 GI Tube Flush 60 NG Tube Flush 30 Right Nare 30 Output: Gastric Drainage 50 Right Nare 50 Drainage 155 130 Left AKIL Drain 140 120 Right AKIL Drain 15 10 Urine Catheter Amount 890 1100 310 Other: Urine Appearance Clear Clear Clear Uretheral (Jaime) Clear Urine Color Bright Yellow Dark Yellow Dark Yellow Uretheral (Jaime) Dark Yellow Head Head exam: Present atraumatic and normal inspection Eye Eye exam: Present EOMI Pupils: Present PERRL ENT ENT exam: Present mucous membranes dry, normal exam and normal oropharynx Additional comments: Dry mucous membranes are primarily due to mouth breathing Respiratory Respiratory exam: Present rales and rhonchi Additional comments: Coarse tubular breath sounds bilaterally with labored respirations Cardiovascular Cardiovascular exam: Present normal rate and rhythm, +S1, +S2 and tachycardia; Absent JVD Additional comments: Heart rate is in the 80s and 90s. He is in sinus rhythm with an occasional ectopic ventricular beat GI/Abdominal GI/Abdominal exam: Present diminished bowel sounds and distended (Mildly distended compared to yesterday) Extremities Exam Additional comments: Diffuse edema of the extremities and trunk compatible with anasarca Neurological Exam Additional comments: Somewhat somnolent but answers questions moves all extr emities to stimulation A/P Assessment and plan (1) Acute pneumonitis: Status: Acute (2) Acute sepsis: Status: Acute (3) Upper gastrointestinal bleed: Status: Acute (4) Postoperative ileus: Status: Acute Narrative A/P Narrative: Patient is adequately covered for most organisms on his present regimen including fungi He needs more vigorous chest PT with frequent intubation, chest percussions If BiPAP therapy is not effective will do intubation for short-term to support ventilation and to give easier access to suctioning Time Spent With Patient Time: Total time spent is greater than 50% in coordination of care (as documented) at patient's floor/unit and/or counseling patient:
--- NOTE | 2021-03-06 11:37 | Cat Scan Report ---
History: Abdominal pain and distention, recent perforation terminal ileum, small bowel obstruction TECHNIQUE: The patient was imaged following intravenous nonionic contrast scanning during the portal venous phase from the diaphragm through the symphysis pubis. Sagittal and coronal reformats were created. The radiation exposure was limited using dose reduction technology. FINDINGS: There are densely consolidating infiltrates with volume loss in both lower lobes. Moderate-sized bilateral layering pleural effusions are present. This is unchanged from the preceding chest CT performed earlier on the same date. The liver is normal in size. There is a 1.2 cm cyst at the boundary of the left and right lobes. This is unchanged from prior exams. Laterally in segment seven there is a homogeneous enhancing 1 cm nodule.. This is unchanged from 02/18/21 and is probably a hemangioma. It was not seen on all the prior studies due to the differences in the phase of the contrast administration. Liver is otherwise normal. Bile ducts are nondilated. There is excreted contrast in the gallbladder. There are no stones in the bile ducts are nondilated. The spleen and pancreas are normal. There is mild hyperplasia left adrenal. The right adrenal is normal. There are couple simple cysts in both kidneys There is no kidney stone, hydronephrosis or inflammation in either kidney. Aorta is normal in caliber. There are scattered plaques along the wall of the aorta and iliac arteries. There is also plaque formation at the origin of the celiac artery. Small amount of plaque is seen at the origin of the superior mesenteric artery. Normal flow is seen within these vessels, without evidence of a critical stenosis or thrombosis. Trace amount of ascites is seen along the superior lateral border of the right lobe of the liver. Between the diaphragm and right lobe of the liver there is a surgical drain. Inferior to the right lobe of the liver and superior to the right kidney. It measures 6.3 x 9.7 cm area has a thin wall and is homogeneous. This is unchanged from 02/27/21. Trace amount of ascites is present deep in the pelvis. There is no evidence of an abscess. There is a second surgical drain which enters the abdominal wall anteriorly in the left upper pelvis. The tip of the catheter is located deep in the left lower pelvis superior lateral to the bladder. No fluid collection is present around this catheter. There is residual barium in the large intestine following recent study. Small bowel contains a moderate amount of fluid. There are couple loops which are borderline dilated. There are several air-fluid levels in the small intestine. Small intestine has diminished in caliber and there are fewer air-fluid levels today than there were on 02/27/21. The transition point seen in the right mid abdomen on the prior study is not identified today. There is a 10 cm long segment of mid transverse colon which has thickened fraire and narrowed and irregular lumen. There is a similar-appearing skip lesion in the sigmoid colon with thickened wall and narrowing the lumen. There are no associated diverticula. Similar findings were present on 02/27/21. This has not progressed. Patient has anasarca. There is diffuse subcutaneous edema throughout the abdomen and pelvis extending into the upper thighs. Urinary bladder is decompressed by Jaime catheter. IMPRESSION: Improved small bowel obstruction/ileus Thickened wall of the colon in the mid transverse colon and sigmoid. This could be due to colitis. This is less likely due to ischemic bowel. Loculated pocket of fluid in the right upper quadrant between the liver and kidney. This does not appear to be an abscess. Pneumonia and atelectasis in both lung bases with bilateral pleural effusions Results were discussed with Dr. Rodriguez Interpreted and Authenticated by: Jb Cavazos 03/06/21
[2021-03-06 14:08] LABS: POC Calcium, Ionized 1.19 mmEq/L (1.16-1.32); POC Creatinine 0.8 mg/dL (0.6-1.2); POC Potassium 4.2 mEql/L (3.3-5.1)
[2021-03-06] MEDS ORDERED: FAT EMULSION 20% 250 ML IV SCH (16:00)
[2021-03-06] MEDS ORDERED: SODIUM CHLORIDE 0.9% IJ ONE (17:30)
[2021-03-06] MEDS ORDERED: EPINEPHRINE IJ ONE (17:30)
--- NOTE | 2021-03-06 18:21 | General Surgery Progress Note ---
SUBJECTIVE Subjective Patient information: Note initiated : 03/06/21 at 6:18 pm Service Date, if different from initiated Date: [] Patient: Tommy Márquez 80 y/o M admitted on 02/18/21 for abdominal pain. Chief Complaint: [] Principal diagnosis: small bowel perforation with peritonitis; partial small bowel obstruction; Interval history: Patient had a brisk bleed of about 100 cc of fresh blood which she had not had before. He was irrigated with iced water for about 2 L and then iced saline with 3 mg/L of epinephrine per liter. He had prompt clearing of the fresh blood and the stomach was instilled with 180 cc of saline with epinephrine and this will be allowed to do well for about an hour and then aspirated. Patient is clinically stable. He will have follow-up hemoglobin and hematocrit at this time. The plan is to repeat irrigation if he should develop another brisk bleed rather than do repeat endoscopy since he has so many lesions that have the potential for bleeding. Constitutional Vitals: Vital Signs Temp Pulse Resp BP Pulse Ox 100.5 F H 86 28 H 118/61 91 03/06/21 18:01 03/06/21 17:10 03/06/21 18:01 03/06/21 18:01 03/06/21 17:10 Period Temp Pulse Resp BP Sys/Beckford Pulse Ox Last 24 Hr 98.4 F-100.6 F 31-119 15-37 109-160/54-111 88-99 Intake and Output 03/06/21 03/06/21 03/06/21 05:59 13:59 21:59 Intake Total 1685 893 70 Output Total 1230 1165 410 Balance 455 -272 -340 Intake & Output: Intake & Output 03/06/21 03/06/21 03/06/21 05:59 13:59 21:59 Intake Total 1685 893 70 Output Total 1230 1165 410 Balance 455 -272 -340 Intake: IV 1625 893 70 Calcium Gluconate 20 Meq 255 353 Potassium Phosphate 120 Meq Infuvite Adult 10 ml In Clinimix 5%-20% Solution 2,000 ml @ 65 mls/hr IV DAILY@1100 [facility] Rx#:[id number] Dextrose 5% in Water 1,000 ml @ 1270 90 80 mls/hr IV .[id number] [facility] Rx#: [id number] Intralipid 20% 250 ml @ 25 mls/ 20 hr IV MoWeFr@1600 [facility] Rx#: [id number] Merrem 1 gm In Sodium Chloride 50 50 0.9% 50 ml @ 100 mls/hr IV Q8H [facility] Rx#:[id number] Tube Feeding 0 0 GI Tube Flush 60 Output: Gastric Drainage 75 Right Nare 75 Drainage 130 110 50 Left AKIL Drain 120 110 50 Right AKIL Drain 10 Urine Catheter Amount 1100 980 360 Other: Urine Appearance Clear Clear Clear Uretheral (Jaime) Clear Urine Color Dark Yellow Dark Yellow Dark Yellow Uretheral (Jaime) Dark Yellow A/P Time Spent With Patient Time: Total time spent is greater than 50% in coordination of care (as documented) at patient's floor/unit and/or counseling patient:
[2021-03-06 19:19] LABS: Hematocrit 25.7 % (41.0-55.0); Hemoglobin 8.3 g/dL (13.5-16.5)
[2021-03-06 19:44] LABS: Albumin 2.3 gm/dL (3.2-5.2); Blood Urea Nitrogen 44 mg/dL (8-23); Calcium 7.6 mg/dL (8.6-10.4); Carbon Dioxide 27 mmol/L (22-30); Chloride 114 mmol/L (96-108); Glomerular Filtration Rate 90; Glucose 211 mg/dL (70-105); Phosphorous 2.7 mg/dL (2.5-4.5)
[2021-03-06] MEDS ORDERED: 0.9 % SODIUM CHLORIDE 250 ML IV SCH (20:30)
[2021-03-07] MEDS: INSULIN LISPRO 1 UNIT/0.01 ML UNIT SQ SCH ×4 (00:27→18:06)
[2021-03-07] MEDS: SUCRALFATE 1 GM/10 ML ORAL.SUSP PT SCH ×4 (00:28→18:07)
[2021-03-07] MEDS: ACETAMINOPHEN 1,000 MG/100 ML BAG IV SCH ×4 (00:28→18:07)
[2021-03-07] MEDS: METOPROLOL TARTRATE 5 MG/5 ML VIAL IV SCH ×4 (00:28→18:14)
[2021-03-07] MEDS: METOCLOPRAMIDE 10 MG/2 ML VIAL IV SCH ×4 (00:28→18:06)
[2021-03-07] MEDS: DEXTROSE 5% IN WATER 1,000 ML IV SCH ×3 (04:29→17:51)
[2021-03-07] MEDS ORDERED: ALTEPLASE 2 MG VIAL IV ONE ×3 (04:57→15:30)
[2021-03-07 05:04] LABS: POC Blood Urea Nitrogen 35 mg/dL (6-20); POC CO2 23 mmol/L (22-30); POC Chloride 107 mEq/L (96-108); POC Creatinine 0.7 mg/dL (0.6-1.2); POC Glucose, Random 156 mg/dL (70-105); POC Hematocrit 27 % (41-55); POC Potassium 3.8 mEql/L (3.3-5.1); POC Sodium 145 mEq/L (133-145)
[2021-03-07] MEDS: MEROPENEM 1 GM in 0.9 % SODIUM CHLORIDE 50 ML IV SCH ×3 (05:37→22:02)
[2021-03-07 05:48] LABS: Hematocrit 27.5 % (41.0-55.0); Hemoglobin 9.1 g/dL (13.5-16.5); Mean Cell Volume 92.6 fL (80.0-100.0); Mean Corpuscular HGB Conc 33.1 g/dL (31.0-36.0); Mean Platelet Volume 12.6 fL (7.4-10.4); Platelet Count 173 K/mcL (140-440); RBC 2.97 M/mcL (4.50-5.90); Red Cell Distribution Width 15.9 % (11.5-14.5); WBC 34.4 K/mcL (4.5-11.0)
[2021-03-07 05:55] LABS: Albumin 2.3 gm/dL (3.2-5.2); Blood Urea Nitrogen 37 mg/dL (8-23); Calcium 7.6 mg/dL (8.6-10.4); Carbon Dioxide 26 mmol/L (22-30); Chloride 110 mmol/L (96-108); Glomerular Filtration Rate 90; Glucose 155 mg/dL (70-105); Phosphorous 2.4 mg/dL (2.5-4.5)
[2021-03-07 06:19] LABS: Anisocytosis 1+ (None Seen); Band Neutrophils % 14 % (0-10); Basophilic Stippling 1+ (None Seen); Eosinophils % (Manual) 1 % (0-7); Lymphocytes % 2 % (15-49); Monocytes % (Manual) 1 % (1-12); Nucleated Red Blood Cells 5 % (0-0); Platelet Estimate NORMAL (Normal); Polychromasia 1+ (None Seen); RBC Morphology ABNORMAL (Normal); Segmented Neutrophils % 82 % (38-78)
[2021-03-07] MEDS: LACTOPEROXI/GLUC OXID/POT THIO 1 EACH GEL..EA. TOPICAL PRN ×2 (07:24)
[2021-03-07] MEDS: PANTOPRAZOLE 40 MG VIAL IV SCH ×2 (07:24→18:06)
--- NOTE | 2021-03-07 07:27 | Internal Med Progress Note ---
SUBJECTIVE Subjective Patient information: Note initiated : 03/07/21 at 7:23 am Service Date, if different from initiated Date: [] Patient: Tommy Márquez 80 y/o M admitted on 02/18/21 for abdominal pain. Chief Complaint: [] Principal diagnosis: small bowel perforation with peritonitis; partial small bowel obstruction; Interval history: Principal diagnosis: small bowel perforation with peritonitis; partial small bowel obstruction Interval history: 02/27 Patient is 80 years old male admitted on 02/18/2021 with abdominal pain under surgery service. Patient was diagnosed with Incarcerated right inguinal hernia with small bowel obstruction. performed Right inguinal hernia repair on 02/20/21. He found pt has Tightly incarcerated small bowel with venous compression, but no ischemia. The pt was doing well and was on diet. On 02/27 early am pt developed new onset atrial fibrillation with RVR. Patient was hypotensive as well. I gave him Cardizem 10 mg X1 and transfer him to ICU. Currently patient seems septic. His blood pressure is in the 80s. Patient has no fever. Heart rate ranges between [id number]. Patient is more hypoxic and required 6 L oxygen. His white count is elevated 15.8. His abdominal exam show moderate distention with very sluggish bowel sounds. Chief complaint: Abdominal pain, New onset A.fib with RVR Reason for consult: Same as abov 02/28 Interval history: pt remained intubated. No overnight issues. NG has Coffee ground emesis. On minimal Vent support. Follows commands. Daughter at bedside. No fever. BP stable now. Was briefly on Levophed last night but now off. HR ~ 100. follows commands of sedation holiday. 03/02 Interval history: Patient was extubated yesterday. Currently he is on 2 L oxygen follows commands. His heart rate is around 100. He has no fever. He has coffee-ground emesis via NG. He received 2 packed RBC yesterday. He is hemodynamically stable on 2 L oxygen. No significant events overnight 03/04 Interval history: Pt dropped Hb to 6.7 despint 2PRBC. Still having Coffee G emesis. He is on 2-3 L O2. HR in 100s. Started Digoxin IV yesterday. Ordered PRBCs and plan for EGD today. He is on PPI IV Bid. 03/05 Was able to sit at the side of the bed for several minutes this morning but did tire him out. Currently resting. Awakens. No new complaints. D5 water and follow-up sodium, sodium still elevated. Follow-up with afternoon. No BMs. 03/06 Patient was on 4L oxygen mask yesterday but it was on 8 this morning. Patient appeared labored and put on BiPAP at 50%. After clearing out thick oral secretions. Nursing staff was much more judicious with pain medications yesterday and I further decreased today. Chest CT with b/l pneumonia superimposed on moderate emphysema. 03/07 Patient is on oxymask at 15 but states he overall feels little better, denies dyspnea. will try vapotherm. Has headache but denies other complaints. Review of Systems: denies fever/chills/nausea/vomiting/chest pain/diarrhea. Otherwise see above. Constitutional Vitals: Vital Signs Temp Pulse Resp BP Pulse Ox 100.1 F H 91 H 33 H 120/62 95 03/07/21 07:01 03/07/21 07:01 03/07/21 07:01 03/07/21 07:01 03/07/21 07:01 Period Temp Pulse Resp BP Sys/Beckford Pulse Ox Last 24 Hr 99.1 F-101.5 F 25-126 16-40 84-146/52-107 88-98 Intake and Output 03/06/21 03/07/21 03/07/21 21:59 05:59 13:59 Intake Total 2576 2472 100 Output Total 1160 1320 80 Balance 1416 1152 20 Weight 74.888 kg Intake & Output: Intake & Output 03/06/21 03/07/21 03/07/21 21:59 05:59 13:59 Intake Total 2576 2472 100 Output Total 1160 1320 80 Balance 1416 1152 20 Weight 74.888 kg Intake: IV 2576 2147 100 Calcium Gluconate 20 Meq 488 Potassium Phosphate 120 Meq Infuvite Adult 10 ml In Clinimix 5%-20% Solution 2,000 ml @ 65 mls/hr IV DAILY@1100 [facility] Rx#:[id number] Dextrose 5% in Water 1,000 ml @ 1911996 200 mls/hr IV .Q5H [facility] Rx#: [id number] Intralipid 20% 250 ml @ 25 mls/ 20 hr IV MoWeFr@1600 [facility] Rx#: [id number] Merrem 1 gm In Sodium Chloride 50 50 0.9% 50 ml @ 100 mls/hr IV Q8H [facility] Rx#:[id number] Tube Feeding 0 0 Blood Product 325 Output: Gastric Drainage 350 500 Right Nare 350 500 Drainage 50 150 Left AKIL Drain 50 120 Right AKIL Drain 30 Urine Catheter Amount 760 670 80 Other: Urine Appearance Clear Clear Clear Urine Color Dark Yellow Dark Yellow Dark Yellow Stool Size Moderate Small Small Stool Color Black Black Black Stool Consistency Liquid Liquid Liquid # of times incontinent of 1 Bowels Exam: General: Awake, No acute Distress Eyes/N/T: EOMI, Head/Neck: neck supple, CV: regular at this time, No murmurs, Pulm: diminished b/l, no wheezing Abd: soft, tender decreased BS x4, NGT Ext: no clubbing/cyanosis/edema to LE but edema to UE and hips Neuro: awakens to voice but drowsy, no focal deficits, moves all extremities, Skin: warm/dry OBJ DATA Labs CBC & Chem 7: 03/07/21 04:55 03/07/21 04:56 Labs: Abnormal Lab Results 03/07/21 03/07/21 03/06/21 04:56 04:55 18:39 WBC 34.4 H* RBC 2.97 L Hgb 9.1 L 8.3 L Hct 27.5 L 25.7 L POC Hct 27 L RDW 15.9 H MPV 12.6 H Seg Neutrophils % 82 H Band Neutrophils % 14 H Lymphocytes % 2 L Nucleated RBCs 5 H RBC Morphology Abnormal A Polychromasia 1+ A Hypochromasia Basophilic Stippling 1+ A Anisocytosis 1+ A POC Sodium Sodium POC Chloride Chloride 110 H Anion Gap 6.0 L POC BUN 35 H BUN 37 H Glucose 155 H POC Glucose 156 H Calcium 7.6 L POC WB Ioniz Calcium Phosphorus 2.4 L Direct Bilirubin AST Lactate Dehydrogenase Total Protein Albumin 2.3 L Globulin Prealbumin 03/06/21 03/06/21 03/06/21 18:39 13:57 10:15 WBC RBC Hgb Hct POC Hct 25 L 25 L RDW MPV Seg Neutrophils % Band Neutrophils % Lymphocytes % Nucleated RBCs RBC Morphology Polychromasia Hypochromasia Basophilic Stippling Anisocytosis POC Sodium 150 H 151 H Sodium 146 H POC Chloride 112 H 113 H Chloride 114 H Anion Gap 5.0 L POC BUN 42 H 44 H BUN 44 H Glucose 211 H POC Glucose 156 H 185 H Calcium 7.6 L POC WB Ioniz Calcium Phosphorus Direct Bilirubin AST Lactate Dehydrogenase Total Protein Albumin 2.3 L Globulin Prealbumin 03/06/21 03/06/21 03/06/21 05:27 05:27 05:27 WBC 31.3 H* RBC 2.96 L Hgb 9.1 L Hct 27.8 L POC Hct RDW 15.5 H MPV 12.7 H Seg Neutrophils % 83 H Band Neutrophils % Lymphocytes % 6 L Nucleated RBCs 3 H RBC Morphology Abnormal A Polychromasia Hypochromasia 1+ A Basophilic Stippling Anisocytosis Rare A POC Sodium Sodium 149 H POC Chloride Chloride 117 H Anion Gap 4.0 L POC BUN BUN 48 H Glucose 140 H POC Glucose Calcium 7.7 L POC WB Ioniz Calcium Phosphorus Direct Bilirubin 0.3 H AST 59 H Lactate Dehydrogenase 379 H Total Protein 4.2 L Albumin 2.4 L Globulin 1.8 L Prealbumin 10.1 L 03/05/21 03/05/21 03/05/21 21:41 17:29 14:43 WBC RBC Hgb 7.6 L Hct 23.2 L POC Hct 25 L 22 L RDW MPV Seg Neutrophils % Band Neutrophils % Lymphocytes % Nucleated RBCs RBC Morphology Polychromasia Hypochromasia Basophilic Stippling Anisocytosis POC Sodium 153 H 155 H Sodium POC Chloride 114 H 117 H Chloride Anion Gap POC BUN 50 H 53 H BUN Glucose POC Glucose 138 H 137 H Calcium POC WB Ioniz Calcium 1.12 L Phosphorus Direct Bilirubin AST Lactate Dehydrogenase Total Protein Albumin Globulin Prealbumin 03/05/21 03/05/21 03/05/21 14:43 05:00 04:59 WBC 26.4 H RBC 2.80 L Hgb 8.4 L Hct 25.7 L POC Hct 21 L* RDW 16.0 H MPV 12.9 H Seg Neutrophils % 79 H Band Neutrophils % 11 H Lymphocytes % 3 L Nucleated RBCs 4 H RBC Morphology Abnormal A Polychromasia Rare A Hypochromasia 1+ A Basophilic Stippling Anisocytosis 1+ A POC Sodium 155 H Sodium 155 H POC Chloride 116 H Chloride 124 H Anion Gap 3.0 L POC BUN 55 H BUN 59 H Glucose 198 H POC Glucose 175 H Calcium 7.8 L POC WB Ioniz Calcium Phosphorus Direct Bilirubin AST 50 H Lactate Dehydrogenase 316 H Total Protein 4.3 L Albumin 2.5 L Globulin 1.8 L Prealbumin 8.2 L 03/05/21 03/04/21 03/04/21 00:22 17:56 17:56 WBC 22.5 H RBC 3.08 L Hgb 8.8 L 9.4 L Hct 25.8 L 27.7 L POC Hct RDW 15.6 H MPV 12.6 H Seg Neutrophils % Band Neutrophils % Lymphocytes % Nucleated RBCs RBC Morphology Polychromasia Hypochromasia Basophilic Stippling Anisocytosis POC Sodium Sodium 155 H POC Chloride Chloride 123 H Anion Gap 4.0 L POC BUN BUN 69 H Glucose 299 H POC Glucose Calcium 7.7 L POC WB Ioniz Calcium Phosphorus Direct Bilirubin AST Lactate Dehydrogenase Total Protein Albumin Globulin Prealbumin 03/04/21 03/04/21 14:08 05:00 WBC RBC Hgb 9.7 L Hct 28.7 L POC Hct RDW MPV Seg Neutrophils % Band Neutrophils % Lymphocytes % Nucleated RBCs RBC Morphology Polychromasia Hypochromasia Basophilic Stippling Anisocytosis POC Sodium Sodium POC Chloride Chloride Anion Gap POC BUN BUN Glucose POC Glucose Calcium POC WB Ioniz Calcium Phosphorus Direct Bilirubin AST Lactate Dehydrogenase Total Protein Albumin Globulin Prealbumin 7.4 L Meds: Medications Albuterol/Ipratropium (Ipratropium/Albuterol 3 Ml Ampul.Neb) 3 ml NEB Q8H [facility] Last Admin: 03/06/21 22:15 Dose: 3 ml Documented by: Benzocaine (Benzocaine 1 Emerson Bottle) 1 spray TOPICAL Q2HP PRN PRN Reason: Sore Throat Last Admin: 03/06/21 03:05 Dose: 1 spray Documented by: Chlorhexidine Gluconate (Chlorhexidine Gluconate 1 Ml Oral.Erlinda) 15 ml SWABMOUTH BID [facility] Last Admin: 03/06/21 21:39 Dose: 15 ml Documented by: Diagnostic Test (Pha) (Accu-Chek 1 Each Strip) 1 each FS Q6 [facility] Last Admin: 03/07/21 05:37 Dose: 1 each Documented by: Famotidine (Famotidine/Pf 20 Mg/2 Ml Vial) 40 mg IV Q12 [facility] Last Admin: 03/06/21 21:39 Dose: 40 mg Documented by: Fentanyl (Fentanyl 100 Mcg/2 Ml Vial) 12.5 - 25 mcg IV Q2HP PRN; Protocol PRN Reason: Per Pain Protocol Last Admin: 03/06/21 23:29 Dose: 12.5 mcg Documented by: Glucose Oxid/Lactoperoxid/Muramidas (Lactoperoxi/Gluc Oxid/Pot Thio 1 Each Gel..Ea.) 1 each TOPICAL PRN PRN PRN Reason: Dry Mouth Last Admin: 03/06/21 19:00 Dose: 1 each Documented by: Acetaminophen (Ofirmev) 1,000 mg in 100 mls @ 200 mls/hr IV Q6H [facility]; Protocol Last Infusion: 03/07/21 06:08 Dose: Infused Documented by: Fluconazole (Diflucan) 400 mg in 200 mls @ 100 mls/hr IV DAILY [facility] Last Infusion: 03/06/21 13:19 Dose: Infused Documented by: Meropenem 1 gm/ Sodium (Chloride) 50 mls @ 100 mls/hr IV Q8H [facility]; Protocol Last Admin: 03/07/21 05:37 Dose: 100 mls/hr Documented by: Dextrose (Dextrose 5% In Water) 1,000 mls @ 200 mls/hr IV .Q5H [facility] Stop: 03/07/21 12:48 Last Admin: 03/07/21 04:29 Dose: 200 mls/hr Documented by: Sodium Chloride (Sodium Chloride 0.9%) 250 mls @ 20 mls/hr IV .[id number] [facility] Stop: 03/07/21 08:59 Last Admin: 03/06/21 20:35 Dose: 20 mls/hr Documented by: Insulin Human Lispro (Insulin Lispro 1 Unit/0.01 Ml Unit) 0 unit SQ Q6 [facility]; Protocol Last Admin: 03/07/21 05:37 Dose: 2 unit Documented by: Labetalol HCl (Labetalol 5 Mg/Ml Ml) 0 mg IV Q2HP PRN PRN Reason: Hypertension Metoclopramide HCl (Metoclopramide 10 Mg/2 Ml Vial) 10 mg IV Q6 [facility] Last Admin: 03/07/21 05:39 Dose: 10 mg Documented by: Metoprolol Tartrate (Metoprolol Tartrate 5 Mg/5 Ml Vial) 5 mg IV Q6H [facility] Last Admin: 03/07/21 05:38 Dose: 5 mg Documented by: Metoprolol Tartrate (Metoprolol Tartrate 5 Mg/5 Ml Vial) 5 mg IV Q2HP PRN PRN Reason: Tachyarrhythmias HR>110 Last Admin: 03/06/21 11:37 Dose: 5 mg Documented by: Nystatin (Nystatin 500,000 Units/5 Ml Oral.Susp) 500,000 units SSW QID [facility] Last Admin: 03/06/21 21:39 Dose: 500,000 units Documented by: Ondansetron HCl (Ondansetron 4 Mg/2 Ml Vial) 4 mg IV Q6HP PRN PRN Reason: Nausea And Vomiting Last Admin: 03/06/21 03:12 Dose: 4 mg Documented by: Pantoprazole Sodium (Pantoprazole 40 Mg Vial) 40 mg IV BIDAC [facility] Last Admin: 03/06/21 17:28 Dose: 40 mg Documented by: Sucralfate (Sucralfate 1 Gm/10 Ml Oral.Susp) 1 gm PT Q6 [facility] Last Admin: 03/07/21 05:37 Dose: 1 gm Documented by: A/P Narrative A/P Narrative: A/P Narrative: A: *Incarcerated right inguinal hernia w/small bowel obstruction: s/p inguinal repair (02/20) *Acute peritonitis w/perforated viscus: s/p Ex lap with adhesiolysis (02/27) -worsened leukocytosis, monitor fluid pocket on CT *UGIB: 2/2 gastric/duodenal ulcers and duodenitis found on EGD (03/04) -s/p PRBC's *Acute blood loss anemia: 2/2 above. H&H stable *Septic shock: resolved -febrile o/n *Bacteremia (Bacteroides Fragilis (1/4 bottles): Repeat BX 03/02 neg *Aspiration PNA w/mucous plugging: -IS/Acapella * Acute Hypoxic resp failure: 2/2 aspiration PNA & pleural effusion -intubated 02/27 for surgey and left intubated until 03/01 -on high-flow oxymask, *New onset atrial fibrillation w/RVR: In & out of A.Fib - No history of atrial fibrillation. trop neg. - echo good EF no diastolic dysfxn *Hypernatremia: improved *Hypophosphatemia: *MARCE: 2/2 Septic Shock. resolved *Abnormal LFT: Normal GGT. High AST. Due to Above. Improved. *HTN: P: -hold sedating meds -try vapotherm, bipap if needed -IS/Acapella, airway suction prn -IV Abx per surg, abx for bacteremia finish on 03/13/2021 -PPI bid -Monitor H&H -NG tube/NPO per surg -Nephrology for sodium balance -IVF per nephro, TPN per pharm/surgery -cont BB -Hold lisinopril/HCTZ for marce, prn hydralazine -prn lasix -pt/to when able -Started TPN 03/01/21, npo -PPX: SCD (Heparin sq bid on hold due to GIB)/ppi Time Spent With Patient Time: Total time spent is greater than 50% in coordination of care (as do cumented) at patient's floor/unit and/or counseling patient: QUALITY Stroke Symptom Onset Unknown: No VTE Deep Vein Thrombosis/Pulmonary Embolism Present on Admission: No
[2021-03-07] MEDS: IPRATROPIUM/ALBUTEROL 3 ML AMPUL.NEB NEB SCH ×4 (07:29→21:13)
--- NOTE | 2021-03-07 08:23 | Nephrology Progress Note ---
SUBJECTIVE Subjective Patient information: Note initiated : 03/07/21 at 8:20 am Service Date, if different from initiated Date: [] Patient: Tommy Márquez 80 y/o M admitted on 02/18/21 for abdominal pain. Chief Complaint: [as above] Asked to see patient with hyponatremia in the setting of hypertonic (TPN) IV fluid administration, normal saline and Ringer's lactate administration, free water losses via NG suction and third spacing due to his primary gastrointestinal issues. Peak serum sodium was 157 and had improved to the high 140s but no further. Plan is to hold TPN for 24 hours while replacing his free water deficit with D5W. Afterward she can restart TPN and use additional D5W so the patient receives at least 125 cc an hour of IV fluids as long as he is n.p.o. 03/07/21 04:56 Sodium 142 Potassium 3.9 Chloride 110 H Carbon Dioxide 26 BUN 37 H Creatinine 0.7 GFR Calculation 90 Glucose 155 H Calcium 7.6 L Phosphorus 2.4 L Magnesium 2.1 Principal diagnosis: small bowel perforation with peritonitis; partial small bowel obstruction; Constitutional Vitals: Vital Signs Temp Pulse Resp BP Pulse Ox 37.8 C H 90 30 H 120/62 91 03/07/21 07:01 03/07/21 07:41 03/07/21 07:48 03/07/21 07:01 03/07/21 07:48 Period Temp Pulse Resp BP Sys/Beckford Pulse Ox Last 24 Hr 37.3 C-38.6 C 25-126 20-40 84-146/52-107 86-98 Intake and Output 03/06/21 03/07/21 03/07/21 21:59 05:59 13:59 Intake Total 2576 2472 150 Output Total 1160 1320 80 Balance 1416 1152 70 Weight 74.888 kg Intake & Output: Intake & Output 03/06/21 03/07/21 03/07/21 21:59 05:59 13:59 Intake Total 2576 2472 150 Output Total 1160 1320 80 Balance 1416 1152 70 Weight 74.888 kg Intake: IV 4202 2137 150 Calcium Gluconate 20 Meq 488 Potassium Phosphate 120 Meq Infuvite Adult 10 ml In Clinimix 5%-20% Solution 2,000 ml @ 65 mls/hr IV DAILY@1100 [facility] Rx#:[id number] Dextrose 5% in Water 1,000 ml @ 1918 1996 200 mls/hr IV .Q5H [facility] Rx#: [id number] Intralipid 20% 250 ml @ 25 mls/ 20 hr IV MoWeFr@1600 [facility] Rx#: [id number] Merrem 1 gm In Sodium Chloride 50 50 50 0.9% 50 ml @ 100 mls/hr IV Q8H [facility] Rx#:[id number] Tube Feeding 0 0 Blood Product 325 Output: Gastric Drainage 350 500 Right Nare 350 500 Drainage 50 150 Left AKIL Drain 50 120 Right AKIL Drain 30 Urine Catheter Amount 760 670 80 Other: Urine Appearance Clear Clear Clear Urine Color Dark Yellow Dark Yellow Dark Yellow Stool Size Moderate Small Small Stool Color Black Black Black Stool Consistency Liquid Liquid Liquid # of times incontinent of 1 Bowels Exam: General: Awake, No acute Distress Eyes/N/T: EOMI, Head/Neck: neck supple, CV: regular at this time, No murmurs, Pulm: diminished b/l, no wheezing Abd: soft, tender decreased BS x4, NGT Ext: no clubbing/cyanosis/edema to LE but edema to UE and hips Neuro: awakens to voice but drowsy, no focal deficits, moves all extremities, Skin: warm/dry A/P Assessment and plan (1) Hyperosmolality and hypernatremia: Status: Acute Comment: Initially salt loaded with saline and LR IVF GI vol loss with NG suction GI 3rd spacing Basically free H2O deficit of over 4 L occurred. He did not receive anywhere close to 4 L of hypotonic IV fluids (D5W). Actually had hyperosmolar IV fluids in the form of TPN and peripheral nutrition which would serve to worsen the free water deficit Recommendations: 1. Restarted TPN 2. Use D5W to replace free water deficit with D5W at 50 to 100 cc/hr adjusting rate to maintain serum Na 135-145 range. This is in addition to his TPN. 3. Serial electrolyte replacement with potassium magnesium and phosphorus 4. Serial labs as you were doing. 5. Avoid RAASI therapy while this ill and at risk for volume contraction 6. Reconsult prn Narrative A/P Narrative: * Free water deficit has been corrected * You may restart TPN at will * I would recommend a continued source of free water in the form of D5W around 50 cc/min and adjust the rate up or down to maintain a serum sodium as desired * Continue to replace potassium, phosphorus, magnesium * I will sign off for now... reconsult as needed Time Spent With Patient Time: Total time spent is greater than 50% in coordination of care (as documented) at patient's floor/unit and/or counseling patient:
--- NOTE | 2021-03-07 08:25 | XRay Report ---
HISTORY: Follow-up pneumonia Findings: There are severe infiltrates throughout both lungs with relative sparing of the apices. These are superimposed upon underlying emphysema. The bilateral pleural effusions seen on the preceding chest CT are difficult to visualize on this semierect chest x-ray. They have not enlarged. Heart size is within normal limits. NG tube, right internal jugular line and subdiaphragmatic drain remain well-positioned. There is no pneumothorax or mediastinal widening. IMPRESSION: Stable severe bilateral pneumonia Interpreted and Authenticated by: Jb Cavazos 03/07/21
[2021-03-07] MEDS ORDERED: TPN PER PHARMACY IV ONE ×2 (08:28→15:30)
[2021-03-07] MEDS ORDERED: DEXTROSE 5% IN WATER 1,000 ML IV SCH (08:45)
[2021-03-07] MEDS: FLUCONAZOLE 400 MG/200 ML BAG IV SCH (08:47)
[2021-03-07] MEDS: CHLORHEXIDINE GLUCONATE 1 ML ORAL.SOL SWABMOUTH SCH ×2 (09:20→21:54)
[2021-03-07] MEDS: NYSTATIN 500,000 UNITS/5 ML ORAL.SUSP SSW SCH ×4 (09:20→21:54)
[2021-03-07] MEDS: FAMOTIDINE/PF 20 MG/2 ML VIAL IV SCH ×2 (09:20→21:53)
[2021-03-07] MEDS ORDERED: TPN PER PHARMACY IV SCH ×2 (10:00→15:30)
[2021-03-07] MEDS ORDERED: [UNRECOGNIZED DRUG - REMARK] IV SCH (11:00)
[2021-03-07] MEDS ORDERED: fentaNYL 100 MCG/2 ML VIAL IV ONE ×4 (12:52→15:30)
[2021-03-07] MEDS ORDERED: ONDANSETRON 4 MG/2 ML VIAL IV ONE ×4 (12:52→15:30)
[2021-03-07] MEDS ORDERED: fentaNYL 100 MCG/2 ML VIAL IV PRN (13:04)
[2021-03-07] MEDS ORDERED: PROPOFOL 1,000 MG in PREMIX 1 BAG IV SCH (13:15)
[2021-03-07] MEDS ORDERED: MIDAZOLAM 5 MG/5 ML VIAL IV ONE ×2 (13:22→15:30)
[2021-03-07] MEDS ORDERED: ROCURONIUM 10 MG/ML ML IV ONE ×2 (13:23→15:30)
[2021-03-07] MEDS ORDERED: 0.9 % SODIUM CHLORIDE 250 ML IV ONE ×2 (13:30→15:30)
--- NOTE | 2021-03-07 13:30 | Procedure Note ---
PROC Intubation Time out performed: Yes Date of Procedure: 03/07/21 Sedative: Versed Paralytic: Rocuronium ETT: ETCO2 Laryngoscope: Medardo ET tube size: 8 ET tube uncuffed: Yes Tube secured depth (cm): 26 Tube placement confirmation: visualized tube passing through cords # of Attempts: 1 Patient tolerated procedure: well Additional comments: Patient severely debilitated and weak, not clearing secretions no gag increasing FiO2 need.
[2021-03-07] MEDS ORDERED: 0.9 % SODIUM CHLORIDE 250 ML IV SCH (13:45)
--- NOTE | 2021-03-07 13:54 | XRay Report ---
HISTORY: FINDINGS: Endotracheal tube has been inserted. This is well-positioned in the midthoracic trachea. There is no widening in the mediastinum or pneumothorax. Severe pneumonia is again seen bilaterally with the greatest involvement in the head and lower two thirds. Heart size is normal. The pneumonia has become worse since 7:20 AM today. The greatest progression is in the central portion of the left lung.. IMPRESSION: No complication following intubation. Severe, worsening bilateral pneumonia Interpreted and Authenticated by: Jb Cavazos 03/07/21
[2021-03-07] MEDS: fentaNYL 100 MCG/2 ML VIAL IV PRN ×2 (14:45→22:25)
[2021-03-07] MEDS ORDERED: LACTATED RINGERS 1,000 ML IV ONE ×2 (14:45→15:35)
[2021-03-07] MEDS ORDERED: LABETALOL 5 MG/ML ML IV PRN (15:30)
[2021-03-07] MEDS ORDERED: LACTOPEROXI/GLUC OXID/POT THIO 1 EACH GEL..EA. TOPICAL PRN (15:30)
[2021-03-07] MEDS ORDERED: BENZOCAINE 1 SPRAY BOTTLE TOPICAL PRN (15:30)
[2021-03-07] MEDS ORDERED: IOPAMIDOL 100 ML BOTTLE IV ONE (15:30)
[2021-03-07] MEDS ORDERED: ONDANSETRON 4 MG/2 ML VIAL IV PRN (15:30)
[2021-03-07] MEDS ORDERED: SODIUM CHLORIDE 3 % 500 ML IV ONE (16:00)
[2021-03-07] MEDS: NOREPINEPHRINE BITARTRATE 16 MG in 0.9 % SODIUM CHLORIDE 234 ML IV SCH (16:30)
[2021-03-07] MEDS ORDERED: ALBUMIN HUMAN 12.5 GM/50 ML BAG IV ONE ×2 (16:34→21:00)
[2021-03-07] MEDS: 0.9 % SODIUM CHLORIDE 250 ML IV SCH ×2 (16:36→17:10)
--- NOTE | 2021-03-07 16:40 | General Surgery Progress Note ---
SUBJECTIVE Subjective Patient information: Note initiated : 03/07/21 at 4:35 pm Service Date, if different from initiated Date: [] Patient: Tommy Márquez 80 y/o M admitted on 02/18/21 for abdominal pain. Chief Complaint: [] Principal diagnosis: small bowel perforation with peritonitis; partial small bowel obstruction; Interval history: Patient is slightly improved compared to yesterday. He continues to have low-grade fever. His respiratory status seems to have worsened and his white blood count is increased to 34,400. Hemoglobin is stable at 9.1. Serum sodium and BUN are significantly improved. There is no evidence of blood in his nasogastric tube at this time. He has green bilious drainage without any coffee-ground material. He has had 2 large melanotic stools. Discussed findings with hospitalist who will schedule aspiration of the subhepatic collection of fluid. There is also consideration being made for aspiration of the pleural effusions. This decision will be made later during the day. Constitutional Vitals: Vital Signs Temp Pulse Resp BP Pulse Ox 99.0 F 55 L 29 H 84/55 72 L 03/07/21 16:05 03/07/21 16:05 03/07/21 16:05 03/07/21 16:05 03/07/21 16:05 Period Temp Pulse Resp BP Sys/Beckford Pulse Ox Last 24 Hr 99.0 F-101.5 F 25-126 0-48 78-146/46-107 72-100 Intake and Output 03/07/21 03/07/21 03/07/21 05:59 13:59 21:59 Intake Total 2472 1107 741 Output Total 1320 625 295 Balance 1152 482 446 Intake & Output: Intake & Output 03/07/21 03/07/21 03/07/21 05:59 13:59 21:59 Intake Total 2472 1107 741 Output Total 1320 625 295 Balance 1152 482 446 Intake: IV 2146 1107 741 Dextrose 5% in Water 1,000 ml @ 1996 857 143 200 mls/hr IV .Q5H [facility] Rx#: [id number] Lactated Ringers 1,000 ml @ 598 Wide Open IV BOLUS ONE Rx#: [id number] Merrem 1 gm In Sodium Chloride 50 50 0.9% 50 ml @ 100 mls/hr IV Q8H [facility] Rx#:[id number] Tube Feeding 0 0 Blood Product 325 Output: Gastric Drainage 500 200 Right Nare 500 200 Drainage 150 Left AKIL Drain 120 Right AKIL Drain 30 Urine Catheter Amount 670 425 295 Other: Urine Appearance Clear Clear Cloudy Uretheral (Jaime) Clear Urine Color Dark Yellow Light Louise Tea Colored Uretheral (Jaime) Light Louise Stool Size Small Large Stool Color Black Black Stool Consistency Liquid Loose # of times incontinent of 1 Bowels Head Head exam: Present atraumatic and normal inspection Eye Eye exam: Present EOMI Pupils: Present PERRL ENT ENT exam: Present mucous membranes dry, normal exam and normal oropharynx Additional comments: Dry mucous membranes are primarily due to mouth breathing Neck Neck exam: Present full ROM and normal inspection Respiratory Respiratory exam: Present rales and rhonchi Additional comments: Coarse tubular breath sounds bilaterally with labored respirations Cardiovascular Cardiovascular exam: Present normal rate and rhythm, +S1, +S2 and tachycardia; Absent JVD Additional comments: Heart rate is in the 80s and 90s. He is in sinus rhythm with an occasional ectopic ventricular beat GI/Abdominal GI/Abdominal exam: Present diminished bowel sounds and distended (Mildly distended compared to yesterday) Extremities Exam Additional comments: Diffuse edema of the extremities and trunk compatible with anasarca Neurological Exam Additional comments: Somewhat somnolent but answers questions moves all extremities to stimulation Psychiatric Psychiatric exam: Present depressed and flat affect A/P Assessment and plan (1) Acute pneumonitis: Status: Acute (2) Acute sepsis: Status: Acute (3) Upper gastrointestinal bleed: Status: Acute (4) Postoperative ileus: Status: Acute Narrative A/P Narrative: Pneumonitis is worsened and he probably will need to have reintubation Will wait to see what the fluid from the subhepatic space consists. Time Spent With Patient Time: Total time spent is greater than 50% in coordination of care (as documented) at patient's floor/unit and/or counseling patient:
--- NOTE | 2021-03-07 16:55 | Cat Scan Report ---
History: Bilateral pleural effusions and pneumonia TECHNIQUE: The patient was intubated and sedated during the procedure. CT guidance was utilized. The patient was placed in left lateral decubitus position. The chest was scanned in axial plane at 2.5 mm intervals. The right-sided pleural effusion was localized in the right paraspinal region. The skin over the right lower back was prepped with ChloraPrep then anesthetized with 1% lidocaine. Using CT guidance a multi sidehole drainage catheter was inserted into the pleural space. 610 cc of blood-tinged fluid was removed. The fluid was sent to laboratory for culture and sensitivity. Images obtained following drainage show nearly all of the pleural fluid from the right thorax has been removed. There was no pneumothorax following the procedure. The emphysema and pneumonia remain unchanged. IMPRESSION: Successful CT-guided right-sided thoracentesis removing 610 cc of blood-tinged fluid Interpreted and Authenticated by: Jb Cavazos 03/07/21
--- NOTE | 2021-03-07 16:58 | Cat Scan Report ---
History: Recent perforated bowel with abnormal loculated fluid collection in the right infrahepatic space, fever and infection TECHNIQUE: The patient was intubated and sedated during the procedure. CT guidance was utilized. The patient was placed in left lateral decubitus position. Images of the abdomen were acquired at 2.5 mm without contrast. There is a well-circumscribed 6 x 12 cm thin-walled loculated collection of fluid in the right infrahepatic space and above the right kidney. The skin over the right flank was prepped with ChloraPrep then anesthetized with 1% lidocaine. A Yueh needle was inserted and pus was aspirated. Following this small incision was made. A Chiba needle was inserted. An 018 guidewire was inserted. A catheter was then inserted and serial dilatation was performed. A 12 Malay multi sidehole drainage catheter was placed into the center of the abscess cavity. 110 cc of creamy pus was removed and sent to laboratory for aerobic and anaerobic culture and sensitivity. Images obtained following the aspiration showed most but not all of fluid had been drained. The catheter was secured to the skin surface and connected to an external Anup-Tai bulb. He tolerated the procedure well without complication. IMPRESSION: Successful drainage of a subhepatic abscess. A 12 Malay catheter was left in the abscess pocket. Interpreted and Authenticated by: Jb Cavazos 03/07/21
[2021-03-07] MEDS: PROPOFOL 1,000 MG in PREMIX 1 BAG IV SCH (17:09)
[2021-03-07] MEDS: 0.9 % SODIUM CHLORIDE 10 ML SYRINGE IV SCH ×3 (20:49→22:00)
[2021-03-07] MEDS ORDERED: CHLORHEXIDINE GLUCONATE 1 ML ORAL.SOL SWABMOUTH SCH (21:00)
[2021-03-08] MEDS: METOCLOPRAMIDE 10 MG/2 ML VIAL IV SCH ×4 (00:12→17:55)
[2021-03-08] MEDS: SUCRALFATE 1 GM/10 ML ORAL.SUSP PT SCH ×4 (00:13→17:55)
[2021-03-08] MEDS: ACETAMINOPHEN 1,000 MG/100 ML BAG IV SCH ×4 (00:16→17:55)
[2021-03-08] MEDS: METOPROLOL TARTRATE 5 MG/5 ML VIAL IV SCH ×2 (00:19→05:58)
[2021-03-08] MEDS: INSULIN LISPRO 1 UNIT/0.01 ML UNIT SQ SCH ×4 (00:28→17:55)
[2021-03-08] MEDS: fentaNYL 100 MCG/2 ML VIAL IV PRN ×4 (02:43→23:01)
[2021-03-08] MEDS: 0.9 % SODIUM CHLORIDE 250 ML IV SCH ×2 (02:54→04:54)
[2021-03-08] MEDS: LACTOPEROXI/GLUC OXID/POT THIO 1 EACH GEL..EA. TOPICAL PRN (03:59)
[2021-03-08] MEDS: 0.9 % SODIUM CHLORIDE 10 ML SYRINGE IV SCH ×5 (06:11→22:00)
[2021-03-08] MEDS: IPRATROPIUM/ALBUTEROL 3 ML AMPUL.NEB NEB SCH ×3 (06:30→20:33)
[2021-03-08 06:31] LABS: Hematocrit 23.7 % (41.0-55.0); Hemoglobin 7.4 g/dL (13.5-16.5); Mean Cell Volume 98.8 fL (80.0-100.0); Mean Corpuscular HGB Conc 31.2 g/dL (31.0-36.0); Mean Platelet Volume 12.9 fL (7.4-10.4); Platelet Count 158 K/mcL (140-440); Red Cell Distribution Width 16.6 % (11.5-14.5); WBC 29.3 K/mcL (4.5-11.0)
[2021-03-08] MEDS: MEROPENEM 1 GM in 0.9 % SODIUM CHLORIDE 50 ML IV SCH ×3 (06:36→21:37)
[2021-03-08 07:03] LABS: ALT/SGPT 24 U/L (<40); AST/SGOT 47 U/L (<40); Albumin 2.2 gm/dL (3.2-5.2); Alkaline Phosphatase 106 U/L (39-117); Bilirubin,Direct 0.4 mg/dL (<0.3); Bilirubin,Total 0.7 mg/dL (0.1-1.0); Blood Urea Nitrogen 43 mg/dL (8-23); Calcium 7.5 mg/dL (8.6-10.4); Carbon Dioxide 22 mmol/L (22-30); Chloride 111 mmol/L (96-108); Globulin 2.1 gm/dL (2.2-3.7); Glomerular Filtration Rate 72; Glucose 163 mg/dL (70-105); Lactate Dehydrogenase 524 U/L (135-225); Phosphorous 5.5 mg/dL (2.5-4.5); Triglycerides 70 mg/dL (<150); Uric Acid 2.7 mg/dL (2.5-8.0)
[2021-03-08 07:19] LABS: Anisocytosis 1+ (None Seen); Band Neutrophils % 7 % (0-10); Burr Cells RARE (None Seen); Lymphocytes % 1 % (15-49); Nucleated Red Blood Cells 2 % (0-0); Platelet Estimate NORMAL (Normal); RBC Morphology NORMAL (Normal); Segmented Neutrophils % 92 % (38-78)
[2021-03-08] MEDS ORDERED: ALBUMIN HUMAN 12.5 GM/50 ML BAG IV ONE (07:37)
--- NOTE | 2021-03-08 07:43 | Internal Med Progress Note ---
SUBJECTIVE Subjective Patient information: Note initiated : 03/08/21 at 7:30 am Service Date, if different from initiated Date: [] Patient: Tommy Márquez 80 y/o M admitted on 02/18/21 for abdominal pain. Chief Complaint: [] Principal diagnosis: small bowel perforation with peritonitis; partial small bowel obstruction; Interval history: Principal diagnosis: small bowel perforation with peritonitis; partial small bowel obstruction Interval history: 02/27 Patient is 80 years old male admitted on 02/18/2021 with abdominal pain under surgery service. Patient was diagnosed with Incarcerated right inguinal hernia with small bowel obstruction. performed Right inguinal hernia repair on 02/20/21. He found pt has Tightly incarcerated small bowel with venous compression, but no ischemia. The pt was doing well and was on diet. On 02/27 early am pt developed new onset atrial fibrillation with RVR. Patient was hypotensive as well. I gave him Cardizem 10 mg X1 and transfer him to ICU. Currently patient seems septic. His blood pressure is in the 80s. Patient has no fever. Heart rate ranges between [id number]. Patient is more hypoxic and required 6 L oxygen. His white count is elevated 15.8. His abdominal exam show moderate distention with very sluggish bowel sounds. Chief complaint: Abdominal pain, New onset A.fib with RVR Reason for consult: Same as abov 02/28 Interval history: pt remained intubated. No overnight issues. NG has Coffee ground emesis. On minimal Vent support. Follows commands. Daughter at bedside. No fever. BP stable now. Was briefly on Levophed last night but now off. HR ~ 100. follows commands of sedation holiday. 03/02 Interval history: Patient was extubated yesterday. Currently he is on 2 L oxygen follows commands. His heart rate is around 100. He has no fever. He has coffee-ground emesis via NG. He received 2 packed RBC yesterday. He is hemodynamically stable on 2 L oxygen. No significant events overnight 03/04 Interval history: Pt dropped Hb to 6.7 despint 2PRBC. Still having Coffee G emesis. He is on 2-3 L O2. HR in 100s. Started Digoxin IV yesterday. Ordered PRBCs and plan for EGD today. He is on PPI IV Bid. 03/05 Was able to sit at the side of the bed for several minutes this morning but did tire him out. Currently resting. Awakens. No new complaints. D5 water and follow-up sodium, sodium still elevated. Follow-up with afternoon. No BMs. 03/06 Patient was on 4L oxygen mask yesterday but it was on 8 this morning. Patient appeared labored and put on BiPAP at 50%. After clearing out thick oral secretions. Nursing staff was much more judicious with pain medications yesterday and I further decreased today. Chest CT with b/l pneumonia superimposed on moderate emphysema. 03/07 Patient is on oxymask at 15 but states he overall feels little better, denies dyspnea. will try vapotherm. Has headache but denies other complaints. Intubated for poor oral production. Patient severely weak and debilitated and not clearing secretions. Blood pressure became hypotensive after intubation and radiology procedure (intra-abdominal abscess drainage) and was put on vasopressors. Initial ventilator settings were 100% FiO2 and 10 of PEEP but after several hours PEEP was decreased to 8 and FiO2 was decreased to 70 with continued titration down of FiO2 because of high O2 saturations. 03/08 FiO2 now down to 45%. T-max overnight 100.4. NG tube output now bilious and not melanotic. Hemoglobin down but large component is dilutional. Patient h aving BMs now. White blood cell count now improving slowly. Bandemia now resolved. titrating down levophed. Review of Systems: Unable to gather, sedated on vent Constitutional Vitals: Vital Signs Temp Pulse Resp BP Pulse Ox 100.3 F H 88 32 H 117/49 97 03/08/21 07:01 03/08/21 07:01 03/08/21 07:01 03/08/21 07:01 03/08/21 07:01 Period Temp Pulse Resp BP Sys/Beckford Pulse Ox Last 24 Hr 98.6 F-100.4 F 32-115 0-48 78-144/40-95 72-100 Intake and Output 03/07/21 03/08/21 03/08/21 21:59 05:59 13:59 Intake Total 1299 529 756 Output Total 1175 1555 170 Balance 124 -1026 586 Weight 78.199 kg Intake & Output: Intake & Output 03/07/21 03/08/21 03/08/21 21:59 05:59 13:59 Intake Total 1299 529 756 Output Total 1175 1555 170 Balance 124 -1026 586 Weight 78.199 kg Intake: IV 1299 499 756 Sodium Chloride 0.9% 250 ml @ 246 20 mls/hr IV .[id number] [facility] Rx#: [id number] Dextrose 5% in Water 1,000 ml @ 359 38 581 75 mls/hr IV .[id number] [facility] Rx#: [id number] Lactated Ringers 1,000 ml @ 598 Wide Open IV BOLUS ONE Rx#: [id number] Merrem 1 gm In Sodium Chloride 50 50 50 0.9% 50 ml @ 100 mls/hr IV Q8H [facility] Rx#:[id number] Levophed 16 mg In Sodium 45 65 25 Chloride 0.9% 234 ml @ 10 MCG/ MIN 9.375 mls/hr IV Q24H [facility] Rx #:[id number] Diprivan 1,000 mg In Premix 1 46 Bag @ 5 MCG/KG/MIN 2.247 mls/hr IV .Q24H [facility] Rx#:[id number] Sodium Chloride 3% 500 ml @ As 1 Directed IV ONCE ONE Rx#: [id number] Tube Feeding 0 0 NG Tube Flush 30 Right Nare 30 Output: Gastric Drainage 300 175 Right Nare 300 175 Drainage 240 Left AKIL Drain 130 Right Back 20 Right AKIL Drain 90 Urine Catheter Amount 875 1140 170 Other: Urine Appearance Clear Clear Clear Uretheral (Jaime) Clear Clear Urine Color Bright Yellow Bright Yellow Bright Yellow Uretheral (Jaime) Bright Yellow Bright Yellow Stool Size Small Stool Color Green Stool Consistency Loose Exam: General: Sedated on vent, No acute Distress Eyes/N/T: PERRL Head/Neck: neck supple, CV: regular at this time, No murmurs, Pulm: diminished b/l but better on right, mild rhonchi more on left, no wheezing Abd: soft, tender decreased BS x4, NGT Ext: no clubbing/cyanosis, b/l LE edema and more so at trunk and UE's Neuro: Sedated on vent, moves extremities spontaneously Skin: warm/dry OBJ DATA Labs CBC & Chem 7: 03/08/21 05:13 03/08/21 05:13 Labs: Abnormal Lab Results 03/08/21 03/08/2103/07/21 05:13 05:13 04:56 WBC 29.3 H RBC 2.40 L Hgb 7.4 L Hct 23.7 L POC Hct 27 L RDW 16.6 H MPV 12.9 H Seg Neutrophils % 92 H Band Neutrophils % Lymphocytes % 1 L Nucleated RBCs 2 H RBC Morphology Polychromasia Hypochromasia Basophilic Stippling Anisocytosis 1+ A [place] Cells Rare A POC Sodium Sodium POC Chloride Chloride 111 H 110 H Anion Gap 6.0 L POC BUN 35 H BUN 43 H 37 H Glucose 163 H 155 H POC Glucose 156 H Calcium 7.5 L 7.6 L POC WB Ioniz Calcium Phosphorus 5.5 H 2.4 L Direct Bilirubin 0.4 H AST 47 H Lactate Dehydrogenase 524 H Total Protein 4.3 L Albumin 2.2 L 2.3 L Globulin 2.1 L Prealbumin SARS-CoV-2 IgG Ab 03/07/21 03/06/21 03/06/21 04:55 18:39 18:39 WBC 34.4 H* RBC 2.97 L Hgb 9.1 L 8.3 L Hct 27.5 L 25.7 L POC Hct RDW 15.9 H MPV 12.6 H Seg Neutrophils % 82 H Band Neutrophils % 14 H Lymphocytes % 2 L Nucleated RBCs 5 H RBC Morphology Abnormal A Polychromasia 1+ A Hypochromasia Basophilic Stippling 1+ A Anisocytosis 1+ A [place] Cells POC Sodium Sodium 146 H POC Chloride Chloride 114 H Anion Gap 5.0 L POC BUN BUN 44 H Glucose 211 H POC Glucose Calcium 7.6 L POC WB Ioniz Calcium Phosphorus Direct Bilirubin AST Lactate Dehydrogenase Total Protein Albumin 2.3 L Globulin Prealbumin SARS-CoV-2 IgG Ab 03/06/21 03/06/21 03/06/21 13:57 10:15 05:31 WBC RBC Hgb Hct POC Hct 25 L 25 L RDW MPV Seg Neutrophils % Band Neutrophils % Lymphocytes % Nucleated RBCs RBC Morphology Polychromasia Hypochromasia Basophilic Stippling Anisocytosis [place] Cells POC Sodium 150 H 151 H Sodium POC Chloride 112 H 113 H Chloride Anion Gap POC BUN 42 H 44 H BUN Glucose POC Glucose 156 H 185 H Calcium POC WB Ioniz Calcium Phosphorus Direct Bilirubin AST Lactate Dehydrogenase Total Protein Albumin Globulin Prealbumin SARS-CoV-2 IgG Ab 1.01 H 03/06/21 03/06/2103/06/21 05:27 05:27 05:27 WBC 31.3 H* RBC 2.96 L Hgb 9.1 L Hct 27.8 L POC Hct RDW 15.5 H MPV 12.7 H Seg Neutrophils % 83 H Band Neutrophils % Lymphocytes % 6 L Nucleated RBCs 3 H RBC Morphology Abnormal A Polychromasia Hypochromasia 1+ A Basophilic Stippling Anisocytosis Rare A [place] Cells POC Sodium Sodium 149 H POC Chloride Chloride 117 H Anion Gap 4.0 L POC BUN BUN 48 H Glucose 140 H POC Glucose Calcium 7.7 L POC WB Ioniz Calcium Phosphorus Direct Bilirubin 0.3 H AST 59 H Lactate Dehydrogenase 379 H Total Protein 4.2 L Albumin 2.4 L Globulin 1.8 L Prealbumin 10.1 L SARS-CoV-2 IgG Ab 03/05/21 03/05/21 03/05/21 21:41 17:29 14:43 WBC RBC Hgb 7.6 L Hct 23.2 L POC Hct 25 L 22 L RDW MPV Seg Neutrophils % Band Neutrophils % Lymphocytes % Nucleated RBCs RBC Morphology Polychromasia Hypochromasia Basophilic Stippling Anisocytosis [place] Cells POC Sodium 153 H 155 H Sodium POC Chloride 114 H 117 H Chloride Anion Gap POC BUN 50 H 53 H BUN Glucose POC Glucose 138 H 137 H Calcium POC WB Ioniz Calcium 1.12 L Phosphorus Direct Bilirubin AST Lactate Dehydrogenase Total Protein Albumin Globulin Prealbumin SARS-CoV-2 IgG Ab 03/05/21 03/05/21 14:43 04:59 WBC RBC Hgb Hct POC Hct 21 L* RDW MPV Seg Neutrophils % 79 H Band Neutrophils % 11 H Lymphocytes % 3 L Nucleated RBCs 4 H RBC Morphology Abnormal A Polychromasia Rare A Hypochromasia 1+ A Basophilic Stippling Anisocytosis 1+ A [place] Cells POC Sodium 155 H Sodium POC Chloride 116 H Chloride Anion Gap POC BUN 55 H BUN Glucose POC Glucose 175 H Calcium POC WB Ioniz Calcium Phosphorus Direct Bilirubin AST Lactate Dehydrogenase Total Protein Albumin Globulin Prealbumin SARS-CoV-2 IgG Ab Meds: Medications Albuterol/Ipratropium (Ipratropium/Albuterol 3 Ml Ampul.Neb) 3 ml NEB Q8H [facility] Last Admin: 03/08/21 06:30 Dose: 3 ml Documented by: Benzocaine (Benzocaine 1 [place] Bottle) 1 spray TOPICAL Q2HP PRN PRN Reason: Sore Throat Chlorhexidine Gluconate (Chlorhexidine Gluconate 1 Ml Oral.Erlinda) 15 ml SWABMOUTH BID [facility] Last Admin: 03/07/21 21:54 Dose: 15 ml Documented by: Diagnostic Test (Pha) (Accu-Chek 1 Each Strip) 1 each FS Q6 [facility] Last Admin: 03/08/21 05:40 Dose: 1 each Documented by: Famotidine (Famotidine/Pf 20 Mg/2 Ml Vial) 40 mg IV Q12 [facility] Last Admin: 03/07/21 21:53 Dose: 40 mg Documented by: Fentanyl (Fentanyl 100 Mcg/2 Ml Vial) 25 - 50 mcg IV Q1HP PRN; Protocol PRN Reason: Per Pain Protocol Last Admin: 03/08/21 06:11 Dose: 25 mcg Documented by: Glucose Oxid/Lactoperoxid/Muramidas (Lactoperoxi/Gluc Oxid/Pot Thio 1 Each Gel..Ea.) 1 each TOPICAL PRN PRN PRN Reason: Dry Mouth Calcium Gluconate 20 meq/Potassium Phosphate 120 meq/Multivitamins/Minerals 10 ml/Amino Acids 2,080.2834 mls @ 65 mls/hr IV DAILY@1100 [facility] Dextrose (Dextrose 5% In Water) 1,000 mls @ 75 mls/hr IV .[id number] [facility] Last Infusion: 03/08/21 07:10 Dose: 75 mls/hr Documented by: Fat Emulsion Intravenous (Intralipid 20%) 250 mls @ 25 mls/hr IV MoWeFr@1600 [facility] Fluconazole (Diflucan) 400 mg in 200 mls @ 100 mls/hr IV DAILY [facility] Sodium Chloride (Sodium Chloride 0.9%) 250 mls @ 20 mls/hr IV .[id number] [facility] Last Admin: 03/08/21 02:54 Dose: 20 mls/hr Documented by: Acetaminophen (Ofirmev) 1,000 mg in 100 mls @ 200 mls/hr IV Q6H [facility]; Protocol Last Infusion: 03/08/21 06:30 Dose: Infused Documented by: Meropenem 1 gm/ Sodium (Chloride) 50 mls @ 100 mls/hr IV Q8H [facility]; Protocol Last Infusion: 03/08/21 07:08 Dose: Infused Documented by: Propofol 1,000 mg/ Premix 100 mls @ 2.247 mls/hr IV .Q24H [facility]; Protocol Last Admin: 03/07/21 17:09 Dose: Not Given Documented by: Norepinephrine Bitartrate 16 (mg/ Sodium Chloride) 250 mls @ 9.375 mls/hr IV Q24H [facility]; Protocol Last Titration: 03/08/21 06:30 Dose: 7 mcg/min, 6.563 mls/hr Documented by: Sodium Chloride (Sodium Chloride 0.9%) 250 mls @ 20 mls/hr IV .[id number] [facility] Last Admin: 03/08/21 04:54 Dose: 20 mls/hr Documented by: Insulin Human Lispro (Insulin Lispro 1 Unit/0.01 Ml Unit) 0 unit SQ Q6 [facility]; Protocol Last Admin: 03/08/21 05:48 Dose: 4 units Documented by: Labetalol HCl (Labetalol 5 Mg/Ml Ml) 0 mg IV Q2HP PRN PRN Reason: Hypertension Metoclopramide HCl (Metoclopramide 10 Mg/2 Ml Vial) 10 mg IV Q6 [facility] Last Admin: 03/08/21 05:50 Dose: 10 mg Documented by: Metoprolol Tartrate (Metoprolol Tartrate 5 Mg/5 Ml Vial) 5 mg IV Q6H [facility] Last Admin: 03/08/21 05:58 Dose: 5 mg Documented by: Metoprolol Tartrate (Metoprolol Tartrate 5 Mg/5 Ml Vial) 5 mg IV Q2HP PRN PRN Reason: Tachyarrhythmias HR>110 Nystatin (Nystatin 500,000 Units/5 Ml Oral.Susp) 500,000 units SSW QID [facility] Last Admin: 03/07/21 21:54 Dose: 500,000 units Documented by: Ondansetron HCl (Ondansetron 4 Mg/2 Ml Vial) 4 mg IV Q6HP PRN PRN Reason: Nausea And Vomiting Pantoprazole Sodium (Pantoprazole 40 Mg Vial) 40 mg IV BIDAC [facility] Last Admin: 03/07/21 18:06 Dose: 40 mg Documented by: Sodium Chloride (0.9 % Sodium Chloride 10 Ml Syringe) 10 ml IV Q8 [facility] Last Admin: 03/08/21 06:11 Dose: Not Given Documented by: Sucralfate (Sucralfate 1 Gm/10 Ml Oral.Susp) 1 gm PT Q6 [facility] Last Admin: 03/08/21 06:28 Dose: 1 gm Documented by: A/P Narrative A/P Narrative: A/P Narrative: A: *Incarcerated right inguinal hernia w/small bowel obstruction: s/p inguinal repair (02/20) *Acute peritonitis w/perforated viscus: s/p Ex lap with adhesiolysis (02/27) -worsened leukocytosis, monitor fluid pocket on CT *Intraabdominal abscess: s/p drainage catheter placed (03/07) *Septic shock: levophed restarted after intubation/radiology procedure, titrating down -febrile o/n -improving leukocytosis *Bacteremia (Bacteroides Fragilis (09/03 bottles): *Aspiration PNA w/mucous plugging: * Acute Hypoxic resp failure: 10/02 aspiration PNA & pleural effusion -intubated 02/27 for surgey and left intubated until 03/01 -reintubated 03/07, fio2 down to 45% -thoracentesis (03/07) of 610cc *UGIB: 2/2 gastric/duodenal ulcers and duodenitis found on EGD (03/04) -prn PRBC transfusion *Acute blood loss anemia: 2/2 above. H&H stable *Volume overload/3rd spacing: *New onset atrial fibrillation w/RVR: In & out of A.Fib - No history of atrial fibrillation. trop neg. - echo good EF no diastolic dysfxn *Hypernatremia: improved *Hypophosphatemia: now Hyperphos, tpn adjustment *MARCE: 2/2 Septic Shock. resolved *Abnormal LFT: Normal GGT. High AST. Due to Above. Improved. *HTN: *Buttock pressure wound: wound care P: -weaning trials on vent, cpt/suctioning -IS/Acapella when off vent, airway suction prn -IV Abx, pending cx's from drain catheter -NG tube/diet per surg -PPI bid -Monitor H&H, prn transfusions -prn IV BB silvia restart a scheduled dose when off vasopressors -Hold lisinopril/HCTZ for marce and hypotension -prn lasix -wound care -pt/to when able -Started TPN 03/01/21, pharm to adjust for hyperphos -PPX: SCD (Heparin sq bid on hold due to GIB)/ppi Time Spent With Patient Time: Total time spent is greater than 50% in coordination of care (as documented) at patient's floor/unit and/or counseling patient: QUALITY Stroke Symptom Onset Unknown: No VTE Deep Vein Thrombosis/Pulmonary Embolism Present on Admission: No
[2021-03-08] MEDS: PANTOPRAZOLE 40 MG VIAL IV SCH ×2 (07:44→16:27)
[2021-03-08] MEDS: PROPOFOL 1,000 MG in PREMIX 1 BAG IV SCH (07:44)
--- NOTE | 2021-03-08 08:08 | XRay Report ---
HISTORY: Pneumonia, intubated FINDINGS: There are severe infiltrates throughout both lungs. The greatest consolidation is in the right lower lobe. There has been subtle improvement bilaterally since yesterday. Endotracheal tube right internal jugular line, nasogastric tube and subdiaphragmatic drainage catheters remain well-positioned. There is no pneumothorax. There is no apparent reaccumulation of the right-sided pleural effusion following yesterday's thoracentesis. IMPRESSION: Severe bilateral pneumonia which is beginning to improve Interpreted and Authenticated by: Jb Cavazos 03/08/21
[2021-03-08] MEDS: DEXTROSE 5% IN WATER 1,000 ML IV SCH (09:50)
[2021-03-08] MEDS ORDERED: FUROSEMIDE 40 MG/4 ML VIAL IV ONE (10:15)
[2021-03-08] MEDS ORDERED: HYDROCHLOROTHIAZIDE 12.5 MG CAPSULE PO ONE (10:22)
[2021-03-08] MEDS ORDERED: [UNRECOGNIZED DRUG - REMARK] IV SCH (11:00)
[2021-03-08] MEDS ORDERED: DEXTROSE 5% IN WATER 250 ML IV SCH (11:00)
[2021-03-08] MEDS ORDERED: [UNRECOGNIZED DRUG - REMARK] IV SCH (11:00)
[2021-03-08] MEDS ORDERED: [UNRECOGNIZED DRUG - REMARK] IV SCH (11:00)
[2021-03-08] MEDS: NYSTATIN 500,000 UNITS/5 ML ORAL.SUSP SSW SCH (11:02)
[2021-03-08] MEDS: DEXTROSE 5% IN WATER 250 ML IV SCH (11:05)
[2021-03-08] MEDS ORDERED: DEXTROSE 5% IN WATER 1,000 ML IV SCH (11:08)
[2021-03-08] MEDS: FAMOTIDINE/PF 20 MG/2 ML VIAL IV SCH ×2 (11:18→20:43)
[2021-03-08] MEDS: FLUCONAZOLE 400 MG/200 ML BAG IV SCH (11:19)
[2021-03-08] MEDS: CHLORHEXIDINE GLUCONATE 1 ML ORAL.SOL SWABMOUTH SCH ×2 (11:19→20:43)
[2021-03-08] MEDS ORDERED: 0.9 % SODIUM CHLORIDE 250 ML IV SCH (11:45)
[2021-03-08] MEDS ORDERED: ALTEPLASE 2 MG VIAL IV ONE ×2 (11:46→11:48)
[2021-03-08] MEDS: METOPROLOL TARTRATE 5 MG/5 ML VIAL IV PRN (13:08)
[2021-03-08] MEDS ORDERED: FAT EMULSION 20% 250 ML IV SCH ×2 (16:00)
[2021-03-08] MEDS ORDERED: FUROSEMIDE 20 MG/2 ML VIAL IV ONE (16:06)
--- NOTE | 2021-03-08 17:33 | General Surgery Progress Note ---
SUBJECTIVE Subjective Patient information: Note initiated : 03/08/21 at 5:29 pm Service Date, if different from initiated Date: [] Patient: Tommy Márquez 80 y/o M admitted on 02/18/21 for abdominal pain. Chief Complaint: [] Principal diagnosis: small bowel perforation with peritonitis; partial small bowel obstruction; Interval history: Patient is clinically improved. His temperature trending down. White blood count has decreased slightly. PaO2 is 89 on 35% FiO2. Constitutional Vitals: Vital Signs Temp Pulse Resp BP Pulse Ox 100.4 F H 86 34 H 116/59 95 03/08/21 17:01 03/08/21 17:01 03/08/21 17:01 03/08/21 17:01 03/08/21 17:01 Period Temp Pulse Resp BP Sys/Beckford Pulse Ox Last 24 Hr 98.6 F-100.8 F 32-107 24-67 94-150/40-125 81-100 Intake and Output 03/08/21 03/08/21 03/08/21 05:59 13:59 21:59 Intake Total 779 3121 84 Output Total 1251 478 2353 Balance -776 2236 -996 Weight 172 lb 6.4 oz Patient Weight 03/09/21 05:59 Weight 172 lb 6.4 oz Intake & Output: Intake & Output 03/08/21 03/08/21 03/08/21 05:59 13:59 21:59 Intake Total 779 3121 84 Output Total 2660 192 2289 Balance -776 2236 -996 Weight 172 lb 6.4 oz Intake: IV 749 3121 84 Sodium Chloride 0.9% 250 ml @ 496 284 0 20 mls/hr IV .[id number] [facility] Rx#: [id number] Calcium Gluconate 20 Meq 1519 Potassium Phosphate 60 Meq Infuvite Adult 10 ml In Clinimix 5%-20% Solution 2,000 ml @ 65 mls/hr IV DAILY@1100 [facility] Rx#:[id number] Dextrose 5% in Water 1,000 ml @ 38 871 75 mls/hr IV .[id number] [facility] Rx#: [id number] Merrem 1 gm In Sodium Chloride 50 50 50 0.9% 50 ml @ 100 mls/hr IV Q8H [facility] Rx#:[id number] Levophed 16 mg In Sodium 65 55 10 Chloride 0.9% 234 ml @ 10 MCG/ MIN 9.375 mls/hr IV Q24H [facility] Rx #:[id number] Diprivan 1,000 mg In Premix 1 92 24 Bag @ 5 MCG/KG/MIN 2.247 mls/hr IV .Q24H [facility] Rx#:[id number] Oral 0 Tube Feeding 0 0 NG Tube Flush 30 Right Nare 30 Output: Gastric Drainage 175 Right Nare 175 Drainage 240 Left AKIL Drain 130 Right Back 20 Right AKIL Drain 90 Drainage 70 110 Left AKIL Drain 30 90 Right Back 10 Right AKIL Drain 40 10 Urine Catheter Amount 1140 815 970 Other: Urine Appearance Clear Clear Clear Uretheral (Jaime) Clear Clear Clear Urine Color Bright Yellow Pale Light Louise Uretheral (Jaime) Bright Yellow Light Louise Light Louise ENT ENT exam: Present mucous membranes dry, normal exam and normal oropharynx Additional comments: Dry mucous membranes are primarily due to mouth breathing Neck Neck exam: Present full ROM and normal inspection Respiratory Respiratory exam: Present rales and rhonchi Additional comments: Coarse tubular breath sounds bilaterally with labored respirations; moderate tachypnea Cardiovascular Cardiovascular exam: Present normal rate and rhythm, +S1, +S2 and tachycardia; Absent JVD Additional comments: Heart rate is in the 80s and 90s. He is in sinus rhythm with an occasional ectopic ventricular beat Extremities Exam Additional comments: Diffuse edema of the extremities and trunk compatible with anasarca Neurological Exam Additional comments: Unable to answer questions; no evidence of motor weakness n Psychiatric Additional comments: Patient is sedated and ventilated A/P Assessment and plan (1) Acute pneumonitis: Status: Acute (2) Acute sepsis: Status: Acute (3) Upper gastrointestinal bleed: Status: Acute (4) Postoperative ileus: Status: Acute (5) Subhepatic abscess: Status: Acute Narrative A/P Narrative: Patient will be continued on present therapy and labs will be monitored in the morning Time Spent With Patient Time: Total time spent is greater than 50% in coordination of care (as doc umented) at patient's floor/unit and/or counseling patient:
--- NOTE | 2021-03-08 17:53 | Procedure Note ---
Procedures - Intubation Time out performed: Yes Date of Procedure: 03/08/21 Sedative: Ketamine Mg given: 100 Paralytic: Rocuronium ETT: ETCO2, BBS Mg given: 60 Laryngoscope: 4 Vocal Cord View: 1 ET tube uncuffed: No Tube secured depth (cm): 26 Tube secured location: lips Tube placement confirmation: visualized tube passing through cords, equal breath sounds bilaterally, no breath sounds over epigastrium, confirmation by capnometry # of Attempts: 1 Patient tolerated procedure: well, no complications Intubation complications: none Additional comments: CALL FROM DR العلي RE PAT IN ICU WITH PRESUMED CUFF LEAK. SAW PT TO EVALUATE, NO DEFINITE CUFF LEAK BUT POSSIBLE SLOW DEFLATION CAUSING EPISODIC LEAK, PLAN TO REINTUBATE. PRE MEDS, RSI, SUCTION, REINTUBATE WO DIFFICULTY DESAT OR TRAUMA. CONFIRMED WITH CAPNO AND XRAY. POSITION GOOD. TUBE SECURED. NO COMPLICATIONS. DR العلي AWARE
--- NOTE | 2021-03-08 18:02 | XRay Report ---
HISTORY: Reintubated FINDINGS: The endotracheal tube has been reinserted. The tip lies 4.3 cm above the brianna. There is no widening in the mediastinum or pneumothorax. Severe infiltrates are again seen throughout both lungs, left worse than right. The heart size is normal. There has been no significant change from the prior exam done at 6:04 AM on the same date. IMPRESSION: No complication following reintubation Interpreted and Authenticated by: Jb Cvaazos 03/08/21
[2021-03-08] MEDS: 0.9 % SODIUM CHLORIDE 10 ML SYRINGE IV PRN (19:15)
[2021-03-08] MEDS: NOREPINEPHRINE BITARTRATE 16 MG in 0.9 % SODIUM CHLORIDE 234 ML IV SCH (19:29)
[2021-03-09] MEDS: PROPOFOL 1,000 MG in PREMIX 1 BAG IV SCH ×2 (00:06→14:00)
[2021-03-09] MEDS: SUCRALFATE 1 GM/10 ML ORAL.SUSP PT SCH ×4 (00:13→18:19)
[2021-03-09] MEDS: METOCLOPRAMIDE 10 MG/2 ML VIAL IV SCH ×4 (00:13→18:21)
[2021-03-09] MEDS: ACETAMINOPHEN 1,000 MG/100 ML BAG IV SCH ×4 (00:19→18:19)
[2021-03-09] MEDS: INSULIN LISPRO 1 UNIT/0.01 ML UNIT SQ SCH ×4 (00:29→18:20)
[2021-03-09] MEDS: fentaNYL 100 MCG/2 ML VIAL IV PRN ×5 (02:45→16:51)
[2021-03-09] MEDS: 0.9 % SODIUM CHLORIDE 10 ML SYRINGE IV PRN ×2 (05:00→22:01)
[2021-03-09] MEDS: 0.9 % SODIUM CHLORIDE 10 ML SYRINGE IV SCH ×5 (05:23→21:27)
[2021-03-09] MEDS: MEROPENEM 1 GM in 0.9 % SODIUM CHLORIDE 50 ML IV SCH ×3 (05:23→21:26)
[2021-03-09 06:45] LABS: Basophils # (Auto) 0.02 K/mcL (0.00-0.20); Basophils % (Auto) 0.1 % (0.0-2.0); Eosinophils % (Auto) 0.5 % (0.0-7.0); Hematocrit 28.9 % (41.0-55.0); Hemoglobin 9.4 g/dL (13.5-16.5); Lymphocytes # (Auto) 0.44 K/mcL (1.50-4.80); Lymphocytes % (Auto) 2.2 % (15.0-49.0); Mean Cell Volume 91.7 fL (80.0-100.0); Mean Corpuscular HGB Conc 32.5 g/dL (31.0-36.0); Mean Platelet Volume 12.4 fL (7.4-10.4); Monocytes # (Auto) 0.59 K/mcL (0.10-0.90); Monocytes % (Auto) 2.9 % (1.0-12.0); Neutrophils % (Auto) 94.3 % (38.0-78.0); Platelet Count 150 K/mcL (140-440); RBC 3.15 M/mcL (4.50-5.90); Red Cell Distribution Width 16.6 % (11.5-14.5); WBC 20.1 K/mcL (4.5-11.0)
[2021-03-09] MEDS: IPRATROPIUM/ALBUTEROL 3 ML AMPUL.NEB NEB SCH ×3 (06:58→20:59)
[2021-03-09] MEDS: PANTOPRAZOLE 40 MG VIAL IV SCH ×2 (07:47→18:20)
--- NOTE | 2021-03-09 07:53 | Internal Med Progress Note ---
SUBJECTIVE Subjective Patient information: Note initiated : 03/09/21 at 7:46 am Service Date, if different from initiated Date: [] Patient: Tommy Márquez 80 y/o M admitted on 02/18/21 for abdominal pain. Chief Complaint: [] Principal diagnosis: small bowel perforation with peritonitis; partial small bowel obstruction; Interval history: Principal diagnosis: small bowel perforation with peritonitis; partial small bowel obstruction Interval history: 02/27 Patient is 80 years old male admitted on 02/18/2021 with abdominal pain under surgery service. Patient was diagnosed with Incarcerated right inguinal hernia with small bowel obstruction. performed Right inguinal hernia repair on 02/20/21. He found pt has Tightly incarcerated small bowel with venous compression, but no ischemia. The pt was doing well and was on diet. On 02/27 early am pt developed new onset atrial fibrillation with RVR. Patient was hypotensive as well. I gave him Cardizem 10 mg X1 and transfer him to ICU. Currently patient seems septic. His blood pressure is in the 80s. Patient has no fever. Heart rate ranges between 832581. Patient is more hypoxic and required 6 L oxygen. His white count is elevated 15.8. His abdominal exam show moderate distention with very sluggish bowel sounds. Chief complaint: Abdominal pain, New onset A.fib with RVR Reason for consult: Same as abov 02/28 Interval history: pt remained intubated. No overnight issues. NG has Coffee ground emesis. On minimal Vent support. Follows commands. Daughter at bedside. No fever. BP stable now. Was briefly on Levophed last night but now off. HR ~ 100. follows commands of sedation holiday. 03/02 Interval history: Patient was extubated yesterday. Currently he is on 2 L oxygen follows commands. His heart rate is around 100. He has no fever. He has coffee-ground emesis via NG. He received 2 packed RBC yesterday. He is hemodynamically stable on 2 L oxygen. No significant events overnight 03/04 Interval history: Pt dropped Hb to 6.7 despint 2PRBC. Still having Coffee G emesis. He is on 2-3 L O2. HR in 100s. Started Digoxin IV yesterday. Ordered PRBCs and plan for EGD today. He is on PPI IV Bid. 03/05 Was able to sit at the side of the bed for several minutes this morning but did tire him out. Currently resting. Awakens. No new complaints. D5 water and follow-up sodium, sodium still elevated. Follow-up with afternoon. No BMs. 03/06 Patient was on 4L oxygen mask yesterday but it was on 8 this morning. Patient appeared labored and put on BiPAP at 50%. After clearing out thick oral secretions. Nursing staff was much more judicious with pain medications yesterday and I further decreased today. Chest CT with b/l pneumonia superimposed on moderate emphysema. 03/07 Patient is on oxymask at 15 but states he overall feels little better, denies dyspnea. will try vapotherm. Has headache but denies other complaints. Intubated for poor oral production. Patient severely weak and debilitated and not clearing secretions. Blood pressure became hypotensive after intubation and radiology procedure (intra-abdominal abscess drainage) and was put on vasopressors. Initial ventilator settings were 100% FiO2 and 10 of PEEP but after several hours PEEP was decreased to 8 and FiO2 was decreased to 70 with continued titration down of FiO2 because of high O2 saturations. 03/08 FiO2 now down to 45%. T-max overnight 100.4. NG tube output now bilious and not melanotic. Hemoglobin down but large component is dilutional. Patient leyva ving BMs now. White blood cell count now improving slowly. Bandemia now resolved. titrating down levophed. 03/09 Cuff leak yesterday. ET tube changed out by anesthesiology. Brief weaning trial this morning but patient was tachypneic and uncomfortable. Leukocytosis improving. FiO2 requirement down down to 35%. Review of Systems: Unable to gather, sedated on vent Constitutional Vitals: Vital Signs Temp Pulse Resp BP Pulse Ox 99.6 F H 93 H 26 H 126/61 94 03/09/21 07:00 03/09/21 07:00 03/09/21 06:15 03/09/21 07:00 03/09/21 07:00 Period Temp Pulse Resp BP Sys/Beckford Pulse Ox Last 24 Hr 99.2 F-100.9 F 35-110 18-67 101-150/50-125 81-100 Intake and Output 03/08/21 03/09/21 03/09/21 21:59 05:59 13:59 Intake Total 1155 166 178 Output Total 1915 1468 340 Balance -061 -1302 -162 Weight 78.199 kg Intake & Output: Intake & Output 03/08/21 03/09/21 03/09/21 21:59 05:59 13:59 Intake Total 1155 166 178 Output Total 191 1468 340 Balance -346 -1302 -162 Weight 78.199 kg Intake: IV 475 166 178 Sodium Chloride 0.9% 250 ml @ 67 20 mls/hr IV .[id number] [facility] Rx#: [id number] Dextrose 5% in Water 250 ml @ 194 10 mls/hr IV .Q24H [facility] Rx#: [id number] Merrem 1 gm In Sodium Chloride 50 50 50 0.9% 50 ml @ 100 mls/hr IV Q8H [facility] Rx#:[id number] Levophed 16 mg In Sodium 18 Chloride 0.9% 234 ml @ 10 MCG/ MIN 9.375 mls/hr IV Q24H [facility] Rx #:[id number] Diprivan 1,000 mg In Premix 1 46 16 28 Bag @ 5 MCG/KG/MIN 2.247 mls/hr IV .Q24H [facility] Rx#:[id number] Tube Feeding 0 Blood Product 650 NG Tube Flush 30 Right Nare 30 Output: Gastric Drainage 25 100 Right Nare 25 100 Drainage 90 178 Left AKIL Drain 90 150 Right Back 20 Right AKIL Drain 8 Drainage 110 Left AKIL Drain 90 Right Back 10 Right AKIL Drain 10 Urine Catheter Amount 1690 1190 340 Other: Urine Appearance Clear Clear Clear Uretheral (Jaime) Clear Clear Urine Color Bright Yellow Bright Yellow Bright Yellow Uretheral (Jaime) Bright Yellow Bright Yellow Urine Odor Normal Stool Size Smear Stool Color Green Exam: General: Sedated on vent, No acute Distress Eyes/N/T: PERRL Head/Neck: neck supple, CV: regular at this time, No murmurs, Pulm: better aeration on right, rhonchi impoving, no wheezing Abd: soft, tender decreased BS x4, NGT Ext: no clubbing/cyanosis, b/l LE edema and more so at trunk and UE's Neuro: Sedated on vent, moves extremities spontaneously Skin: warm/dry OBJ DATA Labs CBC & Chem 7: 03/09/21 05:00 03/09/21 05:00 Labs: Abnormal Lab Results 03/09/21 03/08/21 03/08/21 05:00 05:13 05:13 WBC 20.1 H 29.3 H RBC 3.15 L 2.40 L Hgb 9.4 L 7.4 L Hct 28.9 L 23.7 L POC Hct RDW 16.6 H 16.6 H MPV 12.4 H 12.9 H Neut % (Auto) 94.3 H Lymph % (Auto) 2.2 L Lymph # (Auto) 0.44 L Seg Neutrophils % 92 H Band Neutrophils % Lymphocytes % 1 L Absolute Neutrophils 18.90 H Nucleated RBCs 2 H RBC Morphology Polychromasia Hypochromasia Basophilic Stippling Anisocytosis 1+ A Claude Cells Rare A POC Sodium Sodium POC Chloride Chloride 111 H Anion Gap POC BUN BUN 43 H Glucose 163 H POC Glucose Calcium 7.5 L Phosphorus 5.5 H Direct Bilirubin 0.4 H AST 47 H Lactate Dehydrogenase 524 H Total Protein 4.3 L Albumin 2.2 L Globulin 2.1 L SARS-CoV-2 IgG Ab 03/07/21 03/07/21 03/06/21 04:56 04:55 18:39 WBC 34.4 H* RBC 2.97 L Hgb 9.1 L 8.3 L Hct 27.5 L 25.7 L POC Hct 27 L RDW 15.9 H MPV 12.6 H Neut % (Auto) Lymph % (Auto) Lymph # (Auto) Seg Neutrophils % 82 H Band Neutrophils % 14 H Lymphocytes % 2 L Absolute Neutrophils Nucleated RBCs 5 H RBC Morphology Abnormal A Polychromasia 1+ A Hypochromasia Basophilic Stippling 1+ A Anisocytosis 1+ A [place] Cells POC Sodium Sodium POC Chloride Chloride 110 H Anion Gap 6.0 L POC BUN 35 H BUN 37 H Glucose 155 H POC Glucose 156 H Calcium 7.6 L Phosphorus 2.4 L Direct Bilirubin AST Lactate Dehydrogenase Total Protein Albumin 2.3 L Globulin SARS-CoV-2 IgG Ab 03/06/21 03/06/21 03/06/21 18:39 13:57 10:15 WBC RBC Hgb Hct POC Hct 25 L 25 L RDW MPV Neut % (Auto) Lymph % (Auto) Lymph # (Auto) Seg Neutrophils % Band Neutrophils % Lymphocytes % Absolute Neutrophils Nucleated RBCs RBC Morphology Polychromasia Hypochromasia Basophilic Stippling Anisocytosis [place] Cells POC Sodium 150 H 151 H Sodium 146 H POC Chloride 112 H 113 H Chloride 114 H Anion Gap 5.0 L POC BUN 42 H 44 H BUN 44 H Glucose 211 H POC Glucose 156 H 185 H Calcium 7.6 L Phosphorus Direct Bilirubin AST Lactate Dehydrogenase Total Protein Albumin 2.3 L Globulin SARS-CoV-2 IgG Ab 03/06/21 03/06/21 03/06/21 05:31 05:27 05:27 WBC RBC Hgb Hct POC Hct RDW MPV Neut % (Auto) Lymph % (Auto) Lymph # (Auto) Seg Neutrophils % 83 H Band Neutrophils % Lymphocytes % 6 L Absolute Neutrophils Nucleated RBCs 3 H RBC Morphology Abnormal A Polychromasia Hypochromasia 1+ A Basophilic Stippling Anisocytosis Rare A [place] Cells POC Sodium Sodium 149 H POC Chloride Chloride 117 H Anion Gap 4.0 L POC BUN BUN 48 H Glucose 140 H POC Glucose Calcium 7.7 L Phosphorus Direct Bilirubin 0.3 H AST 59 H Lactate Dehydrogenase 379 H Total Protein 4.2 L Albumin 2.4 L Globulin 1.8 L SARS-CoV-2 IgG Ab 1.01 H Meds: Medications Albuterol/Ipratropium (Ipratropium/Albuterol 3 Ml Ampul.Neb) 3 ml NEB Q8H [facility] Last Admin: 03/09/21 06:58 Dose: 3 ml Documented by: Benzocaine (Benzocaine 1 Henderson Bottle) 1 spray TOPICAL Q2HP PRN PRN Reason: Sore Throat Chlorhexidine Gluconate (Chlorhexidine Gluconate 1 Ml Oral.Erlinda) 15 ml SWABMOUTH BID [facility] Last Admin: 03/08/21 20:43 Dose: 15 ml Documented by: Diagnostic Test (Pha) (Accu-Chek 1 Each Strip) 1 each FS Q6 [facility] Last Admin: 03/09/21 05:40 Dose: 1 each Documented by: Famotidine (Famotidine/Pf 20 Mg/2 Ml Vial) 40 mg IV Q12 [facility] Last Admin: 03/08/21 20:43 Dose: 40 mg Documented by: Fentanyl (Fentanyl 100 Mcg/2 Ml Vial) 25 - 50 mcg IV Q1HP PRN; Protocol PRN Reason: Per Pain Protocol Last Admin: 03/09/21 05:29 Dose: 25 mcg Documented by: Glucose Oxid/Lactoperoxid/Muramidas (Lactoperoxi/Gluc Oxid/Pot Thio 1 Each Gel..Ea.) 1 each TOPICAL PRN PRN PRN Reason: Dry Mouth Last Admin: 03/08/21 08:49 Dose: 1 each Documented by: Fluconazole (Diflucan) 400 mg in 200 mls @ 100 mls/hr IV DAILY [facility] Last Infusion: 03/08/21 13:19 Dose: Infused Documented by: Acetaminophen (Ofirmev) 1,000 mg in 100 mls @ 200 mls/hr IV Q6H [facility]; Protocol Last Infusion: 03/09/21 06:10 Dose: Infused Documented by: Meropenem 1 gm/ Sodium (Chloride) 50 mls @ 100 mls/hr IV Q8H [facility]; Protocol Last Infusion: 03/09/21 06:00 Dose: Infused Documented by: Propofol 1,000 mg/ Premix 100 mls @ 2.247 mls/hr IV .Q24H [facility]; Protocol Last Titration: 03/09/21 06:35 Dose: 10 mcg/kg/min, 4.493 mls/hr Documented by: Norepinephrine Bitartrate 16 (mg/ Sodium Chloride) 250 mls @ 9.375 mls/hr IV Q24H [facility]; Protocol Last Admin: 03/08/21 19:29 Dose: Not Given Documented by: Calcium Gluconate 20 meq/Potassium Phosphate 60 meq/Multivitamins/Minerals 10 ml/Amino Acids 2,066.6471 mls @ 65 mls/hr IV DAILY@1100 [facility] Last Infusion: 03/08/21 11:50 Dose: 65 mls/hr Documented by: Dextrose (Dextrose 5% In Water) 250 mls @ 10 mls/hr IV .Q24H [facility] Last Infusion: 03/08/21 19:12 Dose: Infused Documented by: Dextrose (Dextrose 5% In Water) 250 mls @ 10 mls/hr IV .Q24H [facility] Last Admin: 03/08/21 11:05 Dose: 10 mls/hr Documented by: Dextrose (Dextrose 5% In Water) 1,000 mls @ 40 mls/hr IV .Q24H [facility] Last Infusion: 03/08/21 19:00 Dose: 40 mls/hr Documented by: Fat Emulsion Intravenous (Intralipid 20%) 250 mls @ 25 mls/hr IV MoTh@1600 [facility] Insulin Human Lispro (Insulin Lispro 1 Unit/0.01 Ml Unit) 0 unit SQ Q6 [facility]; Protocol Last Admin: 03/09/21 05:42 Dose: 2 units Documented by: Labetalol HCl (Labetalol 5 Mg/Ml Ml) 0 mg IV Q2HP PRN PRN Reason: Hypertension Metoclopramide HCl (Metoclopramide 10 Mg/2 Ml Vial) 10 mg IV Q6 [facility] Last Admin: 03/09/21 05:34 Dose: 10 mg Documented by: Metoprolol Tartrate (Metoprolol Tartrate 5 Mg/5 Ml Vial) 5 mg IV Q2HP PRN PRN Reason: Tachyarrhythmias HR>110 Last Admin: 03/08/21 13:08 Dose: 5 mg Documented by: Ondansetron HCl (Ondansetron 4 Mg/2 Ml Vial) 4 mg IV Q6HP PRN PRN Reason: Nausea And Vomiting Pantoprazole Sodium (Pantoprazole 40 Mg Vial) 40 mg IV BIDAC [facility] Last Admin: 03/08/21 16:27 Dose: 40 mg Documented by: Sodium Chloride (0.9 % Sodium Chloride 10 Ml Syringe) 10 ml IV Q8 [facility] Last Admin: 03/09/21 05:23 Dose: Not Given Documented by: Sodium Chloride (0.9 % Sodium Chloride 10 Ml Syringe) 10 ml IV Q12 [facility] Last Admin: 03/08/21 21:36 Dose: Not Given Documented by: Sodium Chloride (0.9 % Sodium Chloride 10 Ml Syringe) 10 ml IV UD PRN PRN Reason: FLUSH Last Admin: 03/09/21 05:00 Dose: 10 ml Documented by: Sucralfate (Sucralfate 1 Gm/10 Ml Oral.Susp) 1 gm PT Q6 [facility] Last Admin: 03/09/21 05:37 Dose: 1 gm Documented by: A/P Narrative A/P Narrative: A/P Narrative: A: *Incarcerated right inguinal hernia w/small bowel obstruction: s/p inguinal repair (02/20) *Acute peritonitis w/perforated viscus: s/p Ex lap with adhesiolysis (02/27) *Intraabdominal abscess: s/p drainage catheter placed (03/07) *Septic shock: resolved -fever curve improving -improving leukocytosis *Bacteremia (Bacteroides Fragilis (1/4 bottles): *Aspiration PNA w/mucous plugging: *Acute Hypoxic resp failure: 2/2 aspiration PNA & Pleural effusion (right thora 610cc on 03/07) -intubated 02/27 for surgey and left intubated until 03/01 -poor lung compliance (30's) d/t volume overload -reintubated 03/07, fio2 down to 35% *UGIB: 2/2 gastric/duodenal ulcers and duodenitis found on EGD (03/04) -prn PRBC transfusion *Acute blood loss anemia: 2/2 above. H&H stable *Volume overload/3rd spacing: *New onset atrial fibrillation w/RVR: In & out of A.Fib - No history of atrial fibrillation. trop neg - echo good EF no diastolic dysfxn *Hypernatremia: improved *Hypophosphatemia: now Hyperphos, tpn adjustment *MARCE: 2/2 Septic Shock. resolved *Abnormal LFT: Normal GGT. High AST. Due to Above. Improved. *HTN: *Buttock pressure wound: wound care P: -weaning trials on vent, cpt/suctioning -IS/Acapella when off vent, airway suction prn -IV lasix today and likely needs a few day of IV diuresis -IV Abx, pending cx's from drain catheter -NG tube/diet per surg -PPI bid -Monitor H&H, prn transfusions -prn IV ZULAY vega restart a scheduled dose when off vasopressors -Hold lisinopril/HCTZ for marce and hypotension -wound care -pt/to when able -Started TPN 03/01/21, pharm to adjust for hyperphos -PPX: SCD (Heparin sq bid on hold due to GIB)/ppi Time Spent With Patient Time: Total time spent is greater than 50% in coordination of care (as documented) at patient's floor/unit and/or counseling patient: QUALITY Stroke Symptom Onset Unknown: No VTE Deep Vein Thrombosis/Pulmonary Embolism Present on Admission: No
[2021-03-09 07:56] LABS: ALT/SGPT 64 U/L (<40); AST/SGOT 125 U/L (<40); Albumin 2.2 gm/dL (3.2-5.2); Alkaline Phosphatase 133 U/L (39-117); Bilirubin,Direct 0.8 mg/dL (<0.3); Bilirubin,Total 1.1 mg/dL (0.1-1.0); Blood Urea Nitrogen 54 mg/dL (8-23); Calcium 7.9 mg/dL (8.6-10.4); Carbon Dioxide 25 mmol/L (22-30); Chloride 108 mmol/L (96-108); Globulin 2.2 gm/dL (2.2-3.7); Glomerular Filtration Rate 57; Glucose 127 mg/dL (70-105); Lactate Dehydrogenase 363 U/L (135-225); Phosphorous 5.9 mg/dL (2.5-4.5); Triglycerides 50 mg/dL (<150)
[2021-03-09] MEDS ORDERED: FUROSEMIDE 40 MG/4 ML VIAL IV ONE ×2 (08:29→16:00)
[2021-03-09] MEDS ORDERED: ALBUMIN HUMAN 12.5 GM/50 ML BAG IV ONE ×2 (08:29→16:00)
[2021-03-09] MEDS ORDERED: DEXTROSE 5% IN WATER 1,000 ML IV SCH ×2 (08:30→11:30)
--- NOTE | 2021-03-09 08:49 | XRay Report ---
HISTORY: Pneumonia, intubated FINDINGS: Severe infiltrates are present in both lungs superimposed upon underlying emphysema. There may be a small right-sided pleural effusion. No pneumothorax is present. The heart size is normal. The support tubes remain well-positioned. Comparison with prior exam from 03/08/21 shows little change. IMPRESSION: Stable severe bilateral pneumonia Interpreted and Authenticated by: Jb Cavazos 03/09/21
[2021-03-09] MEDS: CHLORHEXIDINE GLUCONATE 1 ML ORAL.SOL SWABMOUTH SCH ×2 (08:58→21:25)
[2021-03-09] MEDS: FLUCONAZOLE 400 MG/200 ML BAG IV SCH (09:00)
[2021-03-09] MEDS: FAMOTIDINE/PF 20 MG/2 ML VIAL IV SCH ×2 (09:00→21:25)
[2021-03-09] MEDS ORDERED: [UNRECOGNIZED DRUG - REMARK] IV SCH (11:00)
[2021-03-09] MEDS ORDERED: NOREPINEPHRINE BITARTRATE 16 MG in 0.9 % SODIUM CHLORIDE 234 ML IV PRN (11:00)
[2021-03-09] MEDS: DEXTROSE 5% IN WATER 250 ML IV SCH ×3 (12:55→14:00)
--- NOTE | 2021-03-09 13:21 | General Surgery Progress Note ---
SUBJECTIVE Subjective Patient information: Note initiated : 03/09/21 at 1:16 pm Service Date, if different from initiated Date: [] Patient: Tommy Márquez 80 y/o M admitted on 02/18/21 for abdominal pain. Chief Complaint: [] Principal diagnosis: small bowel perforation with peritonitis; partial small bowel obstruction; Interval history: Patient remains intubated and ventilated. He has low level of sedation and moves all extremities well. Temperature is controlled. White blood count decreased to 20.1. Hemoglobin 9.4 and hematocrit 28.9. Renal status is stable and urine output remains good. Chest x-ray is stable without any new infiltrates. His oxygen requirements is significantly improved. Constitutional Vitals: Vital Signs Temp Pulse Resp BP Pulse Ox 100.4 F H 82 29 H 134/60 93 03/09/21 12:42 03/09/21 09:01 03/09/21 10:15 03/09/21 09:01 03/09/21 10:15 Period Temp Pulse Resp BP Sys/Beckford Pulse Ox Last 24 Hr 99.2 F-100.9 F 75-110 18-60 101-147/50-122 90-98 Intake and Output 03/08/21 03/09/21 03/09/21 21:59 05:59 13:59 Intake Total 1155 166 998 Output Total 1915 1468 600 Balance -760 -1302 398 Weight 172 lb 6.4 oz Intake & Output: Intake & Output 03/08/21 03/09/21 03/09/21 21:59 05:59 13:59 Intake Total 1155 166 998 Output Total 1915 1468 600 Balance -760 -1302 398 Weight 172 lb 6.4 oz Intake: IV 475 166 968 Sodium Chloride 0.9% 250 ml @ 67 20 mls/hr IV .[id number] [facility] Rx#: [id number] Dextrose 5% in Water 250 ml @ 194 790 10 mls/hr IV .Q24H [facility] Rx#: [id number] Merrem 1 gm In Sodium Chloride 50 50 50 0.9% 50 ml @ 100 mls/hr IV Q8H [facility] Rx#:[id number] Levophed 16 mg In Sodium 18 Chloride 0.9% 234 ml @ 10 MCG/ MIN 9.375 mls/hr IV Q24H [facility] Rx #:[id number] Diprivan 1,000 mg In Premix 1 46 16 28 Bag @ 5 MCG/KG/MIN 2.247 mls/hr IV .Q24H [facility] Rx#:[id number] Tube Feeding 0 0 Blood Product 650 NG Tube Flush 30 30 Right Nare 30 30 Output: Gastric Drainage 25 100 Right Nare 25 100 Drainage 90 178 Left AKIL Drain 90 150 Right Back 20 Right AKIL Drain 8 Drainage 110 Left AKIL Drain 90 Right Back 10 Right AKIL Drain 10 Urine Catheter Amount 1690 1190 600 Other: Urine Appearance Clear Clear Clear Uretheral (Jaime) Clear Clear Urine Color Bright Yellow Bright Yellow Dark Yellow Uretheral (Jaime) Bright Yellow Bright Yellow Urine Odor Normal Stool Size Smear Stool Color Green Neck Neck exam: Present full ROM and normal inspection Respiratory Respiratory exam: Present rales and rhonchi Additional comments: Coarse tubular breath sounds bilaterally with labored respirations; moderate tachypnea Cardiovascular Cardiovascular exam: Present normal rate and rhythm, +S1, +S2 and tachycardia; Absent JVD Additional comments: Heart rate is in the 80s and 90s. He is in sinus rhythm with an occasional ectopic ventricular beat GI/Abdominal GI/Abdominal exam: Present diminished bowel sounds and distended (Mildly distended compared to yesterday) Extremities Exam Additional comments: Diffuse edema of the extremities and trunk compatible with anasarca Neurological Exam Neurological exam: Present altered (Patient is sedated and ventilated) A/P Assessment and plan (1) Subhepatic abscess: Status: Acute (2) Unilateral inguinal hernia without obstruction or gangrene: Status: Chronic Qualifiers: Recurrence: not specified as recurrent Qualified Code(s): K40.90 - Unilateral inguinal hernia, without obstruction or gangrene, not specified as recurrent (3) Complete small bowel obstruction: Status: Acute (4) Incarcerated right inguinal hernia: Status: Acute (5) Perforation of small intestine: Status: Acute (6) Acute sepsis: Status: Acute (7) Acute pneumonitis: Status: Acute Narrative A/P Narrative: Continue on present antibiotic regimen Continue ventilatory support with attempts to wean over the next 2 to 3 days Follow hemoglobin closely and intervene if needed Time Spent With Patient Time: Total time spent is greater than 50% in coordination of care (as documented) at patient's floor/unit and/or counseling patient:
[2021-03-09] MEDS: METOPROLOL TARTRATE 5 MG/5 ML VIAL IV PRN ×2 (16:52→19:40)
[2021-03-09] MEDS ORDERED: HEPARIN/NS 500 ML IV SCH (18:15)
[2021-03-09] MEDS ORDERED: HEPARIN/NS 500 ML IV ONE (18:26)
--- NOTE | 2021-03-09 20:49 | Procedure Note ---
PROC Arterial Line Consent obtained: written consent Date of Procedure: 03/09/21 Time out performed: Yes Size (Gauge): 20 Technique used: guide wire technique Post-Procedure: line sutured into place, dry sterile dressing placed, easily flushed and waveform correlation Patient tolerated procedure: well Complications: none Site: left
[2021-03-10] MEDS: fentaNYL 100 MCG/2 ML VIAL IV PRN ×2 (00:01→19:04)
[2021-03-10] MEDS: 0.9 % SODIUM CHLORIDE 10 ML SYRINGE IV PRN ×3 (00:04→06:08)
[2021-03-10] MEDS: ACETAMINOPHEN 1,000 MG/100 ML BAG IV SCH ×4 (00:06→18:06)
[2021-03-10] MEDS: METOCLOPRAMIDE 10 MG/2 ML VIAL IV SCH ×4 (00:12→18:03)
[2021-03-10] MEDS: SUCRALFATE 1 GM/10 ML ORAL.SUSP PT SCH ×4 (00:20→18:03)
[2021-03-10] MEDS: INSULIN LISPRO 1 UNIT/0.01 ML UNIT SQ SCH ×4 (00:45→18:05)
[2021-03-10] MEDS: METOPROLOL TARTRATE 5 MG/5 ML VIAL IV PRN (05:53)
[2021-03-10] MEDS: 0.9 % SODIUM CHLORIDE 10 ML SYRINGE IV SCH ×6 (06:04→19:35)
[2021-03-10] MEDS: MEROPENEM 1 GM in 0.9 % SODIUM CHLORIDE 50 ML IV SCH ×2 (06:08→15:03)
[2021-03-10] MEDS: IPRATROPIUM/ALBUTEROL 3 ML AMPUL.NEB NEB SCH ×2 (06:38→13:25)
[2021-03-10] MEDS ORDERED: DIGOXIN 500 MCG/2 ML AMPUL IV ONE ×2 (07:02→13:00)
[2021-03-10 07:34] LABS: Basophils # (Auto) 0.02 K/mcL (0.00-0.20); Basophils % (Auto) 0.1 % (0.0-2.0); Eosinophils # (Auto) 0.06 K/mcL (0.00-0.70); Eosinophils % (Auto) 0.4 % (0.0-7.0); Hematocrit 23.6 % (41.0-55.0); Hemoglobin 7.7 g/dL (13.5-16.5); Lymphocytes # (Auto) 0.41 K/mcL (1.50-4.80); Lymphocytes % (Auto) 2.7 % (15.0-49.0); Mean Cell Volume 92.2 fL (80.0-100.0); Mean Corpuscular HGB Conc 32.6 g/dL (31.0-36.0); Mean Platelet Volume 12.5 fL (7.4-10.4); Monocytes # (Auto) 0.55 K/mcL (0.10-0.90); Monocytes % (Auto) 3.6 % (1.0-12.0); Neutrophils % (Auto) 93.2 % (38.0-78.0); Platelet Count 165 K/mcL (140-440); RBC 2.56 M/mcL (4.50-5.90); Red Cell Distribution Width 16.4 % (11.5-14.5); WBC 15.4 K/mcL (4.5-11.0)
[2021-03-10 07:44] LABS: ALT/SGPT 88 U/L (<40); AST/SGOT 185 U/L (<40); Albumin 2.3 gm/dL (3.2-5.2); Alkaline Phosphatase 187 U/L (39-117); Bilirubin,Total 1.3 mg/dL (0.1-1.0); Blood Urea Nitrogen 71 mg/dL (8-23); Calcium 7.9 mg/dL (8.6-10.4); Carbon Dioxide 27 mmol/L (22-30); Chloride 108 mmol/L (96-108); Globulin 2.2 gm/dL (2.2-3.7); Glomerular Filtration Rate 64; Glucose 148 mg/dL (70-105); Lactate Dehydrogenase 407 U/L (135-225); Phosphorous 4.6 mg/dL (2.5-4.5); Triglycerides 49 mg/dL (<150); Uric Acid 3.5 mg/dL (2.5-8.0)
[2021-03-10] MEDS ORDERED: AMIODARONE 150 MG in DEXTROSE 5% IN WATER 50 ML IV ONE (07:45)
[2021-03-10] MEDS ORDERED: AMIODARONE 360 MG in PREMIX 1 BAG IV SCH ×2 (08:00→14:00)
[2021-03-10] MEDS: FLUCONAZOLE 400 MG/200 ML BAG IV SCH (08:49)
[2021-03-10] MEDS: FAMOTIDINE/PF 20 MG/2 ML VIAL IV SCH (08:49)
[2021-03-10] MEDS: PANTOPRAZOLE 40 MG VIAL IV SCH ×2 (08:49→18:04)
[2021-03-10] MEDS: CHLORHEXIDINE GLUCONATE 1 ML ORAL.SOL SWABMOUTH SCH (08:51)
[2021-03-10] MEDS: PROPOFOL 1,000 MG in PREMIX 1 BAG IV SCH (09:10)
[2021-03-10] MEDS: DEXTROSE 5% IN WATER 250 ML IV SCH ×2 (09:13→10:55)
--- NOTE | 2021-03-10 09:55 | XRay Report ---
HISTORY: Intubated, follow-up pneumonia FINDINGS: Severe infiltrates are present throughout both lungs. There has been subtle improvement in the central portion of the left lung. However, the consolidation around the right upper hilum has become somewhat worse. There is no pneumothorax. No pleural effusion is seen on today's exam. Endotracheal tube and other support tubes remain well-positioned. The heart size is normal. IMPRESSION: Persistent severe bilateral pneumonia with slight improvement on the left but increasing consolidation on the right Interpreted and Authenticated by: Jb Cavazos 03/10/21
[2021-03-10] MEDS ORDERED: FUROSEMIDE 40 MG/4 ML VIAL IV ONE ×2 (10:35→18:00)
[2021-03-10] MEDS ORDERED: [UNRECOGNIZED DRUG - REMARK] IV SCH (11:00)
[2021-03-10] MEDS ORDERED: 0.9 % SODIUM CHLORIDE 250 ML IV SCH ×2 (11:30→18:45)
[2021-03-10] MEDS ORDERED: DEXTROSE 5% IN WATER 250 ML IV SCH (12:15)
--- NOTE | 2021-03-10 14:20 | General Surgery Progress Note ---
SUBJECTIVE Subjective Patient information: Note initiated : 03/10/21 at 2:12 pm Service Date, if different from initiated Date: [] Patient: Tommy Márquez 80 y/o M admitted on 02/18/21 for abdominal pain. Chief Complaint: [] Principal diagnosis: small bowel perforation with peritonitis; partial small bowel obstruction; Interval history: Patient is stable and slightly improved. Hemodynamically he is doing well but he has not improved from a respiratory standpoint. His white blood count is decreased. He is status recurrent bleeding with hemoglobin at 7.1. Creatinine is normal. Blood gases revealed pH 7.36, PCO2 49, PO2 72. He is still ventilated and sedated. Constitutional Vitals: Vital Signs Temp Pulse Resp BP Pulse Ox 99.5 F H 79 30 H 124/60 95 03/10/21 14:00 03/10/21 14:00 03/10/21 14:00 03/09/21 21:13 03/10/21 14:00 Period Temp Pulse Resp BP Sys/Beckford Pulse Ox Last 24 Hr 98.6 F-101.1 F 79-150 19-39 106-136/58-67 90-97 Intake and Output 03/10/21 03/10/21 03/10/21 05:59 13:59 21:59 Intake Total 150 2013 Output Total 1689 1585 Balance -1539 429 Intake & Output: Intake & Output 03/10/21 03/10/21 03/10/21 05:59 13:59 21:59 Intake Total 150 2013 Output Total 1689 1585 Balance -1539 429 Intake: IV 150 2013 Cordarone 150 mg In Dextrose 5% 53 in Water 50 ml @ 300 mls/hr IV ONCE ONE Rx#:[id number] Calcium Gluconate 20 Meq 1547 Potassium Chloride 60 Meq Infuvite Adult 10 ml In Clinimix 5%-20% Solution 2,000 ml @ 65 mls/hr IV DAILY@1100 [facility] Rx#:[id number] Dextrose 5% in Water 250 ml @ 192 10 mls/hr IV .Q24H [facility] Rx#: [id number] Merrem 1 gm In Sodium Chloride 50 50 0.9% 50 ml @ 100 mls/hr IV Q8H [facility] Rx#:[id number] Diprivan 1,000 mg In Premix 1 72 Bag @ 5 MCG/KG/MIN 2.247 mls/hr IV .Q24H [facility] Rx#:[id number] Output: Gastric Drainage 150 Right Nare 150 Drainage 99 Left AKIL Drain 80 Right Back 4 Right AKIL Drain 15 Urine Catheter Amount 1440 1585 Other: Urine Appearance Clear Clear Uretheral (Jaime) Clear Urine Color Bright Yellow Bright Yellow Uretheral (Jaime) Bright Yellow Urine Odor Normal Normal Uretheral (Jaime) Normal Stool Size Copious Stool Color Black Stool Consistency Liquid # Bowel Movements 1 # of times incontinent of 1 Bowels ENT ENT exam: Present mucous membranes dry, normal exam and normal oropharynx Additional comments: Dry mucous membranes are primarily due to mouth breathing Neck Neck exam: Present full ROM and normal inspection Respiratory Respiratory exam: Present rales and rhonchi Additional comments: Coarse tubular breath sounds bilaterally with labored respirations; moderate tachypnea Cardiovascular Cardiovascular exam: Present normal rate and rhythm, +S1, +S2 and tachycardia; Absent JVD Additional comments: Heart rate is in the 80s and 90s. He is in sinus rhythm with an occasional ectopic ventricular beat GI/Abdominal GI/Abdominal exam: Present diminished bowel sounds and distended (Mildly distended compared to yesterday) Extremities Exam Additional comments: Diffuse edema of the extremities and trunk compatible with anasarca Neurological Exam Neurological exam: Present altered (Patient is sedated and ventilated) Psychiatric Additional comments: Patient is sedated and ventilated A/P Assessment and plan (1) Subhepatic abscess: Status: Acute (2) Complete small bowel obstruction: Status: Acute (3) Incarcerated right inguinal hernia: Status: Acute (4) Perforation of small intestine: Status: Acute (5) Acute sepsis: Status: Acute (6) Acute pneumonitis: Status: Acute (7) Unilateral inguinal hernia without obstruction or gangrene: Status: Chronic Qualifiers: Recurrence: not specified as recurrent Qualified Code(s): K40.90 - Unilateral inguinal hernia, without obstruction or gangrene, not specified as recurrent (8) Upper gastrointestinal bleed: Status: Acute Narrative A/P Narrative: Continue on present antibiotic regime Follow hemoglobin closely and intervene if needed Patient probably will be transferred to high level of care. Time Spent With Patient Time: Total time spent is greater than 50% in coordination of care (as documented) at patient's floor/unit and/or counseling patient:
--- NOTE | 2021-03-10 18:30 | Discharge Summary ---
Discharge Provider Provider Patient information: Note initiated : 03/10/21 at 6:28 pm Service Date, if different from initiated Date: [] Patient: Tommy Márquez 80 y/o M admitted on 02/18/21 for abdominal pain. Chief Complaint: [] Date of admission: 02/18/21 19:50 Discharge date: 03/10/21 Primary care physician: Moy Luz PA-C Consults: 02/18/21 Consult to Physician [CONS] Stat Comment: Consulting Provider: aRvin Gonzalez Reason For Exam: Physician to Consult Consult to Physician [CONS] Stat Comment: Consulting Provider: Anita Rodriguez Reason For Exam: Physician to Consult 02/27/21 05:43 Consult to Physician [CONS] Routine Comment: Consulting Provider: Neville Sheridan Reason For Exam: Physician to Consult 03/06/21 10:42 Consult to Physician [CONS] Routine Comment: Consulting Provider: Carlos Vines Reason For Exam: Physician to Consult COURSE Hospital Course Hospital course: Tommy Márquez is a 80 years old male admitted on 02/18/21 with abdominal pain under surgery service. Patient was diagnosed with an incarcerated right inguinal hernia with small bowel obstruction. General surgery performed right inguinal hernia repair on 02/20/21, the patient was found to have a tightly incarcerated small bowel with venous compression, but no visual evidence of ischemia. The pt was doing well and was on diet. On 02/27/21 early am pt developed new onset atrial fibrillation with RVR and hypotension. Internal medicine was consulted, the patient was transferred to the ICU. A CT abdomen and pelvis with contrast which per radiology showed recurrent small bowel obstruction in the mid jejunum, intraperitoneal fluid suggestive of third spacing due to bowel obstruction and a small amount of free intraperitoneal air possibly from recent surgery. There was also a moderate right and small left pleural effusion with a moderate consolidation in the posterior right lower lobe. The patient was started on broader spectrum antibiotics with Cefepime and Flagyl, levofloxacin was discontinued. Atrial fibrillation was treated with Cardizem and digoxin. The patient underwent emergent exploratory laparotomy 02/27/21, intraoperative findings where small bowel obstruction, perforation of the ileum, diffuse peritonitis and pelvic abscess. The patient underwent small bowel adhesiolysis, peritoneal lavage and drainage and closure the microperforation. After surgery the patient returned to the ICU and remained intubated. 02/28 Interval history: pt remained intubated. No overnight issues. NG suction fluid noted to have coffee ground material. On minimal Vent support. Follows commands during sedation vacation. Daughter at bedside. No fever. BP stable now. Was briefly on Levophed last night but now off. HR ~100. follows commands of sedation holiday. 03/01 Extubated, continued on nasal canula oxygen 2 l/min. Received 2 units of RBC for downtrending hemoglobin. 03/02 Currently he is on 2 L oxygen follows commands. His heart rate is around 100. He has no fever. He has persistent coffee-ground emesis via NG. He is hemodynamically stable on 2 L oxygen. No significant events overnight 03/04 Interval history: Pt dropped Hb to 6.7, required more RBC transfusion. Still having Coffee G emesis. He is on 2-3 L O2. HR in 100s. Started Digoxin IV yesterday. Plan for EGD today, on Protonix IV. 03/05 EGD showed diffuse gastric ulcers, acute duodenal ulceration with duodenitis. Was able to sit at the side of the bed for several minutes this morning but did tire him out. Currently resting. Awakens. No new complaints. D5 water and follow-up sodium, sodium still elevated. Follow-up with afternoon, still no bowel movements. 03/06 Patient was on 4L oxygen mask yesterday but it was on 8 this morning. Patient appeared labored and put on BiPAP at 50%. After clearing out thick oral secretions. Nursing staff was much more judicious with pain medications yesterday, further decreased today. Chest CT with b/l pneumonia superimposed on moderate emphysema. 03/07 Patient is on oxymask at 15 but states he overall feels little better, denies dyspnea. will try vapotherm. Has headache but denies other complaints. Intubated for poor oral production. Patient severely weak and debilitated and not clearing secretions. Blood pressure became hypotensive after intubation and radiology procedure (intra-abdominal abscess drainage/catheter placement and right thoracentesis for 610 ml blood tinged fluid) and was put on vasopressors. Initial ventilator settings were 100% FiO2 and 10 of PEEP but after several hours PEEP was decreased to 8 and FiO2 was decreased to 70 with continued titration down of FiO2 because of high O2 saturations. 7/9 FiO2 now down to 45%. T-max overnight 100.4. NG tube output now bilious and not melanotic. Hemoglobin down but large component is dilutional. Patient having BMs now. White blood cell count now improving slowly. Bandemia now resolved. titrating down levophed. 03/09 Cuff leak yesterday. ET tube changed out by anesthesiology. Brief weaning trial this morning but patient was tachypneic and uncomfortable. The patient follows commands during sedation vacation. FiO2 requirement down down to 35%. Ventilator desynchrony with high peak pressures, acceptable plateau pressure. Arterial line placed, changed from volume control to PRVC ventilator mode, the patient appears more comfortable with PRVC. Developed afib with RVR, started amiodarone ggt. 03/10 Converted back to normal sinus rythm on amiodarone. Brief weaning trial terminated due to tachypnea and discomfort. Attempt to decrease tidal volume unsuccessful, continues on TV of 540, RR set at 18 (overbreathing at about 24 bpm), PEEP 8, FiO2 35. Discussed transfer with [facility] ICU in [facility] due to difficult weaning and lack of intensive care consultants at [facility]. The patient was accepted to [facility], CTA chest requested to evaluate for pulmonary embolism. A couple hours later acutely developed maroon blood per rectum, NG tube pulling bloody fluid. Patient was initially hypotensive. 3 units of type O blood given, type and screen for 6 units, IV fluid and levophed on board. Vitals improved. CT chest cancelled. Updated [facility] about new GI bleeding, discussed with casino operations supervisor GI and recommended starting Protonix ggt. Discontinued Protonix IV BID for Protonix ggt. All available typed and screen blood sent with life flight transport. Medications at time of hospital discharge were protonix ggt, amiodarone ggt, Lopressor IV prn for afib rate control, propofol for mechanical ventilation sedation, levophed as needed for MAP > 65, Meropenem, scheduled duonebs, the patient was also on Pepcid and Sucralfate. Ongoing issues; -Acute blood loss anemia from upper GI bleed, suspect duodenal ulcer bleed, will need GI and possibly IR for intervention and possibly more blood tranfusions. -Ventilator management, difficult weaning process, was on Meropenem for abdominal infection and also HAP (possibly due to aspiration), moderate emphysem a on CT chest, possible ARDS? -Multiple abdominal drains for bowel perforation s/p exploratory laparotomy and subhepatic abscess, consider general surgery consult. -Severe generalized weakness due to critical illness will need PT and PT, likely acute inpatient rehab vs LTAC or SNF for rehab when discharged from [facility]. Discharge diagnosis: Incarcerated right inquinal hernia Secondary discharge diagnosis: Acute hypoxic respiratory failure Hospital acquired pneumonia, likely from aspiration Acute blood loss anemia Upper GI bleed Atrial fibrillation Subhepatic abscess Acute kidney injury Severe generalized weakness Reason for admission: Incarcerated right inguinal hernia Time Spent with Patient Time attestation: Total time spent providing and/or coordinating discharge services: EXAM Constitutional Vitals: Temp Pulse Resp BP Pulse Ox 99.8 F H 86 25 H 166/64 94 03/10/21 18:06 03/10/21 18:00 03/10/21 18:00 03/10/21 16:30 03/10/21 18:00 Additional findings Additional findings: Physical exam Head: Atraumatic, normal inspection, Eyes: normal appearance, no scleral icterus. Neck: full ROM Respiratory: Mechanically ventilated via endotracheal tube. Cardiovascular: normal rate and rhythm, S1, S2. GI/Abdominal: NG tube suction with blood, multiple abdominal drains, maroon blood per rectum, Extremities: full range of motion, nontender. Neurological: sedated with propofol Discharge Data Data Completed and Pending Labs on day of discharge: Labs from last 24 hours 03/10/21 03/10/21 03/10/21 16:20 16:20 10:20 WBC RBC Hgb 8.2 L 7.1 L Hct MCV MCH MCHC RDW Plt Count MPV Neut % (Auto) Lymph % (Auto) Morrow % (Auto) Eos % (Auto) Baso % (Auto) Lymph # (Auto) Morrow # (Auto) Eos # (Auto) Baso # (Auto) Absolute Neutrophils Sodium Potassium Chloride Carbon Dioxide Anion Gap BUN Creatinine GFR Calculation Glucose Uric Acid Calcium Phosphorus Magnesium Total Bilirubin Direct Bilirubin GGT AST ALT Alkaline Phosphatase Lactate Dehydrogenase Total Protein Albumin Globulin Albumin/Globulin Ratio Triglycerides Procalcitonin 4.89 H 03/10/21 03/10/21 04:53 04:53 WBC 15.4 H RBC 2.56 L Hgb 7.7 L Hct 23.6 L MCV 92.2 MCH 30.1 MCHC 32.6 RDW 16.4 H Plt Count 165 MPV 12.5 H Neut % (Auto) 93.2 H Lymph % (Auto) 2.7 L Morrow % (Auto) 3.6 Eos % (Auto) 0.4 Baso % (Auto) 0.1 Lymph # (Auto) 0.41 L Morrow # (Auto) 0.55 Eos # (Auto) 0.06 Baso # (Auto) 0.02 Absolute Neutrophils 14.32 H Sodium 144 Potassium 4.0 Chloride 108 Carbon Dioxide 27 Anion Gap 9.0 BUN 71 H Creatinine 1.1 GFR Calculation 64 Glucose 148 H Uric Acid 3.5 Calcium 7.9 L Phosphorus 4.6 H Magnesium 2.0 Total Bilirubin 1.3 H Direct Bilirubin 1.0 H GGT 69 H AST 185 H ALT 88 H Alkaline Phosphatase 187 H Lactate Dehydrogenase 407 H Total Protein 4.5 L Albumin 2.3 L Globulin 2.2 Albumin/Globulin Ratio 1.0 Triglycerides 49 Procalcitonin Preliminary micro results at discharge 03/06/21 10:15 Blood Culture - Preliminary Blood 03/06/21 10:07 Blood Culture - Preliminary Blood 03/07/21 15:20 Gram Stain - Preliminary Amniotic Fluid Body Fluid Culture - Preliminary 03/07/21 15:20 Gram Stain - Preliminary Pleural Fluid Body Fluid Culture - Preliminary 02/27/21 09:50 Blood Culture - Preliminary Blood Bacteroides fragilis Discharge Plan Patient/Caregiver Discharge Instructions Activity: other Diet: NPO Prescriptions: Discontinued lisinopril-hydrochlorothiazide 10-12.5 mg tablet 1 tab PO QDAY Qty: 90 RF: 3 Follow Up Plan Follow up with: Moy Luz PA-C [Primary Care Provider] - Patient Disposition: [facility] Overall status at discharge: patient is not back to baseline Discharge Orders: Discharge Order (Routine); Ordered 03/10/21 Ordered By: Ravin Gonzalez QUALITY VTE Deep Vein Thrombosis/Pulmonary Embolism Present on Admission: No
[2021-03-10] MEDS ORDERED: NOREPINEPHRINE BITARTRATE 4 MG/4 ML VIAL IV ONE (18:56)
[2021-03-10] MEDS ORDERED: 0.9 % SODIUM CHLORIDE 1,000 ML IV ONE (19:00)
[2021-03-10] MEDS ORDERED: PANTOPRAZOLE 40 MG VIAL IV ONE ×2 (19:33→19:44)
[2021-03-10] MEDS ORDERED: PANTOPRAZOLE 80 MG in 0.9 % SODIUM CHLORIDE 100 ML IV SCH (19:45)
--- NOTE | 2021-03-11 12:29 | EKG ---
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 Measurements Intervals [place] Rate: 142 P: NM: QRS: -18 QRSD: 76 T: 80 QT: 316 QTc: 486 Interpretive Statements ATRIAL FIBRILLATION BORDERLINE LEFT AXIS DEVIATION BORDERLINE PROLONGED QT INTERVAL Since previous ECG of 02-27-2021, NEW A-FIB, NO VENTRICULAR ECTOPY ABNORMAL ECG Electronically Signed On 03-11-2021 12:28:57 PDT by Chevy Key M.D. /[facility]//[id number]
[2021-03-11] MEDS ORDERED: DIGOXIN 500 MCG/2 ML AMPUL IV SCH (14:00)
[2021-03-11] MEDS ORDERED: FAT EMULSION 20% 250 ML IV SCH (16:00)
--- NOTE | 2021-04-09 16:57 | EGD Procedure Note ---
PREOPERATIVE DIAGNOSIS: Upper gastrointestinal bleeding. POSTOPERATIVE DIAGNOSES: Diffuse gastric ulcers with acute duodenal ulceration with duodenitis. No evidence of bleeding. PROCEDURE: Esophagogastroduodenoscopy. SURGEON: Anita Rodriguez M.D. FINDINGS: Diffuse punctate ulcerations of the entire stomach with some healing superficial ulcers. Healing duodenal bulb ulcer with diffuse hemorrhagic inflammation of the surrounding tissue of the duodenal bulb. No active bleeding. Normal third portion of the duodenum. DESCRIPTION OF PROCEDURE: Under general anesthesia, the patient turned to the left lateral decubitus position. Timeout procedure was carried out as per protocol. Bite block was placed. Scope was introduced through the bite block into the retropharynx and into the esophagus. The esophagus was normal. Upon entering the stomach, there was some old blood and bile in the stomach, but no acute bleeding. The stomach had diffuse punctate superficial ulcerations of the entire stomach starting in the upper fundus and extending all the way to the pylorus. These superficial ulcerations were in variable stages of healing. The mucosa was friable, but there was no acute bleeding noted after thorough washings. There were no major ulcerations noted in the stomach proper. Pylorus was mildly deformed, but there was no channel ulcer. In the duodenal bulb, there was a cavitary lesion but with a fibrinous healing base. There was no visible vessel and no active bleeding. There were diffuse hemorrhagic changes of the surrounding mucosa of the duodenal bulb. There was mild inflammation of the second portion of the duodenum but the third portion of the duodenum was normal, and there was no old blood in the distal duodenum. This area was irrigated. The scope was pulled back and epinephrine flush was carried out of the duodenal bulb and the inflamed areas and no active bleeding was noted. Another epinephrine flush was carried out of the more hemorrhagic areas of the stomach and no active bleeding was noted. It was elected not to do biopsies because of the severe hemorrhage. The patient tolerated the procedure well. Air and water was suctioned from the stomach and the procedure was terminated. The patient tolerated this portion of the procedure well. He was left intubated and preparation was made to close his abdominal incision. LCS:jemma Job ID: [id number] Doc ID: [id number] Anita Rodriguez M.D.
--- NOTE | 2021-04-09 17:00 | Operative Note ---
DATE OF OPERATION: 03/04/2021 PREOPERATIVE DIAGNOSIS: Open abdominal incision, status post laparotomy. POSTOPERATIVE DIAGNOSIS: Open abdominal incision, status post laparotomy. PROCEDURE: Secondary closure of abdominal incision. SURGEON: Anita Rodriguez M.D. DESCRIPTION OF PROCEDURE: Under general anesthesia after the upper endoscopy was completed, the patient was positioned in the supine position. His abdominal wall was prepped and draped in a sterile field. The drains were left intact. The midline incision was irrigated with bacitracin solution and then scrubbed with Hibiclens. The wound had early granulation and was very clean. The subcutaneous tissue was healthy. Subcutaneous fat was closed with running 2-0 Monocryl. The skin was closed with estefany. The incision was covered with folded 4 x 4 gauze and Tegaderm. The patient tolerated the procedure well. He was left intubated and transferred to the ICU in stable condition. LCS:jemma Job ID: [id number] Doc ID: [id number] Anita Rodriguez M.D.
== END 2021-03-10 20:20 | disposition short-term general hospital (02) | DRG 329 ==
LOC: ED 14:14 → MEDSUR 19:50 → ICU 02-27 08:14
PROVIDERS: ADMIT Internal Medicine; ATTEND Internal Medicine